=== PATIENT | male | born 1945 | race Caucasian/White ===

== ENCOUNTER → 2016-06-03 | Outpatient (CLI) | payer MEDICARE, OTHER ==
--- NOTE | 2016-06-03 13:03 | US ---
EXAMINATION TYPE: US duplex aorta DATE OF EXAM: 06/03/2016 12:27 PM COMPARISON: CT 2014 CLINICAL HISTORY: SCREENING AAA. EXAM MEASUREMENTS: Abdominal Aorta: Proximal: 1.8 CM Mid: 1.6 CM Distal: 2.0 CM Bifurcation: 1.3 CM IMPRESSION: LARGE BODY HABITUS, OVERLYING BOWEL GAS , DISTAL AORTA PLAQUE SEEN LIMITED DO TO GAS AN D PT HABITUS. No evidence for abdominal aortic aneurysm this time. Normal Values: 2.5cm upper limits for normal at upper portion 1.5cm upper limits for normal at iliac More than 2.5cm is ectatic and 3.0cm+ is aneurysmal. Abdominal Aortic Aneurysms: 3.0-3.9cm diameter: annual US surveillance recommended 4.0-4.9cm diameter: 6 month US surveillance recommended 5.0 +cm: recommendation for elective aneurysm repair in appropriate surgical candidate
--- NOTE | 2016-06-04 10:54 | ECHOF ---
Referral Reason:I51.9 heart dis MEASUREMENTS -------- HEIGHT: 172.7 cm WEIGHT: 95.3 kg BP: IVSd: 1.5 cm (0.6 - 1.1) LVIDd: 5.0 cm (3.9 - 5.3) LVPWd: 1.4 cm (0.6 - 1.1) IVSs: 1.4 cm LVIDs: 3.5 cm LVPWs: 1.3 cm Ao Diam: 3.0 cm (2.0 - 3.7) AV Cusp: 2.0 cm (1.5 - 2.6) LA Diam: 3.2 cm (2.7 - 3.8) MV EXCURSION: 14.577 mm (> 18.000) MV EF SLOPE: 72 mm/s (70 - 150) EPSS: 0.6 cm MV E Varun: 1.11 m/s MV DecT: 232 ms MV A Varun: 0.44 m/s MV E/A Ratio: 2.53 RAP: 5.00 mmHg RVSP: 7.91 mmHg FINDINGS -------- Sinus rhythm. This was a technically difficult study with suboptimal views. There is moderate concentric left ventricular hypertrophy. Overall left ventricular systolic function is mildly impaired with, an EF between 45 - 50 %. Basal inferior LV wall motion is hypokinetic. The right ventricle is normal in size and function. The left atrium is normal in size. The right atrium is normal in size. The aortic valve is trileaflet, and appears structurally normal. No aortic stenosis or regurgitation. The mitral valve leaflets are mildly thickened. Mild mitral regurgitation is present. Mild tricuspid regurgitation present. The right ventricular systolic pressure, as measured by Doppler, is 7.91mmHg. Pulmonic valve appears structurally normal. The aortic root size is normal. The pericardium is normal. CONCLUSIONS -------- 1. Sinus rhythm. 2. The mitral valve leaflets are mildly thickened. 3. Mild mitral regurgitation is present. 4. Mild tricuspid regurgitation present. 5. The right ventricular systolic pressure, as measured by Doppler, is 7.91mmHg. 6. Pulmonic valve appears structurally normal. 7. The aortic root size is normal. 8. The pericardium is normal. 9. This was a technically difficult study with suboptimal views. 10. There is moderate concentric left ventricular hypertrophy. 11. Overall left ventricular systolic function is mildly impaired with, an EF between 45 - 50 %. 12. Basal inferior LV wall motion is hypokinetic. 13. The right ventricle is normal in size and function. 14. The left atrium is normal in size. 15. The right atrium is normal in size. 16. The aortic valve is trileaflet, and appears structurally normal. No aortic stenosis or regurgitation. PROGRAM DIRECTOR [employer]ENT: Cat Posey RDCS
== END | disposition home or self-care (01) ==
LOC: RADUSWWP 11:55
PROVIDERS: ATTEND Family Medicine
DX: Z13.6 Encounter for screening for cardiovascular disorders (principal); I70.0 Atherosclerosis of aorta
CPT/HCPCS: 93979; C8929; Q9957; 93306

== ENCOUNTER 2016-06-27 18:21 | Emergency (ER) | payer MEDICARE, OTHER ==
[2016-06-27 18:30] VITALS: BP 152/69; PULSE 90; RESP 20; TEMP 97.8
[2016-06-27] MEDS ORDERED: LEVOFLOXACIN 500 MG TAB PO STA (18:56)
--- NOTE | 2016-06-27 18:56 | ED ---
General Adult HPI - General Chief complaint: Recheck/Abnormal Lab/Rx Stated complaint: congestion Time Seen by Provider: 06/27/16 18:31 Source: patient, family, RN notes reviewed, old records reviewed Mode of arrival: ambulatory Limitations: no limitations - History of Present Illness Initial comments: Chief complaint and history of present illness this is 71-year-old male was sent emergency room from [facility] for review of his chest x-ray. The patient 's been having aches and pains one week ago recently shortness of breath and cough. Denies fever. Patient has a past history of COPD. He's had pleurisy once a year for the past several years. Old chest x-rays and CAT scans are available for comparison. [facility] also [facility] and placed on the computer for comparison. - Related Data Home Medications Medication Instructions Recorded Confirmed Albuterol Sulfate [Proair Hfa] 1 puff INHALATION DIRECTED 06/29/14 06/29/14 Aspirin EC [Ecotrin] 81 mg PO DAILY 06/29/14 06/29/14 Atorvastatin [Lipitor] 40 mg PO DAILY 06/29/14 06/29/14 Fluticasone/Salmeterol [Advair Hfa 1 puff INHALATION DIRECTED 06/29/14 45-21 Mcg Inhaler] Furosemide [Lasix] 40 mg PO DAILY 06/29/14 06/29/14 Magnesium 1 tab PO DAILY 06/29/14 06/29/14 Multivitamins, Thera [Multivitamin] 1 tab PO DAILY 06/29/14 06/29/14 [place]-3 Fatty Acids [[place]-3] 1 tab PO DAILY 06/29/14 06/29/14 Spironolactone [Spironolactone] 12.5 mg PO DAILY 06/29/14 06/29/14 Ubidecarenone [Co Q-10] 1 tab PO DAILY 06/29/14 06/29/14 Previous Rx's Medication Instructions Recorded Hydrocodone/Acetaminophen [[place] 1 each PO Q6HR PRN #30 tab 06/29/14 5-325] Miconazole Nitrate [Lotrimin AF 1 applic TOPICAL BID #1 dispenser 06/29/14 Powder] Levofloxacin [Levaquin] 500 mg PO DAILY #7 tab 06/27/16 Allergies Allergy/AdvReac Type Severity Reaction Status Date / Time No Known Allergies Allergy Verified 06/27/16 18:30 Review of Systems ROS Statement: Those systems with pertinent positive or pertinent negative responses have been documented in the HPI. Review of systems no complaint of headache or visual acuity changes he coughs for over one week. Mildly productive. Discomfort to the right flank area with coughing. No nausea no vomiting no neuro deficits. All systems were otherwise reviewed are negative. Past medical processing significant for mild COPD, hyperlipidemia, 2 myocardial infarctions the first one in 1989 and 2008. 2089 stop smoking 3 vessel CABG. Other surgeries include right shoulder surgery. Family history father of kidney failure. Patient denies ALLERGIES. Quit smoking 2008. Drinks alcohol socially. ROS Other: All systems not noted in ROS Statement are negative. Past Medical History Past Medical History: COPD, Hyperlipidemia, Myocardial Infarction ([place]) History of Any Multi-Drug Resistant Organisms: None Reported Past Surgical History: Back Surgery, Coronary Bypass/CABG, Hernia Repair, Orthopedic Surgery Additional Past Surgical History / Comment(s): carpal tunnel/ shoulder Past Psychological History: No Psychological Hx Reported Smoking Status: Former smoker Past Alcohol Use History: Rare Past Drug Use History: None Reported General Exam - General Exam Comments Initial Comments: General: The patient is awake and alert, hip because of coughing for one week. Aches and pains one week ago. His immunizations including flu shot are up-to-date. Vital signs show temperature 97.8 pulse 90 respiratory rate 20 pulse ox 96% room air blood pressure 152/69. Elevated systolic noted. The patient is to be following up with his family physician next 1-2 weeks. Eye: Pupils are equal, round and reactive to light, extra-ocular movements are intact ; there is normal conjunctiva bilaterally. No signs of icterus. History of cataract surgery. Ears, nose, mouth and throat: There are moist mucous membranes and no oral lesions. Neck: The neck is supple, there is no tenderness , no anterior cervical lymphadenopathy. Cardiovascular: There is a regular rate and rhythm. No murmur, rub or gallop is appreciated. Respiratory: Crepitant rales left base. Gastrointestinal: Soft, non-distended, non-tender abdomen without masses or organomegaly noted. There is no rebound or guarding present. No CVA tenderness. Back: There is no tenderness to palpation in the midline. There is no obvious deformity. No rashes noted. Mild on-again off-again discomfort to the right lateral abdominal area. None now. Musculoskeletal: Normal ROM, no tenderness, There is no pedal edema. There is no calf tenderness or swelling. Sensation intact. Pulses equal bilaterally 2+. Neurological: No neuro deficit Skin: No skin rashes Limitations: no limitations Course Vital Signs 06/27/16 18:27 Temperature 97.8 F Pulse Rate 90 Respiratory 20 Rate Blood Pressure 152/69 O2 Sat by Pulse 96 Oximetry Medical Decision Making - Medical Decision Making Reviewed the x-ray provided by the [facility]. Comparing them to x- rays from [address] the chest. They're similar except today's x-ray does show left lower lobe infiltrate. Clinically the patient has crepitant rales in that same area. Patient be placed on Levaquin 500 daily for one week. Also advised to follow-up with family physician. Disposition Clinical Impression: Infiltrate noted on imaging study Disposition: HOME SELF-CARE Condition: Stable Instructions: Bacterial Pneumonia (ED) Additional Instructions: Stay well-hydrated. Tylenol or ibuprofen for fever or pain. Levaquin daily for 1 week. Suggested they get repeat chest x-ray within 2 weeks make sure infiltrate is gone. Prescriptions: Levofloxacin [Levaquin] 500 mg PO DAILY #7 tab Time of Disposition: 18:55
== END 2016-06-27 19:19 | disposition home or self-care (01) ==
LOC: EC 18:21
DX: J15.9 Unspecified bacterial pneumonia (principal); R91.8 Other nonspecific abnormal finding of lung field; R06.02 Shortness of breath; J44.9 Chronic obstructive pulmonary disease, unspecified; E78.5 Hyperlipidemia, unspecified; I25.2 Old myocardial infarction; Z87.891 Personal history of nicotine dependence; Z79.82 Long term (current) use of aspirin; Z79.899 Other long term (current) drug therapy
CPT/HCPCS: 99283

== ENCOUNTER → 2016-07-30 | Outpatient (CLI) | payer MEDICARE, OTHER ==
--- NOTE | 2016-07-30 13:55 | CT ---
EXAMINATION TYPE: CT chest wo con DATE OF EXAM: 07/30/2016 1:46 PM COMPARISON: NONE HISTORY: Lobar Pneumonia CT DLP: 525.6 mGycm, Automated exposure control for dose reduction was used. CONTRAST: None TECHNIQUE: Axial images were obtained at 5 mm thick sections. Reconstructed images are reviewed on [email or web address] computer in the coronal plane. FINDINGS: Portion of the thyroid visualized is normal. There is some minimal pleural thickening along the anterior lateral right midlung margin measuring 0. 5 cm in maximum depth. This was present previously. Scarring at the anterior lingula is stable the ba se. There is a borderline 1.0 cm right paratracheal lymph node. Additional shotty lymphadenopathy is pre sent. The ascending aorta diameter at the level of the main pulmonary artery is 3.5 cm. The main pul monary artery diameter at the bifurcation is 2.1 cm. Coronary artery calcification is noted. Limited CT sections are obtained through the upper abdomen. Abdomen is essentially unremarkable. IMPRESSIONS: 1. Stable appearance of the CT chest.
== END | disposition home or self-care (01) ==
LOC: RADCTMAIN 12:50
PROVIDERS: ATTEND Internal Medicine Critical Care Medicine
DX: J18.1 Lobar pneumonia, unspecified organism (principal)
CPT/HCPCS: 71020; 71250; 99213

== ENCOUNTER 2016-12-21 11:38 | Inpatient (IN) | payer MEDICARE, OTHER ==
[2016-12-21] MEDS ORDERED: methylPREDNISolone SOD SUCCI 125 MG/2 ML VIAL IV STA (12:00)
[2016-12-21] MEDS ORDERED: IPRATROPIUM-ALBUTEROL 3 ML NEB INHALATION STA (12:00)
--- NOTE | 2016-12-21 12:05 | ED ---
SOB HPI - General Chief Complaint: Shortness of Breath Stated Complaint: PRASANNA Time Seen by Provider: 12/21/16 11:50 Source: patient, RN notes reviewed Mode of arrival: wheelchair Limitations: no limitations - History of Present Illness Initial Comments: This is a 71-year-old male with a history of chronic lung disease who presents with complaints of 4 days of shortness of breath which got especially bad today she has exertional dyspnea. He also states for the past for 5 days and 90s had rate posterior shoulder pain that felt similar to his rotator cuff being injured. He is pain-free right elbow when he has a pain states is 20/10 severity. He has a chronic cough of phlegm production is no change in the phlegm color. No other complaints at this time the shortness of breath has been refractory to his home updrafts. Complaint: shortness of breath - Related Data Home Medications Medication Instructions Recorded Confirmed Aspirin EC [Ecotrin] 81 mg PO DAILY 06/29/14 06/27/16 Atorvastatin [Lipitor] 40 mg PO DAILY 06/29/14 06/27/16 Furosemide [Lasix] 40 mg PO DAILY 06/29/14 06/27/16 Magnesium 200 mg PO DAILY 06/29/14 06/27/16 Multivitamins, Thera [Multivitamin] 1 tab PO DAILY 06/29/14 06/27/16 [place]-3 Fatty Acids [[place]-3] 1,000 mg PO DAILY 06/29/14 06/27/16 Spironolactone [Spironolactone] 12.5 mg PO DAILY 06/29/14 06/27/16 Ubidecarenone [Co Q-10] 100 mg PO DAILY 06/29/14 06/27/16 Previous Rx's Medication Instructions Recorded Miconazole Nitrate [Lotrimin AF 1 applic TOPICAL BID #1 dispenser 06/29/14 Powder] Levofloxacin [Levaquin] 500 mg PO DAILY #7 tab 06/27/16 Allergies Allergy/AdvReac Type Severity Reaction Status Date / Time No Known Allergies Allergy Verified 12/21/16 11:44 Review of Systems ROS Statement: Those systems with pertinent positive or pertinent negative responses have been documented in the HPI. ROS Other: All systems not noted in ROS Statement are negative. Past Medical History Past Medical History: COPD, Hyperlipidemia, Hypertension, Myocardial Infarction ([place]) History of Any Multi-Drug Resistant Organisms: None Reported Past Surgical History: Back Surgery, Coronary Bypass/CABG, Hernia Repair, Orthopedic Surgery Additional Past Surgical History / Comment(s): carpal tunnel/ shoulder Past Psychological History: No Psychological Hx Reported Smoking Status: Former smoker Past Alcohol Use History: Rare Past Drug Use History: None Reported General Exam - General Exam Comments Initial Comments: This is a well-developed well-nourished awake alert oriented times 3 male Limitations: no limitations General appearance: alert, anxious Head exam: Present: atraumatic, normocephalic, normal inspection Eye exam: Present: normal appearance, PERRL, EOMI. Absent: scleral icterus, conjunctival injection, periorbital swelling ENT exam: Present: normal exam, mucous membranes moist Neck exam: Present: normal inspection. Absent: tenderness, meningismus, lymphadenopathy Respiratory exam: Present: decreased breath sounds. Absent: respiratory distress, wheezes, rales, rhonchi, stridor Cardiovascular Exam: Present: regular rate, normal rhythm, normal heart sounds. Absent: systolic murmur, diastolic murmur, rubs, gallop, clicks GI/Abdominal exam: Present: soft, normal bowel sounds. Absent: distended, tenderness, guarding, rebound, rigid Extremities exam: Present: normal inspection, full ROM, normal capillary refill. Absent: tenderness, pedal edema, joint swelling, calf tenderness Back exam: Present: normal inspection Neurological exam: Present: alert, oriented X3, CN II-XII intact Psychiatric exam: Present: normal affect, normal mood Skin exam: Present: warm, dry, intact, normal color. Absent: rash Course Vital Signs 12/21/16 12/21/16 12/21/16 11:41 12:09 12:22 Temperature 97.0 F L Pulse Rate 65 66 Respiratory 20 18 20 Rate Blood Pressure 175/82 185/88 O2 Sat by Pulse 96 100 Oximetry 12/21/16 12/21/16 12:25 12:35 Temperature Pulse Rate 68 76 Respiratory Rate Blood Pressure O2 Sat by Pulse Oximetry - Reevaluation(s) Reevaluation #1: 12/21/16 13:09 Patient is showing improvement with respect to breathing no chest pain. Medical Decision Making - Medical Decision Making I did discuss findings with the patient family members regarding the findings. Patient has no demonstrate no chest pain his breathing has improved somewhat. He does demonstrate an elevated troponin he will be admitted for evaluation by cardiology. - Lab Data Result diagrams: 12/21/16 11:50 12/21/16 11:50 Lab Results 12/21/16 12/21/16 12/21/16 Range/Units 11:50 11:50 11:50 WBC (3.8-10.6) k/uL RBC (4.30-5.90) m/uL Hgb (13.0-17.5) gm/dL Hct (39.0-53.0) % MCV (80.0-100.0) fL MCH (25.0-35.0) pg MCHC (31.0-37.0) g/dL RDW (11.5-15.5) % Plt Count (150-450) k/uL Neutrophils % % Lymphocytes % % Monocytes % % Eosinophils % % Basophils % % Neutrophils # (1.3-7.7) k/uL Lymphocytes # (1.0-4.8) k/uL Monocytes # (0-1.0) k/uL Eosinophils # (0-0.7) k/uL Basophils # (0-0.2) k/uL PT 10.3 (9.0-12.0) sec INR 1.0 (<1.2) APTT 23.7 (22.0-30.0) sec D-Dimer 0.58 (<0.60) mg/L FEU Sodium 142 (137-145) mmol/L Potassium 4.4 (3.5-5.1) mmol/L Chloride 99 (98-107) mmol/L Carbon Dioxide 31 H (22-30) mmol/L Anion Gap 12 mmol/L BUN 28 H (9-20) mg/dL Creatinine 1.65 H (0.66-1.25) mg/dL Est GFR (MDRD) Af Amer 50 (>60 ml/min/1.73 sqM) Est GFR (MDRD) Non-Af 41 (>60 ml/min/1.73 sqM) Glucose 87 (74-99) mg/dL Calcium 9.6 (8.4-10.2) mg/dL Magnesium 2.0 (1.6-2.3) mg/dL Total Bilirubin 1.1 (0.2-1.3) mg/dL AST 40 (17-59) U/L ALT 42 (21-72) U/L Alkaline Phosphatase 78 (38-126) U/L Total Creatine Kinase (55-170) U/L CK-MB (CK-2) (0.0-2.4) ng/mL CK-MB (CK-2) Rel Index Troponin I (0.000-0.034) ng/mL NT-Pro-B Natriuret Pep 4770 pg/mL Total Protein 8.2 (6.3-8.2) g/dL Albumin 4.9 (3.5-5.0) g/dL Amylase 63 (30-110) U/L Lipase 82 (23-300) U/L 12/21/16 12/21/16 Range/Units 11:50 11:50 WBC 6.4 (3.8-10.6) k/uL RBC 5.09 (4.30-5.90) m/uL Hgb 16.2 (13.0-17.5) gm/dL Hct 48.4 (39.0-53.0) % MCV 95.1 (80.0-100.0) fL MCH 31.9 (25.0-35.0) pg MCHC 33.5 (31.0-37.0) g/dL RDW 13.7 (11.5-15.5) % Plt Count 237 (150-450) k/uL Neutrophils % 68 % Lymphocytes % 22 % Monocytes % 6 % Eosinophils % 3 % Basophils % 0 % Neutrophils # 4.3 (1.3-7.7) k/uL Lymphocytes # 1.4 (1.0-4.8) k/uL Monocytes # 0.4 (0-1.0) k/uL Eosinophils # 0.2 (0-0.7) k/uL Basophils # 0.0 (0-0.2) k/uL PT (9.0-12.0) sec INR (<1.2) APTT (22.0-30.0) sec D-Dimer (<0.60) mg/L FEU Sodium (137-145) mmol/L Potassium (3.5-5.1) mmol/L Chloride (98-107) mmol/L Carbon Dioxide (22-30) mmol/L Anion Gap mmol/L BUN (9-20) mg/dL Creatinine (0.66-1.25) mg/dL Est GFR (MDRD) Af Amer (>60 ml/min/1.73 sqM) Est GFR (MDRD) Non-Af (>60 ml/min/1.73 sqM) Glucose (74-99) mg/dL Calcium (8.4-10.2) mg/dL Magnesium (1.6-2.3) mg/dL Total Bilirubin (0.2-1.3) mg/dL AST (17-59) U/L ALT (21-72) U/L Alkaline Phosphatase (38-126) U/L Total Creatine Kinase 511 H (55-170) U/L CK-MB (CK-2) 9.2 H* (0.0-2.4) ng/mL CK-MB (CK-2) Rel Index 1.8 Troponin I 0.075 H* (0.000-0.034) ng/mL NT-Pro-B Natriuret Pep pg/mL Total Protein (6.3-8.2) g/dL Albumin (3.5-5.0) g/dL Amylase (30-110) U/L Lipase (23-300) U/L - EKG Data -: EKG Interpreted by Tn EKG shows normal: sinus rhythm (Sinus rhythm rate of 80 IA interval 168 QRS 84 daily since QTC of 42/463 moderate voltage criteria for LVH old inferior changes nonspecific T-wave changes this is compared with EKG dated 12/08/10) - Radiology Data Radiology results: report reviewed (I did review the imaging and reports no acute findings.), image reviewed Critical Care Time Critical Care Time: Yes Critical Care Time: 31 minutes of critical care time which includes initial presentation with history physical labs x-rays reevaluation patient response to therapy. Discussed with the patient family regarding findings discussed with the admitting service. Admission orders and documentation of the above. Disposition Clinical Impression: Non-ST elevation myocardial infarction (NSTEMI), Acute exacerbation of chronic obstructive airways disease, Adult respiratory distress syndrome Disposition: ADMITTED IP TO THIS HOSP Condition: Stable Referrals: Feliz El MD [Primary Care Provider] - 1-2 days
[2016-12-21 12:18] LABS: Basophils % (A) 0 %; CH 31.3; Eosinophils # (A) 0.2 k/uL (0-0.7); Eosinophils % (A) 3 %; HCT 48.4 % (39.0-53.0); HDW 2.41; HGB 16.2 gm/dL (13.0-17.5); Luc # (Auto) 0.11; Luc % (Auto) 2; Lymphocytes # (A) 1.4 k/uL (1.0-4.8); Lymphocytes % (A) 22 %; MCH 31.9 pg (25.0-35.0); MCHC 33.5 g/dL (31.0-37.0); MCV 95.1 fL (80.0-100.0); Mean Platelet Volume 7.5; Monocytes # (A) 0.4 k/uL (0-1.0); Monocytes % (A) 6 %; Neutrophils # (A) 4.3 k/uL (1.3-7.7); Neutrophils % (A) 68 %; RBC 5.09 m/uL (4.30-5.90); RDW 13.7 % (11.5-15.5); WBC 6.4 k/uL (3.8-10.6); WBC (Perox) 6.23
[2016-12-21 12:27] LABS: Calcium 9.6 mg/dL (8.4-10.2); Potassium 4.4 mmol/L (3.5-5.1); Total Bilirubin 1.1 mg/dL (0.2-1.3); Total Protein 8.2 g/dL (6.3-8.2)
--- NOTE | 2016-12-21 12:35 | XR ---
EXAMINATION TYPE: XR chest 2V DATE OF EXAM: 12/21/2016 COMPARISON: 07/30/2016 and 06/10/2014 HISTORY: 71-year-old male difficulty breathing, shortness of breath TECHNIQUE: AP and lateral views FINDINGS: Median sternotomy wires are present with post-CABG clips. The heart is upper limits of normal in size . Mild interstitial prominence appears largely chronic. Opacity at the left base with corresponding p leural-based thickening was present in 2015. No ureteric consolidation or pleural effusion seen. IMPRESSION: 1. Chronic interstitial prominence, possible chronic bronchitis/asthma. 2. Left basilar opacity is unchanged from 2015 suggesting pleural parenchymal scarring. 3. No definite acute process.
[2016-12-21 12:52] LABS: Partial Thromboplastin Time 23.7 sec (22.0-30.0); Prothrombin Time 10.3 sec (9.0-12.0)
[2016-12-21 12:55] LABS: Creatine Kinase MB 9.2 ng/mL (0.0-2.4); Troponin I 0.075 ng/mL (0.000-0.034)
[2016-12-21] MEDS ORDERED: HEPARIN SODIUM,PORCINE 5,000 UNIT/ML 1 ML VIAL IV ONE (13:13)
[2016-12-21] MEDS: SODIUM CHLORIDE 0.9% 1,000 ML IV SCH (13:40)
[2016-12-21] MEDS: HEPARIN SODIUM,PORCINE/D5W PMX 25,000 UNIT in DEXTROSE/WATER 1 500ML.BAG IV SCH (13:42)
[2016-12-21] MEDS: NITROGLYCERIN OINT 1 INCH/GM PACKET TOPICAL SCH ×2 (14:23→23:21)
[2016-12-21] MEDS ORDERED: FUROSEMIDE 10 MG/ML 4 ML VIAL IV STA ×2 (14:26→14:29)
[2016-12-21] MEDS ORDERED: ASPIRIN 81 MG CHEW PO PRN (14:32)
--- NOTE | 2016-12-21 14:40 | P.HPIM ---
History of Present Illness 71-year-old male presented to the emergency room with complaints of shortness of breath for three days. Patient was found to have elevated troponins. Patient hypertensive at this time. Patient said he has had a lot of stress this week. Patient is a history of [place] post CABG with history of renal failure since the CABG. Patient sees Dr. Barnes for COPD. She's cardiology [facility] for history of CAD. Patient will be admitted for cardiac workup and consultation with pulmonology Review of Systems Respiratory: Reports dyspnea Musculoskeletal: right: shoulder pain Past Medical History Past Medical History: COPD, Hyperlipidemia, Hypertension, Myocardial Infarction ([place]) History of Any Multi-Drug Resistant Organisms: None Reported Past Surgical History: Back Surgery, Coronary Bypass/CABG, Hernia Repair, Orthopedic Surgery Additional Past Surgical History / Comment(s): carpal tunnel/ shoulder Past Psychological History: No Psychological Hx Reported Smoking Status: Former smoker Past Alcohol Use History: Rare Past Drug Use History: None Reported Medications and Allergies Home Medications Medication Instructions Recorded Confirmed Type Aspirin EC [Ecotrin] 81 mg PO DAILY PRN 06/29/14 12/21/16 History Atorvastatin [Lipitor] 40 mg PO HS 06/29/14 12/21/16 History Furosemide [Lasix] 40 mg PO DAILY 06/29/14 12/21/16 History Multivitamins, Thera [Multivitamin] 1 tab PO DAILY 06/29/14 12/21/16 History Spironolactone [Spironolactone] 12.5 mg PO DAILY 06/29/14 12/21/16 History Ubidecarenone [Co Q-10] 100 mg PO DAILY 06/29/14 12/21/16 History Allergies Allergy/AdvReac Type Severity Reaction Status Date / Time No Known Allergies Allergy Verified 12/21/16 13:23 Physical Exam Vitals: Vital Signs Temp Pulse Resp BP Pulse Ox 12/21/16 14:22 76 18 199/99 98 12/21/16 13:38 97.3 F L 72 18 191/84 97 12/21/16 12:35 76 12/21/16 12:25 68 12/21/16 12:22 66 20 185/88 100 12/21/16 12:09 18 12/21/16 11:41 97.0 F L 65 20 175/82 96 Intake and Output 12/20/16 12/21/16 12/21/16 22:59 06:59 14:59 Other: Weight 95.254 kg Patient Weight 12/22/16 06:59 Weight 95.254 kg - Constitutional General appearance: obese - EENT Eyes: PERRLA ENT: normal oropharynx Ears: bilateral: normal - Neck Neck: normal ROM - Respiratory Respiratory: bilateral: diminished - Cardiovascular Rhythm: regular - Gastrointestinal General gastrointestinal: soft - Integumentary Integumentary: normal - Neurologic Neurologic: CNII-XII intact - Psychiatric Psychiatric: A&O x's 3, appropriate affect, intact judgment & insight Results CBC & Chem 7: 12/21/16 11:50 12/21/16 11:50 Labs: Abnormal Lab Results - Last 24 Hours (Table) 12/21/16 12/21/16 Range/Units 11:50 11:50 Carbon Dioxide 31 H (22-30) mmol/L BUN 28 H (9-20) mg/dL Creatinine 1.65 H (0.66-1.25) mg/dL Total Creatine Kinase 511 H (55-170) U/L CK-MB (CK-2) 9.2 H* (0.0-2.4) ng/mL Troponin I 0.075 H* (0.000-0.034) ng/mL Chest x-ray: report reviewed Assessment and Plan Plan: Assessment non-ST elevation [place] is demonstrate by elevated troponin acute exacerbation of COPD hypertension history of hyperlipidemia history of [place] posts CABG chronic renal failure stable right shoulder pain Plan cardiology consultation consultation with pulmonology Dr. Barnes
--- NOTE | 2016-12-21 15:50 | P.CRDCN ---
History of Present Illness Consult date: 12/21/16 History of present illness: This is a 71-year-old gentleman with history of ischemic heart disease with a previous bypass surgery 2 and also COPD who was admitted to the hospital with complaints of increasing shortness of breath. It seems to make it was getting progressively worse, but this morning when he woke up he could not walk, without getting short of breath, even 10 feet. Patient denied any chest pain but was having severe right shoulder pain. Patient had bypass surgery in 1996 with a MADRID graft to the LAD, vein graft to the right coronary artery and also circumflex coronary artery. In 2008. Patient had repeat cardiac catheterization and repeat bypass surgery with vein graft to the first diagonal , vein graft to the OM branch of circumflex and vein graft to the right coronary artery. Patient was noted at the time and to have 70-80% ostial left main disease. Patient had a patent MADRID. Patient comes now with complaints of increasing shortness of breath. His first troponin value is elevated. His chest x-ray showed possible mild CHF though there could be an exacerbation of COPD. Patient is treated with IV Lasix and is being admitted to the hospital. Further examination depend upon the clinical course. Patient is going to have additional troponins and also echocardiogram. 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 Past Medical History Past Medical History: COPD, Hyperlipidemia, Hypertension, Myocardial Infarction ([place]) History of Any Multi-Drug Resistant Organisms: None Reported Past Surgical History: Back Surgery, Coronary Bypass/CABG, Hernia Repair, Orthopedic Surgery Additional Past Surgical History / Comment(s): carpal tunnel/ shoulder Past Psychological History: No Psychological Hx Reported Smoking Status: Former smoker Past Alcohol Use History: Rare Past Drug Use History: None Reported Medications and Allergies Home Medications Medication Instructions Recorded Confirmed Type Aspirin EC [Ecotrin] 81 mg PO DAILY PRN 06/29/14 12/21/16 History Atorvastatin [Lipitor] 40 mg PO HS 06/29/14 12/21/16 History Furosemide [Lasix] 40 mg PO DAILY 06/29/14 12/21/16 History Multivitamins, Thera [Multivitamin] 1 tab PO DAILY 06/29/14 12/21/16 History Spironolactone [Spironolactone] 12.5 mg PO DAILY 06/29/14 12/21/16 History Ubidecarenone [Co Q-10] 100 mg PO DAILY 06/29/14 12/21/16 History Allergies Allergy/AdvReac Type Severity Reaction Status Date / Time No Known Allergies Allergy Verified 12/21/16 13:23 Physical Exam Vitals: Vital Signs Temp Pulse Resp BP Pulse Ox 12/21/16 14:50 85 18 186/87 98 12/21/16 14:22 76 18 199/99 98 12/21/16 13:38 97.3 F L 72 18 191/84 97 12/21/16 12:35 76 12/21/16 12:25 68 12/21/16 12:22 66 20 185/88 100 12/21/16 12:09 18 12/21/16 11:41 97.0 F L 65 20 175/82 96 Intake and Output 12/21/16 12/21/16 12/21/16 06:59 14:59 22:59 Intake Total 20 Balance 20 Intake: Intake, IV Titration 20 Amount Sodium Chloride 0.9% 1, 20 000 ml @ 20 mls/hr IV . Q24H [facility] Rx#:[id number] Other: Weight 95.254 kg Patient Weight 12/22/16 06:59 Weight 95.254 kg GENERAL EXAM: Patient is alert and oriented and doesn't appear to be in any acute distress HEENT: Normocephalic. Normal reaction of pupils, equal size, normal range of extraocular motion. No erythema or exudates in the throat. NECK: No masses, no nuchal rigidity. No Sigmund JVD CHEST: No chest wall deformity. LUNGS: Diminished air exchange with scattered rhonchi HEART: S1 and S2 normal with no audible mumurs or gallops. Regular rhythm, femorals equal on both sides.. ABDOMEN: No hepatosplenomegaly, normal bowel sounds, no guarding or rigidity. SKIN: No rashes CENTRAL NERVOUS SYSTEM: No focal deficits. EXTREMITIES: No cyanosis, clubbing or edema. Results 12/21/16 11:50 12/21/16 11:50 Cardiac Enzymes 12/21/16 12/21/16 Range/Units 11:50 11:50 AST 40 (17-59) U/L CK-MB (CK-2) 9.2 H* (0.0-2.4) ng/mL Troponin I 0.075 H* (0.000-0.034) ng/mL Coagulation 12/21/16 Range/Units 11:50 PT 10.3 (9.0-12.0) sec APTT 23.7 (22.0-30.0) sec CBC 12/21/16 Range/Units 11:50 WBC 6.4 (3.8-10.6) k/uL RBC 5.09 (4.30-5.90) m/uL Hgb 16.2 (13.0-17.5) gm/dL Hct 48.4 (39.0-53.0) % Plt Count 237 (150-450) k/uL Comprehensive Metabolic Panel 12/21/16 Range/Units 11:50 Sodium 142 (137-145) mmol/L Potassium 4.4 (3.5-5.1) mmol/L Chloride 99 (98-107) mmol/L Carbon Dioxide 31 H (22-30) mmol/L BUN 28 H (9-20) mg/dL Creatinine 1.65 H (0.66-1.25) mg/dL Glucose 87 (74-99) mg/dL Calcium 9.6 (8.4-10.2) mg/dL AST 40 (17-59) U/L ALT 42 (21-72) U/L Alkaline Phosphatase 78 (38-126) U/L Total Protein 8.2 (6.3-8.2) g/dL Albumin 4.9 (3.5-5.0) g/dL Current Medications Generic Name Dose Route Start Last Admin Trade Name Freq PRN Reason Stop Dose Admin Albuterol/Ipratropium 3 ml 12/21/16 16:00 Duoneb 0.5 Mg-3 Mg/3 Ml Soln INHALATION RT-Q4H [facility] Aspirin 325 mg 12/22/16 09:00 Aspirin PO DAILY [facility] Aspirin 81 mg 12/21/16 14:32 Aspirin PO DAILY PRN Pain Atorvastatin Calcium 40 mg 12/22/16 09:00 Lipitor PO DAILY [facility] Furosemide 40 mg 12/21/16 16:00 Lasix PO BID@0900,1600 [facility] Heparin Sodium/Dextrose 25,000 500 mls @ 20 mls/hr 12/21/16 13:15 12/21/16 13 :42 unit/ IV Solution IV 10.5 units/kg/hr .Q24H [facility] 20 mls/hr Protocol Administration 10.5 UNITS/KG/HR Sodium Chloride 1,000 mls @ 20 mls/hr 12/21/16 13:15 12/21/16 13:40 Saline 0.9% IV 20 mls/hr .Q24H [facility] Administration Magnesium Oxide 400 mg 12/22/16 09:00 Mag-Ox PO DAILY [facility] Methylprednisolone Sodium Succinate 60 mg 12/21/16 18:00 Solu-Medrol IV Q6HR [facility] Multivitamins 1 each 12/22/16 09:00 Theragran PO DAILY [facility] Nitroglycerin 1 inch 12/21/16 18:00 12/21/16 14:23 Nitro-Bid Oint TOPICAL 1 inch Q6HR [facility] Administration Nitroglycerin 0.4 mg 12/21/16 13:13 Nitrostat SUBLINGUAL Q5M PRN Chest Pain Spironolactone 12.5 mg 12/22/16 09:00 Aldactone PO DAILY [facility] Intake and Output 12/21/16 12/21/16 12/21/16 06:59 14:59 22:59 Intake Total 20 Balance 20 Intake: Intake, IV Titration 20 Amount Sodium Chloride 0.9% 1, 20 000 ml @ 20 mls/hr IV . Q24H [facility] Rx#:[id number] Other: Weight 95.254 kg Patient Weight 12/22/16 06:59 Weight 95.254 kg 12/21/16 11:50 12/21/16 11:50 EKG Interpretations (text) Sinus rhythm Assessment and Plan (1) Congestive heart failure Status: Acute (2) Acute exacerbation of chronic obstructive airways disease Status: Acute (3) Ischemic heart disease Status: Acute (4) H/O heart bypass surgery Status: Acute (5) Dyslipidemia Status: Acute (6) Chronic renal failure Status: Acute Plan: Continue current management. Follow-up cardiac enzymes studies. Get an echocardiogram done. Further recommendation will depend upon the clinical course. If cardiac enzymes are size to be myocardial infarction, patient may need cardiac catheterization.
[2016-12-21] MEDS: IPRATROPIUM-ALBUTEROL 3 ML NEB INHALATION SCH ×2 (16:35→21:24)
--- NOTE | 2016-12-21 16:44 | XR ---
EXAMINATION TYPE: XR shoulder complete RT DATE OF EXAM: 12/21/2016 CLINICAL HISTORY: pain TECHNIQUE: Three views of the right shoulder are obtained. COMPARISON: 04/08/2013 FINDINGS: There is no acute fracture/dislocation evident. The acromioclavicular and glenohumeral tyrone int spaces appear mildly narrowed.. The visualized ribs are intact and unremarkable. IMPRESSION: 1. There is no acute fracture or dislocation. ICD 10 NO FRACTURE, INITIAL EVALUATION
[2016-12-21] MEDS: INSULIN LISPRO (humaLOG) 300 UNIT/3 ML VIAL SQ SCH ×2 (17:20→21:53)
[2016-12-21] MEDS: methylPREDNISolone SOD SUCCI 125 MG/2 ML VIAL IV SCH ×2 (17:23→21:54)
[2016-12-21] MEDS: FUROSEMIDE 40 MG TAB PO SCH (17:23)
[2016-12-21 20:09] LABS: Glucose,Whole Blood 119 mg/dL (75-99)
[2016-12-21 20:20] LABS: Creatine Kinase MB 7.6 ng/mL (0.0-2.4); Troponin I 0.056 ng/mL (0.000-0.034)
[2016-12-21 20:27] LABS: Hemoglobin A1C 5.8 % (4.2-6.1)
[2016-12-21 20:35] LABS: Glucose,Whole Blood 245 mg/dL (75-99)
[2016-12-21] MEDS ORDERED: IPRATROPIUM-ALBUTEROL 3 ML NEB INHALATION PRN (21:28)
[2016-12-21] MEDS ORDERED: HEPARIN SODIUM,PORCINE 5,000 UNIT/ML 1 ML VIAL IV PRN (22:06)
[2016-12-22 00:30] LABS: Creatine Kinase MB 6.9 ng/mL (0.0-2.4); Troponin I 0.051 ng/mL (0.000-0.034)
[2016-12-22 06:33] LABS: Glucose,Whole Blood 143 mg/dL (75-99)
[2016-12-22 06:47] LABS: Cholesterol 155 mg/dL (<200); Triglycerides 54 mg/dL (<150)
[2016-12-22 06:48] LABS: HDL Cholesterol 59 mg/dL (40-60)
[2016-12-22] MEDS: methylPREDNISolone SOD SUCCI 125 MG/2 ML VIAL IV SCH ×4 (06:49→23:03)
[2016-12-22] MEDS: INSULIN LISPRO (humaLOG) 300 UNIT/3 ML VIAL SQ SCH ×4 (06:50→23:03)
[2016-12-22] MEDS: NITROGLYCERIN OINT 1 INCH/GM PACKET TOPICAL SCH (06:50)
[2016-12-22] MEDS ORDERED: ASPIRIN 325 MG TAB PO SCH (09:00)
[2016-12-22] MEDS ORDERED: NON-FORMULARY DRUG (Ubidecarenone [Co Q-10] 100 MG) PO SCH (09:00)
[2016-12-22] MEDS ORDERED: FUROSEMIDE 40 MG TAB PO SCH (09:00)
[2016-12-22] MEDS: IPRATROPIUM-ALBUTEROL 3 ML NEB INHALATION SCH ×4 (09:01→20:37)
--- NOTE | 2016-12-22 09:48 | P.PN ---
Subjective Patient resting in bed without complaint states shoulder pain is improved. Has had consultation with cardiology. They're reviewing the need for cardiac cath Objective - Vital Signs Vital signs: Vital Signs Temp 97.1 F L 12/22/16 08:25 Pulse 84 12/22/16 09:17 Resp 16 12/22/16 08:25 BP 143/87 12/22/16 08:25 Pulse Ox 96 12/22/16 08:25 Intake & Output 12/21/16 12/22/16 12/22/16 18:59 06:59 18:59 Intake Total 20 405 Output Total 300 300 Balance -280 405 -300 Weight 95.254 kg Intake: Intake, IV Titration 20 168 Amount Heparin Sodium,Porcine/ 168 D5w Pmx 25,000 unit In Dextrose/Water 1 500ml. bag @ 10.5 UNITS/KG/HR 20 mls/hr IV .Q24H [facility] Rx#: [id number] Sodium Chloride 0.9% 1, 20 000 ml @ 20 mls/hr IV . Q24H [facility] Rx#:[id number] Oral 237 Output: Urine 300 300 - Constitutional General appearance: Present: obese - EENT Eyes: Present: PERRLA Ears: bilateral: normal - Neck Neck: Present: normal ROM - Respiratory Respiratory: bilateral: CTA - Cardiovascular Rhythm: regular - Gastrointestinal General gastrointestinal: Present: soft - Integumentary Integumentary: Present: normal - Neurologic Neurologic: Present: CNII-XII intact - Musculoskeletal Musculoskeletal: Present: gait normal - Psychiatric Psychiatric: Present: A&O x's 3, appropriate affect, intact judgment & insight - Labs CBC & Chem 7: 12/21/16 11:50 12/21/16 11:50 Labs: Abnormal Lab Results - Last 24 Hours (Table) 12/21/16 12/21/16 12/21/16 Range/Units 11:50 11:50 16:57 APTT (22.0-30.0) sec Carbon Dioxide 31 H (22-30) mmol/L BUN 28 H (9-20) mg/dL Creatinine 1.65 H (0.66-1.25) mg/dL POC Glucose (mg/dL) 119 H (75-99) mg/dL Total Creatine Kinase 511 H (55-170) U/L CK-MB (CK-2) 9.2 H* (0.0-2.4) ng/mL Troponin I 0.075 H* (0.000-0.034) ng/mL 12/21/16 12/21/16 12/21/16 Range/Units 19:03 19:03 20:33 APTT 37.6 H (22.0-30.0) sec Carbon Dioxide (22-30) mmol/L BUN (9-20) mg/dL Creatinine (0.66-1.25) mg/dL POC Glucose (mg/dL) 245 H (75-99) mg/dL Total Creatine Kinase 406 H (55-170) U/L CK-MB (CK-2) 7.6 H* (0.0-2.4) ng/mL Troponin I 0.056 H* (0.000-0.034) ng/mL 12/21/16 12/22/16 12/22/16 Range/Units 23:29 05:30 06:13 APTT 50.2 H (22.0-30.0) sec Carbon Dioxide (22-30) mmol/L BUN (9-20) mg/dL Creatinine (0.66-1.25) mg/dL POC Glucose (mg/dL) 143 H (75-99) mg/dL Total Creatine Kinase 394 H (55-170) U/L CK-MB (CK-2) 6.9 H* (0.0-2.4) ng/mL Troponin I 0.051 H* (0.000-0.034) ng/mL Assessment and Plan Plan: Assessment CHF awaiting report from echo Acute exacerbation of COPD Elevated troponin levels History of [place] post CABG Hyperlipidemia Chronic renal failure stable develop post CABG Shoulder pain mild arthritis Hypertension Plan Continue consultation with cardiology Consultation with pulmonology regarding COPD
--- NOTE | 2016-12-22 10:03 | CDI ---
In responding to this query, please exercise your independent professional judgment. The [facility] Coding Staff and Clinical Documentation Specialists appreciate your assistance in clarifying documentation, maintaining compliance with coding guidelines, accurately documenting patients condition and capturing severity of illness. The fact that a question is asked does not imply that any particular answer is desired or expected. Communication forms are a method of clarifying documentation and are not made part of the Legal Health Record. Thank you in advance for your clarification. Last Revision, July 2016 Pancho Carrera [address] [place] [address] Documentation Clarification Form Date: 12/22/2016 9:42:00 AM From: Tanya Santos RN, CCDS Admit Date: 12/21/2016 1:13:00 PM Patient Name: Dennys Cuevas Visit Number: [id number] Dr. Seda Cardenas/Sugar Faye DNP CHF is documented in the Cardiology Consult. History/Risk Factors: Ischemic heart disease, CABG x2, COPD, NH, Former Smoker Clinical Indicators: VS/Pulse OX: Temp 97, hr 65, RR 20, B/P 175/82, spo2 96% ra BNP: 4770 Chest X Ray: chronic interstitial prominence, possible chronic bronchitis/ asthma. Left basilar opacity Treatment: Consults: cardiology Lasix 40 mg IVP x1, followed by Lasix 40 mg PO BID In your professional opinion, can you please clarify the acuity and type of CHF if known? Systolic Heart Failure: Acute Chronic Acute on Chronic Diastolic Heart Failure: Acute Chronic Acute on Chronic Systolic & Diastolic Heart Failure: Acute Chronic Acute on Chronic Unable to determine Other, please specify Please document in your progress notes and discharge summary in order to capture severity of illness and risk of mortality. Include clinical findings that support your diagnosis. FYI: Press F11 to launch patient chart. NATHALY
[2016-12-22] MEDS: HEPARIN SODIUM,PORCINE/D5W PMX 25,000 UNIT in DEXTROSE/WATER 1 500ML.BAG IV SCH (10:06)
--- NOTE | 2016-12-22 10:22 | ECHOF ---
Referral Reason:Chest pain and cardiomyopathy MEASUREMENTS -------- HEIGHT: 170.2 cm WEIGHT: 95.3 kg BP: 186/87 IVSd: 1.6 cm (0.6 - 1.1) LVIDd: 3.0 cm (3.9 - 5.3) LVPWd: 1.7 cm (0.6 - 1.1) IVSs: 2.0 cm LVIDs: 2.0 cm LVPWs: 2.1 cm Ao Diam: 3.2 cm (2.0 - 3.7) AV Cusp: 2.4 cm (1.5 - 2.6) LA Diam: 3.6 cm (2.7 - 3.8) MV EXCURSION: 13.883 mm (> 18.000) MV EF SLOPE: 37 mm/s (70 - 150) EPSS: 1.1 cm MV E Varun: 0.92 m/s MV DecT: 257 ms MV A Varun: 0.53 m/s MV E/A Ratio: 1.73 RAP: 5.00 mmHg RVSP: 9.71 mmHg FINDINGS -------- Sinus rhythm. This was a technically difficult study with suboptimal views. There is severe concentric left ventricular hypertrophy. Overall left ventricular systolic function is normal with, an EF between 55 - 60 %. The right ventricle is normal in size and function. The left atrium is normal in size. The right atrium is normal in size. 1.5mg of Definity was utilized for enhancement of images The aortic valve was not well visualized. There is trace mitral regurgitation. Trace tricuspid regurgitation present. The right ventricular systolic pressure, as measured by Doppler, is 9.71mmHg. The pulmonic valve was not well visualized. The aortic root size is normal. The pericardium is normal. CONCLUSIONS -------- 1. Sinus rhythm. 2. There is trace mitral regurgitation. 3. Trace tricuspid regurgitation present. 4. The right ventricular systolic pressure, as measured by Doppler, is 9.71mmHg. 5. The pulmonic valve was not well visualized. 6. The aortic root size is normal. 7. The pericardium is normal. 8. This was a technically difficult study with suboptimal views. 9. There is severe concentric left ventricular hypertrophy. 10. Overall left ventricular systolic function is normal with, an EF between 55 - 60 %. 11. The right ventricle is normal in size and function. 12. The left atrium is normal in size. 13. The right atrium is normal in size. 14. 1.5mg of Definity was utilized for enhancement of images 15. The aortic valve was not well visualized. MUSICIAN INSTRUMENTAL: Cat Posey RDCS
[2016-12-22] MEDS ORDERED: ACETAMINOPHEN TAB 325 MG TAB PO PRN (10:25)
[2016-12-22 10:51] LABS: Calcium 8.9 mg/dL (8.4-10.2); Potassium 3.9 mmol/L (3.5-5.1)
[2016-12-22] MEDS ORDERED: DEXTROSE 5% IN WATER 100 ML with AMIODARONE 150 MG IV ONE (11:00)
[2016-12-22] MEDS: AMIODARONE 450 MG in DEXTROSE 5% IN WATER 250 ML IV SCH ×4 (11:47→23:04)
[2016-12-22] MEDS: FUROSEMIDE 40 MG TAB PO SCH ×2 (11:58→17:29)
[2016-12-22] MEDS: MULTIVITAMINS, THERA 1 EACH TAB PO SCH (11:58)
[2016-12-22] MEDS: MAGNESIUM OXIDE 400 MG TAB PO SCH (11:58)
[2016-12-22] MEDS: SPIRONOLACTONE 25 MG TAB PO SCH (11:58)
[2016-12-22] MEDS: ATORVASTATIN 40 MG TAB PO SCH (11:58)
[2016-12-22 11:59] LABS: Glucose,Whole Blood 248 mg/dL (75-99)
[2016-12-22] MEDS: Acetaminophen-Codeine 300-30mg TAB PO PRN ×2 (14:44→17:28)
--- NOTE | 2016-12-22 14:48 | P.CNPUL ---
History of Present Illness Consult date: 12/22/16 Reason for consult: dyspnea, chest pain, COPD History of present illness: 69-year-old male patient with known history of COPD with a baseline FEV1 of 44% of predicted and a diffusion capacity of 55% of predicted. The patient also has history of coronary artery disease and has undergone previous bypass surgery twice and the second time was in 2008 and he had quit smoking since then. He carries more than [id number] smoking history. He also has chronic renal failure. This patient was in a good state of health until around 3 days ago when he started having episodes of right shoulder and posterior back pain in addition to increased shortness of breath and diaphoresis. The shoulder pain was episodic. He was having few hours of pain which was subsequently go away and then come back. He was getting progressively more short of breath and he was getting short of breath with activities of daily today life and even while walking short distances. For that reason he came into the hospital and the patient was found to have no acute EKG abnormalities and some nonspecific changes seen on EKG. The troponin was positive and the patient ruled in for non -ST segment elevation myocardial infarction. He was started on IV heparin. The right shoulder pain subsided however. This morning the patient went into atrial fibrillation with rapid ventricular response. Currently is on a Cardizem drip for rate control. Echocardiac Geovanni was also done and the patient has a preserved LV function without any significant valvular abnormalities. Note that the patient is post bypass surgery of the heart 2. The surgery was initially done in 1996 that included MADRID to LAD and saphenous vein graft to RCA and circumflex. In 2008 the patient had redo bypass surgery. In between he has also had coronary interventions and stenting. Cardiology is on the scene and the patient there are plans to proceed with a cardiac angiogram at a later stage. Meanwhile, the patient is feeling slightly better. Less short of breath compared to yesterday. His atrial fibrillation which is of a new onset is being controlled with Cardizem drip. He is also on IV heparin. Producing adequate amount of urine output. No chest pain. No pleurisy. No hemoptysis. No fever or chills or night sweats. His chest x-ray showing no acute cardio pulmonary abnormalities. Review of Systems Constitutional: Reports lethargy, Reports sweats, Reports weakness Eyes: denies as per HPI, denies blurred vision, denies bulging eye Ears: deny: decreased hearing, ear discharge Ears, nose, mouth and throat: Denies headache, Denies sore throat Cardiovascular: Reports decreased exercise tolerance, Reports shortness of breath Respiratory: Reports cough, Reports dyspnea, Reports wheezing Gastrointestinal: Denies abdominal pain, Denies diarrhea, Denies nausea, Denies vomiting Genitourinary: Reports as per HPI Musculoskeletal: Denies myalgias Musculoskeletal: absent: ankle pain, ankle stiffness, ankle swelling Integumentary: Denies pruritus, Denies rash Neurological: Denies numbness, Denies weakness Psychiatric: Denies anxiety, Denies depression Endocrine: Reports as per HPI Past Medical History Past Medical History: Coronary Artery Disease (CAD), COPD, GERD/Reflux, Hyperlipidemia, Myocardial Infarction ([place]) Additional Past Medical History / Comment(s): COPD with a baseline FEV1 of 44% of predicted, coronary artery bypass surgery with previous carotid bypass surgery 2 and previous coronary intervention and stenting, hyperlipidemia, acid reflux, peripheral vascular disease, chronic renal failure, osteoarthritis , chronic back pain, hemorrhoids, hayfever, hyperlipidemia Last Myocardial Infarction Date:: 2008 History of Any Multi-Drug Resistant Organisms: None Reported Past Surgical History: Back Surgery, Coronary Bypass/CABG, Heart Catheterization With Stent, Hernia Repair, Orthopedic Surgery Additional Past Surgical History / Comment(s): EDWIN carpal tunnel/ RT shoulder, X2 CABG 1993 AND 2008, INC HERNIA REPAIR W/ MESH, "4 CARDAIC STENTS",EDWIN CATARACTS, COLONOSCOPY Past Anesthesia/Blood Transfusion Reactions: Postoperative Nausea & Vomiting ( PONV) Additional Past Anesthesia/Blood Transfusion Reaction / Comment(s): CLAUSTERPHOBIA Date of Last Stent Placement:: UNK Smoking Status: Former smoker - Past Family History Mother Family Medical History: No Reported History Additional Family Medical History / Comment(s): IN A TRAIN ACCIDENT. Father Family Medical History: Renal Disease Medications and Allergies Home Medications Medication Instructions Recorded Confirmed Type Aspirin EC [Ecotrin] 81 mg PO DAILY PRN 06/29/14 12/21/16 History Atorvastatin [Lipitor] 40 mg PO HS 06/29/14 12/21/16 History Furosemide [Lasix] 40 mg PO DAILY 06/29/14 12/21/16 History Multivitamins, Thera [Multivitamin] 1 tab PO DAILY 06/29/14 12/21/16 History Spironolactone [Spironolactone] 12.5 mg PO DAILY 06/29/14 12/21/16 History Ubidecarenone [Co Q-10] 100 mg PO DAILY 06/29/14 12/21/16 History Allergies Allergy/AdvReac Type Severity Reaction Status Date / Time No Known Allergies Allergy Verified 12/21/16 13:23 Physical Exam Vitals: Vital Signs Temp Pulse Pulse Resp BP BP Pulse Ox 12/22/16 13:12 80 12/22/16 12:59 76 12/22/16 12:00 148 H 16 159/73 92 L 12/22/16 09:17 84 12/22/16 09:02 88 12/22/16 08:25 97.1 F L 84 16 143/87 96 12/22/16 04:00 84 18 159/78 93 L 12/22/16 00:00 90 18 154/82 93 L 12/21/16 21:35 76 12/21/16 21:26 76 12/21/16 20:00 97.8 F 82 18 157/75 95 12/21/16 16:48 76 12/21/16 16:36 76 12/21/16 15:23 97 F L 86 18 185/92 95 12/21/16 14:50 85 18 186/87 98 Intake and Output 12/21/16 12/22/16 12/22/16 22:59 06:59 14:59 Intake Total 425 308.52 Output Total 300 300 Balance 125 8.52 Intake: Intake, IV Titration 188 308.52 Amount Heparin Sodium,Porcine/ 168 308.52 D5w Pmx 25,000 unit In Dextrose/Water 1 500ml. bag @ 10.5 UNITS/KG/HR 20 mls/hr IV .Q24H [facility] Rx#: [id number] Sodium Chloride 0.9% 1, 20 000 ml @ 20 mls/hr IV . Q24H [facility] Rx#:[id number] Oral 237 Output: Urine 300 300 Head exam was generally normal. There was no scleral icterus or corneal arcus. Mucous membranes were moist.Neck was supple and without jugular venous distension, thyromegaly, or carotid bruits. Carotids were easily palpable bilaterally. There was no adenopathy. The patient has significant crowding of the posterior oropharynx. There is no goiter or neck masses. Lungs sounds are diminished bilaterally along with some few scattered expiratory wheezes. The arousal in the lung bases. Heart sounds are irregular, positive S1-S2. No cervical murmurs appreciated.Abdominal exam revealed normal bowel sounds. The abdomen was soft, non-tender, and without masses, organomegaly, or appreciable enlargement of the abdominal aorta.Examination of the extremities revealed easily palpable radial, femoral and pedal pulses. There was no cyanosis, clubbing or edema. Results - Laboratory Findings CBC and BMP: 12/21/16 11:50 12/22/16 05:30 PT/INR, D-dimer PT 10.3 sec (9.0-12.0) 12/21/16 11:50 INR 1.0 (<1.2) 12/21/16 11:50 D-Dimer 0.58 mg/L FEU (<0.60) 12/21/16 11:50 Abnormal lab findings: Abnormal Labs 12/21/16 12/21/16 12/21/16 11:50 11:50 16:57 APTT Sodium Carbon Dioxide 31 H BUN 28 H Creatinine 1.65 H Glucose POC Glucose (mg/dL) 119 H Total Creatine Kinase 511 H CK-MB (CK-2) 9.2 H* Troponin I 0.075 H* 12/21/16 12/21/16 12/21/16 19:03 19:03 20:33 APTT 37.6 H Sodium Carbon Dioxide BUN Creatinine Glucose POC Glucose (mg/dL) 245 H Total Creatine Kinase 406 H CK-MB (CK-2) 7.6 H* Troponin I 0.056 H* 12/21/16 12/22/16 12/22/16 23:29 05:30 05:30 APTT 50.2 H Sodium 136 L Carbon Dioxide BUN 39 H Creatinine 1.84 H Glucose 140 H POC Glucose (mg/dL) Total Creatine Kinase 394 H CK-MB (CK-2) 6.9 H* Troponin I 0.051 H* 12/22/16 12/22/16 06:13 11:58 APTT Sodium Carbon Dioxide BUN Creatinine Glucose POC Glucose (mg/dL) 143 H 248 H Total Creatine Kinase CK-MB (CK-2) Troponin I - Diagnostic Findings Chest x-ray: image reviewed Assessment and Plan Plan: Assessment 1 acute non-ST segment elevation myocardial infarction, currently on IV heparin. 2.0 positive and cardiology on the case. Possible cardiac catheterization later stage 2 new onset atrial fibrillation with rapid ventricular response currently in a Cardizem drip and IV heparin 3 shoulder pain possibly secondary to underlying angina. No injury to the shoulder and x-rays negative and patient's history of pain for now 4 COPD with an FEV1 of 44% of predicted at baseline 5 hypertension 6 hyperlipidemia 7 previous coronary artery bypass surgery 2, in 1996 2008 in addition to previous coronary intervention and stenting. LV function is preserved for now. 8 peripheral vascular disease 9 chronic renal failure Plan Continue IV heparin. Continue Cardizem drip for rate control. Possibly switch this patient to amiodarone if adequate rate control is not achieved. Possibly a cardiac catheterization later stage and the final decision on this will be made by cardiology. Meanwhile, the patient's COPD is rather stable at this point. There may be a component of COPD exacerbation. We'll subject this patient with DuoNeb and a breast units [id number] and IV Solu-Medrol and switch him to a prednisone burst taper within next 24 hours. We'll continue to follow.
[2016-12-22] MEDS: SODIUM CHLORIDE 0.9% 1,000 ML IV SCH (14:57)
--- NOTE | 2016-12-22 16:13 | P.PN ---
Subjective This is a 71-year-old gentleman with history of ischemic heart disease with a previous bypass surgery 2 and also COPD who was admitted to the hospital with complaints of increasing shortness of breath. It seems to make it was getting progressively worse, but this morning when he woke up he could not walk, without getting short of breath, even 10 feet. Patient denied any chest pain but was having severe right shoulder pain. Patient had bypass surgery in 1996 with a MADRID graft to the LAD, vein graft to the right coronary artery and also circumflex coronary artery. In 2008. Patient had repeat cardiac catheterization and repeat bypass surgery with vein graft to the first diagonal , vein graft to the OM branch of circumflex and vein graft to the right coronary artery. Patient was noted at the time and to have 70-80% ostial left main disease. Patient had a patent MADRID. Patient comes now with complaints of increasing shortness of breath. His first troponin value is elevated. His chest x-ray showed possible mild CHF though there could be an exacerbation of COPD. Patient is treated with IV Lasix and is being admitted to the hospital. Further examination depend upon the clinical course. Patient is going to have additional troponins and also echocardiogram. Patient is also being seen by melter supervisor open hearth furnace. 12/22/2016 Patient went into atrial fibrillation with rapid ventricular response, was initiated on IV amiodarone drip today. He did have one episode of upper right shoulder discomfort. Patient was seen and evaluated by Dr. Cardenas today, who felt that the patient's symptoms were most likely related to atrial fibrillation. We will continue the IV heparin and check to see if the patient has coverage for one of the newer anticoagulants. Objective - Vital Signs Vital signs: Vital Signs Temp 97.1 F L 12/22/16 08:25 Pulse 80 12/22/16 13:12 Resp 16 12/22/16 12:30 BP 159/73 12/22/16 12:00 Pulse Ox 92 L 12/22/16 12:00 Intake & Output 12/21/16 12/22/16 12/22/16 18:59 06:59 18:59 Intake Total 20 405 308.52 Output Total 300 300 Balance -280 405 8.52 Weight 95.254 kg Intake: Intake, IV Titration 20 168 308.52 Amount Heparin Sodium,Porcine/ 168 308.52 D5w Pmx 25,000 unit In Dextrose/Water 1 500ml. bag @ 10.5 UNITS/KG/HR 20 mls/hr IV .Q24H JAYASHREE Rx#: [id number] Sodium Chloride 0.9% 1, 20 000 ml @ 20 mls/hr IV . Q24H JAYASHREE Rx#:[id number] Oral 237 Output: Urine 300 300 Other: # Voids 1 - Exam GENERAL EXAM: Patient is alert and oriented and doesn't appear to be in any acute distress HEENT: Normocephalic. Normal reaction of pupils, equal size, normal range of extraocular motion. No erythema or exudates in the throat. NECK: No masses, no nuchal rigidity. No Sigmund JVD CHEST: No chest wall deformity. LUNGS: Diminished air exchange with scattered rhonchi HEART: S1 and S2 normal with no audible mumurs or gallops. Regular rhythm, femorals equal on both sides.. ABDOMEN: No hepatosplenomegaly, normal bowel sounds, no guarding or rigidity. SKIN: No rashes CENTRAL NERVOUS SYSTEM: No focal deficits. EXTREMITIES: No cyanosis, clubbing or edema. - Labs CBC & Chem 7: 12/21/16 11:50 12/22/16 05:30 Labs: Abnormal Lab Results - Last 24 Hours (Table) 12/21/16 12/21/16 12/21/16 Range/Units 16:57 19:03 19:03 APTT 37.6 H (22.0-30.0) sec Sodium (137-145) mmol/L BUN (9-20) mg/dL Creatinine (0.66-1.25) mg/dL Glucose (74-99) mg/dL POC Glucose (mg/dL) 119 H (75-99) mg/dL Total Creatine Kinase 406 H (55-170) U/L CK-MB (CK-2) 7.6 H* (0.0-2.4) ng/mL Troponin I 0.056 H* (0.000-0.034) ng/mL 12/21/16 12/21/16 12/22/16 Range/Units 20:33 23:29 05:30 APTT 50.2 H (22.0-30.0) sec Sodium (137-145) mmol/L BUN (9-20) mg/dL Creatinine (0.66-1.25) mg/dL Glucose (74-99) mg/dL POC Glucose (mg/dL) 245 H (75-99) mg/dL Total Creatine Kinase 394 H (55-170) U/L CK-MB (CK-2) 6.9 H* (0.0-2.4) ng/mL Troponin I 0.051 H* (0.000-0.034) ng/mL 12/22/16 12/22/16 12/22/16 Range/Units 05:30 06:13 11:58 APTT (22.0-30.0) sec Sodium 136 L (137-145) mmol/L BUN 39 H (9-20) mg/dL Creatinine 1.84 H (0.66-1.25) mg/dL Glucose 140 H (74-99) mg/dL POC Glucose (mg/dL) 143 H 248 H (75-99) mg/dL Total Creatine Kinase (55-170) U/L CK-MB (CK-2) (0.0-2.4) ng/mL Troponin I (0.000-0.034) ng/mL Assessment and Plan Plan: Assessment and Plan (1) Congestive heart failure, diastolic acute on chronic Status: Acute (2) Acute exacerbation of chronic obstructive airways disease Status: Acute (3) Ischemic heart disease Status: Acute (4) H/O heart bypass surgery Status: Acute (5) Dyslipidemia Status: Acute (6) Chronic renal failure Status: Acute #7 atrial fibrillation with rapid ventricular response, paroxysmal, new onset. EchoCardiogram with Doppler study was performed which revealed an LV function of 55-60%. We will continue IV amiodarone as well as IV heparin. Check to see if the patient has coverage for one of the newer anticoagulants. Patient was seen and evaluated by Dr. Cardenas who felt that the patient's symptoms are most likely secondary to episodes of paroxysmal atrial fibrillation with rapid ventricular response. We'll continue to follow. DNP note has been reviewed, I agree with a documented findings and plan of care. Patient was seen and examined.
[2016-12-22 16:49] LABS: Glucose,Whole Blood 183 mg/dL (75-99)
[2016-12-22 20:37] LABS: Glucose,Whole Blood 151 mg/dL (75-99)
[2016-12-23] MEDS: Acetaminophen-Codeine 300-30mg TAB PO PRN ×2 (02:27→13:24)
[2016-12-23 06:14] LABS: Glucose,Whole Blood 139 mg/dL (75-99)
[2016-12-23] MEDS: INSULIN LISPRO (humaLOG) 300 UNIT/3 ML VIAL SQ SCH ×4 (06:43→21:53)
[2016-12-23] MEDS: methylPREDNISolone SOD SUCCI 125 MG/2 ML VIAL IV SCH ×2 (06:44→12:05)
[2016-12-23 07:18] LABS: Calcium 8.6 mg/dL (8.4-10.2)
[2016-12-23 07:23] LABS: Potassium 4.5 mmol/L (3.5-5.1)
[2016-12-23] MEDS: IPRATROPIUM-ALBUTEROL 3 ML NEB INHALATION SCH ×4 (07:42→20:03)
[2016-12-23] MEDS: HEPARIN SODIUM,PORCINE/D5W PMX 25,000 UNIT in DEXTROSE/WATER 1 500ML.BAG IV SCH ×2 (08:44→17:35)
[2016-12-23] MEDS: ATORVASTATIN 40 MG TAB PO SCH (08:47)
[2016-12-23] MEDS: MAGNESIUM OXIDE 400 MG TAB PO SCH (08:47)
[2016-12-23] MEDS: FUROSEMIDE 40 MG TAB PO SCH ×2 (08:47→17:36)
[2016-12-23] MEDS: MULTIVITAMINS, THERA 1 EACH TAB PO SCH (08:47)
[2016-12-23] MEDS: SPIRONOLACTONE 25 MG TAB PO SCH (08:47)
[2016-12-23] MEDS: AMIODARONE 450 MG in DEXTROSE 5% IN WATER 250 ML IV SCH ×2 (08:48)
[2016-12-23 11:57] LABS: Glucose,Whole Blood 202 mg/dL (75-99)
[2016-12-23] MEDS: SODIUM CHLORIDE 0.9% 1,000 ML IV SCH (12:05)
--- NOTE | 2016-12-23 12:16 | P.PN ---
Subjective 69-year-old male patient with known history of COPD with a baseline FEV1 of 44% of predicted and a diffusion capacity of 55% of predicted. The patient also has history of coronary artery disease and has undergone previous bypass surgery twice and the second time was in 2008 and he had quit smoking since then. He carries more than [id number] smoking history. He also has chronic renal failure. This patient was in a good state of health until around 3 days ago when he started having episodes of right shoulder and posterior back pain in addition to increased shortness of breath and diaphoresis. The shoulder pain was episodic. He was having few hours of pain which was subsequently go away and then come back. He was getting progressively more short of breath and he was getting short of breath with activities of daily today life and even while walking short distances. For that reason he came into the hospital and the patient was found to have no acute EKG abnormalities and some nonspecific changes seen on EKG. The troponin was positive and the patient ruled in for non -ST segment elevation myocardial infarction. He was started on IV heparin. The right shoulder pain subsided however. This morning the patient went into atrial fibrillation with rapid ventricular response. Currently is on a Cardizem drip for rate control. Echocardiac Geovanni was also done and the patient has a preserved LV function without any significant valvular abnormalities. Note that the patient is post bypass surgery of the heart 2. The surgery was initially done in 1996 that included MADRID to LAD and saphenous vein graft to RCA and circumflex. In 2008 the patient had redo bypass surgery. In between he has also had coronary interventions and stenting. Cardiology is on the scene and the patient there are plans to proceed with a cardiac angiogram at a later stage. Meanwhile, the patient is feeling slightly better. Less short of breath compared to yesterday. His atrial fibrillation which is of a new onset is being controlled with Cardizem drip. He is also on IV heparin. Producing adequate amount of urine output. No chest pain. No pleurisy. No hemoptysis. No fever or chills or night sweats. His chest x-ray showing no acute cardio pulmonary abnormalities. The patient was seen again today 12/23/2016 in follow-up on the selective care unit. He is currently ending up in bed doing quite well. He is breathing easier today as compared to yesterday. He has converted to normal sinus rhythm. He remains on IV amiodarone as well as IV heparin. His shoulder discomfort has improved. Unfortunately his urine creatinine continues to rise at 2.31. No plans for cardiac catheterization currently. He denies any worsening shortness of breath. He is maintaining good O2 saturations in the mid 90s on room air. He is currently hemodynamically stable. He remains in a negative balance. Objective - Vital Signs Vital signs: Vital Signs Temp 97 F L 12/23/16 08:00 Pulse 80 12/23/16 11:00 Resp 16 12/23/16 11:01 BP 124/71 12/23/16 11:00 Pulse Ox 95 12/23/16 11:00 Intake & Output 12/22/16 12/23/16 12/23/16 18:59 06:59 18:59 Intake Total 505.917 561.603 Output Total 300 900 700 Balance 205.917 -338.397 -700 Intake: Intake, IV Titration 505.917 561.603 Amount Amiodarone 450 mg In 197.397 61.603 Dextrose 5% in Water 250 ml @ 1 MG/MIN 34.53 mls/ hr IV .Q7H31M JAYASHREE Rx#: [id number] Heparin Sodium,Porcine/ 308.52 500 D5w Pmx 25,000 unit In Dextrose/Water 1 500ml. bag @ 10.5 UNITS/KG/HR 20 mls/hr IV .Q24H JAYASHREE Rx#: [id number] Output: Urine 300 900 700 Other: # Voids 1 1 - Exam Head exam was generally normal. There was no scleral icterus or corneal arcus. Mucous membranes were moist.Neck was supple and without jugular venous distension, thyromegaly, or carotid bruits. Carotids were easily palpable bilaterally. There was no adenopathy. The patient has significant crowding of the posterior oropharynx. There is no goiter or neck masses. Lungs sounds are diminished bilaterally along with some few scattered expiratory wheezes. The arousal in the lung bases. Heart sounds are irregular, positive S1-S2. No cervical murmurs appreciated.Abdominal exam revealed normal bowel sounds. The abdomen was soft, non-tender, and without masses, organomegaly, or appreciable enlargement of the abdominal aorta.Examination of the extremities revealed easily palpable radial, femoral and pedal pulses. There was no cyanosis, clubbing or edema. - Labs CBC & Chem 7: 12/21/16 11:50 12/23/16 06:03 Labs: Abnormal Lab Results - Last 24 Hours (Table) 12/22/16 12/22/16 12/23/16 Range/Units 16:47 20:33 06:03 APTT 52.4 H (22.0-30.0) sec BUN (9-20) mg/dL Creatinine (0.66-1.25) mg/dL Glucose (74-99) mg/dL POC Glucose (mg/dL) 183 H 151 H (75-99) mg/dL 12/23/16 12/23/16 12/23/16 Range/Units 06:03 06:06 11:53 APTT (22.0-30.0) sec BUN 55 H (9-20) mg/dL Creatinine 2.31 H (0.66-1.25) mg/dL Glucose 141 H (74-99) mg/dL POC Glucose (mg/dL) 139 H 202 H (75-99) mg/dL Assessment and Plan Plan: Assessment 1 acute non-ST segment elevation myocardial infarction, currently on IV heparin. 2.0 positive and cardiology on the case. Possible cardiac catheterization later stage 2 new onset atrial fibrillation with rapid ventricular response currently in a Cardizem drip and IV heparin 3 shoulder pain possibly secondary to underlying angina. No injury to the shoulder and x-rays negative and patient's history of pain for now 4 COPD with an FEV1 of 44% of predicted at baseline 5 hypertension 6 hyperlipidemia 7 previous coronary artery bypass surgery 2, in 1996 2008 in addition to previous coronary intervention and stenting. LV function is preserved for now. 8 peripheral vascular disease 9 chronic renal failure Plan: The patient was seen and evaluated by Dr. Barnes. He is improved clinically today as compared to yesterday. We'll continue with his current medications including amiodarone, heparin, diuretics. He is not wheezing today at all. We' ll discontinue the IV Solu Medrol. Continue to monitor his renal function. We will continue to follow.
--- NOTE | 2016-12-23 12:51 | P.PN ---
Subjective Patient sitting up in bed with continued complaints of right shoulder pain. Patient developed atrial fit with RVR is on amiodarone drip. Objective - Vital Signs Vital signs: Vital Signs Temp 97 F L 12/23/16 08:00 Pulse 80 12/23/16 11:00 Resp 16 12/23/16 11:01 BP 124/71 12/23/16 11:00 Pulse Ox 95 12/23/16 11:00 Intake & Output 12/22/16 12/23/16 12/23/16 18:59 06:59 18:59 Intake Total 505.917 561.603 Output Total 300 900 700 Balance 205.917 -338.397 -700 Intake: Intake, IV Titration 505.917 561.603 Amount Amiodarone 450 mg In 197.397 61.603 Dextrose 5% in Water 250 ml @ 1 MG/MIN 34.53 mls/ hr IV .Q7H31M JAYASHREE Rx#: [id number] Heparin Sodium,Porcine/ 308.52 500 D5w Pmx 25,000 unit In Dextrose/Water 1 500ml. bag @ 10.5 UNITS/KG/HR 20 mls/hr IV .Q24H JAYASHREE Rx#: [id number] Output: Urine 300 900 700 Other: # Voids 1 1 - Constitutional General appearance: Present: obese - EENT Eyes: Present: PERRLA ENT: Present: normal oropharynx Ears: bilateral: normal - Respiratory Respiratory: bilateral: CTA - Cardiovascular Rhythm: regular - Gastrointestinal General gastrointestinal: Present: soft - Neurologic Neurologic: Present: CNII-XII intact - Musculoskeletal Musculoskeletal: Present: generalized weakness - Psychiatric Psychiatric: Present: A&O x's 3, appropriate affect, intact judgment & insight - Labs CBC & Chem 7: 12/21/16 11:50 12/23/16 06:03 Labs: Abnormal Lab Results - Last 24 Hours (Table) 12/22/16 12/22/16 12/23/16 Range/Units 16:47 20:33 06:03 APTT 52.4 H (22.0-30.0) sec BUN (9-20) mg/dL Creatinine (0.66-1.25) mg/dL Glucose (74-99) mg/dL POC Glucose (mg/dL) 183 H 151 H (75-99) mg/dL 12/23/16 12/23/1612/23/17 Range/Units 06:03 06:06 11:53 APTT (22.0-30.0) sec BUN 55 H (9-20) mg/dL Creatinine 2.31 H (0.66-1.25) mg/dL Glucose 141 H (74-99) mg/dL POC Glucose (mg/dL) 139 H 202 H (75-99) mg/dL Assessment and Plan Plan: Assessment congestive heart failure acute and chronic diastolic dysfunction atrial fit with RVR controlled hypertension hyperlipidemia angina history of CO post CABG COPD acute exacerbation chronic renal failure post CABG right shoulder pain Plan continue consultation with cardiology and pulmonology
[2016-12-23] MEDS: AMIODARONE 200 MG TAB PO SCH ×2 (13:25→21:53)
--- NOTE | 2016-12-23 15:10 | CDI ---
In responding to this query, please exercise your independent professional judgment. The [facility] Coding Staff and Clinical Documentation Specialists appreciate your assistance in clarifying documentation, maintaining compliance with coding guidelines, accurately documenting patients condition and capturing severity of illness. The fact that a question is asked does not imply that any particular answer is desired or expected. Communication forms are a method of clarifying documentation and are not made part of the Legal Health Record. Thank you in advance for your clarification. Last Revision, March 2015 Pancho Carrera [address] [place] [address] Documentation Clarification Form Date: 12/23/2016 2:58:00 PM From: Tanya Santos RN, CCDS Admit Date: 12/21/2016 1:13:00 PM Patient Name: Dennys Cuevas Visit Number: [id number] Dr. Feliz El/ Taylor MCDONALD History/Risk Factors : CRF, CHF, COPD, HTN, CA with CABG Clinical Indicators : H&P and Progress Notes: "chronic renal failure" Current BUN: 28/39/55 CR:1.65/1.84/2.31 GFR: 41/36/28 06/10/14 Patients Baseline: BUN/CR/GFR: 31/1.8/37 Treatment: Patients medications include: Lasix 40 mg IVP x1, Lasix 40 mg PO QD IVF @ 20 CC/hr In order to capture the severity of condition, please clarify if the condition signifies: CKD Stage 1 (GFR > 90) CKD Stage 2 (GFR 60-89) CKD Stage 3 (GFR 30-59) CKD Stage 4 (GFR 15-29) CKD Stage 5 (GFR <15) ESRD Unable to determine Other condition, please specify Please document in your progress notes and discharge summary in order to capture severity of illness and risk of mortality. Include clinical findings that support your diagnosis. FYI: Press F11 to launch patient chart. NATHALY
--- NOTE | 2016-12-23 15:14 | P.PN ---
Subjective This is a 71-year-old gentleman with history of ischemic heart disease with a previous bypass surgery 2 and also COPD who was admitted to the hospital with complaints of increasing shortness of breath. It seems to make it was getting progressively worse, but this morning when he woke up he could not walk, without getting short of breath, even 10 feet. Patient denied any chest pain but was having severe right shoulder pain. Patient had bypass surgery in 1996 with a MADRID graft to the LAD, vein graft to the right coronary artery and also circumflex coronary artery. In 2008. Patient had repeat cardiac catheterization and repeat bypass surgery with vein graft to the first diagonal , vein graft to the OM branch of circumflex and vein graft to the right coronary artery. Patient was noted at the time and to have 70-80% ostial left main disease. Patient had a patent MADRID. Patient comes now with complaints of increasing shortness of breath. His first troponin value is elevated. His chest x-ray showed possible mild CHF though there could be an exacerbation of COPD. Patient is treated with IV Lasix and is being admitted to the hospital. Further examination depend upon the clinical course. Patient is going to have additional troponins and also echocardiogram. Patient is also being seen by public address technician. 12/22/2016 Patient went into atrial fibrillation with rapid ventricular response, was initiated on IV amiodarone drip today. He did have one episode of upper right shoulder discomfort. Patient was seen and evaluated by Dr. Cardenas today, who felt that the patient's symptoms were most likely related to atrial fibrillation. We will continue the IV heparin and check to see if the patient has coverage for one of the newer anticoagulants. 12/23/2016. Patient currently in a normal sinus rhythm this morning. IV amiodarone was discontinued and he will be started on amiodarone orally today. Patient did have an episode of right shoulder discomfort through the night, relieved with pain medication. He does state that he feels significantly better now that he is in normal sinus rhythm, the next time he has a right shoulder discomfort we will attempt to give the patient a nitroglycerin before giving pain medication. Objective - Vital Signs Vital signs: Vital Signs Temp 97 F L 12/23/16 08:00 Pulse 88 12/23/16 13:01 Resp 16 12/23/16 11:01 BP 124/71 12/23/16 11:00 Pulse Ox 95 12/23/16 11:00 Intake & Output 12/22/16 12/23/16 12/23/16 18:59 06:59 18:59 Intake Total 505.917 561.603 Output Total 605 242 1184 Balance 205.917 -338.397 -1300 Intake: Intake, IV Titration 505.917 561.603 Amount Amiodarone 450 mg In 197.397 61.603 Dextrose 5% in Water 250 ml @ 1 MG/MIN 34.53 mls/ hr IV .Q7H31M JAYASHREE Rx#: [id number] Heparin Sodium,Porcine/ 308.52 500 D5w Pmx 25,000 unit In Dextrose/Water 1 500ml. bag @ 10.5 UNITS/KG/HR 20 mls/hr IV .Q24H JAYASHREE Rx#: [id number] Output: Urine 162 427 1667 Other: # Voids 1 1 - Exam GENERAL EXAM: Patient is alert and oriented and doesn't appear to be in any acute distress HEENT: Normocephalic. Normal reaction of pupils, equal size, normal range of extraocular motion. No erythema or exudates in the throat. NECK: No masses, no nuchal rigidity. No Sigmund JVD CHEST: No chest wall deformity. LUNGS: Diminished air exchange with scattered rhonchi HEART: S1 and S2 normal with no audible mumurs or gallops. Regular rhythm, femorals equal on both sides.. ABDOMEN: No hepatosplenomegaly, normal bowel sounds, no guarding or rigidity. SKIN: No rashes CENTRAL NERVOUS SYSTEM: No focal deficits. EXTREMITIES: No cyanosis, clubbing or edema. - Labs CBC & Chem 7: 12/21/16 11:50 12/23/16 06:03 Labs: Abnormal Lab Results - Last 24 Hours (Table) 12/22/16 12/22/16 12/23/16 Range/Units 16:47 20:33 06:03 APTT 52.4 H (22.0-30.0) sec BUN (9-20) mg/dL Creatinine (0.66-1.25) mg/dL Glucose (74-99) mg/dL POC Glucose (mg/dL) 183 H 151 H (75-99) mg/dL 12/23/16 12/23/16 12/23/16 Range/Units 06:03 06:06 11:53 APTT (22.0-30.0) sec BUN 55 H (9-20) mg/dL Creatinine 2.31 H (0.66-1.25) mg/dL Glucose 141 H (74-99) mg/dL POC Glucose (mg/dL) 139 H 202 H (75-99) mg/dL Assessment and Plan Plan: Assessment and Plan (1) Congestive heart failure, diastolic acute on chronic Status: Acute (2) Acute exacerbation of chronic obstructive airways disease Status: Acute (3) Ischemic heart disease Status: Acute (4) H/O heart bypass surgery Status: Acute (5) Dyslipidemia Status: Acute (6) Chronic renal failure Status: Acute #7 atrial fibrillation with rapid ventricular response, paroxysmal, new onset. EchoCardiogram with Doppler study was performed which revealed an LV function of 55-60%. We will start the patient on oral amiodarone today. The nurses also been instructed that Time patient develops right arm pain we will attempt to give nitroglycerin before giving pain medication to see if the patient gets any relief. At this time we will defer doing any cardiac catheterization as well because of renal function today is 2.3. We will hold the diuretics and continue to monitor daily renal function. DNP note has been reviewed, I agree with a documented findings and plan of care. Patient was seen and examined.
[2016-12-23] MEDS ORDERED: HEPARIN SODIUM,PORCINE 5,000 UNIT/ML 1 ML VIAL IV PRN (15:23)
[2016-12-23 17:00] LABS: Glucose,Whole Blood 156 mg/dL (75-99)
[2016-12-23 22:00] LABS: Glucose,Whole Blood 200 mg/dL (75-99)
[2016-12-24] MEDS: IPRATROPIUM-ALBUTEROL 3 ML NEB INHALATION SCH ×3 (08:13→15:17)
[2016-12-24] MEDS: AMIODARONE 200 MG TAB PO SCH ×3 (08:58→20:42)
[2016-12-24] MEDS: FUROSEMIDE 40 MG TAB PO SCH ×2 (08:58→15:33)
[2016-12-24] MEDS: SPIRONOLACTONE 25 MG TAB PO SCH (08:58)
[2016-12-24] MEDS: ATORVASTATIN 40 MG TAB PO SCH (08:58)
[2016-12-24] MEDS: MAGNESIUM OXIDE 400 MG TAB PO SCH (08:58)
[2016-12-24] MEDS: MULTIVITAMINS, THERA 1 EACH TAB PO SCH (08:58)
[2016-12-24] MEDS: Acetaminophen-Codeine 300-30mg TAB PO PRN ×2 (09:04→20:42)
[2016-12-24] MEDS: NITROGLYCERIN SL TABS 0.4 MG TAB SUBLINGUAL PRN ×3 (13:05→15:40)
--- NOTE | 2016-12-24 13:33 | P.PN ---
Progress Note - Text addendum dx chronic renal failure GFR 28 stage 4
--- NOTE | 2016-12-24 14:09 | P.PN ---
Subjective 69-year-old male patient with known history of COPD with a baseline FEV1 of 44% of predicted and a diffusion capacity of 55% of predicted. The patient also has history of coronary artery disease and has undergone previous bypass surgery twice and the second time was in 2008 and he had quit smoking since then. He carries more than 79-yeyy-lvbs smoking history. He also has chronic renal failure. This patient was in a good state of health until around 3 days ago when he started having episodes of right shoulder and posterior back pain in addition to increased shortness of breath and diaphoresis. The shoulder pain was episodic. He was having few hours of pain which was subsequently go away and then come back. He was getting progressively more short of breath and he was getting short of breath with activities of daily today life and even while walking short distances. For that reason he came into the hospital and the patient was found to have no acute EKG abnormalities and some nonspecific changes seen on EKG. The troponin was positive and the patient ruled in for non -ST segment elevation myocardial infarction. He was started on IV heparin. The right shoulder pain subsided however. This morning the patient went into atrial fibrillation with rapid ventricular response. Currently is on a Cardizem drip for rate control. Echocardiac Geovanni was also done and the patient has a preserved LV function without any significant valvular abnormalities. Note that the patient is post bypass surgery of the heart 2. The surgery was initially done in 1996 that included MADRID to LAD and saphenous vein graft to RCA and circumflex. In 2008 the patient had redo bypass surgery. In between he has also had coronary interventions and stenting. Cardiology is on the scene and the patient there are plans to proceed with a cardiac angiogram at a later stage. Meanwhile, the patient is feeling slightly better. Less short of breath compared to yesterday. His atrial fibrillation which is of a new onset is being controlled with Cardizem drip. He is also on IV heparin. Producing adequate amount of urine output. No chest pain. No pleurisy. No hemoptysis. No fever or chills or night sweats. His chest x-ray showing no acute cardio pulmonary abnormalities. The patient was seen again today 12/23/2016 in follow-up on the selective care unit. He is currently ending up in bed doing quite well. He is breathing easier today as compared to yesterday. He has converted to normal sinus rhythm. He remains on IV amiodarone as well as IV heparin. His shoulder discomfort has improved. Unfortunately his urine creatinine continues to rise at 2.31. No plans for cardiac catheterization currently. He denies any worsening shortness of breath. He is maintaining good O2 saturations in the mid 90s on room air. He is currently hemodynamically stable. He remains in a negative balance. On 12/24/2016 I'm seeing this patient in follow-up. On and off is still having pain over the right shoulder area. This pain is localized to the posterior shoulder upper back area. Unclear to me if this is a representation of angina versus a skeletal pain from her shoulder area. The patient had a x-ray of the shoulder that came back within normal limits. He is breathing is improved. No major edema in lower extremities. He was on diuretics and his creatinine was up to 2.3 and based on that the Lasix was tapered off to 40 mg by mouth twice a day. He is also on DuoNeb neb last treatment on the clock. His cardiac rhythm is sinus and the patient is currently on amiodarone 200 mg by mouth 3 times a day. No fever. No chills. Awaiting follow-up renal function test from today. Cardiology is on the case. No immediate plans for a cardiac catheterization at this point. His pulse ox is 95% on room air. Objective - Vital Signs Vital signs: Vital Signs Temp 97.5 F L 12/24/16 12:00 Pulse 73 12/24/16 12:00 Resp 16 12/24/16 12:00 BP 136/68 12/24/16 13:13 Pulse Ox 95 12/24/16 12:00 Intake & Output 12/23/16 12/24/16 12/24/16 18:59 06:59 18:59 Intake Total 832.008 620 Output Total 1800 850 950 Balance -1800 -17.992 -330 Weight 100.3 kg Intake: IV 260 0.9@20mls/hr 260 Intake, IV Titration 572.008 Amount Heparin Sodium,Porcine/ 572.008 D5w Pmx 25,000 unit In Dextrose/Water 1 500ml. bag @ 13.5 UNITS/KG/HR 25 .71 mls/hr IV .[id number] [facility] Rx#:[id number] Oral 620 Output: Urine 1800 850 950 Other: Voiding Method Urinal Urinal # Voids 1 1 # Bowel Movements 0 - Exam Head exam was generally normal. There was no scleral icterus or corneal arcus. Mucous membranes were moist.Neck was supple and without jugular venous distension, thyromegaly, or carotid bruits. Carotids were easily palpable bilaterally. There was no adenopathy. The patient has significant crowding of the posterior oropharynx. There is no goiter or neck masses. Lungs sounds are diminished bilaterally along with some few scattered expiratory wheezes. The arousal in the lung bases. Heart sounds are irregular, positive S1-S2. No cervical murmurs appreciated.Abdominal exam revealed normal bowel sounds. The abdomen was soft, non-tender, and without masses, organomegaly, or appreciable enlargement of the abdominal aorta.Examination of the extremities revealed easily palpable radial, femoral and pedal pulses. There was no cyanosis, clubbing or edema. - Labs CBC & Chem 7: 12/21/16 11:50 12/23/16 06:03 Labs: Abnormal Lab Results - Last 24 Hours (Table) 12/23/16 12/23/16 12/24/16 Range/Units 16:58 21:41 05:58 APTT 66.7 H (22.0-30.0) sec POC Glucose (mg/dL) 156 H 200 H (75-99) mg/dL Assessment and Plan Plan: Assessment 1 acute non-ST segment elevation myocardial infarction, 2 new onset atrial fibrillation with rapid ventricular response currently in controlled rate and the patient is on oral amiodarone and patient on IV heparin. 3 shoulder pain possibly secondary to underlying angina. No injury to the shoulder and x-rays negative and patient's history of pain for now. Unsure if this is a presentation of an underlying cardiac angina versus skeletal pain from the left shoulder. 4 COPD with an FEV1 of 44% of predicted at baseline 5 hypertension 6 hyperlipidemia 7 previous coronary artery bypass surgery 2, in 1996 2008 in addition to previous coronary intervention and stenting. LV function is preserved for now. 8 peripheral vascular disease 9 chronic renal failure Plan Continue IV heparin. Patient is on oral amiodarone. His rhythm is sinus at this point. Awaiting follow-up renal function. Continue Lasix. Possible cardiac catheterization at a later stage specially if the renal function improves.
[2016-12-24] MEDS: SODIUM CHLORIDE 0.9% 1,000 ML IV SCH (14:29)
--- NOTE | 2016-12-24 14:45 | P.PN ---
Subjective This is a 71-year-old gentleman with history of ischemic heart disease with a previous bypass surgery 2 and also COPD who was admitted to the hospital with complaints of increasing shortness of breath. It seems to make it was getting progressively worse, but this morning when he woke up he could not walk, without getting short of breath, even 10 feet. Patient denied any chest pain but was having severe right shoulder pain. Patient had bypass surgery in 1996 with a MADRID graft to the LAD, vein graft to the right coronary artery and also circumflex coronary artery. In 2008. Patient had repeat cardiac catheterization and repeat bypass surgery with vein graft to the first diagonal , vein graft to the OM branch of circumflex and vein graft to the right coronary artery. Patient was noted at the time and to have 70-80% ostial left main disease. Patient had a patent MADRID. Patient comes now with complaints of increasing shortness of breath. His first troponin value is elevated. His chest x-ray showed possible mild CHF though there could be an exacerbation of COPD. Patient is treated with IV Lasix and is being admitted to the hospital. Further examination depend upon the clinical course. Patient is going to have additional troponins and also echocardiogram. 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 12/22/2016 Patient went into atrial fibrillation with rapid ventricular response, was initiated on IV amiodarone drip today. He did have one episode of upper right shoulder discomfort. Patient was seen and evaluated by Dr. Cardenas today, who felt that the patient's symptoms were most likely related to atrial fibrillation. We will continue the IV heparin and check to see if the patient has coverage for one of the newer anticoagulants. 12/23/2016. Patient currently in a normal sinus rhythm this morning. IV amiodarone was discontinued and he will be started on amiodarone orally today. Patient did have an episode of right shoulder discomfort through the night, relieved with pain medication. He does state that he feels significantly better now that he is in normal sinus rhythm, the next time he has a right shoulder discomfort we will attempt to give the patient a nitroglycerin before giving pain medication. 12/24/2016. Patient remaining in normal sinus rhythm. Continues to be on by mouth amiodarone. Still having intermittent episodes of discomfort in the right shoulder that is relieved with pain medications. Breathing overall is significantly improved since the patient has converted to normal sinus rhythm. Dr. Cardenas did have a discussion with the patient and significant other at the bedside and feels that most of the symptoms were related to the atrial fibrillation. We will have orthopedics see the patient regarding the shoulder discomfort. Objective - Vital Signs Vital signs: Vital Signs Temp 97.5 F L 12/24/16 12:00 Pulse 73 12/24/16 12:00 Resp 16 12/24/16 12:00 BP 136/68 12/24/16 13:13 Pulse Ox 95 12/24/16 12:00 Intake & Output 12/23/16 12/24/16 12/24/16 18:59 06:59 18:59 Intake Total 832.008 620 Output Total 9142 556 5929 Balance -1800 -17.992 -855 Weight 100.3 kg Intake: IV 260 0.9@20mls/hr 260 Intake, IV Titration 572.008 Amount Heparin Sodium,Porcine/ 572.008 D5w Pmx 25,000 unit In Dextrose/Water 1 500ml. bag @ 13.5 UNITS/KG/HR 25 .71 mls/hr IV .[id number] [facility] Rx#:[id number] Oral 620 Output: Urine 4748 158 9990 Other: Voiding Method Urinal Urinal # Voids 1 1 # Bowel Movements 0 - Exam GENERAL EXAM: Patient is alert and oriented and doesn't appear to be in any acute distress HEENT: Normocephalic. Normal reaction of pupils, equal size, normal range of extraocular motion. No erythema or exudates in the throat. NECK: No masses, no nuchal rigidity. No Sigmund JVD CHEST: No chest wall deformity. LUNGS: Diminished air exchange with scattered rhonchi HEART: S1 and S2 normal with no audible mumurs or gallops. Regular rhythm, femorals equal on both sides.. ABDOMEN: No hepatosplenomegaly, normal bowel sounds, no guarding or rigidity. SKIN: No rashes CENTRAL NERVOUS SYSTEM: No focal deficits. EXTREMITIES: No cyanosis, clubbing or edema. - Labs CBC & Chem 7: 12/21/16 11:50 12/23/16 06:03 Labs: Abnormal Lab Results - Last 24 Hours (Table) 12/23/16 12/23/16 12/24/16 Range/Units 16:58 21:41 05:58 APTT 66.7 H (22.0-30.0) sec POC Glucose (mg/dL) 156 H 200 H (75-99) mg/dL Assessment and Plan Plan: Assessment and Plan (1) Congestive heart failure, diastolic acute on chronic Status: Acute (2) Acute exacerbation of chronic obstructive airways disease Status: Acute (3) Ischemic heart disease Status: Acute (4) H/O heart bypass surgery Status: Acute (5) Dyslipidemia Status: Acute (6) Chronic renal failure Status: Acute #7 atrial fibrillation with rapid ventricular response, paroxysmal, new onset. Now in normal sinus rhythm. EchoCardiogram with Doppler study was performed which revealed an LV function of 55-60%. We'll continue the patient on his current medications. Consult orthopedics, regarding right shoulder surgery. Discontinue IV heparin and initiate Eliquis tomorrow. DNP note has been reviewed, I agree with a documented findings and plan of care. Patient was seen and examined.
[2016-12-24 15:06] LABS: Calcium 8.6 mg/dL (8.4-10.2); Potassium 3.8 mmol/L (3.5-5.1)
--- NOTE | 2016-12-24 16:31 | P.PN ---
Subjective 69-year-old male patient with known history of COPD previous bypass surgery twice and the second time was in 2008 This patient was in a good state of health until around 3 days ago when he started having episodes of right shoulder and posterior back pain in addition to increased shortness of breath and diaphoresis. The shoulder pain was episodic. He was having few hours of pain which was subsequently go away and then come back. He was getting progressively more short of breath and he was getting short of breath with activities of daily today life and even while walking short distances. For that reason he came into the hospital and the patient was found to have no acute EKG abnormalities and some nonspecific changes seen on EKG. The troponin was positive and the patient ruled in for non-ST segment elevation myocardial infarction. He was started on IV heparin. The right shoulder pain subsided however. This morning the patient went into atrial fibrillation with rapid ventricular response. . Note that the patient is post bypass surgery of the heart 2. The surgery was initially done in 1996 that included MADRDI to LAD and saphenous vein graft to RCA and circumflex. In 2008 the patient had redo bypass surgery. In between he has also had coronary interventions and stenting. Cardiology is on the scene and the patient there are plans to proceed with a cardiac angiogram at a later stage. Meanwhile, the patient is feeling slightly better. Less short of breath compared to yesterday. His atrial fibrillation which is of a new onset is being controlled with Cardizem drip. He is also on IV heparin. Producing adequate amount of urine output. No chest pain. No pleurisy. No hemoptysis. No fever or chills or night sweats. His chest x-ray showing no acute cardio pulmonary abnormalities. On 12/24/2016 This pain is localized to the posterior shoulder upper back area. No major edema in lower extremities. His pulse ox is 95% on room air. Patient states that his shoulder pain has disappeared after nitroglycerin Denies having any reproducibility of pain with any range of motion on the right shoulder no fevers chills nausea vomiting or diarrhea is reported Objective - Vital Signs Vital signs: Vital Signs Temp 97.5 F L 12/24/16 12:00 Pulse 65 12/24/16 15:32 Resp 16 12/24/16 12:00 BP 139/82 12/24/16 15:46 Pulse Ox 95 12/24/16 12:00 Intake & Output 12/23/16 12/24/16 12/24/16 18:59 06:59 18:59 Intake Total 231.312 0275 Output Total 1986 020 5341 Balance -1800 -17.992 -375 Weight 100.3 kg Intake: IV 260 0.9@20mls/hr 260 Intake, IV Titration 572.008 Amount Heparin Sodium,Porcine/ 572.008 D5w Pmx 25,000 unit In Dextrose/Water 1 500ml. bag @ 13.5 UNITS/KG/HR 25 .71 mls/hr IV .[id number] [facility] Rx#:[id number] Oral 1100 Output: Urine 6731 024 1574 Other: Voiding Method Urinal Urinal # Voids 1 1 # Bowel Movements 0 - Exam Physical exam Gen. appearance oriented 3 in no distress Neck is supple no JVD Lungs good air entry clear to auscultation no rhonchi or wheezing Heart S1-S2 heard regular rate and rhythm no murmurs appreciated Abdomen is soft nontender no organomegaly bowel sounds are intact Neurologically cranial nerves II-12 grossly intact no focal motor or sensory deficits noted Skin no abnormalities appreciated - Labs CBC & Chem 7: 12/21/16 11:50 12/24/16 05:58 Labs: Abnormal Lab Results - Last 24 Hours (Table) 12/23/16 12/23/16 12/24/16 Range/Units 16:58 21:41 05:58 APTT 66.7 H (22.0-30.0) sec BUN (9-20) mg/dL Creatinine (0.66-1.25) mg/dL Glucose (74-99) mg/dL POC Glucose (mg/dL) 156 H 200 H (75-99) mg/dL 12/24/16 Range/Units 05:58 APTT (22.0-30.0) sec BUN 52 H (9-20) mg/dL Creatinine 2.19 H (0.66-1.25) mg/dL Glucose 107 H (74-99) mg/dL POC Glucose (mg/dL) (75-99) mg/dL Assessment and Plan Plan: #1 acute non-ST elevation myocardial infarction. #2 new onset atrial fibrillation currently rate controlled #3 atypical chest pain #4 COPD per #5 hypertension #6 history of CAD #7 CK D stage III #8 peripheral vascular disease Plan Patient did have some relief with the nitroglycerin. There is no positive physical exam findings of a shoulder dysfunction Continue ongoing care if patient has reproducible symptoms and nitroglycerin seems to help recurrently maybe long-term medication like Imdur should be considered
[2016-12-24] MEDS: HEPARIN SODIUM,PORCINE/D5W PMX 25,000 UNIT in DEXTROSE/WATER 1 500ML.BAG IV SCH (20:42)
[2016-12-24 22:56] VITALS: RESP 18
[2016-12-24] MEDS: METOPROLOL TARTRATE 25 MG TAB PO SCH (23:29)
[2016-12-25] MEDS: IPRATROPIUM-ALBUTEROL 3 ML NEB INHALATION SCH ×5 (00:16→19:47)
[2016-12-25] MEDS: FUROSEMIDE 40 MG TAB PO SCH ×2 (08:47→16:34)
[2016-12-25] MEDS: AMIODARONE 200 MG TAB PO SCH ×3 (08:47→21:03)
[2016-12-25] MEDS: METOPROLOL TARTRATE 25 MG TAB PO SCH ×2 (08:47→21:03)
[2016-12-25] MEDS: MAGNESIUM OXIDE 400 MG TAB PO SCH (08:47)
[2016-12-25] MEDS: ATORVASTATIN 40 MG TAB PO SCH (08:47)
[2016-12-25] MEDS: SPIRONOLACTONE 25 MG TAB PO SCH (08:47)
[2016-12-25] MEDS: MULTIVITAMINS, THERA 1 EACH TAB PO SCH (08:47)
[2016-12-25] MEDS: Acetaminophen-Codeine 300-30mg TAB PO PRN (08:48)
[2016-12-25] MEDS: NITROGLYCERIN SL TABS 0.4 MG TAB SUBLINGUAL PRN ×2 (10:30→14:00)
--- NOTE | 2016-12-25 11:34 | P.CNOR ---
History of Present Illness - [facility] Consult date: 12/25/16 Requesting physician: Sugar Faye Consult reason: joint pain (Right shoulder pain) History of present illness: Patient is a pleasant 71-year-old male who is seen at bedside for further evaluation after we were consulted in regards to right shoulder pain. Patient states on approximately 12/18/2016 he started to experience some achy pain to the right shoulder that is exacerbated with external rotation of the right shoulder. He has adequate for range of motion without significant difficulty. External rotation is the only movement that exacerbates any pain to the right shoulder. After 3 days of ongoing symptoms he was planning to seek further evaluation. He began to experience shortness of breath. He presented [facility] for further evaluation. At that time he was found to have elevated troponin level. He has been followed by cardiology. He has a history of previous cardiac bypass surgery x2 and COPD. He continues to be followed by cardiology as well as pulmonology. He did develop atrial fibrillation while in the hospital with rapid ventricular response. He was started on amiodarone drip. The atrial fibrillation subsided and he returned to normal sinus rhythm. He has been receiving Tylenol #3 which helps control his right shoulder pain. Dr. Cardenas feels the patient's right shoulder pain is most likely stemming from atrial fibrillation. X-rays of the right shoulder were taken which showed no evidence of fracture or dislocation. He does have evidence of right acromioclavicular joint arthritis. Patient states at the bedside his shoulder continues to give him some difficulty and some pain. He is able to perform active range of motion of the bedside without significant difficulty. He states he is currently having some difficulty with kidney function and previous notes stay he is known have chronic renal failure. He states cardiology is planning for heart catheterization but this may be delayed until his kidney function improves. Past Medical History Past Medical History: Coronary Artery Disease (CAD), COPD, GERD/Reflux, Hyperlipidemia, Myocardial Infarction (MA) Additional Past Medical History / Comment(s): COPD with a baseline FEV1 of 44% of predicted, coronary artery bypass surgery with previous carotid bypass surgery 2 and previous coronary intervention and stenting, hyperlipidemia, acid reflux, peripheral vascular disease, chronic renal failure, osteoarthritis , chronic back pain, hemorrhoids, hayfever, hyperlipidemia Last Myocardial Infarction Date:: 2008 History of Any Multi-Drug Resistant Organisms: None Reported Past Surgical History: Back Surgery, Coronary Bypass/CABG, Heart Catheterization With Stent, Hernia Repair, Orthopedic Surgery Additional Past Surgical History / Comment(s): EDWIN carpal tunnel/ RT shoulder, X2 CABG 1993 AND 2008, INC HERNIA REPAIR W/ MESH, "4 CARDAIC STENTS",EDWIN CATARACTS, COLONOSCOPY Past Anesthesia/Blood Transfusion Reactions: Postoperative Nausea & Vomiting ( PONV) Additional Past Anesthesia/Blood Transfusion Reaction / Comm: CLAUSTERPHOBIA Date of Last Stent Placement:: UNK Smoking Status: Former smoker - Past Family History Mother Family Medical History: No Reported History Additional Family Medical History / Comment(s): IN A TRAIN ACCIDENT. Father Family Medical History: Renal Disease Medications and Allergies Home Medications Medication Instructions Recorded Confirmed Type Aspirin EC [Ecotrin] 81 mg PO DAILY PRN 06/29/14 12/21/16 History Atorvastatin [Lipitor] 40 mg PO HS 06/29/14 12/21/16 History Furosemide [Lasix] 40 mg PO DAILY 06/29/14 12/21/16 History Multivitamins, Thera [Multivitamin] 1 tab PO DAILY 06/29/14 12/21/16 History Spironolactone [Spironolactone] 12.5 mg PO DAILY 06/29/14 12/21/16 History Ubidecarenone [Co Q-10] 100 mg PO DAILY 06/29/14 12/21/16 History Allergies Allergy/AdvReac Type Severity Reaction Status Date / Time No Known Allergies Allergy Verified 12/21/16 13:23 Physical Examination Physical Exam: Patient is awake, alert, and oriented 3 Vital signs stable Good chest excursion with deep inspiration and expiration; patient is currently breathing without difficulty Abdomen soft nontender Adequate range of motion of the right shoulder without significant difficulty No significant pain with palpation of the right shoulder Some pain with trying to perform external rotation the right shoulder No significant pain with abduction, flexion, or internal rotation of the right shoulder Full range of motion of the right elbow, wrist, fingers, and thumb without significant difficulty Neurovascularly intact right upper extremity Results Pertinent studies: X-rays the right shoulder: Evidence of right acromioclavicular joint arthritis; no evidence of fracture or dislocation - Labs Labs: Abnormal Lab Results - Last 24 Hours (Table) 12/24/16 12/24/16 12/25/16 Range/Units 05:58 17:11 05:35 APTT 57.1 H 59.4 H (22.0-30.0) sec BUN 52 H (9-20) mg/dL Creatinine 2.19 H (0.66-1.25) mg/dL Glucose 107 H (74-99) mg/dL H & H 12/21/16 Range/Units 11:50 Hgb 16.2 (13.0-17.5) gm/dL Hct 48.4 (39.0-53.0) % Coagulation 12/21/16 Range/Units 11:50 INR 1.0 (<1.2) Result Diagrams: 12/21/16 11:50 12/24/16 05:58 Assessment and Plan (1) Right shoulder pain Status: Acute (2) Acromioclavicular joint arthritis Status: Acute (3) Acute exacerbation of chronic obstructive airways disease Status: Acute (4) Chronic renal failure Status: Acute (5) Congestive heart failure Status: Acute (6) H/O heart bypass surgery Status: Acute Plan: Assessment: Right shoulder plain Right acromioclavicular joint arthritis Shortness of breath History of cardiac bypass surgery x2 Congestive heart failure COPD Chronic renal failure Plan: 1. After further reviewing of the patient's imaging, further discussion with Dr. Rob Hickey, physical examination of the patient, and fourther discussion with the patient, we're not currently planning for any acute intervention or further imaging in regards to the patient is right shoulder. He does not have evidence of injury or significant cause for his right shoulder pain in terms of an orthopedic standpoint. His symptoms started acutely approximately 3 days prior to the exacerbation of his COPD along with cardiac symptoms. At this time , we will plan for patient to continue with treatment by cardiology and pulmonology. We discussed we'll plan have him follow up in outpatient setting for further evaluation. If his symptoms are not improving in terms of his right shoulder as he continues to receive further treatment from a cardiac and pulmonary standpoint, we discussed we may obtain further imaging of the right shoulder and/or have him work through formal physical therapy for his right shoulder. Patient agrees this is a good plan of care. He can continue with pain control with Tylemol #3 as prescribed as needed for relief of his symptoms. 2. Cardiology, pulmonology, and medicine will continue to follow patient closely for his other significant medical diagnoses 3. From an orthopedic standpoint, patient is cleared for discharge once cleared by all other medical providers 4. Following discharge, patient may follow-up with Kristian Scherer PA-C or Dr. Rob Hickey at [facility] in approximately 2-3 weeks for further evaluation 5. Patient has been discussed in detail with Dr. Rob Hickey and he agrees with this plan Time with Patient: Less than 30
--- NOTE | 2016-12-25 12:48 | P.PN ---
Subjective This is a 71-year-old gentleman with history of ischemic heart disease with a previous bypass surgery 2 and also COPD who was admitted to the hospital with complaints of increasing shortness of breath. It seems to make it was getting progressively worse, but this morning when he woke up he could not walk, without getting short of breath, even 10 feet. Patient denied any chest pain but was having severe right shoulder pain. Patient had bypass surgery in 1996 with a MADRID graft to the LAD, vein graft to the right coronary artery and also circumflex coronary artery. In 2008. Patient had repeat cardiac catheterization and repeat bypass surgery with vein graft to the first diagonal , vein graft to the OM branch of circumflex and vein graft to the right coronary artery. Patient was noted at the time and to have 70-80% ostial left main disease. Patient had a patent MADRID. Patient comes now with complaints of increasing shortness of breath. His troponins were elevated. His chest x-ray showed possible mild CHF though there could be an exacerbation of COPD. Patient was treated with IV Lasix. Recent did have some atrial fibrillation with rapid ventricular response with IV amiodarone drip and has subsequently been switched to by mouth amiodarone. 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 This morning patient is in sinus rhythm. He did use to have right shoulder pain with questionable relief with nitro. Patient was encouraged to take nitroglycerin when he has the shoulder pain to assess for possible cardiac nature. Patient's appearing creatinine remains elevated at 52 and 2.19. Objective - Vital Signs Vital signs: Vital Signs Temp 97 F L 12/25/16 08:00 Pulse 80 12/25/16 08:28 Resp 18 12/25/16 08:00 BP 117/61 12/25/16 08:00 Pulse Ox 95 12/25/16 08:00 Intake & Output 12/24/16 12/25/16 12/25/16 18:59 06:59 18:59 Intake Total 1379.342 314.384 290 Output Total 2125 1900 Balance -745.658 -6345.616 290 Weight 99 kg Intake: Intake, IV Titration 159.342 264.384 Amount Heparin Sodium,Porcine/ 159.342 264.384 D5w Pmx 25,000 unit In Dextrose/Water 1 500ml. bag @ 13.5 UNITS/KG/HR 25 .71 mls/hr IV .[id number] [facility] Rx#:[id number] Oral 1220 50 290 Output: Urine 2124 1900 Other: Voiding Method Urinal Urinal Urinal # Voids 1 # Bowel Movements 0 - Exam PHYSICAL EXAMINATION: HEENT: Head is atraumatic, normocephalic. Pupils equal, round. Neck is supple. There is no elevated jugular venous pressure. HEART EXAMINATION: Heart sounds regular, S1 and S2 normal. No murmur or gallop heard. CHEST EXAMINATION: Lungs feel diminished air entry bilaterally with scattered rhonchi. No chest wall tenderness is noted on palpation or with deep breathing. ABDOMEN: Soft, nontender. Bowel sounds are heard. No organomegaly noted. EXTREMITIES: 2+ peripheral pulses with no evidence of peripheral edema and no calf tenderness noted. NEUROLOGIC patient is awake, alert and oriented x3. . - Labs CBC & Chem 7: 12/21/16 11:50 12/24/16 05:58 Labs: Abnormal Lab Results - Last 24 Hours (Table) 12/24/16 12/24/16 12/25/16 Range/Units 05:58 17:11 05:35 APTT 57.1 H 59.4 H (22.0-30.0) sec BUN 52 H (9-20) mg/dL Creatinine 2.19 H (0.66-1.25) mg/dL Glucose 107 H (74-99) mg/dL Assessment and Plan Plan: Assessment and plan 1 acute on chronic diastolic congestive heart failure #2 acute exacerbation of COPD #3 ischemic heart disease with prior coronary artery bypass grafting x2 #4 dyslipidemia #5 chronic renal failure #6 atrial fibrillation with rapid ventricular response, paroxysmal, new onset #7 right shoulder pain, could be cardiac in nature. From cardiology perspective, patient was encouraged to take nitroglycerin for shoulder pain. We will start the patient on Imdur 30 mg by mouth daily. We will continue IV heparin at this time. We'll reassess initiation of oral anticoagulation at a later time. Continue monitor the patient's renal function. Patient may require cardiac catheterization. Further recommendations to follow. COMMISSIONING AGENT note has been reviewed, I agree with a documented findings and plan of care. Patient was seen and examined.
[2016-12-25] MEDS: ISOSORBIDE MONONITRATE ER 30 MG TAB.ER.24H PO SCH (13:00)
--- NOTE | 2016-12-25 13:22 | P.PN ---
Subjective 69-year-old male patient with known history of COPD with a baseline FEV1 of 44% of predicted and a diffusion capacity of 55% of predicted. The patient also has history of coronary artery disease and has undergone previous bypass surgery twice and the second time was in 2008 and he had quit smoking since then. He carries more than [id number] smoking history. He also has chronic renal failure. This patient was in a good state of health until around 3 days ago when he started having episodes of right shoulder and posterior back pain in addition to increased shortness of breath and diaphoresis. The shoulder pain was episodic. He was having few hours of pain which was subsequently go away and then come back. He was getting progressively more short of breath and he was getting short of breath with activities of daily today life and even while walking short distances. For that reason he came into the hospital and the patient was found to have no acute EKG abnormalities and some nonspecific changes seen on EKG. The troponin was positive and the patient ruled in for non -ST segment elevation myocardial infarction. He was started on IV heparin. The right shoulder pain subsided however. This morning the patient went into atrial fibrillation with rapid ventricular response. Currently is on a Cardizem drip for rate control. Echocardiac Geovanni was also done and the patient has a preserved LV function without any significant valvular abnormalities. Note that the patient is post bypass surgery of the heart 2. The surgery was initially done in 1996 that included MADRID to LAD and saphenous vein graft to RCA and circumflex. In 2008 the patient had redo bypass surgery. In between he has also had coronary interventions and stenting. Cardiology is on the scene and the patient there are plans to proceed with a cardiac angiogram at a later stage. Meanwhile, the patient is feeling slightly better. Less short of breath compared to yesterday. His atrial fibrillation which is of a new onset is being controlled with Cardizem drip. He is also on IV heparin. Producing adequate amount of urine output. No chest pain. No pleurisy. No hemoptysis. No fever or chills or night sweats. His chest x-ray showing no acute cardio pulmonary abnormalities. The patient was seen again today 12/23/2016 in follow-up on the selective care unit. He is currently ending up in bed doing quite well. He is breathing easier today as compared to yesterday. He has converted to normal sinus rhythm. He remains on IV amiodarone as well as IV heparin. His shoulder discomfort has improved. Unfortunately his urine creatinine continues to rise at 2.31. No plans for cardiac catheterization currently. He denies any worsening shortness of breath. He is maintaining good O2 saturations in the mid 90s on room air. He is currently hemodynamically stable. He remains in a negative balance. On 12/24/2016 I'm seeing this patient in follow-up. On and off is still having pain over the right shoulder area. This pain is localized to the posterior shoulder upper back area. Unclear to me if this is a representation of angina versus a skeletal pain from her shoulder area. The patient had a x-ray of the shoulder that came back within normal limits. He is breathing is improved. No major edema in lower extremities. He was on diuretics and his creatinine was up to 2.3 and based on that the Lasix was tapered off to 40 mg by mouth twice a day. He is also on DuoNeb neb last treatment on the clock. His cardiac rhythm is sinus and the patient is currently on amiodarone 200 mg by mouth 3 times a day. No fever. No chills. Awaiting follow-up renal function test from today. Cardiology is on the case. No immediate plans for a cardiac catheterization at this point. His pulse ox is 95% on room air. The patient is seen again today 12/25/2016 in follow-up on the selective care unit. He is currently awake and alert in no acute distress. He denies any worsening shortness of breath, cough or congestion. Maintaining good O2 saturations in the 90s on room air. Afebrile. Orthopedics is involved regarding the continued right shoulder discomfort. He is also being followed by cardiology who may plan for cardiac catheterization once his renal function improves. Current creatinine 2.19. Objective - Vital Signs Vital signs: Vital Signs Temp 97 F L 12/25/16 08:00 Pulse 80 12/25/16 08:28 Resp 18 12/25/16 08:00 BP 117/61 12/25/16 08:00 Pulse Ox 95 12/25/16 08:00 Intake & Output 12/24/16 12/25/16 12/25/16 18:59 06:59 18:59 Intake Total 1379.342 314.384 290 Output Total 2125 1900 Balance -745.658 -1585.616 290 Weight 99 kg Intake: Intake, IV Titration 159.342 264.384 Amount Heparin Sodium,Porcine/ 159.342 264.384 D5w Pmx 25,000 unit In Dextrose/Water 1 500ml. bag @ 13.5 UNITS/KG/HR 25 .71 mls/hr IV .[id number] [facility] Rx#:[id number] Oral 1220 50 290 Output: Urine 2125 1900 Other: Voiding Method Urinal Urinal Urinal # Voids 1 # Bowel Movements 0 - Exam Head exam was generally normal. There was no scleral icterus or corneal arcus. Mucous membranes were moist.Neck was supple and without jugular venous distension, thyromegaly, or carotid bruits. Carotids were easily palpable bilaterally. There was no adenopathy. The patient has significant crowding of the posterior oropharynx. There is no goiter or neck masses. Lungs sounds are diminished bilaterally along with some few scattered expiratory wheezes. The arousal in the lung bases. Heart sounds are irregular, positive S1-S2. No cervical murmurs appreciated.Abdominal exam revealed normal bowel sounds. The abdomen was soft, non-tender, and without masses, organomegaly, or appreciable enlargement of the abdominal aorta.Examination of the extremities revealed easily palpable radial, femoral and pedal pulses. There was no cyanosis, clubbing or edema. - Labs CBC & Chem 7: 12/21/16 11:50 12/24/16 05:58 Labs: Abnormal Lab Results - Last 24 Hours (Table) 12/24/16 12/24/16 12/25/16 Range/Units 05:58 17:11 05:35 APTT 57.1 H 59.4 H (22.0-30.0) sec BUN 52 H (9-20) mg/dL Creatinine 2.19 H (0.66-1.25) mg/dL Glucose 107 H (74-99) mg/dL Assessment and Plan Plan: Assessment 1 acute non-ST segment elevation myocardial infarction, currently on IV heparin. Troponin positive and cardiology on the case. Possible cardiac catheterization later stage 2 new onset atrial fibrillation with rapid ventricular response currently on IV heparin 3 shoulder pain possibly secondary to underlying angina. No injury to the shoulder and x-rays negative, orthopedics consulted. 4 COPD with an FEV1 of 44% of predicted at baseline 5 hypertension 6 hyperlipidemia 7 previous coronary artery bypass surgery 2, in 1996 2008 in addition to previous coronary intervention and stenting. LV function is preserved for now. 8 peripheral vascular disease 9 chronic renal failure Plan: The patient was seen and evaluated by Dr. Vaughn. He is improved clinically today as compared to yesterday. We'll continue with his current medications. Continue to monitor his renal function. We will continue to follow.
--- NOTE | 2016-12-25 15:27 | P.PN ---
Subjective 69-year-old male patient with known history of COPD previous bypass surgery twice and the second time was in 2008 This patient was in a good state of health until around 3 days ago when he started having episodes of right shoulder and posterior back pain in addition to increased shortness of breath and diaphoresis. The shoulder pain was episodic. He was having few hours of pain which was subsequently go away and then come back. He was getting progressively more short of breath and he was getting short of breath with activities of daily today life and even while walking short distances. For that reason he came into the hospital and the patient was found to have no acute EKG abnormalities and some nonspecific changes seen on EKG. The troponin was positive and the patient ruled in for non-ST segment elevation myocardial infarction. He was started on IV heparin. The right shoulder pain subsided however. This morning the patient went into atrial fibrillation with rapid ventricular response. . Note that the patient is post bypass surgery of the heart 2. The surgery was initially done in 1996 that included MADRID to LAD and saphenous vein graft to RCA and circumflex. In 2008 the patient had redo bypass surgery. In between he has also had coronary interventions and stenting. Cardiology is on the scene and the patient there are plans to proceed with a cardiac angiogram at a later stage. Meanwhile, the patient is feeling slightly better. Less short of breath compared to yesterday. His atrial fibrillation which is of a new onset is being controlled with Cardizem drip. He is also on IV heparin. Producing adequate amount of urine output. No chest pain. No pleurisy. No hemoptysis. No fever or chills or night sweats. His chest x-ray showing no acute cardio pulmonary abnormalities. On 12/24/2016 This pain is localized to the posterior shoulder upper back area. No major edema in lower extremities. His pulse ox is 95% on room air. Patient states that his shoulder pain has disappeared after nitroglycerin Denies having any reproducibility of pain with any range of motion on the right shoulder no fevers chills nausea vomiting or diarrhea is reported 12/25/16 pt refused nitroglycerin overnight currently has right shoulder pain Objective - Vital Signs Vital signs: Vital Signs Temp 97 F L 12/25/16 08:00 Pulse 66 12/25/16 13:43 Resp 18 12/25/16 08:00 BP 117/61 12/25/16 08:00 Pulse Ox 95 12/25/16 08:00 Intake & Output 12/24/16 12/25/16 12/25/16 18:59 06:59 18:59 Intake Total 1379.342 314.384 490 Output Total 2124 1900 Balance -745.658 -1585.616 490 Weight 99 kg Intake: Intake, IV Titration 159.342 264.384 Amount Heparin Sodium,Porcine/ 159.342 264.384 D5w Pmx 25,000 unit In Dextrose/Water 1 500ml. bag @ 13.5 UNITS/KG/HR 25 .71 mls/hr IV .[id number] [facility] Rx#:[id number] Oral 1220 50 490 Output: Urine 2124 1899 Other: Voiding Method Urinal Urinal Urinal # Voids 1 # Bowel Movements 0 - Exam Physical exam Gen. appearance oriented 3 in no distress Neck is supple no JVD Lungs good air entry clear to auscultation no rhonchi or wheezing Heart S1-S2 heard regular rate and rhythm no murmurs appreciated Abdomen is soft nontender no organomegaly bowel sounds are intact Neurologically cranial nerves II-12 grossly intact no focal motor or sensory deficits noted Skin no abnormalities appreciated - Labs CBC & Chem 7: 12/21/16 11:50 12/24/16 05:58 Labs: Abnormal Lab Results - Last 24 Hours (Table) 12/24/16 12/25/16 Range/Units 17:11 05:35 APTT 57.1 H 59.4 H (22.0-30.0) sec Assessment and Plan Plan: #1 acute non-ST elevation myocardial infarction. #2 new onset atrial fibrillation currently rate controlled #3 atypical chest pain #4 COPD per #5 hypertension #6 history of CAD #7 CK D stage III #8 peripheral vascular disease Plan Imdur?? timing of heart cath poor renal function to endure contrast titrate off heparin. BP stable encourage ambulation
[2016-12-25] MEDS: SODIUM CHLORIDE 0.9% 1,000 ML IV SCH (16:34)
[2016-12-25] MEDS: HEPARIN SODIUM,PORCINE/D5W PMX 25,000 UNIT in DEXTROSE/WATER 1 500ML.BAG IV SCH (18:17)
[2016-12-26 06:54] LABS: Calcium 8.6 mg/dL (8.4-10.2); Potassium 4.3 mmol/L (3.5-5.1); Total Protein 6.1 g/dL (6.3-8.2)
[2016-12-26] MEDS: IPRATROPIUM-ALBUTEROL 3 ML NEB INHALATION SCH ×4 (07:27→19:18)
[2016-12-26] MEDS: ATORVASTATIN 40 MG TAB PO SCH (08:41)
[2016-12-26] MEDS: ISOSORBIDE MONONITRATE ER 30 MG TAB.ER.24H PO SCH (08:41)
[2016-12-26] MEDS: MULTIVITAMINS, THERA 1 EACH TAB PO SCH (08:41)
[2016-12-26] MEDS: AMIODARONE 200 MG TAB PO SCH ×3 (08:41→21:18)
[2016-12-26] MEDS: SPIRONOLACTONE 25 MG TAB PO SCH (08:41)
[2016-12-26] MEDS: METOPROLOL TARTRATE 25 MG TAB PO SCH ×2 (08:41→21:18)
[2016-12-26] MEDS: MAGNESIUM OXIDE 400 MG TAB PO SCH (08:42)
[2016-12-26] MEDS: FUROSEMIDE 40 MG TAB PO SCH ×2 (08:55→16:19)
--- NOTE | 2016-12-26 09:21 | P.NPCON ---
History of Present Illness - Reason for Consult acute renal failure - History of Present Illness Patient is a 71-year-old white male who was admitted to the hospital with complaints of right shoulder pain. Patient ruled in for non-ST elevation [place]. His serum creatinine on admission was 1.65 mg/dL it did go up to 2.3 on 2016 and it is now down to about 2.1 mg/dL. It appears that patient does have chronic kidney disease with previous creatinine of about 1.5 and 1.6 mg/dL in October 2014 and May 2014. Patient states that he does not follow-up with nephrology and that his kidney function has been weak since his cardiac arrest about 10 years ago. Systolic blood pressure has not been significantly low. Patient also had A. fib with RVR on admission. Heart rate is better controlled now. Patient has not received any IV dye and there is no history of use of NSAIDs prior to admission. He has been voiding good currently maintained on Lasix 40 mg by mouth twice a day Ejection fraction is 55-60%. With severe left ventricular hypertrophy. Left atrium and right atrium are of normal size. Review of Systems Review of systems as per HPI other systems negative. Past Medical History Past Medical History: Coronary Artery Disease (CAD), COPD, GERD/Reflux, Hyperlipidemia, Myocardial Infarction ([place]) Additional Past Medical History / Comment(s): COPD with a baseline FEV1 of 44% of predicted, coronary artery bypass surgery with previous carotid bypass surgery 2 and previous coronary intervention and stenting, hyperlipidemia, acid reflux, peripheral vascular disease, chronic renal failure, osteoarthritis , chronic back pain, hemorrhoids, hayfever, hyperlipidemia Last Myocardial Infarction Date:: 2008 History of Any Multi-Drug Resistant Organisms: None Reported Past Surgical History: Back Surgery, Coronary Bypass/CABG, Heart Catheterization With Stent, Hernia Repair, Orthopedic Surgery Additional Past Surgical History / Comment(s): EDWIN carpal tunnel/ RT shoulder, X2 CABG 1993 AND 2008, INC HERNIA REPAIR W/ MESH, "4 CARDAIC STENTS",EDWIN CATARACTS, COLONOSCOPY Past Anesthesia/Blood Transfusion Reactions: Postoperative Nausea & Vomiting ( PONV) Additional Past Anesthesia/Blood Transfusion Reaction / Comment(s): CLAUSTERPHOBIA Date of Last Stent Placement:: UNK Smoking Status: Former smoker - Past Family History Mother Family Medical History: No Reported History Additional Family Medical History / Comment(s): IN A TRAIN ACCIDENT. Father Family Medical History: Renal Disease Medications and Allergies Home Medications Medication Instructions Recorded Confirmed Type Aspirin EC [Ecotrin] 81 mg PO DAILY PRN 06/29/14 12/21/16 History Atorvastatin [Lipitor] 40 mg PO HS 06/29/14 12/21/16 History Furosemide [Lasix] 40 mg PO DAILY 06/29/14 12/21/16 History Multivitamins, Thera [Multivitamin] 1 tab PO DAILY 06/29/14 12/21/16 History Spironolactone [Spironolactone] 12.5 mg PO DAILY 06/29/14 12/21/16 History Ubidecarenone [Co Q-10] 100 mg PO DAILY 06/29/14 12/21/16 History Allergies Allergy/AdvReac Type Severity Reaction Status Date / Time No Known Allergies Allergy Verified 12/21/16 13:23 Physical Exam Vitals: Vital Signs Temp Pulse Pulse Resp BP Pulse Ox 12/26/16 07:43 64 12/26/16 07:27 64 12/26/16 04:00 96.6 F L 52 L 18 127/69 91 L 12/26/16 00:00 97.5 F L 65 18 122/60 93 L 12/25/16 20:00 97.3 F L 69 18 128/68 92 L 12/25/16 19:56 64 12/25/16 19:49 62 12/25/16 17:13 62 12/25/16 16:57 62 12/25/16 16:00 97.2 F L 70 18 155/83 95 12/25/16 13:43 66 12/25/16 13:28 64 12/25/16 12:00 97.5 F L 65 18 150/80 97 Intake and Output 12/25/16 12/26/16 12/26/16 22:59 06:59 14:59 Intake Total 395.616 120 Output Total 500 450 Balance -104.384 -450 120 Intake: Intake, IV Titration 395.616 Amount Heparin Sodium,Porcine/ 235.616 D5w Pmx 25,000 unit In Dextrose/Water 1 500ml. bag @ 13.5 UNITS/KG/HR 25 .71 mls/hr IV .[id number] [facility] Rx#:[id number] Sodium Chloride 0.9% 1, 160 000 ml @ 20 mls/hr IV . Q24H [facility] Rx#:[id number] Oral 120 Output: Urine 500 450 Other: Voiding Method Urinal Urinal Weight 97.1 kg On examination patient is comfortable awake alert oriented 3 is not in any acute distress. Blood pressure is 127/69 heart rate 64/m patient is afebrile Examination of the heart S1 and S2 Examination lungs bilateral breath sounds are heard abdomen is soft obese nontender examination lower extremities shows no significant edema. Chronic skin changes are noted. CLINICAL PROFESSOR exam is grossly intact patient is moving all 4 extremities. Results - Lab Results Most recent lab results Calcium 8.6 mg/dL (8.4-10.2) 12/26/16 06:06 Magnesium 2.0 mg/dL (1.6-2.3) 12/21/16 11:50 12/21/16 11:50 12/26/16 06:06 Assessment and Plan Plan: Assessment 1. Acute kidney injury most likely secondary to hemodynamic instability with A. fib with RVR. Patient's blood pressure was not noted to be significantly low post hospitalization. Currently there are no nephrotoxic agents on board. Patient has been voiding well. I we will check post void residual residual to ensure that he is emptying his bladder completely. Serum creatinine is a bit improved and there are no plans for cardiac catheterization at this time. Patient will need follow-up as outpatient for management of CK D as his previous creatinine was 1.6 in 2014. 2. Chronic kidney disease NKF stage IIIB most likely secondary to nephrosclerosis. Check urine analysis an ultrasound of the kidneys 3. Non-ST elevation [place] being followed by cardiology. Currently maintained on IV heparin with no plans for emergent cardiac catheterization at this time. 4. Hypertension currently stable 5. Left ventricular hypertrophy with ejection fraction 55-60% noted on echocardiogram. Plan Check a post void residual residual. Agree with holding off on cardiac catheterization for now unless it is emergent. Patient will need to follow-up as outpatient for CK D. Check urine analysis an ultrasound of the kidneys. Thank you for the consultation. We'll continue to follow the patient with you during his hospitalization
--- NOTE | 2016-12-26 10:47 | P.PN ---
Subjective Principal diagnosis: Acute non-ST segment elevation myocardial infarction, new onset atrial fibrillation with RVR. 69-year-old male patient with known history of COPD with a baseline FEV1 of 44% of predicted and a diffusion capacity of 55% of predicted. The patient also has history of coronary artery disease and has undergone previous bypass surgery twice and the second time was in 2008 and he had quit smoking since then. He carries more than [id number] smoking history. He also has chronic renal failure. This patient was in a good state of health until around 3 days ago when he started having episodes of right shoulder and posterior back pain in addition to increased shortness of breath and diaphoresis. The shoulder pain was episodic. He was having few hours of pain which was subsequently go away and then come back. He was getting progressively more short of breath and he was getting short of breath with activities of daily today life and even while walking short distances. For that reason he came into the hospital and the patient was found to have no acute EKG abnormalities and some nonspecific changes seen on EKG. The troponin was positive and the patient ruled in for non -ST segment elevation myocardial infarction. He was started on IV heparin. The right shoulder pain subsided however. This morning the patient went into atrial fibrillation with rapid ventricular response. Currently is on a Cardizem drip for rate control. Echocardiac Geovanni was also done and the patient has a preserved LV function without any significant valvular abnormalities. Note that the patient is post bypass surgery of the heart 2. The surgery was initially done in 1996 that included MADRID to LAD and saphenous vein graft to RCA and circumflex. In 2008 the patient had redo bypass surgery. In between he has also had coronary interventions and stenting. Cardiology is on the scene and the patient there are plans to proceed with a cardiac angiogram at a later stage. Meanwhile, the patient is feeling slightly better. Less short of breath compared to yesterday. His atrial fibrillation which is of a new onset is being controlled with Cardizem drip. He is also on IV heparin. Producing adequate amount of urine output. No chest pain. No pleurisy. No hemoptysis. No fever or chills or night sweats. His chest x-ray showing no acute cardio pulmonary abnormalities. The patient was seen again today 12/23/2016 in follow-up on the selective care unit. He is currently ending up in bed doing quite well. He is breathing easier today as compared to yesterday. He has converted to normal sinus rhythm. He remains on IV amiodarone as well as IV heparin. His shoulder discomfort has improved. Unfortunately his urine creatinine continues to rise at 2.31. No plans for cardiac catheterization currently. He denies any worsening shortness of breath. He is maintaining good O2 saturations in the mid 90s on room air. He is currently hemodynamically stable. He remains in a negative balance. On 12/24/2016 I'm seeing this patient in follow-up. On and off is still having pain over the right shoulder area. This pain is localized to the posterior shoulder upper back area. Unclear to me if this is a representation of angina versus a skeletal pain from her shoulder area. The patient had a x-ray of the shoulder that came back within normal limits. He is breathing is improved. No major edema in lower extremities. He was on diuretics and his creatinine was up to 2.3 and based on that the Lasix was tapered off to 40 mg by mouth twice a day. He is also on DuoNeb neb last treatment on the clock. His cardiac rhythm is sinus and the patient is currently on amiodarone 200 mg by mouth 3 times a day. No fever. No chills. Awaiting follow-up renal function test from today. Cardiology is on the case. No immediate plans for a cardiac catheterization at this point. His pulse ox is 95% on room air. The patient is seen again today 12/25/2016 in follow-up on the selective care unit. He is currently awake and alert in no acute distress. He denies any worsening shortness of breath, cough or congestion. Maintaining good O2 saturations in the 90s on room air. Afebrile. Orthopedics is involved regarding the continued right shoulder discomfort. He is also being followed by cardiology who may plan for cardiac catheterization once his renal function improves. Current creatinine 2.19. Patient was reevaluated today on 12/26/2016, seems to be doing relatively well clinically, renal functioning remains poor to the point that cardiac catheterization is still on hold. Patient denies any cough no wheezing no shortness of breath at this point. He is maintaining good O2 saturations on room air. Afebrile. Still being followed by orthopedics and cardiology. He is also followed by nephrology. Creatinine today is down to 2.10. BUN is 45. Objective - Vital Signs Vital signs: Vital Signs Temp 96.6 F L 12/26/16 04:00 Pulse 64 12/26/16 07:43 Resp 18 12/26/16 04:00 BP 127/69 12/26/16 04:00 Pulse Ox 91 L 12/26/16 04:00 Intake & Output 12/25/16 12/26/16 12/26/16 18:59 06:59 18:59 Intake Total 725.616 160 120 Output Total 600 950 Balance 125.616 -790 120 Weight 97.1 kg Intake: Intake, IV Titration 235.616 160 Amount Heparin Sodium,Porcine/ 235.616 D5w Pmx 25,000 unit In Dextrose/Water 1 500ml. bag @ 13.5 UNITS/KG/HR 25 .71 mls/hr IV .[id number] [facility] Rx#:[id number] Sodium Chloride 0.9% 1, 160 000 ml @ 20 mls/hr IV . Q24H [facility] Rx#:[id number] Oral 490 120 Output: Urine 600 950 Other: Voiding Method Urinal Urinal - Exam Head exam was generally normal. There was no scleral icterus or corneal arcus. Mucous membranes were moist.Neck was supple and without jugular venous distension, thyromegaly, or carotid bruits. Carotids were easily palpable bilaterally. There was no adenopathy. The patient has significant crowding of the posterior oropharynx. There is no goiter or neck masses. Lungs: Clear bilaterally, no crackles, no rhonchi, no wheezes. Heart sounds are irregular, positive S1-S2. No cervical murmurs appreciated.Abdominal exam revealed normal bowel sounds. The abdomen was soft, non-tender, and without masses, organomegaly , or appreciable enlargement of the abdominal aorta.Examination of the extremities revealed easily palpable radial, femoral and pedal pulses. There was no cyanosis, clubbing or edema. - Labs CBC & Chem 7: 12/21/16 11:50 12/26/16 06:06 Labs: Abnormal Lab Results - Last 24 Hours (Table) 12/26/16 12/26/16 Range/Units 06:06 06:06 APTT 51.5 H (22.0-30.0) sec Chloride 97 L (98-107) mmol/L BUN 45 H (9-20) mg/dL Creatinine 2.10 H (0.66-1.25) mg/dL Total Protein 6.1 L (6.3-8.2) g/dL Assessment and Plan Plan: 1 acute non-ST segment elevation myocardial infarction, currently on IV heparin. Troponin positive and cardiology on the case. Possible cardiac catheterization later stage 2 new onset atrial fibrillation with rapid ventricular response currently on IV heparin 3 shoulder pain possibly secondary to underlying angina. No injury to the shoulder and x-rays negative, orthopedics consulted. 4 COPD with an FEV1 of 44% of predicted at baseline 5 hypertension 6 hyperlipidemia 7 previous coronary artery bypass surgery 2, in 1996 2008 in addition to previous coronary intervention and stenting. LV function is preserved for now. 8 peripheral vascular disease 9 chronic renal failure Recommendation: Continue present supportive care measures, continue bronchodilators, closely monitor renal profile, decisions regarding cardiac catheterization is yet to be made, but we need to see definite significant improvement in the renal status before that could be accomplished. We'll continue to follow. Time with Patient: Less than 30
[2016-12-26] MEDS ORDERED: ISOSORBIDE MONONITRATE ER 30 MG TAB.ER.24H PO STA (14:38)
--- NOTE | 2016-12-26 15:21 | P.PN ---
Subjective Principal diagnosis: This 71-year-old gentleman with history of ischemic heart disease and previous bypass surgery 2 was admitted with complaints of shoulder pain, shortness of breath and evidence of non-Q-wave myocardial infarction. Patient also had paroxysmal atrial fibrillation with rapid ventricular response. Patient has been initiated on amiodarone and beta blockers along with nitrates. His creatinine has gone up to 2.3 but seemed to be showing some slight improvement. His shoulder pain is gradually improving. He was seen by station tender. It is felt that cardiac catheterization should be held unless is some urgency. Patient is also anxious not to have cardiac catheterization on Mrs. necessary. At this point we'll continue to maximize medical therapy. We'll increase the dose of the Imdur to 60 and start him on eliquis. If he remains stable he'll be discharged home tomorrow Objective - Vital Signs Vital signs: Vital Signs Temp 97.5 F L 12/26/16 12:00 Pulse 54 L 12/26/16 12:00 Resp 18 12/26/16 12:00 BP 110/57 12/26/16 12:00 Pulse Ox 95 12/26/16 12:00 Intake & Output 12/25/16 12/26/16 12/26/16 18:59 06:59 18:59 Intake Total 725.616 160 120 Output Total 600 950 Balance 125.616 -790 120 Weight 97.1 kg Intake: Intake, IV Titration 235.616 160 Amount Heparin Sodium,Porcine/ 235.616 D5w Pmx 25,000 unit In Dextrose/Water 1 500ml. bag @ 13.5 UNITS/KG/HR 25 .71 mls/hr IV .[id number] [facility] Rx#:[id number] Sodium Chloride 0.9% 1, 160 000 ml @ 20 mls/hr IV . Q24H [facility] Rx#:[id number] Oral 490 120 Output: Urine 600 950 Other: Voiding Method Urinal Urinal # Voids 2 - Exam GENERAL EXAM: Patient is alert and oriented and doesn't appear to be in any acute distress HEENT: Normocephalic. Normal reaction of pupils, equal size, normal range of extraocular motion. No erythema or exudates in the throat. NECK: No masses, no nuchal rigidity. CHEST: No chest wall deformity. LUNGS: Equal air entry with no crackles or wheeze. HEART: S1 and S2 normal with no audible mumurs or gallops. Regular rhythm, femorals equal on both sides.. ABDOMEN: No hepatosplenomegaly, normal bowel sounds, no guarding or rigidity. SKIN: No rashes CENTRAL NERVOUS SYSTEM: No focal deficits. EXTREMITIES: No cyanosis, clubbing or edema. - Labs CBC & Chem 7: 12/21/16 11:50 12/26/16 06:06 Labs: Abnormal Lab Results - Last 24 Hours (Table) 12/26/16 12/26/16 Range/Units 06:06 06:06 APTT 51.5 H (22.0-30.0) sec Chloride 97 L (98-107) mmol/L BUN 45 H (9-20) mg/dL Creatinine 2.10 H (0.66-1.25) mg/dL Total Protein 6.1 L (6.3-8.2) g/dL Assessment and Plan (1) Congestive heart failure Status: Acute (2) Acute exacerbation of chronic obstructive airways disease Status: Acute (3) Ischemic heart disease Status: Acute (4) H/O heart bypass surgery Status: Acute (5) Dyslipidemia Status: Acute (6) Chronic renal failure Status: Acute Plan: We will increase the dose of the nitrates. Increase physical activity. If stable, patient could be discharged home within next 24-48 hours
[2016-12-26] MEDS: NITROGLYCERIN SL TABS 0.4 MG TAB SUBLINGUAL PRN (16:12)
[2016-12-26] MEDS: SODIUM CHLORIDE 0.9% 1,000 ML IV SCH (16:12)
[2016-12-26] MEDS: HEPARIN SODIUM,PORCINE/D5W PMX 25,000 UNIT in DEXTROSE/WATER 1 500ML.BAG IV SCH (16:14)
--- NOTE | 2016-12-26 16:41 | P.PN ---
Subjective 69-year-old male patient with known history of COPD previous bypass surgery twice and the second time was in 2008 This patient was in a good state of health until around 3 days ago when he started having episodes of right shoulder and posterior back pain in addition to increased shortness of breath and diaphoresis. The shoulder pain was episodic. He was having few hours of pain which was subsequently go away and then come back. He was getting progressively more short of breath and he was getting short of breath with activities of daily today life and even while walking short distances. For that reason he came into the hospital and the patient was found to have no acute EKG abnormalities and some nonspecific changes seen on EKG. The troponin was positive and the patient ruled in for non-ST segment elevation myocardial infarction. He was started on IV heparin. The right shoulder pain subsided however. This morning the patient went into atrial fibrillation with rapid ventricular response. . Note that the patient is post bypass surgery of the heart 2. The surgery was initially done in 1996 that included MADRID to LAD and saphenous vein graft to RCA and circumflex. In 2008 the patient had redo bypass surgery. In between he has also had coronary interventions and stenting. Cardiology is on the scene and the patient there are plans to proceed with a cardiac angiogram at a later stage. Meanwhile, the patient is feeling slightly better. Less short of breath compared to yesterday. His atrial fibrillation which is of a new onset is being controlled with Cardizem drip. He is also on IV heparin. Producing adequate amount of urine output. No chest pain. No pleurisy. No hemoptysis. No fever or chills or night sweats. His chest x-ray showing no acute cardio pulmonary abnormalities. On 12/24/2016 This pain is localized to the posterior shoulder upper back area. No major edema in lower extremities. His pulse ox is 95% on room air. Patient states that his shoulder pain has disappeared after nitroglycerin Denies having any reproducibility of pain with any range of motion on the right shoulder no fevers chills nausea vomiting or diarrhea is reported 12/25/16 pt refused nitroglycerin overnight currently has right shoulder pain 12/26/16 right shoulder pain is improved no overnight events dicussed risk of contrast induced nephropathy Objective - Vital Signs Vital signs: Vital Signs Temp 97.5 F L 12/26/16 12:00 Pulse 64 12/26/16 15:34 Resp 18 12/26/16 12:00 BP 110/57 12/26/16 12:00 Pulse Ox 95 12/26/16 12:00 Intake & Output 12/25/16 12/26/16 12/26/16 18:59 06:59 18:59 Intake Total 725.616 160 620 Output Total 600 950 Balance 125.616 -790 620 Weight 97.1 kg Intake: Intake, IV Titration 235.616 160 500 Amount Heparin Sodium,Porcine/ 235.616 500 D5w Pmx 25,000 unit In Dextrose/Water 1 500ml. bag @ 13.5 UNITS/KG/HR 25 .71 mls/hr IV .[id number] [facility] Rx#:[id number] Sodium Chloride 0.9% 1, 160 000 ml @ 20 mls/hr IV . Q24H [facility] Rx#:[id number] Oral 490 120 Output: Urine 600 950 Other: Voiding Method Urinal Urinal # Voids 2 - Exam Physical exam Gen. appearance oriented 3 in no distress Neck is supple no JVD Lungs good air entry clear to auscultation no rhonchi or wheezing Heart S1-S2 heard regular rate and rhythm no murmurs appreciated Abdomen is soft nontender no organomegaly bowel sounds are intact Neurologically cranial nerves II-12 grossly intact no focal motor or sensory deficits noted Skin no abnormalities appreciated - Labs CBC & Chem 7: 12/21/16 11:50 12/26/16 06:06 Labs: Abnormal Lab Results - Last 24 Hours (Table) 12/26/16 12/26/16 Range/Units 06:06 06:06 APTT 51.5 H (22.0-30.0) sec Chloride 97 L (98-107) mmol/L BUN 45 H (9-20) mg/dL Creatinine 2.10 H (0.66-1.25) mg/dL Total Protein 6.1 L (6.3-8.2) g/dL Assessment and Plan Plan: #1 acute non-ST elevation myocardial infarction. #2 new onset atrial fibrillation currently rate controlled #3 atypical chest pain #4 COPD per #5 hypertension #6 history of CAD #7 CK D stage III #8 peripheral vascular disease Plan increase imdur 60mg daily poor renal function to endure contrast start eliquis poss dc home nora BP stable encourage ambulation maximal medical therapy, as pt is not able to undergo invasive cardiac workup and atypical right shoulder pain that is relieved with nitroglycerin
--- NOTE | 2016-12-26 16:41 | US ---
EXAMINATION TYPE: US kidneys/renal and bladder DATE OF EXAM: 12/26/2016 COMPARISON: None CLINICAL HISTORY: 71-year-old male with Renal failure TECHNIQUE: Multiple sonographic images of the kidneys and bladder were obtained. FINDINGS: Right Kidney: 10.9 x 5.2 x 5.7 cm Left Kidney: 9.8 x 5.1 x 4.9 cm The lower poles are limited by rib shadowing. No hydronephrosis seen. No gross abnormality of the bladder. However, neither ureteral jet is seen during the course of the e xam. IMPRESSION: No hydronephrosis.
[2016-12-26] MEDS: APIXABAN 5 MG TAB PO SCH (21:18)
[2016-12-26 22:39] LABS: Appearance,Urine Clear (Clear); Bilirubin,Urine Negative (Negative); Glucose,Urine (UA) Negative (Negative); Ketones,Urine Negative (Negative); Leukocyte Esterase,Urine Negative (Negative); Nitrite,Urine Negative (Negative); PH, Urine 6.5 (5.0-8.0); Protein,Urine Negative (Negative); Specific Gravity,Urine 1.005 (1.001-1.035); UA Billing (MACRO vs. MICRO) CHEM; Urobilinogen,Urine <2.0 mg/dL (<2.0)
[2016-12-27] MEDS: IPRATROPIUM-ALBUTEROL 3 ML NEB INHALATION SCH ×2 (08:43→11:39)
[2016-12-27] MEDS ORDERED: ISOSORBIDE MONONITRATE ER 60 MG TAB.ER.24H PO SCH (09:00)
[2016-12-27] MEDS: AMIODARONE 200 MG TAB PO SCH (09:16)
[2016-12-27] MEDS: SPIRONOLACTONE 25 MG TAB PO SCH (09:17)
[2016-12-27] MEDS: FUROSEMIDE 40 MG TAB PO SCH (09:17)
[2016-12-27] MEDS: ATORVASTATIN 40 MG TAB PO SCH (09:17)
[2016-12-27] MEDS: MAGNESIUM OXIDE 400 MG TAB PO SCH (09:17)
[2016-12-27] MEDS: APIXABAN 5 MG TAB PO SCH (09:17)
[2016-12-27] MEDS: MULTIVITAMINS, THERA 1 EACH TAB PO SCH (09:17)
[2016-12-27] MEDS: METOPROLOL TARTRATE 25 MG TAB PO SCH (09:18)
--- NOTE | 2016-12-27 10:05 | P.PN ---
Subjective Patient is seen in follow-up for acute kidney injury on chronic kidney disease. It appears patient does have chronic kidney disease stage III with baseline creatinine near 1.6. His creatinine was up to 2.19 this admission and was down to 2.1 as of yesterday. Patient presented with right shoulder pain, which seems to have resolved. Denies chest pain or shortness of breath. No vomiting or diarrhea. Admits to good urine output. Vital signs are stable. General: The patient appeared well nourished and normally developed. HEENT: Head exam is unremarkable. Neck is without jugular venous distension. LUNGS: Lungs are clear to auscultation and percussion. Breath sounds decreased. HEART: Rate and Rhythm are regular. First and second heart sounds normal. No murmurs, rubs or gallops. ABDOMEN: Abdominal exam reveals normal bowel sounds. Non-tender and non- distended. No evidence of peritonitis. EXTREMITITES: No clubbing, cyanosis, or edema. Objective - Vital Signs Vital signs: Vital Signs Temp 97.8 F 12/27/16 08:00 Pulse 59 L 12/27/16 08:00 Resp 18 12/27/16 08:00 BP 135/64 12/27/16 08:00 Pulse Ox 95 12/27/16 08:00 Intake & Output 12/26/16 12/27/16 12/27/16 18:59 06:59 18:59 Intake Total 920 180 Output Total 801 Balance 920 -801 180 Weight 98.2 kg Intake: Intake, IV Titration 500 Amount Heparin Sodium,Porcine/ 500 D5w Pmx 25,000 unit In Dextrose/Water 1 500ml. bag @ 13.5 UNITS/KG/HR 25 .71 mls/hr IV .[id number] [facility] Rx#:[id number] Oral 420 180 Output: Urine 801 Other: Voiding Method Urinal # Voids 1 2 - Labs CBC & Chem 7: 12/21/16 11:50 12/26/16 06:06 Assessment and Plan Plan: Assessment: #1. Nonoliguric acute kidney injury secondary to ischemic ATN secondary to hemodynamic instability due to A. fib with RVR. No evidence of urinary retention or hydronephrosis. Urinalysis noted to be benign. Renal function has been gradually improving with creatinine down to 2.1 as of yesterday. #2. Chronic kidney disease stage IIIB secondary to nephrosclerosis. Urinalysis benign. #3. Right shoulder pain. Questionable cardiac etiology. Cardiology following. No plans for cardiac catheterization at this time. #4. Hypertension with chronic kidney disease. Controlled. #5. Diastolic CHF. Currently compensated. Plan: Decrease Lasix to 40 mg once daily. May increase to 80 mg if notices worsening dyspnea or edema. No plans for cardiac catheterization at this time. Stable to be discharged home from nephrology standpoint and to follow-up as an outpatient in 2-3 weeks for CKD care.
--- NOTE | 2016-12-27 11:18 | P.DS ---
Providers Date of admission: 12/21/16 13:13 Attending physician: Feliz El Consults: 12/21/16 13:13 Consult Physician Routine Consulting Provider: Luis E Barnes Consult Reason/Comments: COPD exacerbation Do you want consulting provider notified?: Yes Consult Physician Urgent Consulting Provider: Geronimo Salinas Consult Reason/Comments: Elevated troponin, exertional dyspnea Do you want consulting provider notified?: Yes 12/24/16 14:14 Consult Physician Routine Consulting Provider: [facility] Consult Reason/Comments: right shoulder pain Do you want consulting provider notified?: Yes 12/25/16 12:56 Consult Physician Routine Consulting Provider: Twila Hager Consult Reason/Comments: renal failure, possible cardiac cath Do you want consulting provider notified?: Yes Primary care physician: Feliz El Hospital Course: 69-year-old male patient with known history of COPD previous bypass surgery twice and the second time was in 2008 This patient was in a good state of health until around 3 days ago when he started having episodes of right shoulder and posterior back pain in addition to increased shortness of breath and diaphoresis. The shoulder pain was episodic. He was having few hours of pain which was subsequently go away and then come back. He was getting progressively more short of breath and he was getting short of breath with activities of daily today life and even while walking short distances. For that reason he came into the hospital and the patient was found to have no acute EKG abnormalities and some nonspecific changes seen on EKG. The troponin was positive and the patient ruled in for non-ST segment elevation myocardial infarction. He was started on IV heparin. The right shoulder pain subsided however. This morning the patient went into atrial fibrillation with rapid ventricular response. . Note that the patient is post bypass surgery of the heart 2. The surgery was initially done in 1996 that included MADRID to LAD and saphenous vein graft to RCA and circumflex. In 2008 the patient had redo bypass surgery. In between he has also had coronary interventions and stenting. Cardiology is on the scene and the patient there are plans to proceed with a cardiac angiogram at a later stage. Meanwhile, the patient is feeling slightly better. Less short of breath compared to yesterday. His atrial fibrillation which is of a new onset is being controlled with Cardizem drip. He is also on IV heparin. Producing adequate amount of urine output. No chest pain. No pleurisy. No hemoptysis. No fever or chills or night sweats. His chest x-ray showing no acute cardio pulmonary abnormalities. On 12/24/2016 This pain is localized to the posterior shoulder upper back area. No major edema in lower extremities. His pulse ox is 95% on room air. Patient states that his shoulder pain has disappeared after nitroglycerin Denies having any reproducibility of pain with any range of motion on the right shoulder no fevers chills nausea vomiting or diarrhea is reported 12/25/16 pt refused nitroglycerin overnight currently has right shoulder pain 12/26/16 right shoulder pain is improved no overnight events dicussed risk of contrast induced nephropathy - Exam Physical exam Gen. appearance oriented 3 in no distress Neck is supple no JVD Lungs good air entry clear to auscultation no rhonchi or wheezing Heart S1-S2 heard regular rate and rhythm no murmurs appreciated Abdomen is soft nontender no organomegaly bowel sounds are intact Neurologically cranial nerves II-12 grossly intact no focal motor or sensory deficits noted Skin no abnormalities appreciated Assessment and Plan Plan: #1 acute non-ST elevation myocardial infarction. #2 new onset atrial fibrillation currently rate controlled #3 atypical chest pain #4 COPD per #5 hypertension #6 history of CAD #7 CK D stage III #8 peripheral vascular disease DC home. Patient does have borderline renal dysfunction Hence patient will be discharged on a lower dose of eliquis Patient is to follow up with cardiology in 2 weeks Patient Condition at Discharge: Stable Plan - Discharge Summary New Discharge Prescriptions: New Amiodarone [Cordarone] 200 mg PO BID #60 tab Apixaban [Eliquis] 2.5 mg PO BID tab Isosorbide Mononitrate ER [Imdur] 60 mg PO DAILY #60 tab Metoprolol Tartrate [Lopressor] 25 mg PO BID #60 tab Continue Aspirin EC [Ecotrin Low Dose] 81 mg PO DAILY PRN PRN Reason: Pain Ubidecarenone [Co Q-10] 100 mg PO DAILY Spironolactone 12.5 mg PO DAILY Multivitamins, Thera [Multivitamin (formulary)] 1 tab PO DAILY Furosemide [Lasix] 40 mg PO DAILY Atorvastatin [Lipitor] 40 mg PO HS Discharge Medication List Aspirin EC [Ecotrin Low Dose] 81 mg PO DAILY PRN 06/29/14 [History] Atorvastatin [Lipitor] 40 mg PO HS 06/29/14 [History] Furosemide [Lasix] 40 mg PO DAILY 06/29/14 [History] Multivitamins, Thera [Multivitamin (formulary)] 1 tab PO DAILY 06/29/14 [History ] Spironolactone 12.5 mg PO DAILY 06/29/14 [History] Ubidecarenone [Co Q-10] 100 mg PO DAILY 06/29/14 [History] Amiodarone [Cordarone] 200 mg PO BID #60 tab 12/27/16 [Rx] Apixaban [Eliquis] 2.5 mg PO BID tab 12/27/16 [Rx] Isosorbide Mononitrate ER [Imdur] 60 mg PO DAILY #60 tab 12/27/16 [Rx] Metoprolol Tartrate [Lopressor] 25 mg PO BID #60 tab 12/27/16 [Rx] Follow up Appointment(s)/Referral(s): Feliz El MD [Primary Care Provider] - 12/29/16 10:20 am Kristian Scherer PAC [PHYSICIAN MECHANICAL STRIPER] - 2 Weeks (Patient may follow-up with Kristian Scherer PA-C or Dr. Rob Hickey at [facility] in 2-3 weeks following discharge. ) Seda Cardenas MD [STAFF PHYSICIAN] - 01/10/17 4:15 pm (At [facility].) Km Aragon DO [STAFF PHYSICIAN] - 1 Week Patient Instructions/Handouts: Atrial Fibrillation (DC), Left Heart Catheterization (DC), Acute Kidney Injury (DC) Discharge Disposition: HOME SELF-CARE
[2016-12-27 11:36] VITALS: BP 136/67; PULSE 56; TEMP 98.2
--- NOTE | 2016-12-27 14:15 | P.PN ---
Subjective This is a 71-year-old gentleman with history of ischemic heart disease with a previous bypass surgery 2 and also COPD who was admitted to the hospital with complaints of increasing shortness of breath. It seems to make it was getting progressively worse, but this morning when he woke up he could not walk, without getting short of breath, even 10 feet. Patient denied any chest pain but was having severe right shoulder pain. Patient had bypass surgery in 1996 with a MADRID graft to the LAD, vein graft to the right coronary artery and also circumflex coronary artery. In 2008. Patient had repeat cardiac catheterization and repeat bypass surgery with vein graft to the first diagonal , vein graft to the OM branch of circumflex and vein graft to the right coronary artery. Patient was noted at the time and to have 70-80% ostial left main disease. Patient had a patent MADRID. Patient comes now with complaints of increasing shortness of breath. His first troponin value is elevated. His chest x-ray showed possible mild CHF though there could be an exacerbation of COPD. Patient is treated with IV Lasix and is being admitted to the hospital. Further examination depend upon the clinical course. Patient is going to have additional troponins and also echocardiogram. Patient is also being seen by casing blower. 12/22/2016 Patient went into atrial fibrillation with rapid ventricular response, was initiated on IV amiodarone drip today. He did have one episode of upper right shoulder discomfort. Patient was seen and evaluated by Dr. Cardenas today, who felt that the patient's symptoms were most likely related to atrial fibrillation. We will continue the IV heparin and check to see if the patient has coverage for one of the newer anticoagulants. 12/23/2016. Patient currently in a normal sinus rhythm this morning. IV amiodarone was discontinued and he will be started on amiodarone orally today. Patient did have an episode of right shoulder discomfort through the night, relieved with pain medication. He does state that he feels significantly better now that he is in normal sinus rhythm, the next time he has a right shoulder discomfort we will attempt to give the patient a nitroglycerin before giving pain medication. 12/24/2016. Patient remaining in normal sinus rhythm. Continues to be on by mouth amiodarone. Still having intermittent episodes of discomfort in the right shoulder that is relieved with pain medications. Breathing overall is significantly improved since the patient has converted to normal sinus rhythm. Dr. Cardenas did have a discussion with the patient and significant other at the bedside and feels that most of the symptoms were related to the atrial fibrillation. We will have orthopedics see the patient regarding the shoulder discomfort. 12/27/2016. Patient continues to be in normal sinus rhythm. Denies any chest discomfort, still having intermittent discomfort in the shoulder. Arrangements are being made for the patient to be discharged home today. We'll decrease amiodarone to 200 mg one tablet by mouth twice a day today patient will also go home with Eliquis 2-1/2 mg one tablet by mouth twice a day. Objective - Vital Signs Vital signs: Vital Signs Temp 98.2 F 12/27/16 11:29 Pulse 56 L 12/27/16 11:50 Resp 18 12/27/16 11:29 BP 136/67 12/27/16 11:29 Pulse Ox 94 L 12/27/16 11:29 Intake & Output 12/26/16 12/27/16 12/27/16 18:59 06:59 18:59 Intake Total 920 860 Output Total 801 Balance 920 -801 860 Weight 98.2 kg Intake: Intake, IV Titration 500 Amount Heparin Sodium,Porcine/ 500 D5w Pmx 25,000 unit In Dextrose/Water 1 500ml. bag @ 13.5 UNITS/KG/HR 25 .71 mls/hr IV .[id number] [facility] Rx#:[id number] Oral 420 860 Output: Urine 801 Other: Voiding Method Urinal Urinal # Voids 1 2 - Exam GENERAL EXAM: Patient is alert and oriented and doesn't appear to be in any acute distress HEENT: Normocephalic. Normal reaction of pupils, equal size, normal range of extraocular motion. No erythema or exudates in the throat. NECK: No masses, no nuchal rigidity. No Sigmund JVD CHEST: No chest wall deformity. LUNGS: Diminished air exchange with scattered rhonchi HEART: S1 and S2 normal with no audible mumurs or gallops. Regular rhythm, femorals equal on both sides.. ABDOMEN: No hepatosplenomegaly, normal bowel sounds, no guarding or rigidity. SKIN: No rashes CENTRAL NERVOUS SYSTEM: No focal deficits. EXTREMITIES: No cyanosis, clubbing or edema. - Labs CBC & Chem 7: 12/21/16 11:50 12/26/16 06:06 Assessment and Plan Plan: Assessment and Plan (1) Congestive heart failure, diastolic acute on chronic Status: Acute (2) Acute exacerbation of chronic obstructive airways disease Status: Acute (3) Ischemic heart disease Status: Acute (4) H/O heart bypass surgery Status: Acute (5) Dyslipidemia Status: Acute (6) Chronic renal failure Status: Acute #7 atrial fibrillation with rapid ventricular response, paroxysmal, new onset. Now in normal sinus rhythm. EchoCardiogram with Doppler study was performed which revealed an LV function of 55-60%. We'll continue the patient on his current medications decreasing the dose of amiodarone twice a day. Patient has been initiated on Eliquis 2-1/ 2 mg one tablet by mouth twice a day. His charge home from cardiology's perspective to follow-up in the office post discharge. DNP note has been reviewed, I agree with a documented findings and plan of care. Patient was seen and examined.
--- NOTE | 2016-12-27 20:37 | PN ---
This is a patient who was doing well today. The patient states that he feels well. Cardiac catheterization is still on hold. He was hoping to be discharged soon. He denies any chest pain. No shortness of breath. No cough. No wheezing. Not coughing up any phlegm. He is on room air. Saturations are excellent. Creatinine was 2.10 yesterday. BUN was 45. Current vital signs include temperature 98.2, heart rate 56, respiratory rate 18 , blood pressure 136/67, mean 90, room-air saturation 97%. Appears in no acute distress. HEENT examination is grossly unremarkable. Mucous membranes are moist. No oral lesions. NECK: Supple. Full range of motion. No adenopathy or thyromegaly. Neck veins are flat. Cardiovascular examination reveals regular rhythm and rate. Heart sounds were distant. S1, S2 normal. No distinct murmur noted. Lungs reveal mostly clear breath sounds. A few scattered rhonchi. No wheezes or crackles. Abdomen is soft. Bowel sounds are heard. No masses or tenderness. Extremities are intact. No cyanosis, clubbing or edema. SKIN: Without rash. Neurologic examination is brief but non-focal. Labs are reviewed. Nothing new from today. No new x-rays to report. ASSESSMENT: 1. Acute uvf-UW-zjqtzqy-elevation myocardial infarction, currently on heparin. 2. New onset atrial fibrillation. 3. Chronic obstructive pulmonary disease. 4. Hypertension. 5. Hyperlipidemia. 6. Previous bypass grafting x2 in 1996 and 2008. 7. Peripheral vascular occlusive disease. 8. Chronic renal failure. PLAN: We will continue to follow. Microbiology is all negative. No x-rays to report. Medications are reviewed. Labs are reviewed. Will continue to follow. Will wait for Cardiology to make a decision about cardiac catheterization. The patient feels like he might be discharged. Not anything written in the chart about this. No additional recommendations are made. Prognosis is guarded. MTDD
[2016-12-27] MEDS ORDERED: APIXABAN 2.5 MG TABLET PO SCH (21:00)
[2016-12-27] MEDS ORDERED: AMIODARONE 200 MG TAB PO SCH (21:00)
[2016-12-28] MEDS ORDERED: FUROSEMIDE 40 MG TAB PO SCH (09:00)
== END 2016-12-27 14:54 | disposition home or self-care (01) | DRG 280 ==
LOC: EC 11:38 → 6SEL 13:13
PROVIDERS: ADMIT Family Medicine; ATTEND Family Medicine
DX: I21.4 Non-ST elevation (NSTEMI) myocardial infarction (principal); I50.33 Acute on chronic diastolic (congestive) heart failure; N17.0 Acute kidney failure with tubular necrosis; I13.0 Hypertensive heart and chronic kidney disease with heart failure and stage 1 through stage 4 chronic kidney disease, or unspecified chronic kidney disease; J44.1 Chronic obstructive pulmonary disease with (acute) exacerbation; N18.4 Chronic kidney disease, stage 4 (severe); I48.0 Paroxysmal atrial fibrillation; I25.119 Atherosclerotic heart disease of native coronary artery with unspecified angina pectoris; E78.5 Hyperlipidemia, unspecified; I73.9 Peripheral vascular disease, unspecified; I25.2 Old myocardial infarction; K21.9 Gastro-esophageal reflux disease without esophagitis; K64.9 Unspecified hemorrhoids; M19.011 Primary osteoarthritis, right shoulder; R26.2 Difficulty in walking, not elsewhere classified; E66.9 Obesity, unspecified; M54.9 Dorsalgia, unspecified; R53.1 Weakness; G89.29 Other chronic pain; Z79.82 Long term (current) use of aspirin; Z95.1 Presence of aortocoronary bypass graft; Z95.5 Presence of coronary angioplasty implant and graft; Z87.891 Personal history of nicotine dependence; Z79.899 Other long term (current) drug therapy; Z84.1 Family history of disorders of kidney and ureter; Z98.42 Cataract extraction status, left eye; Z98.41 Cataract extraction status, right eye; Z86.74 Personal history of sudden cardiac arrest; Z87.828 Personal history of other (healed) physical injury and trauma; Z91.19 Patient's noncompliance with other medical treatment and regimen; Z86.79 Personal history of other diseases of the circulatory system
CPT/HCPCS: 36415; 71020; 76770; 80048; 80053; 80061; 81003; 82150; 82550; 82553; 83036; 83690; 83735; 83880; 84484; 85025; 85379; 85610; 85730; 93005; 93306; 94640; 94760; 96365; 96375; 99291

== ENCOUNTER → 2017-02-14 | Outpatient (CLI) | payer MEDICARE, OTHER ==
[2017-02-14 08:42] LABS: CH 32.1; CHCM 33.6; HDW 2.37; HGB 15.6 gm/dL (13.0-17.5); MCH 30.6 pg (25.0-35.0); MCHC 31.9 g/dL (31.0-37.0); MCV 95.9 fL (80.0-100.0); Mean Platelet Volume 8.1; RBC 5.11 m/uL (4.30-5.90)
[2017-02-14 09:03] LABS: Appearance,Urine Clear (Clear); Bilirubin,Urine Negative (Negative); Glucose,Urine (UA) Negative (Negative); Ketones,Urine Negative (Negative); Leukocyte Esterase,Urine Negative (Negative); Nitrite,Urine Negative (Negative); PH, Urine 7.5 (5.0-8.0); Particle Count 542; Protein,Urine 1+ (Negative); RBC,Urine 1 /hpf (0-5); Squamous Epithelial Cell,Urine <1 /hpf (0-4); UA Billing (MACRO vs. MICRO) MICRO; Urobilinogen,Urine <2.0 mg/dL (<2.0); WBC,Urine <1 /hpf (0-5)
[2017-02-14 09:19] LABS: Calcium 9.2 mg/dL (8.4-10.2); Magnesium 2.2 mg/dL (1.6-2.3); Phosphorous 3.3 mg/dL (2.5-4.5); Potassium 5.2 mmol/L (3.5-5.1)
[2017-02-14 15:53] LABS: Iron Saturation 17.7 (15.00-50.00)
== END | disposition home or self-care (01) ==
LOC: LABWHC1 08:04
PROVIDERS: ATTEND Nurse Practitioner Family
DX: N18.3 Chronic kidney disease, stage 3 (moderate) (principal); R80.9 Proteinuria, unspecified; N39.0 Urinary tract infection, site not specified; D64.9 Anemia, unspecified; E21.3 Hyperparathyroidism, unspecified; E55.9 Vitamin D deficiency, unspecified
CPT/HCPCS: 36415; 80048; 81001; 82306; 82570; 82728; 83540; 83550; 83735; 83970; 84100; 84156; 85027

== ENCOUNTER 2017-09-03 11:16 | Inpatient (IN) | payer MEDICARE, OTHER ==
[2017-09-03] MEDS ORDERED: ACETAMINOPHEN IV (For NPO) 1,000 MG in EMPTY BAG 1 BAG IVPB ONE (12:02)
--- NOTE | 2017-09-03 12:02 | ED ---
General Adult HPI - General Chief complaint: Dizziness Stated complaint: Lightheaded/Headache Time Seen by Provider: 09/03/17 11:33 Source: patient, RN notes reviewed Mode of arrival: wheelchair Limitations: no limitations - History of Present Illness Initial comments: 72-year-old male history of A. fib, CAD status post CABG, presenting with chief complaint of headache and lightheadedness. Patient denies any spinning sensation. States he felt lightheaded yesterday, this resolved but he did develop a fairly severe headache. Headache was gradual in onset. Lightheadedness did occur again today as well as a gradual onset frontal headache which is dull and aching in nature. Patient does not have headache history. Denies any cough or cold symptoms. Denies any chest pain or shortness of breath. Denies nausea vomiting or diarrhea. Denies visual changes. Patient is currently anticoagulated. No focal weakness or numbness. - Related Data Home Medications Medication Instructions Recorded Confirmed Atorvastatin [Lipitor] 40 mg PO HS 06/29/14 09/03/17 Furosemide [Lasix] 40 mg PO DAILY 06/29/14 09/03/17 Multivitamins, Thera [Multivitamin 1 tab PO DAILY 06/29/14 09/03/17 (formulary)] Spironolactone 12.5 mg PO DAILY 06/29/14 09/03/17 Ubidecarenone [Co Q-10] 100 mg PO DAILY 06/29/14 09/03/17 Acetaminophen [Tylenol Arthritis] 650 - 1,300 mg PO Q8H PRN 07/03/17 09/03/17 Albuterol Nebulized [Ventolin 2.5 mg INHALATION RT-Q6H PRN 07/03/17 09/03/17 Nebulized] Amiodarone [Cordarone] 200 mg PO DAILY 07/03/17 09/03/17 Ergocalciferol (Vitamin D2) 50,000 unit PO WE 09/03/17 09/03/17 [Vitamin D2] Previous Rx's Medication Instructions Recorded Apixaban [Eliquis] 2.5 mg PO BID tab 12/27/16 Isosorbide Mononitrate ER [Imdur] 60 mg PO DAILY #60 tab 12/27/16 Metoprolol Tartrate [Lopressor] 25 mg PO BID #60 tab 07/31/17 Allergies Allergy/AdvReac Type Severity Reaction Status Date / Time No Known Allergies Allergy Verified 09/03/17 12:08 Review of Systems ROS Statement: Those systems with pertinent positive or pertinent negative responses have been documented in the HPI. ROS Other: All systems not noted in ROS Statement are negative. Past Medical History Past Medical History: Atrial Fibrillation, Coronary Artery Disease (CAD), COPD, GERD/Reflux, Hyperlipidemia, Myocardial Infarction (LA), Vascular Disorder Additional Past Medical History / Comment(s): COPD with a baseline FEV1 of 44% of predicted, coronary artery bypass surgery with previous carotid bypass surgery 2 and previous coronary intervention and stenting, peripheral vascular disease, chronic renal failure, osteoarthritis, chronic back pain, hemorrhoids, hayfever, hyperlipidemia Last Myocardial Infarction Date:: 2008 History of Any Multi-Drug Resistant Organisms: None Reported Past Surgical History: Back Surgery, Coronary Bypass/CABG, Heart Catheterization With Stent, Hernia Repair, Orthopedic Surgery Additional Past Surgical History / Comment(s): EDWIN carpal tunnel/ RT shoulder, X2 CABG 1993 AND 2008, INC HERNIA REPAIR W/ MESH, "4 CARDAIC STENTS",EDWIN CATARACTS, COLONOSCOPY Past Anesthesia/Blood Transfusion Reactions: Postoperative Nausea & Vomiting ( PONV) Additional Past Anesthesia/Blood Transfusion Reaction / Comment(s): CLAUSTERPHOBIA Date of Last Stent Placement:: UNK Past Psychological History: No Psychological Hx Reported Smoking Status: Former smoker Past Alcohol Use History: None Reported Past Drug Use History: None Reported - Past Family History Mother Family Medical History: No Reported History Additional Family Medical History / Comment(s): IN A TRAIN ACCIDENT. Father Family Medical History: Renal Disease General Exam Limitations: no limitations General appearance: alert, in no apparent distress Head exam: Present: atraumatic, normocephalic Eye exam: Present: normal appearance, PERRL, EOMI Neck exam: Present: normal inspection. Absent: tenderness, meningismus Respiratory exam: Present: normal lung sounds bilaterally. Absent: respiratory distress, wheezes Cardiovascular Exam: Present: normal rhythm, irregular rhythm GI/Abdominal exam: Present: soft, distended. Absent: tenderness, guarding, rebound Extremities exam: Present: normal inspection, normal capillary refill. Absent: pedal edema Neurological exam: Present: alert, oriented X3, CN II-XII intact. Absent: motor sensory deficit Psychiatric exam: Present: normal affect, normal mood Skin exam: Present: warm, dry, intact. 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 Rate of 55, QRS duration 90, QTC 449 no significant change compared to previous EKG in June 2017 Medical Decision Making - Medical Decision Making 72-year-old male presenting with near syncope and headache. Patient does not have headache history, his headache was gradual in onset. Neurologic examination is nonfocal. Patient is noted to be bradycardic on exam otherwise unremarkable. Head CT is obtained, negative for acute intracranial hemorrhage, there is no record cyst. Chest x-ray obtained for lightheadedness and near- syncope, there is cardiomegaly with no acute intrathoracic process. Laboratory studies reveal normal white blood cell count, at 6.9, hemoglobin is 14.9 which is normal. Potassium mildly elevated at 5.6 with some hemolysis. Creatinine 2.3 which is at baseline. Troponin 0.04 which again is at baseline for this patient in the setting of chronic kidney disease. EKG shows sinus bradycardia. While in the emergency department on the monitor patient does have significant bradycardia into the 30s. This may be the cause of his lightheadedness and near syncope. His blood pressure remains stable. He is currently on 25 mg of metoprolol twice daily. Patient will be kept on telemetry, placed in observation for cardiology consultation. Case discussed with Dr. Smith who will accept admission - Lab Data Result diagrams: 09/03/17 11:45 09/03/17 11:45 Lab Results 09/03/17 09/03/17 09/03/17 Range/Units 11:45 11:45 11:45 WBC 6.9 (3.8-10.6) k/uL RBC 4.47 (4.30-5.90) m/uL Hgb 14.9 (13.0-17.5) gm/dL Hct 43.0 (39.0-53.0) % MCV 96.3 (80.0-100.0) fL MCH 33.2 (25.0-35.0) pg MCHC 34.5 (31.0-37.0) g/dL RDW 14.3 (11.5-15.5) % Plt Count 221 (150-450) k/uL Neutrophils % 62 % Lymphocytes % 22 % Monocytes % 6 % Eosinophils % 6 % Basophils % 0 % Neutrophils # 4.2 (1.3-7.7) k/uL Lymphocytes # 1.5 (1.0-4.8) k/uL Monocytes # 0.4 (0-1.0) k/uL Eosinophils # 0.4 (0-0.7) k/uL Basophils # 0.0 (0-0.2) k/uL PT 10.5 (9.0-12.0) sec INR 1.1 (<1.2) Sodium 140 (137-145) mmol/L Potassium 5.6 H (3.5-5.1) mmol/L Chloride 98 (98-107) mmol/L Carbon Dioxide 30 (22-30) mmol/L Anion Gap 12 mmol/L BUN 45 H (9-20) mg/dL Creatinine 2.33 H (0.66-1.25) mg/dL Est GFR (CKD-EPI)AfAm 31 (>60 ml/min/1.73 sqM) Est GFR (CKD-EPI)NonAf 27 (>60 ml/min/1.73 sqM) Glucose 90 (74-99) mg/dL Calcium 9.5 (8.4-10.2) mg/dL Total Bilirubin 1.1 (0.2-1.3) mg/dL AST 38 (17-59) U/L ALT 31 (21-72) U/L Alkaline Phosphatase 76 (38-126) U/L Troponin I (0.000-0.034) ng/mL Total Protein 7.3 (6.3-8.2) g/dL Albumin 4.4 (3.5-5.0) g/dL 09/03/17 Range/Units 11:45 WBC (3.8-10.6) k/uL RBC (4.30-5.90) m/uL Hgb (13.0-17.5) gm/dL Hct (39.0-53.0) % MCV (80.0-100.0) fL MCH (25.0-35.0) pg MCHC (31.0-37.0) g/dL RDW (11.5-15.5) % Plt Count (150-450) k/uL Neutrophils % % Lymphocytes % % Monocytes % % Eosinophils % % Basophils % % Neutrophils # (1.3-7.7) k/uL Lymphocytes # (1.0-4.8) k/uL Monocytes # (0-1.0) k/uL Eosinophils # (0-0.7) k/uL Basophils # (0-0.2) k/uL PT (9.0-12.0) sec INR (<1.2) Sodium (137-145) mmol/L Potassium (3.5-5.1) mmol/L Chloride (98-107) mmol/L Carbon Dioxide (22-30) mmol/L Anion Gap mmol/L BUN (9-20) mg/dL Creatinine (0.66-1.25) mg/dL Est GFR (CKD-EPI)AfAm (>60 ml/min/1.73 sqM) Est GFR (CKD-EPI)NonAf (>60 ml/min/1.73 sqM) Glucose (74-99) mg/dL Calcium (8.4-10.2) mg/dL Total Bilirubin (0.2-1.3) mg/dL AST (17-59) U/L ALT (21-72) U/L Alkaline Phosphatase (38-126) U/L Troponin I 0.040 H* (0.000-0.034) ng/mL Total Protein (6.3-8.2) g/dL Albumin (3.5-5.0) g/dL Disposition Clinical Impression: Symptomatic bradycardia, Near syncope Disposition: ADMITTED IP TO THIS [facility] Condition: Stable Referrals: Feliz El MD [Primary Care Provider] - 1-2 days Decision to Admit Reason: Admit from EC Decision Date: 09/03/17 Decision Time: 15:21
[2017-09-03] MEDS ORDERED: METOCLOPRAMIDE 5 MG/ML 2 ML VIAL IVP STA (12:03)
[2017-09-03 12:09] LABS: Basophils % (A) 0 %; Eosinophils # (A) 0.4 k/uL (0-0.7); Eosinophils % (A) 6 %; HGB 14.9 gm/dL (13.0-17.5); Lymphocytes # (A) 1.5 k/uL (1.0-4.8); Lymphocytes % (A) 22 %; MCH 33.2 pg (25.0-35.0); MCHC 34.5 g/dL (31.0-37.0); MCV 96.3 fL (80.0-100.0); Mean Platelet Volume 7.8; Monocytes # (A) 0.4 k/uL (0-1.0); Monocytes % (A) 6 %; Neutrophils # (A) 4.2 k/uL (1.3-7.7); Neutrophils % (A) 62 %; Platelet Count 221 k/uL (150-450); RBC 4.47 m/uL (4.30-5.90); RDW 14.3 % (11.5-15.5); WBC 6.9 k/uL (3.8-10.6)
[2017-09-03 12:13] LABS: INR 1.1 (<1.2); Prothrombin Time 10.5 sec (9.0-12.0)
[2017-09-03 12:22] LABS: Albumin 4.4 g/dL (3.5-5.0); Calcium 9.5 mg/dL (8.4-10.2); Total Bilirubin 1.1 mg/dL (0.2-1.3); Total Protein 7.3 g/dL (6.3-8.2)
[2017-09-03 12:25] LABS: Potassium 5.6 mmol/L (3.5-5.1)
--- NOTE | 2017-09-03 13:08 | XR ---
EXAMINATION TYPE: XR chest 2V DATE OF EXAM: 09/03/2017 HISTORY: Syncope. REFERENCE: Previous study dated 07/03/2017. FINDINGS: There has been a midline sternotomy and before meals bypass. The heart is enlarged. The lungs are clear. There is blunting of the left CP angle. I could not exclu de a small effusion. IMPRESSION: 1. CARDIOMEGALY. 2. I CANNOT EXCLUDE A SMALL, LEFT EFFUSION.
--- NOTE | 2017-09-03 13:33 | CT ---
EXAMINATION TYPE: CT brain wo con DATE OF EXAM: 09/03/2017 COMPARISON: Previous study dated 04/08/2013. HISTORY: Lightheadedness, dizziness and headache CT DLP: 1047.10 mGycm Automated exposure control for dose reduction was used. FINDINGS: There are mild changes of sulcal prominence and ventriculomegaly compatible with atrophic change. The re is a CSF density adjacent and anterior to the left temporal horn. This may represent an arachnoid cyst. This is stable. There is diffuse periventricular white matter lucency, compatible with chronic white matter ischemic change. There is no acute focal lesion, mass effect or midline shift identified . I do not see evidence of intracranial blood. Visualized portions of the paranasal sinuses and mastoids are clear the bony calvarium is intact. IMPRESSION: 1. NO ACUTE INTRACRANIAL ABNORMALITY. 2. MILD DEGENERATIVE CHANGE. 3. PROBABLE ARACHNOID CYST IN THE ANTERIOR, LEFT TEMPORAL REGION.
[2017-09-03] MEDS ORDERED: NALOXONE 0.4 MG/ML 1 ML VIAL IV PRN (15:22)
[2017-09-03 18:28] VITALS: BMI 33.4
[2017-09-03] MEDS: amLODIPine 5 MG TAB PO SCH ×2 (19:21→19:34)
[2017-09-03] MEDS ORDERED: hydrALAZINE HCL 20 MG/ML 1 ML VIAL IVP PRN (20:26)
[2017-09-03] MEDS: SODIUM CHLORIDE 0.9% 1,000 ML IV SCH (21:05)
[2017-09-03] MEDS: APIXABAN 2.5 MG TABLET PO SCH (21:08)
[2017-09-03] MEDS: hydrALAZINE HCL 25 MG TAB PO SCH (21:08)
[2017-09-03] MEDS: ATORVASTATIN 40 MG TAB PO SCH (21:08)
[2017-09-04 06:14] LABS: Basophils % (A) 0 %; Eosinophils # (A) 0.4 k/uL (0-0.7); Eosinophils % (A) 7 %; HCT 41.8 % (39.0-53.0); HGB 13.8 gm/dL (13.0-17.5); Lymphocytes # (A) 1.1 k/uL (1.0-4.8); Lymphocytes % (A) 17 %; MCH 32.5 pg (25.0-35.0); MCHC 33.1 g/dL (31.0-37.0); MCV 98.3 fL (80.0-100.0); Mean Platelet Volume 8.3; Monocytes # (A) 0.5 k/uL (0-1.0); Monocytes % (A) 8 %; Neutrophils # (A) 4.3 k/uL (1.3-7.7); Neutrophils % (A) 67 %; Platelet Count 192 k/uL (150-450); RBC 4.25 m/uL (4.30-5.90); RDW 14.2 % (11.5-15.5); WBC 6.4 k/uL (3.8-10.6)
[2017-09-04 06:28] LABS: Albumin 3.9 g/dL (3.5-5.0); Calcium 9.2 mg/dL (8.4-10.2); Total Bilirubin 0.8 mg/dL (0.2-1.3); Total Protein 6.6 g/dL (6.3-8.2)
[2017-09-04] MEDS: APIXABAN 2.5 MG TABLET PO SCH ×2 (08:25→20:29)
[2017-09-04] MEDS: hydrALAZINE HCL 25 MG TAB PO SCH ×3 (08:25→22:02)
[2017-09-04] MEDS: ISOSORBIDE MONONITRATE ER 60 MG TAB.ER.24H PO SCH (08:26)
[2017-09-04] MEDS: amLODIPine 5 MG TAB PO SCH ×2 (08:26→20:29)
[2017-09-04] MEDS: SPIRONOLACTONE 25 MG TAB PO SCH (08:27)
[2017-09-04] MEDS ORDERED: AMIODARONE 200 MG TAB PO SCH (09:00)
[2017-09-04] MEDS ORDERED: FUROSEMIDE 40 MG TAB PO SCH (09:00)
--- NOTE | 2017-09-04 09:44 | P.CRDCN ---
History of Present Illness Consult date: 09/04/17 Chief complaint: Dizziness and lightheadedness History of present illness: This is a pleasant 72-year-old gentleman with a past medical history significant for coronary artery disease and status post CABG and redo CABG as well as multiple angioplasty and stenting with unknown details, paroxysmal atrial fibrillation, hypertension, dyslipidemia, presented to the hospital complaining of dizziness and lightheadedness. It started just yesterday. Before that he was in his usual state of health. He did not have any symptoms of syncope. No chest pain or chest discomfort. No shortness of breath. Because of that he decided to come to the hospital. In the emergency room he was found to be bradycardic with a heart rate in the 40s and 50s and he was admitted for further cardiac evaluation. He has been maintaining a heart rate in the 50s. He is not on any AV katlyn kar agents. He is feeling better. The EKG showed atrial fibrillation. The first set of troponin came in to be slightly abnormal. The chest x-ray did not show any acute abnormalities. Past Medical History Past Medical History: Atrial Fibrillation, Coronary Artery Disease (CAD), COPD, GERD/Reflux, Hyperlipidemia, Myocardial Infarction (MA), Vascular Disorder Additional Past Medical History / Comment(s): COPD with a baseline FEV1 of 44% of predicted, coronary artery bypass surgery with previous carotid bypass surgery 2 and previous coronary intervention and stenting, peripheral vascular disease, chronic renal failure, osteoarthritis, chronic back pain, hemorrhoids, hayfever, hyperlipidemia Last Myocardial Infarction Date:: 2008 History of Any Multi-Drug Resistant Organisms: None Reported Past Surgical History: Back Surgery, Coronary Bypass/CABG, Heart Catheterization With Stent, Hernia Repair, Orthopedic Surgery Additional Past Surgical History / Comment(s): EDWIN carpal tunnel/ RT shoulder, X2 CABG 1993 AND 2008, INC HERNIA REPAIR W/ MESH, "4 CARDAIC STENTS",EDWIN CATARACTS, COLONOSCOPY Past Anesthesia/Blood Transfusion Reactions: Postoperative Nausea & Vomiting ( PONV) Additional Past Anesthesia/Blood Transfusion Reaction / Comment(s): CLAUSTERPHOBIA Date of Last Stent Placement:: UNK Past Psychological History: No Psychological Hx Reported Smoking Status: Former smoker Past Alcohol Use History: None Reported Past Drug Use History: None Reported - Past Family History Mother Family Medical History: No Reported History Additional Family Medical History / Comment(s): IN A TRAIN ACCIDENT. Father Family Medical History: Renal Disease Medications and Allergies Home Medications Medication Instructions Recorded Confirmed Type Atorvastatin [Lipitor] 40 mg PO HS 06/29/14 09/03/17 History Furosemide [Lasix] 40 mg PO DAILY 06/29/14 09/03/17 History Multivitamins, Thera [Multivitamin 1 tab PO DAILY 06/29/14 09/03/17 History (formulary)] Spironolactone 12.5 mg PO DAILY 06/29/14 09/03/17 History Ubidecarenone [Co Q-10] 100 mg PO DAILY 06/29/14 09/03/17 History Apixaban [Eliquis] 2.5 mg PO BID tab 12/27/16 09/03/17 Rx Isosorbide Mononitrate ER [Imdur] 60 mg PO DAILY #60 tab 12/27/16 09/03/17 Rx Metoprolol Tartrate [Lopressor] 25 mg PO BID #60 tab 12/27/16 09/03/17 Rx Acetaminophen [Tylenol Arthritis] 650 - 1,300 mg PO Q8H PRN 07/03/17 09/03/17 History Albuterol Nebulized [Ventolin 2.5 mg INHALATION RT-Q6H PRN 07/03/17 09/03/17 History Nebulized] Amiodarone [Cordarone] 200 mg PO DAILY 07/03/17 09/03/17 History Ergocalciferol (Vitamin D2) 50,000 unit PO WE 09/03/17 09/03/17 History [Vitamin D2] Allergies Allergy/AdvReac Type Severity Reaction Status Date / Time No Known Allergies Allergy Verified 09/03/17 12:08 Physical Exam Vitals: Vital Signs Temp Pulse Pulse Pulse Resp BP BP 09/04/17 07:32 97 F L 60 18 146/67 09/04/17 04:00 97.0 F L 56 L 18 163/72 09/04/17 00:00 97.0 F L 54 L 18 167/72 09/03/17 20:00 97.0 F L 52 L 18 199/89 09/03/17 18:34 98.3 F 50 L 20 202/88 09/03/17 17:43 97.2 F L 50 L 18 180/75 09/03/17 16:38 97.8 F 54 L 18 146/67 04/07/18 16:13 98.3 F 50 L 20 202/88 09/03/17 13:44 48 L 18 162/76 09/03/17 11:57 39 L 09/03/17 11:27 96.7 F L 65 18 169/67 Pulse Ox 09/04/17 07:32 96 09/04/17 04:00 95 09/04/17 00:00 93 L 09/03/17 20:00 97 09/03/17 18:34 98 09/03/17 17:43 98 09/03/17 16:38 97 09/03/17 16:13 98 09/03/17 13:44 96 09/03/17 11:57 09/03/17 11:27 96 Intake and Output 09/03/17 09/04/17 09/04/17 22:59 06:59 14:59 Output Total 775 Balance -775 Output: Urine 775 Other: # Voids 1 Weight 99.79 kg 102.6 kg - Constitutional General appearance: no acute distress - Respiratory Respiratory: bilateral: CTA - Cardiovascular Heart sounds: normal: S1, S2 Results 09/04/17 05:44 09/04/17 05:44 Cardiac Enzymes 09/03/17 09/03/17 09/04/17 Range/Units 11:45 11:45 05:44 AST 38 26 (17-59) U/L Troponin I 0.040 H* (0.000-0.034) ng/mL Coagulation 09/03/17 Range/Units 11:45 PT 10.5 (9.0-12.0) sec CBC 09/03/17 09/04/17 Range/Units 11:45 05:44 WBC 6.9 6.4 (3.8-10.6) k/uL RBC 4.47 4.25 L (4.30-5.90) m/uL Hgb 14.9 13.8 (13.0-17.5) gm/dL Hct 43.0 41.8 (39.0-53.0) % Plt Count 221 192 (150-450) k/uL Comprehensive Metabolic Panel 09/03/17 09/04/17 Range/Units 11:45 05:44 Sodium 140 142 (137-145) mmol/L Potassium 5.6 H 5.0 (3.5-5.1) mmol/L Chloride 98 101 (98-107) mmol/L Carbon Dioxide 30 29 (22-30) mmol/L BUN 45 H 47 H (9-20) mg/dL Creatinine 2.33 H 2.30 H (0.66-1.25) mg/dL Glucose 90 94 (74-99) mg/dL Calcium 9.5 9.2 (8.4-10.2) mg/dL AST 38 26 (17-59) U/L ALT 31 31 (21-72) U/L Alkaline Phosphatase 76 74 (38-126) U/L Total Protein 7.3 6.6 (6.3-8.2) g/dL Albumin 4.4 3.9 (3.5-5.0) g/dL Current Medications Generic Name Dose Route Start Last Admin Trade Name Freq PRN Reason Stop Dose Admin Amlodipine Besylate 5 mg 09/03/17 19:00 09/04/17 08:26 Norvasc PO 5 mg BID JAYASHREE Administration Apixaban 2.5 mg 09/03/17 21:00 09/04/17 08:25 Eliquis PO 2.5 mg BID JAYASHREE Administration Atorvastatin Calcium 40 mg 09/03/17 21:00 09/03/17 21:08 Lipitor PO 40 mg HS JAYASHREE Administration Hydralazine HCl 25 mg 09/03/17 22:00 09/04/17 08:25 Apresoline PO 25 mg TID JAYASHREE Administration Hydralazine HCl 10 mg 09/03/17 20:26 Apresoline IVP Q4HR PRN Blood Pressure - High Sodium Chloride 1,000 mls @ 20 mls/hr 09/03/17 15:30 09/03/17 21:05 Saline 0.9% IV Not Given .Q24H JAYASHREE Isosorbide Mononitrate 60 mg 09/04/17 09:00 09/04/17 08:26 Imdur PO 60 mg DAILY JAYASHREE Administration Naloxone HCl 0.2 mg 09/03/17 15:22 Narcan IV Q2M PRN Opioid Reversal Spironolactone 12.5 mg 09/04/17 09:00 09/04/17 08:27 Aldactone PO Not Given DAILY JAYASHREE Intake and Output 09/03/17 09/04/17 09/04/17 22:59 06:59 14:59 Output Total 775 Balance -775 Output: Urine 775 Other: # Voids 1 Weight 99.79 kg 102.6 kg 09/04/17 05:44 09/04/17 05:44 Assessment and Plan Assessment: assessment #1 symptomatic bradycardia #2 dizziness and lightheadedness likely secondary to the above #3 known CAD and prior revascularization #4 multiple comorbid conditions new The plan #1 the patient is not on any AV katlyn kar agents #2 I will obtain a TSH to rule out any thyroid disorder #3 obtain an echocardiogram was Doppler #4 monitor the heart rate for additional 24 hours #5 follow-up with the patient. Thank you for allowing us participate in his care
[2017-09-04] MEDS: SODIUM CHLORIDE 0.9% 1,000 ML IV SCH (15:45)
--- NOTE | 2017-09-04 15:53 | P.PN ---
Subjective Progress Note Date: 09/04/17 Principal diagnosis: Symptomatic bradycardia This is a pleasant 72-year-old gentleman with a past medical history significant for coronary artery disease and status post CABG and redo CABG as well as multiple angioplasty and stenting with unknown details, paroxysmal atrial fibrillation, hypertension, dyslipidemia, presented to the hospital complaining of dizziness and lightheadedness. It started just yesterday. Before that he was in his usual state of health. He did not have any symptoms of syncope. No chest pain or chest discomfort. No shortness of breath. Because of that he decided to come to the hospital. In the emergency room he was found to be bradycardic with a heart rate in the 40s and 50s and he was admitted for further cardiac evaluation. He has been maintaining a heart rate in the 50s. He is not on any AV katlyn kar agents. He is feeling better. The EKG showed atrial fibrillation. The first set of troponin came in to be slightly abnormal. The chest x-ray did not show any acute abnormalities. Objective - Vital Signs Vital signs: Vital Signs Temp 97 F L 09/04/17 15:43 Pulse 64 09/04/17 15:43 Resp 18 09/04/17 15:43 BP 172/87 09/04/17 15:43 Pulse Ox 95 09/04/17 15:43 Intake & Output 09/03/17 09/04/17 09/04/17 18:59 06:59 18:59 Intake Total 260 Output Total 775 590 Balance -775 -330 Weight 99.79 kg 102.6 kg Intake: Oral 260 Output: Urine 775 590 Other: # Voids 1 - Exam - Constitutional General appearance: Present: average body habitus, cooperative, no acute distress - EENT Eyes: Present: anicteric sclerae, EOMI, PERRLA, normal appearance ENT: Present: hearing grossly normal, normal oropharynx Ears: bilateral: normal - Neck Neck: Present: normal ROM. Absent: lymphadenopathy, rigidity, thyromegaly Carotids: negative: bruit present Thyroid: bilateral: normal size, negative: enlarged, nodule - Respiratory Respiratory: bilateral: CTA, negative: rales, rhonchi, wheezing - Cardiovascular Rhythm: regular Heart sounds: normal: S1, S2 Abnormal Heart Sounds: Absent: systolic murmur, diastolic murmur - Gastrointestinal General gastrointestinal: Present: normal bowel sounds, soft. Absent: distended , organomegaly, tenderness - Genitourinary Genitourinary Comment(s): deferred - Integumentary Integumentary: Present: normal turgor. Absent: jaundiced, rash, ulcer - Neurologic Neurologic: Present: CNII-XII intact. Absent: focal deficits - Musculoskeletal Musculoskeletal: Present: gait normal, strength equal bilaterally - Psychiatric Psychiatric: Present: A&O x's 3, appropriate affect, intact judgment & insight - Labs CBC & Chem 7: 09/04/17 05:44 09/04/17 05:44 Labs: Abnormal Lab Results - Last 24 Hours (Table) 09/04/17 09/04/17 09/04/17 Range/Units 05:44 05:44 05:44 RBC 4.25 L (4.30-5.90) m/uL BUN 47 H (9-20) mg/dL Creatinine 2.30 H (0.66-1.25) mg/dL Troponin I 0.043 H* (0.000-0.034) ng/mL Assessment and Plan Assessment: 1. Near syncope - Possibly secondary to 2 - We will continue to monitor on telemetry. 2. Symptomatic bradycardia - Patient is currently not on any AV katlyn blocking agents - Heart rate is improved and remains over 50s - TSH has been ordered by cardiology team - 2-D echo with Doppler is ordered and is pending - Cardiology recommending close monitoring on telemetry for another 24 hours 3. Uncontrolled hypertension; blood pressure is improving; patient remains off of beta blockers - Continue blood pressure monitoring per protocol - We will adjust antihypertensive medications as needed 4. Persistent headache; resolved 5. Chronic kidney disease; creatinine at 2.3 today which seems to be at baseline 6. Hyperkalemia; possibly secondary to chronic kidney disease; resolved DVT prophylaxis; SCDs/oral anticoagulation CODE STATUS; full cord Time with Patient: Greater than 30
[2017-09-04] MEDS: ATORVASTATIN 40 MG TAB PO SCH (20:29)
[2017-09-05 06:48] LABS: Calcium 9.4 mg/dL (8.4-10.2); Potassium 4.8 mmol/L (3.5-5.1)
[2017-09-05] MEDS: APIXABAN 2.5 MG TABLET PO SCH (08:25)
[2017-09-05] MEDS: amLODIPine 5 MG TAB PO SCH ×2 (08:26→19:32)
[2017-09-05] MEDS: hydrALAZINE HCL 25 MG TAB PO SCH ×3 (08:26→19:32)
[2017-09-05] MEDS: ISOSORBIDE MONONITRATE ER 60 MG TAB.ER.24H PO SCH (08:26)
[2017-09-05] MEDS: SPIRONOLACTONE 25 MG TAB PO SCH (08:26)
--- NOTE | 2017-09-05 09:20 | P.PN ---
Subjective Progress Note Date: 09/05/17 Principal diagnosis: Dizziness and lightheadedness This is a pleasant 72-year-old gentleman who sees Dr. Cardenas in the office as an outpatient with a past medical history significant for CAD, hypertension, dyslipidemia, chronic atrial fibrillation, presented to the hospital complaining of dizziness and lightheadedness. No chest pain and no chest discomfort and no shortness of breath. No syncope. During his hospitalization he developed multiple episodes of sinus pauses for at least 3.5 seconds. The patient does need to have a permanent pacemaker implantation. He is not on any AV katlyn kar agents when he presented to the hospital. Objective - Vital Signs Vital signs: Vital Signs Temp 97.2 F L 09/05/17 07:42 Pulse 52 L 09/05/17 07:42 Resp 18 09/05/17 07:42 BP 146/79 09/05/17 07:42 Pulse Ox 96 09/05/17 07:42 Intake & Output 09/04/17 09/05/17 09/05/17 18:59 06:59 18:59 Intake Total 260 Output Total 590 2195 Balance -330 -2195 Weight 101.7 kg Intake: Oral 260 Output: Urine 590 2195 Other: Voiding Method Urinal # Voids 1 # Bowel Movements 0 - Constitutional General appearance: Present: no acute distress - Respiratory Respiratory: bilateral: CTA - Cardiovascular Rhythm: irregularly irregular Heart sounds: normal: S1, S2 - Labs CBC & Chem 7: 09/04/17 05:44 09/05/17 05:32 Labs: Abnormal Lab Results - Last 24 Hours (Table) 09/04/17 09/05/17 Range/Units 05:44 05:32 BUN 43 H (9-20) mg/dL Creatinine 2.30 H (0.66-1.25) mg/dL Troponin I 0.043 H* (0.000-0.034) ng/mL Assessment and Plan Assessment: assessment #1 symptomatic bradycardia #2 dizziness and lightheadedness likely secondary to the above #3 known CAD and prior revascularization #4 multiple comorbid conditions new The plan #1 the patient does need to have a permanent pacemaker implantation. #2 I will stop the oral anticoagulation today.
[2017-09-05] MEDS ORDERED: ceFAZolin IN SWFI 2 GM/20 ML SYRINGE IVP ONE (10:40)
[2017-09-05] MEDS ORDERED: ceFAZolin 1,000 MG in SODIUM CHLORIDE 0.9% IRRIGATIO 250 ML IRRIGATION ONE (10:40)
--- NOTE | 2017-09-05 11:33 | ECHOF ---
Referral Reason:bradycardia MEASUREMENTS -------- HEIGHT: 172.7 cm WEIGHT: 102.1 kg BP: 132/74 IVSd: 1.5 cm (0.6 - 1.1) LVIDd: 4.4 cm (3.9 - 5.3) LVPWd: 1.5 cm (0.6 - 1.1) IVSs: 1.8 cm LVIDs: 4.3 cm LVPWs: 1.7 cm LA Diam: 3.7 cm (2.7 - 3.8) RVIDd: 2.7 cm (< 3.3) LAESV Index (A-L): 33.11 ml/m Ao Diam: 3.1 cm (2.0 - 3.7) LA Diam: 4.3 cm (2.7 - 3.8) AV Cusp: 1.9 cm (1.5 - 2.6) EPSS: 0.2 cm MV E Varun: 0.93 m/s MV DecT: 141 ms MV A Varun: 0.59 m/s MV E/A Ratio: 1.58 RAP: 5.00 mmHg RVSP: 13.19 mmHg MV EF SLOPE: 78.12 mm/s (70 - 150) MV EXCURSION: 18.05 mm (> 18.000) FINDINGS -------- Atrial fibrillation. This was a techncally difficult study with suboptimal views, , Lumason utilized for enhancement of im ages. The left ventricular size is normal. There is moderate concentric left ventricular hypertrophy. O verall left ventricular systolic function is low-normal with, an EF between 50 - 55 %. Inferior Hyp okinesis The right ventricle is normal in size. LA is midly dilated 29-33ml/m2. The right atrial size is normal. 5.0mg OF Lumason UTLIZED: 2 OR MORE WALL SEGMENTS NOT VISUALIZED. There is mild aortic valve sclerosis. There is no evidence of aortic regurgitation. Mild mitral annular calcification present. Mild mitral regurgitation is present. Mild tricuspid regurgitation present. There is no evidence of pulmonary hypertension. The right v entricular systolic pressure, as measured by Doppler, is 13.19mmHg. There is no pulmonic regurgitation present. The aortic root size is normal. There is no pericardial effusion. CONCLUSIONS -------- 1. This was a techncally difficult study with suboptimal views, , Lumason utilized for enhancement of images. 2. The left ventricular size is normal. 3. There is moderate concentric left ventricular hypertrophy. 4. Overall left ventricular systolic function is low-normal with, an EF between 50 - 55 %. 5. Inferior Hypokinesis 6. LA is midly dilated 29-33ml/m2. 7. 5.0mg OF Lumason UTLIZED: 2 OR MORE WALL SEGMENTS NOT VISUALIZED. 8. There is mild aortic valve sclerosis. 9. Mild mitral annular calcification present. 10. Mild mitral regurgitation is present. 11. Mild tricuspid regurgitation present. 12. There is no evidence of pulmonary hypertension. 13. The right ventricular systolic pressure, as measured by Doppler, is 13.19mmHg. 14. There is no pulmonic regurgitation present. 15. The aortic root size is normal. 16. There is no pericardial effusion. ADMISSION SPECIALIST: Zuleyma Jaquez RDCS
[2017-09-05] MEDS: ATORVASTATIN 40 MG TAB PO SCH (19:32)
[2017-09-06] MEDS: ISOSORBIDE MONONITRATE ER 60 MG TAB.ER.24H PO SCH (08:32)
[2017-09-06] MEDS: SPIRONOLACTONE 25 MG TAB PO SCH (08:33)
[2017-09-06] MEDS: hydrALAZINE HCL 25 MG TAB PO SCH ×3 (08:33→20:33)
[2017-09-06] MEDS: amLODIPine 5 MG TAB PO SCH ×2 (08:33→20:33)
--- NOTE | 2017-09-06 09:27 | P.PN ---
Subjective Progress Note Date: 09/06/17 Principal diagnosis: Dizziness and lightheadedness This is a pleasant 72-year-old gentleman who sees Dr. Cardenas in the office as an outpatient with a past medical history significant for CAD, hypertension, dyslipidemia, chronic atrial fibrillation, presented to the hospital complaining of dizziness and lightheadedness. No chest pain and no chest discomfort and no shortness of breath. No syncope. During his hospitalization he developed multiple episodes of sinus pauses for at least 3.5 seconds. The patient does need to have a permanent pacemaker implantation. He is not on any AV katlyn kar agents when he presented to the hospital. The patient is going to have permanent pacemaker implantation tomorrow. Objective - Vital Signs Vital signs: Vital Signs Temp 97 F L 09/06/17 07:26 Pulse 72 09/06/17 07:26 Resp 18 09/06/17 07:26 BP 171/83 09/06/17 07:26 Pulse Ox 96 09/06/17 07:26 Intake & Output 09/05/17 09/06/17 09/06/17 18:59 06:59 18:59 Intake Total 480 230 Output Total 800 600 Balance -320 -370 Weight 103.5 kg Intake: Oral 480 230 Output: Urine 800 600 Other: Voiding Method Urinal # Voids 1 2 - Constitutional General appearance: Present: no acute distress - Respiratory Respiratory: bilateral: CTA - Cardiovascular Rhythm: irregularly irregular - Labs CBC & Chem 7: 09/04/17 05:44 09/05/17 05:32 Assessment and Plan Assessment: assessment #1 symptomatic bradycardia #2 dizziness and lightheadedness likely secondary to the above #3 known CAD and prior revascularization #4 multiple comorbid conditions new The plan #1 the patient does need to have a permanent pacemaker implantation. #2 the oral anticoagulation was stopped yesterday.
--- NOTE | 2017-09-06 11:57 | P.PN ---
Subjective Patient resting in bed without complaint. Discussed case with cardiology patient is to be scheduled for pacemaker has had to 3 second pauses Objective - Vital Signs Vital signs: Vital Signs Temp 97.5 F L 09/06/17 11:18 Pulse 82 09/06/17 11:18 Resp 18 09/06/17 11:18 BP 148/78 09/06/17 11:18 Pulse Ox 96 09/06/17 11:18 Intake & Output 09/05/17 09/06/17 09/06/17 18:59 06:59 18:59 Intake Total 480 230 240 Output Total 800 600 300 Balance -320 -370 -60 Weight 103.5 kg Intake: Oral 480 230 240 Output: Urine 800 600 300 Other: Voiding Method Urinal # Voids 1 2 - Constitutional General appearance: Present: obese - EENT Eyes: Present: PERRLA Ears: bilateral: normal - Neck Neck: Present: normal ROM - Respiratory Respiratory: bilateral: CTA - Cardiovascular Rhythm: regular Abnormal Heart Sounds: Present: systolic murmur - Gastrointestinal General gastrointestinal: Present: soft - Integumentary Integumentary: Present: normal - Neurologic Neurologic: Present: CNII-XII intact - Musculoskeletal Musculoskeletal: Present: generalized weakness - Psychiatric Psychiatric: Present: A&O x's 3, appropriate affect, intact judgment & insight - Labs CBC & Chem 7: 09/04/17 05:44 09/05/17 05:32 - Imaging and Cardiology Chest x-ray: report reviewed CT Scan - head: report reviewed Assessment and Plan Plan: Assessment Symptomatic bradycardia Near-syncope History of hypertension Chronic kidney disease GFR 31 History of coronary disease with CABG and TX History of atrial fibrillation History of COPD history of GERD Plan Internal of pacemaker continue consultation with cardiology
[2017-09-06] MEDS: SODIUM CHLORIDE 0.9% 1,000 ML IV SCH ×2 (20:32)
[2017-09-06] MEDS: ATORVASTATIN 40 MG TAB PO SCH (20:33)
[2017-09-07] MEDS: SODIUM CHLORIDE 0.9% 1,000 ML IV SCH ×8 (05:59→19:56)
[2017-09-07] MEDS: SPIRONOLACTONE 25 MG TAB PO SCH (06:06)
[2017-09-07] MEDS: ISOSORBIDE MONONITRATE ER 60 MG TAB.ER.24H PO SCH (06:06)
[2017-09-07] MEDS: hydrALAZINE HCL 25 MG TAB PO SCH ×3 (06:06→19:55)
[2017-09-07] MEDS: amLODIPine 5 MG TAB PO SCH ×2 (06:06→19:56)
[2017-09-07] MEDS ORDERED: ceFAZolin IN SWFI 2 GM/20 ML SYRINGE IVP STA (07:12)
[2017-09-07] MEDS ORDERED: ceFAZolin 1,000 MG in SODIUM CHLORIDE 0.9% IRRIGATIO 250 ML IRRIGATION STA (07:13)
[2017-09-07] MEDS ORDERED: IV FLUID CONTINUATION 1,000 ML IV ONE (07:30)
[2017-09-07] MEDS ORDERED: IOPAMIDOL-370 50ML BTL INJ ONE (08:05)
[2017-09-07] MEDS ORDERED: MIDAZOLAM 2 MG/2 ML VIAL ONE (08:15)
[2017-09-07] MEDS ORDERED: fentaNYL (PF) 50 MCG/ML 2 ML AMP ONE (08:15)
[2017-09-07] MEDS: LIDOCAINE 1% (PF) 10MG/ML VIAL SQ ONE ×2 (08:18→08:23)
[2017-09-07] MEDS: fentaNYL (PF) 50 MCG/ML 2 ML AMP IV ONE ×2 (08:18→08:23)
[2017-09-07] MEDS: MIDAZOLAM 2 MG/2 ML VIAL IV ONE ×2 (08:18→08:23)
[2017-09-07] MEDS ORDERED: ACETAMINOPHEN TAB 325 MG TAB PO PRN (08:57)
--- NOTE | 2017-09-07 09:07 | P.PCN ---
Date of Procedure: 09/07/17 Preoperative Diagnosis: Sick sinus syndrome with symptoms of dizziness and atrial fibrillation Postoperative Diagnosis: The same Procedure(s) Performed: Single-chamber permanent pacemaker implantation, axillary venography Description of Procedure: HISTORY: This is a 72-year-old gentleman with history of ischemic heart disease with previous bypass surgery was admitted to the hospital with episodes of dizziness and long pauses associated with atrial fibrillation. Patient is advised to have permanent pacemaker implantation. CONSENT:I have discussed the risks, benefits and alternative therapies for the above-mentioned procedure and for both sedation/analgesia as well as necessary blood product administration, if indicated, as they pertain to this patient. The patient has indicated understanding and acceptance of the risks and procedures discussed. PROCEDURE: Patient was brought to the lab in a fasting state. Patient was prepped and draped in the usual fashion. Patient was given IV sedation with fentanyl and Versed. The skin below the left clavicle was infiltrated with lidocaine. An incision was made parallel to deltopectoral groove was deepened until the pectoral fascia was exposed. A pocket was created by blunt dissection and cautery. Axillary venography was performed to delineate the course of the axillary vein. A single venous stick were performed into extrathoracic portion of the axillary vein and a single sheath was advanced over the guidewires and left in subclavian vein. Conscious Sedation: Versed 1.5 mg Fentanyl 50 g Duration 43 minutes LEADS: VENTRICULAR: This is manufactured by [employer]. Model number is [id number] and the serial number is [id number]. The ventricular lead is maneuvered l with help of a straight and curved stylets into the left ventricle apical region. Satisfactory position was obtained and threshold measurements were made. The atrial lead was then maneuvered into the right atrial appendage. And thresholds were obtained. THRESHOLDS: VENTRICLE: The minimal patient threshold was 0.9 at a pulse width of 0.4 ms. The impedance is 1069. R-wave: 25.6. Line. The leads were then connected to a pulse generator manufactured by [employer]. Model number [id number] and the serial number is [id number] The leads and pulse generator remained in the pocket after it was washed with antibiotics. Pocket was closed in the usual fashion. The fascia was closed with 2-0 Prolene ,the subcutaneous tissue was closed with 3-0 Prolene and the skin was closed with 4-0 Prolene. PROGRAMMING: MODE: VVIR RATE: 60 to 130 OUTPUT: Ventricle: 3.5 V FINAL IMPRESSION: #1 axillary venography #2. Successful implantation of single- chamber permanent pacemaker COMPLICATIONS: None. PLAN: Patient was admitted to telemetry unit for continuous monitoring. Chest x -ray will better in the morning. Patient will be continued on prophylactic antibiotics. Possible discharge in 24 hours.
--- NOTE | 2017-09-07 10:07 | P.PN ---
Subjective Progress Note Date: 09/07/17 Principal diagnosis: Dizziness and lightheadedness This is a pleasant 72-year-old gentleman who sees Dr. Cardenas in the office as an outpatient with a past medical history significant for CAD, hypertension, dyslipidemia, chronic atrial fibrillation, presented to the hospital complaining of dizziness and lightheadedness. No chest pain and no chest discomfort and no shortness of breath. No syncope. During his hospitalization he developed multiple episodes of sinus pauses for at least 3.5 seconds. The patient does need to have a permanent pacemaker implantation. He is not on any AV katlyn kar agents when he presented to the hospital. The patient underwent permanent pacemaker implantation earlier today by Dr. Cardenas. We will follow-up on the chest x-ray as well as on the pacemaker interrogation. Objective - Vital Signs Vital signs: Vital Signs Temp 97.1 F L 09/07/17 04:00 Pulse 76 09/07/17 04:00 Resp 16 09/07/17 04:00 BP 135/86 09/07/17 04:00 Pulse Ox 93 L 09/07/17 04:00 Intake & Output 09/06/17 09/07/17 09/07/17 18:59 06:59 18:59 Intake Total 953 810 100 Output Total 300 300 Balance 653 510 100 Weight 102.5 kg Intake: IV 100 Intake, IV Titration 210 Amount Sodium Chloride 0.9% 1, 10 000 ml @ 20 mls/hr IV . Q24H JAYASHREE Rx#:[id number] Sodium Chloride 0.9% 1, 200 000 ml @ 50 mls/hr IV . Q20H JAYASHREE Rx#:[id number] Oral 953 600 0 Output: Urine 300 300 Other: Voiding Method Urinal # Voids 1 - Constitutional General appearance: Present: no acute distress - Respiratory Respiratory: bilateral: CTA - Cardiovascular Rhythm: irregularly irregular Heart sounds: normal: S1, S2 - Labs CBC & Chem 7: 09/04/17 05:44 09/05/17 05:32 Assessment and Plan Assessment: assessment #1 symptomatic bradycardia #2 dizziness and lightheadedness likely secondary to the above #3 known CAD and prior revascularization #4 multiple comorbid conditions new The plan #1 the patient is status post permanent pacemaker implantation #2 chest x-ray and pacer interrogation
--- NOTE | 2017-09-07 11:42 | P.PN ---
Subjective Patient sitting at bedside of family in the room. Patient states she is comfortable complaints this time. Patient is post pacemaker insertion Objective - Vital Signs Vital signs: Vital Signs Temp 96.7 F L 09/07/17 09:40 Pulse 76 09/07/17 04:00 Resp 18 09/07/17 10:10 BP 163/75 09/07/17 10:10 Pulse Ox 95 09/07/17 10:10 Intake & Output 09/06/17 09/07/17 09/07/17 18:59 06:59 18:59 Intake Total 953 810 100 Output Total 300 300 Balance 653 510 100 Weight 102.5 kg Intake: IV 100 Intake, IV Titration 210 Amount Sodium Chloride 0.9% 1, 10 000 ml @ 20 mls/hr IV . Q24H [facility] Rx#:[id number] Sodium Chloride 0.9% 1, 200 000 ml @ 50 mls/hr IV . Q20H [facility] Rx#:[id number] Oral 953 600 0 Output: Urine 300 300 Other: Voiding Method Urinal # Voids 1 - Constitutional General appearance: Present: obese - EENT Eyes: Present: PERRLA ENT: Present: hard of hearing Ears: bilateral: normal - Neck Neck: Present: normal ROM - Respiratory Respiratory: bilateral: CTA - Cardiovascular Rhythm: regular Abnormal Heart Sounds: Present: systolic murmur - Gastrointestinal General gastrointestinal: Present: soft - Integumentary Integumentary: Present: normal - Neurologic Neurologic: Present: CNII-XII intact - Psychiatric Psychiatric: Present: A&O x's 3, appropriate affect, intact judgment & insight - Labs CBC & Chem 7: 09/04/17 05:44 09/05/17 05:32 Assessment and Plan Plan: Assessment Symptomatic bradycardia post pacemaker insertion Near-syncope Hypertension Chronic renal failure GFR 31 History of coronary disease with CABG and VA Atrial fibrillation COPD GERD Plan Hopeful discharge in a.m. per cardiology
[2017-09-07] MEDS: HYDROcodone/APAP 5-325MG 1 EACH TAB PO PRN ×2 (14:52→18:43)
[2017-09-07] MEDS: ceFAZolin IN SWFI 2 GM/20 ML SYRINGE IVP SCH ×2 (14:53→19:55)
--- NOTE | 2017-09-07 15:43 | CDI ---
Last Revision, April 2017 Documentation Clarification Form Date: 09/07/17 [id number] From: Tanya Santos RN, CCDS Admit Date: 09/03/2017 3:22:00 PM Patient Name: Dennys Cuevas Visit Number: [id number] ATTENTION: The Clinical Documentation Specialists (CDI) and [facility] Coding Staff appreciate your assistance in clarifying documentation. Please respond to the clarification below the line at the bottom and electronically sign. The CDI & [facility] Coding staff will review the response and follow-up if needed. Please note: Queries are made part of the Legal Health Record. If you have any questions, please contact the author of this message via ITS. Dr. El/Taylor MCDONALD History/Risk Factors: Bradycardia s/p PPM insertion, HTN, CAD, CABG, TX, AF Clinical Indicators: 09/07 Att: "Chronic renal failure GFR 31." Current BUN: 45/47/43, CR:2.33/2.3 GFR: 31 07/03/17 Patients Baseline: BUN/CR/GFR: 39/2.43/26 Treatment: IVF: 0.9%NS @ 70 cc/hr Aldactone 12.5 mg PO QD Lasix 40 mg PO QD In order to capture the severity of condition, please clarify if the condition signifies: CKD Stage 1 (GFR > 90) CKD Stage 2 (GFR 60-89) CKD Stage 3 (GFR 30-59) CKD Stage 4 (GFR 15-29) CKD Stage 5 (GFR <15) ESRD Other, please specify Unable to determine Please continue to document in your progress notes and discharge summary in order to capture severity of illness and risk of mortality. Include clinical findings that support your diagnosis. MTDD
[2017-09-07] MEDS: ATORVASTATIN 40 MG TAB PO SCH (19:56)
[2017-09-08] MEDS: ceFAZolin IN SWFI 2 GM/20 ML SYRINGE IVP SCH ×2 (03:00→09:35)
--- NOTE | 2017-09-08 06:26 | XR ---
EXAMINATION TYPE: XR chest 2V DATE OF EXAM: 09/08/2017 COMPARISON: Chest x-ray from 5 days ago. HISTORY: Post pacemaker placement. TECHNIQUE: Frontal and lateral views of the chest are obtained. FINDINGS: Overlying sternal wires and mediastinal clips are redemonstrated. There is chronic parench ymal change without suspicious new focal air space opacity, pleural effusion, or pneumothorax seen. Possible small degree of pleural thickening posterior lateral left lung base is redemonstrated. The c ardiac silhouette size is within normal limits with atherosclerotic thoracic aorta. There is new sin gle lead pacemaker terminating in right ventricle The osseous structures are intact. IMPRESSION: New single-lead pacemaker terminating in right ventricle. No evidence of complication re lated to pacemaker placement.
[2017-09-08 08:21] VITALS: RESP 18
--- NOTE | 2017-09-08 09:09 | P.PN ---
Subjective Progress Note Date: 09/08/17 Principal diagnosis: Dizziness and lightheadedness This is a pleasant 72-year-old gentleman who sees Dr. Cardenas in the office as an outpatient with a past medical history significant for CAD, hypertension, dyslipidemia, chronic atrial fibrillation, presented to the hospital complaining of dizziness and lightheadedness. No chest pain and no chest discomfort and no shortness of breath. No syncope. During his hospitalization he developed multiple episodes of sinus pauses for at least 3.5 seconds. The patient does need to have a permanent pacemaker implantation. He is not on any AV katlyn kar agents when he presented to the hospital. The patient underwent permanent pacemaker implantation earlier today by Dr. Cardenas. The chest x-ray did not show any acute complication related to the pacemaker. The device is to be checked later on today and this is functioning normally the patient is going to be discharged home. I did increase the dose of hydralazine and also I did add Coreg to the current medical treatment to control the blood pressure. Likely the patient will be able to be discharged home today. Objective - Vital Signs Vital signs: Vital Signs Temp 97.0 F L 09/08/17 08:10 Pulse 82 09/08/17 08:10 Resp 18 09/08/17 08:10 BP 182/77 09/08/17 08:10 Pulse Ox 96 09/08/17 08:10 Intake & Output 09/07/17 09/08/17 09/08/17 18:59 06:59 18:59 Intake Total 1490 1000 Output Total 300 250 700 Balance 1190 750 -700 Weight 103 kg Intake: IV 100 Intake, IV Titration 400 1000 Amount Sodium Chloride 0.9% 1, 400 1000 000 ml @ 50 mls/hr IV . Q20H [facility] Rx#:[id number] Oral 990 Output: Urine 300 250 700 Other: Voiding Method Urinal # Voids 1 1 # Bowel Movements 0 - Constitutional General appearance: Present: no acute distress - Respiratory Respiratory: bilateral: CTA - Cardiovascular Rhythm: irregularly irregular Heart sounds: normal: S1, S2 - Labs CBC & Chem 7: 09/04/17 05:44 09/05/17 05:32 Assessment and Plan Assessment: assessment #1 symptomatic bradycardia #2 dizziness and lightheadedness likely secondary to the above #3 known CAD and prior revascularization #4 multiple comorbid conditions new The plan #1 the patient is status post permanent pacemaker implantation #2 increase the dose of hydralazine and add Coreg #3 follow-up with the device interrogation
[2017-09-08] MEDS ORDERED: hydrALAZINE HCL 50 MG TAB PO SCH (09:15)
[2017-09-08] MEDS: amLODIPine 5 MG TAB PO SCH (09:35)
[2017-09-08] MEDS: ISOSORBIDE MONONITRATE ER 60 MG TAB.ER.24H PO SCH (09:35)
[2017-09-08] MEDS: SPIRONOLACTONE 25 MG TAB PO SCH (09:36)
[2017-09-08 13:05] VITALS: BP 194/84; PULSE 86; TEMP 97.1
[2017-09-08] MEDS ORDERED: CEPHALEXIN 500 MG CAP PO SCH (16:00)
[2017-09-08] MEDS ORDERED: CARVEDILOL 3.125 MG TAB PO SCH (17:30)
--- NOTE | 2017-09-08 22:21 | P.PN ---
Subjective Progress Note Date: 09/05/17 Principal diagnosis: Symptomatic bradycardia This is a pleasant 72-year-old gentleman with a past medical history significant for coronary artery disease and status post CABG and redo CABG as well as multiple angioplasty and stenting with unknown details, paroxysmal atrial fibrillation, hypertension, dyslipidemia, presented to the hospital complaining of dizziness and lightheadedness. It started just yesterday. Before that he was in his usual state of health. He did not have any symptoms of syncope. No chest pain or chest discomfort. No shortness of breath. Because of that he decided to come to the hospital. In the emergency room he was found to be bradycardic with a heart rate in the 40s and 50s and he was admitted for further cardiac evaluation. He has been maintaining a heart rate in the 50s. He is not on any AV katlyn kar agents. He is feeling better. The EKG showed atrial fibrillation. The first set of troponin came in to be slightly abnormal. The chest x-ray did not show any acute abnormalities. 09/05/2017 Patient denied any complaints of chest pain or shortness of breath today. No complaints of dizziness or lightheadedness. Cardiology is planning for permanent pacemaker placement. Patient has multiple episodes of sinus pauses for at least 3.5 seconds. All other review of systems negative except the above Current medications reviewed Objective - Vital Signs Vital signs: Vital Signs Temp 97.8 F 09/05/17 15:44 Pulse 97 09/05/17 15:45 Resp 18 09/05/17 15:44 BP 150/95 09/05/17 15:44 Pulse Ox 96 09/05/17 15:44 Intake & Output 09/04/17 09/05/17 09/05/17 18:59 06:59 18:59 Intake Total 260 480 Output Total 590 2195 Balance -330 -2195 480 Weight 101.7 kg Intake: Oral 260 480 Output: Urine 590 2195 Other: Voiding Method Urinal # Voids 1 # Bowel Movements 0 - Exam - Constitutional General appearance: Present: average body habitus, cooperative, no acute distress - EENT Eyes: Present: anicteric sclerae, EOMI, PERRLA, normal appearance ENT: Present: hearing grossly normal, normal oropharynx Ears: bilateral: normal - Neck Neck: Present: normal ROM. Absent: lymphadenopathy, rigidity, thyromegaly Carotids: negative: bruit present Thyroid: bilateral: normal size, negative: enlarged, nodule - Respiratory Respiratory: bilateral: CTA, negative: rales, rhonchi, wheezing - Cardiovascular Rhythm: regular Heart sounds: normal: S1, S2 Abnormal Heart Sounds: Absent: systolic murmur, diastolic murmur - Gastrointestinal General gastrointestinal: Present: normal bowel sounds, soft. Absent: distended , organomegaly, tenderness - Genitourinary Genitourinary Comment(s): deferred - Integumentary Integumentary: Present: normal turgor. Absent: jaundiced, rash, ulcer - Neurologic Neurologic: Present: CNII-XII intact. Absent: focal deficits - Musculoskeletal Musculoskeletal: Present: gait normal, strength equal bilaterally - Psychiatric Psychiatric: Present: A&O x's 3, appropriate affect, intact judgment & insight - Labs CBC & Chem 7: 09/04/17 05:44 09/05/17 05:32 Labs: Abnormal Lab Results - Last 24 Hours (Table) 09/05/17 Range/Units 05:32 BUN 43 H (9-20) mg/dL Creatinine 2.30 H (0.66-1.25) mg/dL Assessment and Plan Assessment: 1. Near syncope - Possibly secondary to 2 bradycardia - We will continue to monitor on telemetry. 2. Symptomatic bradycardia - Patient is currently not on any AV katlyn blocking agents - Heart rate is improved and remains over 50s - TSH within normal limits - 2-D echo with Doppler - Cardiology recommending pacemaker placement 3. Uncontrolled hypertension; blood pressure is improving; patient remains off of beta blockers - Continue blood pressure monitoring per protocol - We will adjust antihypertensive medications as needed 4. Persistent headache; resolved 5. Chronic kidney disease; creatinine at 2.3 which seems to be at baseline 6. Hyperkalemia; possibly secondary to chronic kidney disease; resolved DVT prophylaxis; SCDs/oral anticoagulation CODE STATUS; full cord Time with Patient: Greater than 30
--- NOTE | 2017-09-08 22:25 | P.DS ---
Providers Date of admission: 09/03/17 15:22 Expected date of discharge: 09/08/17 Attending physician: Kiana Smith Consults: 09/03/17 15:22 Consult Physician Routine Consulting Provider: Jay Tuttle Consult Reason/Comments: Near-syncope, bradycardia Do you want consulting provider notified?: Yes Primary care physician: Feliz El Hospital Course: Discharge diagnosis 1. Near syncope- Possibly secondary to 2 bradycardia 2. Symptomatic bradycardia - Patient is currently not on any AV katlyn blocking agents - Heart rate is improved and remains over 50s - TSH within normal limits - 2-D echo with Doppler normal EF. - Cardiology recommending pacemaker placement. Patient is status post and placement placement 3. Uncontrolled hypertension; blood pressure medications have been adjusted and added. 4. Persistent headache; resolved 5. Chronic kidney disease-3; creatinine at 2.3 which seems to be at baseline 6. Hyperkalemia; possibly secondary to chronic kidney disease; resolved DVT prophylaxis; SCDs/oral anticoagulation Hospital course This is a pleasant 72-year-old gentleman with a past medical history significant for coronary artery disease and status post CABG and redo CABG as well as multiple angioplasty and stenting with unknown details, paroxysmal atrial fibrillation, hypertension, dyslipidemia, presented to the hospital complaining of dizziness and lightheadedness. It started just yesterday. Before that he was in his usual state of health. He did not have any symptoms of syncope. No chest pain or chest discomfort. No shortness of breath. Because of that he decided to come to the hospital. In the emergency room he was found to be bradycardic with a heart rate in the 40s and 50s and he was admitted for further cardiac evaluation. He has been maintaining a heart rate in the 50s. He is not on any AV katlyn kar agents. He is feeling better. The EKG showed atrial fibrillation. The first set of troponin came in to be slightly abnormal. The chest x-ray did not show any acute abnormalities. 09/05/2017 Patient denied any complaints of chest pain or shortness of breath today. No complaints of dizziness or lightheadedness. Cardiology is planning for permanent pacemaker placement. Patient has multiple episodes of sinus pauses for at least 3.5 seconds. 09/08/2017 The patient underwent permanent pacemaker implantation earlier today by Dr. Cardenas. The chest x-ray did not show any acute complication related to the pacemaker. The device is to be checked later on today and this is functioning normally the patient is going to be discharged home. increase the dose of hydralazine and also added Coreg to the current medical treatment to control the blood pressure. Patient is being discharged home today. Vital Signs - 24 hr 09/08/17 09/08/17 09/08/17 00:00 04:00 05:00 Temperature 97.1 F L 97.7 F Pulse Rate [ 69 83 Pulse Oximetery ] Respiratory 17 16 17 Rate Blood Pressure 170/96 147/79 [Left Arm Supine] Blood Pressure [Right Arm] O2 Sat by Pulse 96 96 97 Oximetry 09/08/17 09/08/17 08:10 11:50 Temperature 97.0 F L 97.1 F L Pulse Rate [ 82 86 Pulse Oximetery ] Respiratory 18 18 Rate Blood Pressure [Left Arm Supine] Blood Pressure 182/77 194/84 [Right Arm] O2 Sat by Pulse 96 96 Oximetry PHYSICAL EXAMINATION: Patient is lying in the bed comfortably, no acute distress, awake alert and oriented.. HEENT: Normocephalic. Neck is supple. Pupils reactive. Nostrils clear. Oral cavity is moist. Ears reveal no drainage. Neck reveals no JVD, carotid bruits, or thyromegaly. CHEST EXAMINATION: Trachea is central. Symmetrical expansion. Lung franz clear to auscultation and percussion. CARDIAC: Normal S1, S2 with no gallops. No murmurs ABDOMEN: Soft. Bowel sounds normal. No organomegaly. No abdominal bruits. Extremities: reveal no edema. No clubbing or cyanosis Neurologically awake, alert, oriented x3 with well-coordinated movements. No focal deficits noted Skin: No rash or skin lesions. Psychiatric: Coperative. Nonsuicidal Musculoskeletal: No joint swelling or deformity. Normal range of motion. Total time taken greater than 35 minutes including 18 minutes for counseling and coordination of care. Patient Condition at Discharge: Stable Plan - Discharge Summary Discharge Rx Participant: Yes New Discharge Prescriptions: New amLODIPine [Norvasc] 5 mg PO BID #60 tab Cephalexin [Keflex] 500 mg PO TID #9 cap hydrALAZINE HCL [Apresoline] 50 mg PO TID #90 tab Carvedilol [Coreg] 3.125 mg PO BID-W/MEALS #60 tab Continue Ubidecarenone [Co Q-10] 100 mg PO DAILY Spironolactone 12.5 mg PO DAILY Multivitamins, Thera [Multivitamin (formulary)] 1 tab PO DAILY Furosemide [Lasix] 40 mg PO DAILY Atorvastatin [Lipitor] 40 mg PO HS Isosorbide Mononitrate ER [Imdur] 60 mg PO DAILY #60 tab Albuterol Nebulized [Ventolin Nebulized] 2.5 mg INHALATION RT-Q6H PRN PRN Reason: Agitation Acetaminophen [Tylenol Arthritis] 650 - 1,300 mg PO Q8H PRN PRN Reason: Pain Amiodarone [Cordarone] 200 mg PO DAILY Ergocalciferol (Vitamin D2) [Vitamin D2] 50,000 unit PO WE Apixaban [Eliquis] 2.5 mg PO BID #0 tab Discontinued Metoprolol Tartrate [Lopressor] 25 mg PO BID #60 tab Discharge Medication List Atorvastatin [Lipitor] 40 mg PO HS 06/29/14 [History] Furosemide [Lasix] 40 mg PO DAILY 06/29/14 [History] Multivitamins, Thera [Multivitamin (formulary)] 1 tab PO DAILY 06/29/14 [History ] Spironolactone 12.5 mg PO DAILY 06/29/14 [History] Ubidecarenone [Co Q-10] 100 mg PO DAILY 06/29/14 [History] Isosorbide Mononitrate ER [Imdur] 60 mg PO DAILY #60 tab 12/27/16 [Rx] Acetaminophen [Tylenol Arthritis] 650 - 1,300 mg PO Q8H PRN 07/03/17 [History] Albuterol Nebulized [Ventolin Nebulized] 2.5 mg INHALATION RT-Q6H PRN 07/03/17 [ History] Amiodarone [Cordarone] 200 mg PO DAILY 07/03/17 [History] Ergocalciferol (Vitamin D2) [Vitamin D2] 50,000 unit PO WE 09/03/17 [History] Apixaban [Eliquis] 2.5 mg PO BID #0 tab 09/08/17 [Rx] Carvedilol [Coreg] 3.125 mg PO BID-W/MEALS #60 tab 09/08/17 [Rx] Cephalexin [Keflex] 500 mg PO TID #9 cap 09/08/17 [Rx] amLODIPine [Norvasc] 5 mg PO BID #60 tab 09/08/17 [Rx] hydrALAZINE HCL [Apresoline] 50 mg PO TID #90 tab 09/08/17 [Rx] Follow up Appointment(s)/Referral(s): [facility] [Provider Group] - 09/14/17 8:30 am (tuesday Device clinic, pacer check in 5 days.) Feliz El MD [Primary Care Provider] - 09/15/17 8:40 am () Seda Cardenas MD [STAFF PHYSICIAN] - 09/19/17 3:45 pm (At [facility] next to [place] in [place].) Patient Instructions/Handouts: Pacemaker (DC) Discharge Disposition: HOME SELF-CARE
--- NOTE | 2017-09-12 07:12 | CDI ---
Last Revision, April 2017 Documentation Clarification Form Date: 09/11/17 From: Brionna Estrada Aishwarya Mckeon, Supervisor Order Takers between 8:30 am & 5 pm Suni Admit Date: 09/03/2017 3:22:00 PM Patient Name: Dennys Cuevas Visit Number: [id number] Discharge Date: 09/11/17 ATTENTION: The Clinical Documentation Specialists (CDI) and [facility] Coding Staff appreciate your assistance in clarifying documentation. Please respond to the clarification below the line at the bottom and electronically sign. The CDI & [facility] Coding staff will review the response and follow-up if needed. Please note: Queries are made part of the Legal Health Record. If you have any questions, please contact the author of this message via ITS. Dr. Jay Tuttle History of peripheral vascular disease is documented in your consult and ED record. History/Risk Factors: S/P CABG & stenting, carotid bypass 1. In your professional opinion, can the type and location of peripheral vascular disease be further specified? 2. Can you please clarify the vessel and laterality if known? 3. Can you please clarify the type of vessel if known? [place] Bypass Graft Autologous vein Nonautologous biological Nonbiological Other, please specify Unable to Determine Other, please specify Unable to determine 4. In your professional opinion, in order to capture the severity of condition, can you please clarify if the above clinical indicators and treatment signify if there were any associated conditions? Gangrene Intermittent Claudication Rest Pain Ulceration No related conditions Other, please specify Unable to determine Please continue to document in your progress notes and discharge summary in order to capture severity of illness and risk of mortality. Include clinical findings that support your diagnosis. MTDD
--- NOTE | 2017-09-12 20:33 | P.PN ---
Progress Note - Text Addendum Acute on chronic renal disease stage IV GRF of 26
--- NOTE | 2017-09-21 09:11 | P.ARTDOP ---
Arterial Doppler LOWER EXTREMITY ARTERIAL DOPPLER: DATE OF SERVICE: 09/05/2017 Reason for study: Foot discoloration. Doppler waveforms: Multiphasic bilaterally throughout. Pulse volume recording: Progressive blunting as it goes distally. Pressure gradients: Both above and below the knee on the right.. Ankle-brachial indices: 0.29 on the right and one on the left. Toe pressures: [] on the right, [] on the left Impression: On reviewing waveforms in the pressures I suspect moderate bilateral femoral popliteal disease. Clinical correlation recommended.
== END 2017-09-08 15:10 | disposition home or self-care (01) | DRG 244 ==
LOC: EC 11:16 → 6SEL 15:22
PROVIDERS: ADMIT Internal Medicine; ATTEND Internal Medicine
PROC: 02HK3JZ Insertion of Pacemaker Lead into Right Ventricle, Percutaneous Approach (ICD-10-PCS; 2017-09-07)
PROC: B51NYZA Fluoroscopy of Left Upper Extremity Veins using Other Contrast, Guidance (ICD-10-PCS; 2017-09-07)
PROC: 0JH605Z Insertion of Pacemaker, Single Chamber Rate Responsive into Chest Subcutaneous Tissue and Fascia, Open Approach (ICD-10-PCS; principal; 2017-09-07 07:13)
DX: I49.5 Sick sinus syndrome (principal); E87.5 Hyperkalemia; I48.2 Chronic atrial fibrillation; J44.9 Chronic obstructive pulmonary disease, unspecified; I25.10 Atherosclerotic heart disease of native coronary artery without angina pectoris; R51 Headache; K21.9 Gastro-esophageal reflux disease without esophagitis; M19.91 Primary osteoarthritis, unspecified site; G89.29 Other chronic pain; M54.9 Dorsalgia, unspecified; J30.1 Allergic rhinitis due to pollen; E78.5 Hyperlipidemia, unspecified; I25.2 Old myocardial infarction; Z79.01 Long term (current) use of anticoagulants; Z79.899 Other long term (current) drug therapy; Z95.1 Presence of aortocoronary bypass graft; Z95.5 Presence of coronary angioplasty implant and graft; Z95.828 Presence of other vascular implants and grafts; Z98.42 Cataract extraction status, left eye; Z98.41 Cataract extraction status, right eye; Z87.891 Personal history of nicotine dependence; Z87.19 Personal history of other diseases of the digestive system
CPT/HCPCS: 33207; 36415; 70450; 71046; 80048; 80053; 84484; 85025; 85610; 93005; 93306; 93923; 96374; 96375; 99285

== ENCOUNTER 2017-09-19 07:03 | Inpatient (IN) | payer MEDICARE, OTHER ==
[2017-09-19 07:12] LABS: Glucose,Whole Blood 109 mg/dL (75-99)
[2017-09-19] MEDS ORDERED: FUROSEMIDE 10 MG/ML 4 ML VIAL IV STA (07:12)
--- NOTE | 2017-09-19 07:15 | ED ---
General Adult HPI - General Chief complaint: Shortness of Breath Stated complaint: PRASANNA Time Seen by Provider: 09/19/17 07:06 Source: patient, RN notes reviewed Mode of arrival: EMS Limitations: physical limitation - History of Present Illness Initial comments: Patient is a pleasant 72-year-old male presenting to the emergency department with difficulty in breathing. Patient states this is a chronic problem for him. Patient is a poor historian and limits his answers. Patient is unclear when onset was this time. Patient has taken several nebulizer treatments without much improvement. Symptoms worsened last night. No chest pain. Patient states he has had dyspnea problems since his open heart surgery back in 1989 - Related Data Home Medications Medication Instructions Recorded Confirmed Atorvastatin [Lipitor] 40 mg PO HS 06/29/14 09/19/17 Furosemide [Lasix] 40 mg PO DAILY 06/29/14 09/19/17 Multivitamins, Thera [Multivitamin 1 tab PO DAILY 06/29/14 09/19/17 (formulary)] Spironolactone 12.5 mg PO DAILY 06/29/14 09/19/17 Ubidecarenone [Co Q-10] 100 mg PO DAILY 06/29/14 09/19/17 Albuterol Nebulized [Ventolin 2.5 mg INHALATION RT-Q6H PRN 07/03/17 09/19/17 Nebulized] Amiodarone [Cordarone] 200 mg PO DAILY 07/03/17 09/19/17 Ergocalciferol (Vitamin D2) 50,000 unit PO Q30D 09/03/17 09/19/17 [Vitamin D2] Previous Rx's Medication Instructions Recorded Isosorbide Mononitrate ER [Imdur] 60 mg PO DAILY #60 tab 12/27/16 Apixaban [Eliquis] 2.5 mg PO BID #0 tab 09/08/17 Carvedilol [Coreg] 3.125 mg PO BID-W/MEALS #60 tab 09/08/17 amLODIPine [Norvasc] 5 mg PO BID #60 tab 09/08/17 hydrALAZINE HCL [Apresoline] 50 mg PO TID #90 tab 09/08/17 Allergies Allergy/AdvReac Type Severity Reaction Status Date / Time No Known Allergies Allergy Verified 09/19/17 07:53 Review of Systems ROS Statement: Those systems with pertinent positive or pertinent negative responses have been documented in the HPI. ROS Other: All systems not noted in ROS Statement are negative. Constitutional: Denies: fever Eyes: Denies: eye pain ENT: Denies: ear pain Respiratory: Reports: dyspnea Cardiovascular: Denies: chest pain Endocrine: Reports: fatigue Gastrointestinal: Denies: abdominal pain Genitourinary: Denies: dysuria Musculoskeletal: Denies: back pain Skin: Denies: rash Neurological: Denies: headache Past Medical History Past Medical History: Atrial Fibrillation, Coronary Artery Disease (CAD), COPD, GERD/Reflux, Hyperlipidemia, Myocardial Infarction ([place]), Vascular Disorder Additional Past Medical History / Comment(s): COPD with a baseline FEV1 of 44% of predicted, coronary artery bypass surgery with previous carotid bypass surgery 2 and previous coronary intervention and stenting, peripheral vascular disease, chronic renal failure, osteoarthritis, chronic back pain, hemorrhoids, hayfever, hyperlipidemia Last Myocardial Infarction Date:: 2008 History of Any Multi-Drug Resistant Organisms: None Reported Past Surgical History: Back Surgery, Coronary Bypass/CABG, Heart Catheterization With Stent, Hernia Repair, Orthopedic Surgery Additional Past Surgical History / Comment(s): EDWIN carpal tunnel/ RT shoulder, X2 CABG 1993 AND 2008, INC HERNIA REPAIR W/ MESH, "4 CARDAIC STENTS",EDWIN CATARACTS, COLONOSCOPY Past Anesthesia/Blood Transfusion Reactions: Postoperative Nausea & Vomiting ( PONV) Additional Past Anesthesia/Blood Transfusion Reaction / Comment(s): CLAUSTERPHOBIA Date of Last Stent Placement:: UNK Past Psychological History: No Psychological Hx Reported Smoking Status: Former smoker Past Alcohol Use History: None Reported Past Drug Use History: None Reported - Past Family History Mother Family Medical History: No Reported History Additional Family Medical History / Comment(s): IN A TRAIN ACCIDENT. Father Family Medical History: Renal Disease General Exam Limitations: physical limitation General appearance: alert Head exam: Present: atraumatic Eye exam: Present: normal appearance, PERRL ENT exam: Present: normal oropharynx Neck exam: Present: normal inspection Respiratory exam: Present: accessory muscle use, decreased breath sounds Cardiovascular Exam: Present: regular rate, normal rhythm GI/Abdominal exam: Present: soft. Absent: tenderness Extremities exam: Present: pedal edema. Absent: calf tenderness Back exam: Present: normal inspection Neurological exam: Present: alert Psychiatric exam: Present: normal affect, normal mood Skin exam: Present: normal color Course Vital Signs 04/23/18 04/23/18 04/23/18 07:07 07:22 07:48 Temperature 97.4 F L Pulse Rate 69 69 Respiratory 24 22 22 Rate Blood Pressure 166/89 176/77 O2 Sat by Pulse 95 99 Oximetry EKG Findings - EKG Comments: EKG Findings:: Paced rhythm at 75. QRS 176. QT 506. QTc 555. Left axis. Wide QRS complex. Nonspecific ST-T. Medical Decision Making - Medical Decision Making Patient reevaluated and is somewhat improved. Patient and family updated on results and plan. Case was discussed in detail with practitioner Shanel, who will admit for Dr. Granados, covering for Dr. El. - Lab Data Result diagrams: 09/19/17 07:07 09/19/17 07:07 Lab Results 09/19/17 09/19/17 09/19/17 Range/Units 07:07 07:07 07:07 WBC 8.8 (3.8-10.6) k/uL RBC 4.00 L (4.30-5.90) m/uL Hgb 12.7 L (13.0-17.5) gm/dL Hct 39.1 (39.0-53.0) % MCV 97.6 (80.0-100.0) fL MCH 31.6 (25.0-35.0) pg MCHC 32.4 (31.0-37.0) g/dL RDW 14.1 (11.5-15.5) % Plt Count 206 (150-450) k/uL Neutrophils % 73 % Lymphocytes % 14 % Monocytes % 7 % Eosinophils % 5 % Basophils % 0 % Neutrophils # 6.4 (1.3-7.7) k/uL Lymphocytes # 1.2 (1.0-4.8) k/uL Monocytes # 0.6 (0-1.0) k/uL Eosinophils # 0.4 (0-0.7) k/uL Basophils # 0.0 (0-0.2) k/uL PT (9.0-12.0) sec INR (<1.2) APTT (22.0-30.0) sec Sodium 146 H (137-145) mmol/L Potassium 4.2 (3.5-5.1) mmol/L Chloride 104 (98-107) mmol/L Carbon Dioxide 26 (22-30) mmol/L Anion Gap 16 mmol/L BUN 50 H (9-20) mg/dL Creatinine 2.33 H (0.66-1.25) mg/dL Est GFR (CKD-EPI)AfAm 31 (>60 ml/min/1.73 sqM) Est GFR (CKD-EPI)NonAf 27 (>60 ml/min/1.73 sqM) Glucose 103 H (74-99) mg/dL POC Glucose (mg/dL) (75-99) mg/dL POC Glu Under Seal Operator ID Calcium 9.1 (8.4-10.2) mg/dL Total Bilirubin 0.9 (0.2-1.3) mg/dL AST 33 (17-59) U/L ALT 32 (21-72) U/L Alkaline Phosphatase 80 (38-126) U/L Total Creatine Kinase 229 H (55-170) U/L CK-MB (CK-2) 4.6 H* (0.0-2.4) ng/mL CK-MB (CK-2) Rel Index 2.0 Troponin I 0.079 H* (0.000-0.034) ng/mL NT-Pro-B Natriuret Pep pg/mL Total Protein 7.2 (6.3-8.2) g/dL Albumin 4.3 (3.5-5.0) g/dL 09/19/17 09/19/17 09/19/17 Range/Units 07:07 07:07 07:10 WBC (3.8-10.6) k/uL RBC (4.30-5.90) m/uL Hgb (13.0-17.5) gm/dL Hct (39.0-53.0) % MCV (80.0-100.0) fL MCH (25.0-35.0) pg MCHC (31.0-37.0) g/dL RDW (11.5-15.5) % Plt Count (150-450) k/uL Neutrophils % % Lymphocytes % % Monocytes % % Eosinophils % % Basophils % % Neutrophils # (1.3-7.7) k/uL Lymphocytes # (1.0-4.8) k/uL Monocytes # (0-1.0) k/uL Eosinophils # (0-0.7) k/uL Basophils # (0-0.2) k/uL PT 10.2 (9.0-12.0) sec INR 1.0 (<1.2) APTT 26.1 (22.0-30.0) sec Sodium (137-145) mmol/L Potassium (3.5-5.1) mmol/L Chloride (98-107) mmol/L Carbon Dioxide (22-30) mmol/L Anion Gap mmol/L BUN (9-20) mg/dL Creatinine (0.66-1.25) mg/dL Est GFR (CKD-EPI)AfAm (>60 ml/min/1.73 sqM) Est GFR (CKD-EPI)NonAf (>60 ml/min/1.73 sqM) Glucose (74-99) mg/dL POC Glucose (mg/dL) 109 H (75-99) mg/dL POC Glu Under Seal Operator ID [place] Calcium (8.4-10.2) mg/dL Total Bilirubin (0.2-1.3) mg/dL AST (17-59) U/L ALT (21-72) U/L Alkaline Phosphatase (38-126) U/L Total Creatine Kinase (55-170) U/L CK-MB (CK-2) (0.0-2.4) ng/mL CK-MB (CK-2) Rel Index Troponin I (0.000-0.034) ng/mL NT-Pro-B Natriuret Pep 4450 pg/mL Total Protein (6.3-8.2) g/dL Albumin (3.5-5.0) g/dL - Radiology Data Radiology results: image reviewed (Chest x-ray shows patchy opacities and mild vascular congestion.) Disposition Clinical Impression: Congestive heart failure Disposition: ADMITTED IP TO THIS HOSP Is patient prescribed a controlled substance at d/c from ED?: No Referrals: Feliz El MD [Primary Care Provider] - 1-2 days Decision Time: 08:23
[2017-09-19] MEDS ORDERED: LORazepam 2 MG/ML INJ IV STA (07:26)
[2017-09-19 07:35] LABS: Basophils % (A) 0 %; Eosinophils # (A) 0.4 k/uL (0-0.7); Eosinophils % (A) 5 %; HCT 39.1 % (39.0-53.0); HGB 12.7 gm/dL (13.0-17.5); Lymphocytes # (A) 1.2 k/uL (1.0-4.8); Lymphocytes % (A) 14 %; MCH 31.6 pg (25.0-35.0); MCHC 32.4 g/dL (31.0-37.0); MCV 97.6 fL (80.0-100.0); Mean Platelet Volume 8.2; Monocytes # (A) 0.6 k/uL (0-1.0); Monocytes % (A) 7 %; Neutrophils # (A) 6.4 k/uL (1.3-7.7); Neutrophils % (A) 73 %; Platelet Count 206 k/uL (150-450); RDW 14.1 % (11.5-15.5); WBC 8.8 k/uL (3.8-10.6)
[2017-09-19 07:39] LABS: Partial Thromboplastin Time 26.1 sec (22.0-30.0); Prothrombin Time 10.2 sec (9.0-12.0)
[2017-09-19 07:43] LABS: Albumin 4.3 g/dL (3.5-5.0); Calcium 9.1 mg/dL (8.4-10.2); Potassium 4.2 mmol/L (3.5-5.1); Total Bilirubin 0.9 mg/dL (0.2-1.3); Total Protein 7.2 g/dL (6.3-8.2)
--- NOTE | 2017-09-19 07:51 | XR ---
EXAMINATION TYPE: XR chest 2V DATE OF EXAM: 09/19/2017 COMPARISON: 09/08/2017 HISTORY: Difficulty breast breathing with history of COPD. TECHNIQUE: Frontal and lateral views of the chest are obtained. FINDINGS: Patchy opacities are seen within the left midlung and left lower lung in the retrocardiac airspace. There is mild pulmonary vascular congestion, cardiomegaly and postsurgical changes the ches t. Single lead left-sided cardiac device is seen. No sizable pleural effusions or pneumothorax. [place] us structures are intact. IMPRESSION: Multifocal patchy opacities and mild pulmonary vascular congestion suspected to be on th e basis of pulmonary edema and decompensated congestive heart failure although early pneumonia is pos sible in the appropriate clinical setting.
[2017-09-19 08:14] LABS: Creatine Kinase MB 4.6 ng/mL (0.0-2.4); Troponin I 0.079 ng/mL (0.000-0.034)
[2017-09-19] MEDS ORDERED: ASPIRIN 325 MG TAB PO STA (08:23)
[2017-09-19] MEDS ORDERED: ISOSORBIDE MONONITRATE ER 60 MG TAB.ER.24H PO SCH (09:00)
[2017-09-19] MEDS ORDERED: ALPRAZolam 0.25 MG TAB PO PRN (12:29)
--- NOTE | 2017-09-19 14:29 | HP ---
HISTORY AND PHYSICAL DATE OF SERVICE: 09/19/2017 I am covering for Dr. Feliz El. CHIEF COMPLAINT: Shortness of breath. HISTORY OF PRESENT ILLNESS: This is a 72-year-old gentleman with a past medical history of multiple medical problems including atrial fibrillation, history of CAD, COPD, GERD, hypertension, hyperlipidemia, history of myocardial infarction being followed by Dr. Feliz El in the outpatient setting who recently had a pacemaker implantation. The patient having shortness of breath which is increasing for the last couple days. Last night, the patient had significant shortness of the breath, patient was coughing and during the nighttime, patient apparently took 6 treatments because of lack of improvement. The patient came to [facility] and admitted for further evaluation and treatment. The BNP was elevated up to 4450. Troponin indeterminate at 0.079. The chest x-ray, which I personally reviewed, showed evidence of CHF. There is no history of fever, rigors. No headache, loss of consciousness, seizures at this time. Patient admitted for further evaluation for a combination of CHF, COPD suspected. PAST MEDICAL HISTORY: History of CAD, COPD, GERD, hypertension, hyperlipidemia, history of DJD, history of atrial fibrillation, recent pacemaker implantation. MEDICATION: Home medications are 1. Apresoline 50 mg p.o. t.i.d. 2. Norvasc 5 mg p.o. b.i.d. 3. Coenzyme Q 100 mg p.o. daily. 4. Aldactone 12.5 mg daily. 5. Multivitamin 1 p.o. daily. 6. Imdur 60 mg p.o. daily. 7. Lasix 40 mg p.o. daily. 8. Vitamin D2 fifty thousand p.o. q.30 days. 9. Coreg 3.125 mg b.i.d. with meals. 10.Lipitor 40 mg q.h.s. 11.Eliquis 2.5 mg b.i.d. 12.Cordarone 200 mg p.o. daily. 13.Ventolin 2.5 q.6 p.r.n. ALLERGIES: None. FAMILY HISTORY: No history of heart disease or strokes in the family. SOCIAL HISTORY: Previous history of smoking. No history of alcohol intake. REVIEW OF SYSTEMS: ENT: No diminished hearing or vision. CARDIOVASCULAR: As mentioned earlier. RESPIRATORY: As mentioned earlier. GI: No nausea. : No dysuria. NERVOUS SYSTEM: No numbness or weakness. ALLERGY/IMMUNOLOGY: No asthma or hay fever. MUSCULOSKELETAL: As mentioned earlier. HEMATOLOGY: As mentioned earlier. ENDOCRINE: No history of diabetes or hypothyroidism. CONSTITUINAL: As mentioned earlier. DERMATOLOGY: Negative. RHEUMATOLOGY: Negative. PSYCHIATRY: As mentioned earlier. PHYSICAL EXAMINATION: Patient is alert and oriented x3. Pulse 74, blood pressure 155/60, respiration 18, temperature is normal, pulse ox is 97% on 2 L. HEENT: Conjunctivae normal. Oral mucosa moist. Neck is no jugular venous distention. No lymph nodes enlargement. Accessory muscles of respiration active. CARDIOVASCULAR SYSTEM: Normal, no S3, no S4.. RESPIRATORY: Breath sounds diminished at the bases, bilateral scattered rhonchi and expiratory wheezing and crackles. ABDOMEN: Soft, nontender. No mass palpable. LEGS: No edema, no swelling. NERVOUS SYSTEM: Higher functions as mentioned earlier. Moves all 4 limbs. No focal motor or sensory deficit. LYMPHATICS: No lymph enlargement of the neck or axillae. SKIN: No ulcer, rash, or bleeding. JOINTS: No active deforming arthropathy. LABS: WBC is 8.8, hemoglobin is 12.7, sodium 146, creatinine is 2.33, otherwise troponin 0.079. ASSESSMENT: 1. Shortness of breath, possibly multifactorial with congestive heart failure acute exacerbation as well as some chronic obstructive pulmonary disease acute exacerbation, acute on chronic diastolic dysfunction. 2. Acute purulent tracheobronchitis. 3. Chronic kidney disease stage III. 4. Troponin 0.079, indeterminate. 5. History of recent pacemaker implantation. 6. History atrial fibrillation. 7. History of coronary artery disease. 8. Gastroesophageal reflux disease. 9. Hypertension. 10.Hyperlipidemia. 11.History of myocardial infarction. 12.History of degenerative joint disease. 13.History of chronic cough. 14.History of cardiac arrest. 15.History of peripheral vascular disease. 16.History of coronary artery disease, coronary artery bypass grafting, stent. RECOMMENDATIONS AND DISCUSSION: This 71-year-old gentleman who presented with multiple complex medical issues, at this time I recommend to continue current management and symptomatic treatment. Will initiate intravenous Lasix and bronchodilators. Cardiology and Pulmonology consultations, resume the home medications. A recent echo done on September 05 shows ejection fraction 50%-55% at this time. Otherwise, continue the rest of the medications. See orders for details. Prognosis guarded because of multiple complex medical issues. I would also check for influenza 2. Further recommendation to follow. Prognosis guarded. MMODL / IJN: [id number] /
[2017-09-19] MEDS: AMIODARONE 200 MG TAB PO SCH (14:30)
[2017-09-19] MEDS: amLODIPine 5 MG TAB PO SCH ×2 (14:30→21:00)
[2017-09-19] MEDS: APIXABAN 2.5 MG TABLET PO SCH ×2 (14:30→21:01)
[2017-09-19] MEDS: SPIRONOLACTONE 25 MG TAB PO SCH (14:31)
[2017-09-19] MEDS: hydrALAZINE HCL 50 MG TAB PO SCH ×3 (14:31→21:02)
[2017-09-19] MEDS: NITROGLYCERIN OINT 1 INCH/GM PACKET TOPICAL SCH ×4 (14:31→23:52)
[2017-09-19 14:47] LABS: Creatine Kinase MB 3.8 ng/mL (0.0-2.4); Troponin I 0.057 ng/mL (0.000-0.034)
--- NOTE | 2017-09-19 15:45 | P.CNPUL ---
History of Present Illness Consult date: 09/19/17 Requesting physician: Link Granados Reason for consult: COPD (Congestive heart failure) Chief complaint: Shortness of breath and swelling of lower extremities History of present illness: This is a 72-year-old white male with history of multiple medical problems including COPD, underlying coronary artery disease, chronic atrial fibrillation , previous CABG, previous CA, patient had a recent pacemaker implantation done by his electric meter technician about 2 weeks ago. His initial postoperative course was uneventful, however over the last 4 or 5 days, the patient has been experiencing more shortness of breath, and unable to do any activity without significant dyspnea on any exertion. Some cough, no wheezing, no fever no chills no hemoptysis no chest pain. Patient was basically up all night last night with dry cough. And shortness of breath. Seen in the ER today, and his chest x-ray showed evidence of pulmonary edema. His BNP level was over 4400, and there was slightly elevated troponin. Patient was placed on Lasix, admitted , I was asked to see him on consultation mostly because he normally sees Dr. Barnes for COPD, and the last time he saw him was over a year ago. Looking back at his PFT from previous evaluation his FEV1 is in the range of 44%, DLCO is in the range of 55%. Patient had previous CABG 2 and the second time was in 2008. He is to be a [id number] smoker, he had history of chronic renal failure. Review of Systems 14 point review of systems were obtained, patient had mostly symptoms of shortness of breath, fluid retention around his legs, however he denied any headaches, no blurred vision, no dizziness, no chest pain, he does have cough, but no wheezing, no fever no chills no hemoptysis, no nausea no vomiting no abdominal pain. No melena no hematemesis no dysuria and no frequency no urgency. Otherwise remaining systems are negative. Past Medical History Past Medical History: Atrial Fibrillation, Coronary Artery Disease (CAD), COPD, GERD/Reflux, Hyperlipidemia, Hypertension, Myocardial Infarction ([place]), Osteoarthritis ([place]), Skin Disorder, Vascular Disorder Additional Past Medical History / Comment(s): Pt recently admitted 09/03/17 with dizziness/bradycardia and had a pacemaker insertion. Other hx: Afib with past RVR, SOB, chronic cough, MIs-2008 CA/cardiac arrest, PVD r/t vein havesting , chronic low back pain, chromic renal failure stage III, rosacia, hemorrhoids, hayfever. Last Myocardial Infarction Date:: November 2016 History of Any Multi-Drug Resistant Organisms: None Reported Past Surgical History: Back Surgery, Coronary Bypass/CABG, Heart Catheterization With Stent, Hernia Repair, Joint Replacement, Orthopedic Surgery Additional Past Surgical History / Comment(s): 09/08/17 permanent pacemaker, 1993 CABG, PCI/ with 4 stents in 2005, lumbar laminectomy, bilateral carpal tunnel releases, R shoulder rotator cuff surgery, pain clinic procedures for lumbar back, incisional hernia with mesh, colonoscopy, bilateral cataract removals. Past Anesthesia/Blood Transfusion Reactions: Postoperative Nausea & Vomiting ( PONV) Additional Past Anesthesia/Blood Transfusion Reaction / Comment(s): CLAUSTERPHOBIA Date of Last Stent Placement:: 2005 Past Psychological History: No Psychological Hx Reported Additional Psychological History / Comment(s): PT LIVES WITH HIS MARIMAR IN SINGLE LEVEL HOME THAT HAS 2 PORCH STEPS. PETS-1 CAT, 2 DOGS. NO OUTSIDE SERVICES RECIEVED. DOES HAVE NEBULIZER, WALKER NEEDED. NO SERVICE IN BACKGROUND. WORKED A [employer]. Smoking Status: Former smoker Past Alcohol Use History: None Reported Additional Past Alcohol Use History / Comment(s): SMOKED 50 YEARS QUIT 2008, SMOKED 1/2 PPD Past Drug Use History: None Reported - Past Family History Mother Family Medical History: No Reported History Additional Family Medical History / Comment(s): IN A TRAIN ACCIDENT. Father Family Medical History: Renal Disease Medications and Allergies Home Medications Medication Instructions Recorded Confirmed Type Atorvastatin [Lipitor] 40 mg PO HS 06/29/14 09/19/17 History Furosemide [Lasix] 40 mg PO DAILY 06/29/14 09/19/17 History Multivitamins, Thera [Multivitamin 1 tab PO DAILY 06/29/14 09/19/17 History (formulary)] Spironolactone 12.5 mg PO DAILY 06/29/14 09/19/17 History Ubidecarenone [Co Q-10] 100 mg PO DAILY 06/29/14 09/19/17 History Isosorbide Mononitrate ER [Imdur] 60 mg PO DAILY #60 tab 12/27/16 09/19/17 Rx Albuterol Nebulized [Ventolin 2.5 mg INHALATION RT-Q6H PRN 07/03/17 09/19/17 History Nebulized] Amiodarone [Cordarone] 200 mg PO DAILY 07/03/17 09/19/17 History Ergocalciferol (Vitamin D2) 50,000 unit PO Q30D 09/03/17 09/19/17 History [Vitamin D2] Apixaban [Eliquis] 2.5 mg PO BID #0 tab 09/08/17 09/19/17 Rx Carvedilol [Coreg] 3.125 mg PO BID-W/MEALS #60 tab 09/08/17 09/19/17 Rx amLODIPine [Norvasc] 5 mg PO BID #60 tab 09/08/17 09/19/17 Rx hydrALAZINE HCL [Apresoline] 50 mg PO TID #90 tab 09/08/17 09/19/17 Rx Allergies Allergy/AdvReac Type Severity Reaction Status Date / Time No Known Allergies Allergy Verified 09/19/17 07:53 Physical Exam Vitals: Vital Signs Temp Pulse Resp BP Pulse Ox 09/19/17 14:00 77 18 177/76 99 09/19/17 13:31 73 18 171/77 96 09/19/17 11:01 74 18 155/67 97 09/19/17 10:22 68 18 158/68 98 09/19/17 08:36 63 16 178/74 98 09/19/17 07:48 69 22 176/77 99 09/19/17 07:22 22 09/19/17 07:07 97.4 F L 69 24 166/89 95 Intake and Output 09/19/17 09/19/17 09/19/17 06:59 14:59 22:59 Other: Weight 101.5 kg Physical Exam revealed a 72-year-old white male, in mild respiratory distress, on nasal cannula. Head: Atraumatic, normocephalic. Eyes: PERRLA, EOMI, no icterus. HEENT:[Neck is supple.] [No neck masses.] [No thyromegaly.] [No JVD.] Moist mucous membranes. Chest: [Crackles at the bases, no rhonchi, no wheezes, chest wall expansion is symmetrical, no chest wall tenderness. Cardiac Exam: [Irregular rhythm Normal S1 and S2, no S3 gallop, 2/6 systolic murmur thought the precordium.] Abdomen: [Soft, nontender, no megaly, no rebound, no guarding, normal bowel sounds.] Extremities: [No clubbing, 2+ bipedal edema, no cyanosis.] Neurological Exam: [No focal neurologic deficit. Psychiatric: Normal mood affect and mental status examination. Lymphatics: No lymphadenopathy. Musculoskeletal: Normal range of motion, no deformities. Adequate strength bilaterally.] Results - Laboratory Findings CBC and BMP: 09/19/17 07:07 09/19/17 07:07 PT/INR, D-dimer PT 10.2 sec (9.0-12.0) 09/19/17 07:07 INR 1.0 (<1.2) 09/19/17 07:07 Abnormal lab findings: Abnormal Labs 09/19/17 09/19/17 09/19/17 07:07 07:07 07:07 RBC 4.00 L Hgb 12.7 L Sodium 146 H BUN 50 H Creatinine 2.33 H Glucose 103 H POC Glucose (mg/dL) Total Creatine Kinase 229 H CK-MB (CK-2) 4.6 H* Troponin I 0.079 H* 09/19/17 09/19/17 07:10 13:39 RBC Hgb Sodium BUN Creatinine Glucose POC Glucose (mg/dL) 109 H Total Creatine Kinase CK-MB (CK-2) 3.8 H* Troponin I 0.057 H* - Diagnostic Findings Chest x-ray: image reviewed (Chest x-ray is consistent with congestive heart failure) Assessment and Plan Assessment: Impression: Acute on chronic systolic congestive heart failure with pulmonary edema as noted on the chest x-ray History of underlying COPD, Gold stage III. History of multiple comorbidities including coronary artery disease, previous CA , previous CABG 2, history of peripheral vessel occlusive disease, history of cardiac arrest, history of degenerative joint disease, history of hypertension, hyperlipidemia, chronic atrial fibrillation, and chronic kidney disease stage III. Recommendation: Continue present treatment plan including diuretics, bronchodilators, cardiac meds which she usually takes on outpatient basis, follow-up chest x-ray in a.m., cardiology to see her on consultation, will continue to follow.
[2017-09-19] MEDS: FUROSEMIDE 10 MG/ML 4 ML VIAL IV SCH ×2 (16:11→23:52)
[2017-09-19] MEDS: CARVEDILOL 3.125 MG TAB PO SCH (17:30)
[2017-09-19 20:04] LABS: Appearance,Urine Clear (Clear); Bilirubin,Urine Negative (Negative); Blood,Urine Negative (Negative); Color,Urine Light Yellow; Glucose,Urine (UA) Negative (Negative); Ketones,Urine Negative (Negative); Leukocyte Esterase,Urine Negative (Negative); Nitrite,Urine Negative (Negative); Protein,Urine Trace (Negative); Specific Gravity,Urine 1.009 (1.001-1.035); Urobilinogen,Urine <2.0 mg/dL (<2.0)
[2017-09-19 20:09] LABS: Creatine Kinase MB 3.6 ng/mL (0.0-2.4); Troponin I 0.051 ng/mL (0.000-0.034)
[2017-09-19] MEDS: MELATONIN 3 MG TABLET PO SCH (21:01)
[2017-09-19] MEDS: ATORVASTATIN 40 MG TAB PO SCH (21:01)
[2017-09-20 06:41] LABS: Calcium 8.4 mg/dL (8.4-10.2)
[2017-09-20] MEDS: CARVEDILOL 3.125 MG TAB PO SCH ×2 (06:45→16:29)
[2017-09-20 06:48] LABS: Basophils % (A) 0 %; Eosinophils % (A) 0 %; HCT 34.3 % (39.0-53.0); HGB 11.2 gm/dL (13.0-17.5); Lymphocytes # (A) 0.5 k/uL (1.0-4.8); Lymphocytes % (A) 7 %; MCH 31.7 pg (25.0-35.0); MCHC 32.7 g/dL (31.0-37.0); MCV 97.1 fL (80.0-100.0); Monocytes # (A) 0.3 k/uL (0-1.0); Monocytes % (A) 4 %; Neutrophils % (A) 89 %; Platelet Count 197 k/uL (150-450); RBC 3.53 m/uL (4.30-5.90); RDW 13.9 % (11.5-15.5); WBC 7.9 k/uL (3.8-10.6)
[2017-09-20] MEDS: FUROSEMIDE 10 MG/ML 4 ML VIAL IV SCH (08:21)
[2017-09-20] MEDS: NITROGLYCERIN OINT 1 INCH/GM PACKET TOPICAL SCH ×4 (08:21→21:58)
[2017-09-20] MEDS: amLODIPine 5 MG TAB PO SCH ×2 (08:22→21:56)
[2017-09-20] MEDS: AMIODARONE 200 MG TAB PO SCH (08:22)
[2017-09-20] MEDS: hydrALAZINE HCL 50 MG TAB PO SCH ×3 (08:23→21:57)
[2017-09-20] MEDS: APIXABAN 2.5 MG TABLET PO SCH ×2 (08:23→21:56)
[2017-09-20] MEDS ORDERED: ASPIRIN 325 MG TAB PO SCH (09:00)
[2017-09-20] MEDS ORDERED: NON-FORMULARY DRUG (Ubidecarenone [Co Q-10] 100 MG) PO SCH (09:00)
--- NOTE | 2017-09-20 09:32 | P.CRDCN ---
History of Present Illness Consult date: 09/20/17 Requesting physician: Feliz El Consult reason: congestive heart failure Chief complaint: Shortness of breath History of present illness: This is a pleasant 72-year-old gentleman who follows regularly with Dr. Cardenas in the office. He has past medical history of coronary artery disease with prior CABG and redo CABG as well as multiple PCI's with stent placements, paroxysmal atrial fibrillation, hypertension, hyperlipidemia, renal failure, patient was recently in the hospital earlier this month with symptomatic bradycardia. He underwent implantation of a permanent pacemaker by Dr. Cardenas. Patient was discharged from the hospital on the of this month, he states that his breathing was stable and overall he was feeling well on discharge. He started to notice on Tuesday that he was having some symptoms of mild shortness of breath, he did follow up at the cardiology office, pacemaker interrogation went well, he also followed with his primary care doctor , and was told that everything sounded fine. Progressively since then he's been more and more short of breath to the point where he came in yesterday and could not breathe at all. Echocardiogram with Doppler study performed on this recent admission showed an ejection fraction of 50-55%. Chest x-ray on arrival showed multifocal patchy obesities and mild pulmonary vascular congestion on the basis of pulmonary edema and decompensated heart failure although early pneumonia is possible. Blood pressure 126/78, heart rate in the 80s, 97% on 3 L of oxygen. White blood cell count 7.9, hemoglobin 11.2, platelet count 197. Sodium 139, potassium 4.0, BUN 58, creatinine 2.5. Troponins 0.079, 0.057, 0.051. BNP level 4450. Patient was initiated on IV Lasix on arrival here, he states that he has significant edema in his bilateral lower extremities which is improved since his admission here. At the time of my examination this morning, patient states that his breathing has improved significantly however not completely back to normal yet. Past Medical History Past Medical History: Atrial Fibrillation, Coronary Artery Disease (CAD), COPD, GERD/Reflux, Hyperlipidemia, Hypertension, Myocardial Infarction ([place]), Osteoarthritis (OA), Skin Disorder, Vascular Disorder Additional Past Medical History / Comment(s): Pt recently admitted 09/03/17 with dizziness/bradycardia and had a pacemaker insertion. Other hx: Afib with past RVR, SOB, chronic cough, MIs-2009 [place]/cardiac arrest, PVD r/t vein havesting , chronic low back pain, chromic renal failure stage III, rosacia, hemorrhoids, hayfever. Last Myocardial Infarction Date:: November 2016 History of Any Multi-Drug Resistant Organisms: None Reported Past Surgical History: Back Surgery, Coronary Bypass/CABG, Heart Catheterization With Stent, Hernia Repair, Joint Replacement, Orthopedic Surgery Additional Past Surgical History / Comment(s): 09/08/17 permanent pacemaker, 1993 CABG, PCI/ with 4 stents in 2005, lumbar laminectomy, bilateral carpal tunnel releases, R shoulder rotator cuff surgery, pain clinic procedures for lumbar back, incisional hernia with mesh, colonoscopy, bilateral cataract removals. Past Anesthesia/Blood Transfusion Reactions: Postoperative Nausea & Vomiting ( PONV) Additional Past Anesthesia/Blood Transfusion Reaction / Comment(s): CLAUSTERPHOBIA Date of Last Stent Placement:: 2005 Past Psychological History: No Psychological Hx Reported Additional Psychological History / Comment(s): PT LIVES WITH HIS MARIMAR IN SINGLE LEVEL HOME THAT HAS 2 PORCH STEPS. PETS-1 CAT, 2 DOGS. NO OUTSIDE SERVICES RECIEVED. DOES HAVE NEBULIZER, WALKER NEEDED. NO SERVICE IN BACKGROUND. 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 Smoking Status: Former smoker Past Alcohol Use History: None Reported Additional Past Alcohol Use History / Comment(s): SMOKED 50 YEARS QUIT 2008, SMOKED 1/2 PPD Past Drug Use History: None Reported - Past Family History Mother Family Medical History: No Reported History Additional Family Medical History / Comment(s): IN A TRAIN ACCIDENT. Father Family Medical History: Renal Disease Medications and Allergies Home Medications Medication Instructions Recorded Confirmed Type Atorvastatin [Lipitor] 40 mg PO HS 06/29/14 09/19/17 History Furosemide [Lasix] 40 mg PO DAILY 06/29/14 09/19/17 History Multivitamins, Thera [Multivitamin 1 tab PO DAILY 06/29/14 09/19/17 History (formulary)] Spironolactone 12.5 mg PO DAILY 06/29/14 09/19/17 History Ubidecarenone [Co Q-10] 100 mg PO DAILY 06/29/14 09/19/17 History Isosorbide Mononitrate ER [Imdur] 60 mg PO DAILY #60 tab 12/27/16 09/19/17 Rx Albuterol Nebulized [Ventolin 2.5 mg INHALATION RT-Q6H PRN 07/03/17 09/19/17 History Nebulized] Amiodarone [Cordarone] 200 mg PO DAILY 07/03/17 09/19/17 History Ergocalciferol (Vitamin D2) 50,000 unit PO Q30D 09/03/17 09/19/17 History [Vitamin D2] Apixaban [Eliquis] 2.5 mg PO BID #0 tab 09/08/17 09/19/17 Rx Carvedilol [Coreg] 3.125 mg PO BID-W/MEALS #60 tab 09/08/17 09/19/17 Rx amLODIPine [Norvasc] 5 mg PO BID #60 tab 09/08/17 09/19/17 Rx hydrALAZINE HCL [Apresoline] 50 mg PO TID #90 tab 09/08/17 09/19/17 Rx Allergies Allergy/AdvReac Type Severity Reaction Status Date / Time No Known Allergies Allergy Verified 09/19/17 07:53 Physical Exam Vitals: Vital Signs Temp Pulse Pulse Resp BP BP Pulse Ox 09/20/17 08:55 94 L 09/20/17 07:55 96.9 F L 80 18 126/79 97 09/20/17 04:00 97.0 F L 75 18 119/61 98 09/20/17 00:00 96.8 F L 74 22 105/74 96 09/19/17 20:00 96.9 F L 73 22 110/86 97 09/19/17 14:30 96.7 F L 71 20 123/70 99 09/19/17 14:00 77 18 177/76 99 09/19/17 13:31 73 18 171/77 96 09/19/17 11:01 74 18 155/67 97 09/19/17 10:22 68 18 158/68 98 Intake and Output 09/19/17 09/20/17 09/20/17 22:59 06:59 14:59 Output Total 400 400 Balance -400 -400 Output: Urine 400 400 Other: Voiding Method Urinal Urinal # Voids 300 Weight 101 kg PHYSICAL EXAMINATION: HEENT: Head is atraumatic, normocephalic. Pupils equal, round. Neck is supple. There is elevated jugular venous pressure. HEART EXAMINATION: Heart S1 and S2 systolic murmur is heard. CHEST EXAMINATION: Lungs reveal diminished air entry bilaterally with rales to the bases. ABDOMEN: Soft, nontender. Bowel sounds are heard. No organomegaly noted. EXTREMITIES: 2+ peripheral pulses with trace evidence of peripheral edema and no calf tenderness noted. NEUROLOGIC patient is awake, alert and oriented -3. . Results 09/20/17 06:09 09/20/17 06:09 Cardiac Enzymes 09/19/17 09/19/17 Range/Units 13:39 19:16 CK-MB (CK-2) 3.8 H* 3.6 H* (0.0-2.4) ng/mL Troponin I 0.057 H* 0.051 H* (0.000-0.034) ng/mL CBC 09/20/17 Range/Units 06:09 WBC 7.9 (3.8-10.6) k/uL RBC 3.53 L (4.30-5.90) m/uL Hgb 11.2 L (13.0-17.5) gm/dL Hct 34.3 L (39.0-53.0) % Plt Count 197 (150-450) k/uL Comprehensive Metabolic Panel 09/20/17 Range/Units 06:09 Sodium 139 (137-145) mmol/L Potassium 4.0 (3.5-5.1) mmol/L Chloride 98 (98-107) mmol/L Carbon Dioxide 27 (22-30) mmol/L BUN 58 H (9-20) mg/dL Creatinine 2.57 H (0.66-1.25) mg/dL Glucose 140 H (74-99) mg/dL Calcium 8.4 (8.4-10.2) mg/dL Current Medications Generic Name Dose Route Start Last Admin Trade Name Freq PRN Reason Stop Dose Admin Albuterol Sulfate 2.5 mg 09/19/17 08:25 Ventolin Nebulized INHALATION RT-Q6H PRN Agitation Alprazolam 0.25 mg 09/19/17 12:29 Xanax PO TID PRN Anxiety Amiodarone HCl 200 mg 09/19/17 09:00 09/20/17 08:22 Cordarone PO 200 mg DAILY [facility] Administration Amlodipine Besylate 5 mg 09/19/17 09:00 09/20/17 08:22 Norvasc PO 5 mg BID [facility] Administration Apixaban 2.5 mg 09/19/17 09:00 09/20/17 08:23 Eliquis PO 2.5 mg BID [facility] Administration Aspirin 325 mg 09/20/17 09:00 Aspirin PO DAILY [facility] Atorvastatin Calcium 40 mg 09/19/17 21:00 09/19/17 21:01 Lipitor PO 40 mg HS [facility] Administration Carvedilol 3.125 mg 09/19/17 17:30 09/20/17 06:45 Coreg PO 3.125 mg BID-W/MEALS [facility] Administration Ergocalciferol 50,000 unit 10/05/17 09:00 Vitamin D2 PO Q30D [facility] Furosemide 40 mg 09/19/17 16:00 09/20/17 08:21 Lasix IV 40 mg Q8HR [facility] Administration Hydralazine HCl 50 mg 09/19/17 09:00 09/20/17 08:23 Apresoline PO 50 mg TID [facility] Administration Melatonin 3 mg 09/19/17 21:00 09/19/17 21:01 Melatonin PO 3 mg HS [facility] Administration Multivitamins 1 each 09/20/17 12:00 Theragran PO DAILY@1200 [facility] Nitroglycerin 1 inch 09/19/17 09:00 09/20/17 08:21 Nitro-Bid Oint TOPICAL 1 inch QID [facility] Administration Sodium Chloride 10 ml 09/19/17 09:00 09/20/17 08:23 Saline Flush IV 10 ml BID [facility] Administration Spironolactone 12.5 mg 09/19/17 09:00 09/19/17 14:31 Aldactone PO Not Given DAILY [facility] Tramadol HCl 50 mg 09/19/17 17:47 Ultram PO Q6H PRN Pain Intake and Output 09/19/17 09/20/17 09/20/17 22:59 06:59 14:59 Output Total 400 400 Balance -400 -400 Output: Urine 400 400 Other: Voiding Method Urinal Urinal # Voids 300 Weight 101 kg 09/20/17 06:09 09/20/17 06:09 EKG Interpretations (text) EKG shows a normal sinus rhythm with left ventricular hypertrophy and inferior Q waves. T wave inversion noted in the lateral leads Assessment and Plan Plan: Assessment and plan #1 symptoms of progressively worsening shortness of breath, likely, and she now diastolic congestive heart failure and COPD exacerbation #2 chronic renal failure #3 recent permanent pacemaker implantation #4 coronary artery disease with prior bypass surgery 2, multiple PCI's with stent placement #5 paroxysmal atrial fibrillation #6 hypertension #7 hyperlipidemia #8 hx of nicotine dependence #9 troponin abnormality, upon review of prior records, patient's troponins are always in this abnormal range, likely secondary to renal failure. Plan Patient had an echocardiogram with Doppler study performed on the ninth of this month, ejection fraction 50-55%. Recommend to continue the patient on current dose of IV Lasix, continue to monitor intake and output along with daily weights. Further recommendations to follow. DNP note has been reviewed, I agree with a documented findings and plan of care. Patient was seen and examined.
[2017-09-20] MEDS: traMADol 50 MG TAB PO PRN ×3 (09:46→21:58)
[2017-09-20] MEDS: SPIRONOLACTONE 25 MG TAB PO SCH (09:47)
[2017-09-20 09:50] VITALS: BMI 33.8
--- NOTE | 2017-09-20 10:16 | P.NPCON ---
History of Present Illness - Reason for Consult acute renal failure - History of Present Illness Reason for consultation: Acute kidney injury on chronic kidney disease History of present illness: Patient is a 72-year-old male seen in renal consultation for acute kidney injury on chronic kidney disease. Patient has chronic kidney disease stage IIIB /4 secondary to nephrosclerosis and cardiorenal syndrome with baseline creatinine in the range of 2-2.3. He also developed non-recovered ATN after his CABG several years ago. Creatinine today is 2.57. Patient presented to the hospital with worsening dyspnea over the last 3 days. Patient does have history of diastolic CHF and was taking Lasix 40 mg orally once daily. However he noticed worsening dyspnea as well as edema in his lower extremities and presented to the hospital. Patient also has history of tobacco abuse and history of COPD and is being followed by pulmonology. He admits to good urine output. No hematuria or dysuria. Denies chest pain. Denies regular use of NSAIDs. He is currently maintained on Lasix 40 mg IV 3 times daily. States his edema is improving. Oral intake is good. No fever or chills. Hemodynamically stable. Vital signs are stable. General: The patient appeared well nourished and normally developed. HEENT: Head exam is unremarkable. Neck is without jugular venous distension. LUNGS: Lungs are clear to auscultation and percussion. Breath sounds decreased. HEART: Rate and Rhythm are regular. First and second heart sounds normal. No murmurs, rubs or gallops. ABDOMEN: Abdominal exam reveals normal bowel sounds. Non-tender and non- distended. No evidence of peritonitis. EXTREMITITES: 1+ edema. Past Medical History Past Medical History: Atrial Fibrillation, Coronary Artery Disease (CAD), COPD, GERD/Reflux, Hyperlipidemia, Hypertension, Myocardial Infarction ([place]), Osteoarthritis (OA), Skin Disorder, Vascular Disorder Additional Past Medical History / Comment(s): Pt recently admitted 09/03/17 with dizziness/bradycardia and had a pacemaker insertion. Other hx: Afib with past RVR, SOB, chronic cough, MIs-2008 [place]/cardiac arrest, PVD r/t vein havesting , chronic low back pain, chromic renal failure stage III, rosacia, hemorrhoids, hayfever. Last Myocardial Infarction Date:: November 2016 History of Any Multi-Drug Resistant Organisms: None Reported Past Surgical History: Back Surgery, Coronary Bypass/CABG, Heart Catheterization With Stent, Hernia Repair, Joint Replacement, Orthopedic Surgery Additional Past Surgical History / Comment(s): 09/08/17 permanent pacemaker, 1993 CABG, PCI/ with 4 stents in 2005, lumbar laminectomy, bilateral carpal tunnel releases, R shoulder rotator cuff surgery, pain clinic procedures for lumbar back, incisional hernia with mesh, colonoscopy, bilateral cataract removals. Past Anesthesia/Blood Transfusion Reactions: Postoperative Nausea & Vomiting ( PONV) Additional Past Anesthesia/Blood Transfusion Reaction / Comment(s): CLAUSTERPHOBIA Date of Last Stent Placement:: 2005 Past Psychological History: No Psychological Hx Reported Additional Psychological History / Comment(s): PT LIVES WITH HIS MARIMAR IN SINGLE LEVEL HOME THAT HAS 2 PORCH STEPS. PETS-1 CAT, 2 DOGS. NO OUTSIDE SERVICES RECIEVED. DOES HAVE NEBULIZER, WALKER NEEDED. NO SERVICE IN BACKGROUND. 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 Smoking Status: Former smoker Past Alcohol Use History: None Reported Additional Past Alcohol Use History / Comment(s): SMOKED 50 YEARS QUIT 2008, SMOKED 1/2 PPD Past Drug Use History: None Reported - Past Family History Mother Family Medical History: No Reported History Additional Family Medical History / Comment(s): IN A TRAIN ACCIDENT. Father Family Medical History: Renal Disease Medications and Allergies Home Medications Medication Instructions Recorded Confirmed Type Atorvastatin [Lipitor] 40 mg PO HS 06/29/14 09/19/17 History Furosemide [Lasix] 40 mg PO DAILY 06/29/14 09/19/17 History Multivitamins, Thera [Multivitamin 1 tab PO DAILY 06/29/14 09/19/17 History (formulary)] Spironolactone 12.5 mg PO DAILY 06/29/14 09/19/17 History Ubidecarenone [Co Q-10] 100 mg PO DAILY 06/29/14 09/19/17 History Isosorbide Mononitrate ER [Imdur] 60 mg PO DAILY #60 tab 12/27/16 09/19/17 Rx Albuterol Nebulized [Ventolin 2.5 mg INHALATION RT-Q6H PRN 07/03/17 09/19/17 History Nebulized] Amiodarone [Cordarone] 200 mg PO DAILY 07/03/17 09/19/17 History Ergocalciferol (Vitamin D2) 50,000 unit PO Q30D 09/03/17 09/19/17 History [Vitamin D2] Apixaban [Eliquis] 2.5 mg PO BID #0 tab 09/08/17 09/19/17 Rx Carvedilol [Coreg] 3.125 mg PO BID-W/MEALS #60 tab 09/08/17 09/19/17 Rx amLODIPine [Norvasc] 5 mg PO BID #60 tab 09/08/17 09/19/17 Rx hydrALAZINE HCL [Apresoline] 50 mg PO TID #90 tab 09/08/17 09/19/17 Rx Allergies Allergy/AdvReac Type Severity Reaction Status Date / Time No Known Allergies Allergy Verified 09/19/17 07:53 Physical Exam Vitals: Vital Signs Temp Pulse Pulse Resp BP BP Pulse Ox 09/20/17 08:55 94 L 09/20/17 07:55 96.9 F L 80 18 126/79 97 09/20/17 04:00 97.0 F L 75 18 119/61 98 09/20/17 00:00 96.8 F L 74 22 105/74 96 09/19/17 20:00 96.9 F L 73 22 110/86 97 09/19/17 14:30 96.7 F L 71 20 123/70 99 09/19/17 14:00 77 18 177/76 99 09/19/17 13:31 73 18 171/77 96 09/19/17 11:01 74 18 155/67 97 09/19/17 10:22 68 18 158/68 98 Intake and Output 09/19/17 09/20/17 09/20/17 22:59 06:59 14:59 Output Total 400 400 Balance -400 -400 Output: Urine 400 400 Other: Voiding Method Urinal Urinal # Voids 300 Weight 101 kg 101 kg Results - Lab Results Most recent lab results Calcium 8.4 mg/dL (8.4-10.2) 09/20/17 06:09 09/20/17 06:09 09/20/17 06:09 Assessment and Plan Plan: Assessment: #1. Nonoliguric acute kidney injury mostly prerenal secondary to diuresis. Creatinine 2.57 today. Urinalysis is quite benign. #2. 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 Also developed ATN post CABG several years ago. Baseline creatinine in the range of 2-2.3. #3. Diastolic CHF. #4. Volume overload. Improving with diuresis. #5. Dyspnea which is multifactorial. Volume overload as well as COPD are contributor factors. #6. Hypertension with chronic kidney disease. Controlled. Plan: I will change Lasix to 60 mg IV twice daily. Low-salt diet. Repeat electrolytes in the morning. Avoid nephrotoxic agents and hypotensive episodes. Thank you for the consultation. I will continue to follow the patient with you during his hospital stay.
[2017-09-20] MEDS: FUROSEMIDE 10 MG/ML 10 ML VIAL IV SCH ×2 (10:41→21:57)
[2017-09-20] MEDS: MULTIVITAMINS, THERA 1 EACH TAB PO SCH (12:16)
--- NOTE | 2017-09-20 12:32 | P.PN ---
Progress Note - Text this is an addendum to the dictated cardiology consultation. The patient presented with symptoms of progressive dyspnea, weight gain, PND and orthopnea. He has a known history of CAD, status post redo CABG and PCI, history of chronic kidney disease. He denies any overt signs of chest discomfort. In the past his left ventricle systolic function was preserved with no significant valvular disease. He recently had a pacemaker placed because of significant bradycardia. He has mild cough and a prior history of COPD that has been stable. His lung examination shows scattered wheezes, he is in sinus mechanism and he has 1+ edema. His EKG shows sinus mechanism with 100% pacing. The patient presents with symptoms of CHF with a prior preserved systolic function and no evidence of acute coronary syndrome. He has been initiated on IV Lasix and feels much better since yesterday. We will continue to follow his renal function and depending on his progress further recommendations will be made. If he persists in having symptoms of ,CHF his echocardiogram that was done recently will be repeated to rule out LV systolic deterioration after pacing. Thank you for this consult we will follow with you.
--- NOTE | 2017-09-20 12:42 | P.PN ---
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 His initial postoperative course was uneventful, however over the last 4 or 5 days, the patient has been experiencing more shortness of breath, and unable to do any activity without significant dyspnea on any exertion. Some cough, no wheezing, no fever no chills no hemoptysis no chest pain. Patient was basically up all night last night with dry cough. And shortness of breath. Seen in the ER today, and his chest x-ray showed evidence of pulmonary edema. His BNP level was over 4400, and there was slightly elevated troponin. Patient was placed on Lasix, admitted , I was asked to see him on consultation mostly because he normally sees Dr. Barnes for COPD, and the last time he saw him was over a year ago. Looking back at his PFT from previous evaluation his FEV1 is in the range of 44%, DLCO is in the range of 55%. Patient had previous CABG 2 and the second time was in 2008. He is to be a [id number] smoker, he had history of chronic renal failure. The patient is seen again today 09/20/2017 in follow-up on the selective care unit. He is currently resting quite comfortably in bed. He is awake and alert in no acute distress. He states he is breathing easier today as compared to yesterday. He has been treated for diastolic exacerbation of congestive heart failure. His been initiated on IV diuretics. He still gets dyspneic on exertion. Still has some complaints of left shoulder pain. He is maintaining good O2 saturations in the upper 90s on 3 L/m per nasal cannula. His been afebrile. Hemodynamically stable. White count 7.9. Hemoglobin 11.2. Creatinine 2.57. Objective - Vital Signs Vital signs: Vital Signs Temp 96.9 F L 09/20/17 07:55 Pulse 67 09/20/17 11:50 Resp 18 09/20/17 11:50 BP 128/68 09/20/17 11:50 Pulse Ox 97 09/20/17 11:50 Intake & Output 09/19/17 09/20/1709/20/18 18:59 06:59 18:59 Output Total 800 250 Balance -800 -250 Weight 101.5 kg 101 kg 101 kg Output: Urine 800 250 Other: Voiding Method Urinal Urinal # Voids 300 - Exam GENERAL EXAM: Obese. Alert, comfortable in no apparent distress. HEAD: Normocephalic. EYES: Normal reaction of pupils, equal size. NOSE: Clear with pink turbinates. THROAT: No erythema or exudates. NECK: No masses, no JVD. CHEST: No chest wall deformity. LUNGS: Equal air entry with crackles in the bilateral posterior bases. CVS: S1 and S2 normal with an audible murmur, irregular rhythm. ABDOMEN: No hepatosplenomegaly, normal bowel sounds, no guarding or rigidity. SPINE: No scoliosis or deformity SKIN: No rashes CENTRAL NERVOUS SYSTEM: No focal deficits, tone is normal in all 4 extremities. EXTREMITIES: There is no peripheral edema. No clubbing, no cyanosis. Peripheral pulses are intact. - Labs CBC & Chem 7: 09/20/17 06:09 09/20/17 06:09 Labs: Abnormal Lab Results - Last 24 Hours (Table) 09/19/17 09/19/17 09/19/17 Range/Units 13:39 19:15 19:16 RBC (4.30-5.90) m/uL Hgb (13.0-17.5) gm/dL Hct (39.0-53.0) % Lymphocytes # (1.0-4.8) k/uL BUN (9-20) mg/dL Creatinine (0.66-1.25) mg/dL Glucose (74-99) mg/dL CK-MB (CK-2) 3.8 H* 3.6 H* (0.0-2.4) ng/mL Troponin I 0.057 H* 0.051 H* (0.000-0.034) ng/mL Urine Protein Trace H (Negative) 09/20/17 09/20/17 Range/Units 06:09 06:09 RBC 3.53 L (4.30-5.90) m/uL Hgb 11.2 L (13.0-17.5) gm/dL Hct 34.3 L (39.0-53.0) % Lymphocytes # 0.5 L (1.0-4.8) k/uL BUN 58 H (9-20) mg/dL Creatinine 2.57 H (0.66-1.25) mg/dL Glucose 140 H (74-99) mg/dL CK-MB (CK-2) (0.0-2.4) ng/mL Troponin I (0.000-0.034) ng/mL Urine Protein (Negative) Assessment and Plan Assessment: Impression: Acute on chronic diastolic congestive heart failure with pulmonary edema as noted on the chest x-ray History of underlying COPD, Gold stage III. History of multiple comorbidities including coronary artery disease, previous [place] , previous CABG 2, history of peripheral vessel occlusive disease, history of cardiac arrest, history of degenerative joint disease, history of hypertension, hyperlipidemia, chronic atrial fibrillation, and chronic kidney disease stage III. Recommendation: The patient was seen and evaluated by Dr. Vaughn. He is improved today as compared to yesterday. We'll continue with his current treatment plan. We'll increase his activity as tolerated. Repeat his chest x-ray. We'll continue to follow. I, the cosigning physician, performed a history & physical examination of the patient. Lungs sounds with crackles in the bilateral posterior bases. Maintaining good O2 saturations in the 90s on 3 L/m per nasal cannula. I discussed the assessment and plan of care with my nurse practitioner, Rosa Ferris. I attest to the above note as dictated by her.
--- NOTE | 2017-09-20 17:06 | P.PN ---
Subjective Progress Note Date: 09/20/17 Progress note being dictated for Dr. Granados. Interval history: This a 72-year-old gentleman admitted with acute CHF exacerbation, acute COPD exacerbation, acute purulent tracheobronchitis, chronic renal failure and multiple other medical issues. Influenza ruled out. Evaluated by cardiology, nephrology and pulmonary with recommendations noted. Maintained on nebulized bronchodilators, IV push Lasix with significant clinical improvement. Complains of left shoulder pain, receiving tramadol. Denies chest pain, palpitations. Complains of exertional dyspnea. Maintaining O2 sats in the high 90s on 3 L nasal cannula. Afebrile. Sodium and renal function improving. Objective - Vital Signs Vital signs: Vital Signs Temp 97.1 F L 09/20/17 16:05 Pulse 67 09/20/17 16:05 Resp 18 09/20/17 16:05 BP 149/94 09/20/17 16:05 Pulse Ox 98 09/20/17 16:05 Intake & Output 09/19/17 09/20/17 09/20/17 18:59 06:59 18:59 Output Total 800 250 Balance -800 -250 Weight 101.5 kg 101 kg 101 kg Output: Urine 800 250 Other: Voiding Method Urinal Urinal # Voids 300 - Exam PHYSICAL EXAM: VITAL SIGNS: [As above] GENERAL: Sitting up in bed, no acute distress HEENT: Conjunctivae normal. eyes normal. NECK: No JVD. No thyroid enlargement. No LNs CARDIOVASCULAR: S1, S2 muffled. No murmur RESPIRATION: Breath sounds diminished bibasilar crackles, no wheezing ABDOMEN: Soft, nontender . No guarding. no masses palpable. Bowel sounds heard. LEGS: No edema. no swelling PSYCHIATRY: Alert and oriented -3, mood and affect normal. NERVOUS SYSTEM: Cranial N 2-12 grossly normal. Moves all 4 limbs. Diffuse weakness No focal deficits. Skin: no ulcer no rash. - Labs CBC & Chem 7: 09/20/17 06:09 09/20/17 06:09 Labs: Abnormal Lab Results - Last 24 Hours (Table) 09/19/17 09/19/17 09/20/17 Range/Units 19:15 19:16 06:09 RBC 3.53 L (4.30-5.90) m/uL Hgb 11.2 L (13.0-17.5) gm/dL Hct 34.3 L (39.0-53.0) % Lymphocytes # 0.5 L (1.0-4.8) k/uL BUN (9-20) mg/dL Creatinine (0.66-1.25) mg/dL Glucose (74-99) mg/dL CK-MB (CK-2) 3.6 H* (0.0-2.4) ng/mL Troponin I 0.051 H* (0.000-0.034) ng/mL Urine Protein Trace H (Negative) 09/20/17 Range/Units 06:09 RBC (4.30-5.90) m/uL Hgb (13.0-17.5) gm/dL Hct (39.0-53.0) % Lymphocytes # (1.0-4.8) k/uL BUN 58 H (9-20) mg/dL Creatinine 2.57 H (0.66-1.25) mg/dL Glucose 140 H (74-99) mg/dL CK-MB (CK-2) (0.0-2.4) ng/mL Troponin I (0.000-0.034) ng/mL Urine Protein (Negative) Assessment and Plan Assessment: 1. Acute on chronic CHF exacerbation, diastolic dysfunction, acute COPD exacerbation with acute purulent tracheobronchitis 2. Chronic pain disease, stage III 3. Troponin 0.07, indeterminate 4. CAD, history of [place], CABG 5. Chronic kidney disease, stage III, secondary to cardiorenal syndrome 6. Chronic atrial fibrillation Plan: Continue on current medication regime or monitoring and symptomatic treatment.Diuresing on Lasix IV push as per nephrology. Close monitoring of renal function and electrolytes with repeat labs ordered for a.m. Maintain low salt diet. The impression and plan of care has been dictated as directed. : I performed a history and examination of this patient, discussed the same with the dictator. I agree with the dictator's note ,documented as a scribe. Any additional findings or plans will be noted.
[2017-09-20] MEDS: ATORVASTATIN 40 MG TAB PO SCH (21:56)
[2017-09-20] MEDS: MELATONIN 3 MG TABLET PO SCH (21:57)
[2017-09-21 06:29] LABS: Basophils % (A) 0 %; Eosinophils # (A) 0.1 k/uL (0-0.7); Eosinophils % (A) 1 %; HCT 36.7 % (39.0-53.0); HGB 12.2 gm/dL (13.0-17.5); Lymphocytes # (A) 0.9 k/uL (1.0-4.8); Lymphocytes % (A) 9 %; MCH 32.4 pg (25.0-35.0); MCHC 33.4 g/dL (31.0-37.0); MCV 97.2 fL (80.0-100.0); Mean Platelet Volume 7.7; Monocytes # (A) 0.8 k/uL (0-1.0); Monocytes % (A) 8 %; Neutrophils # (A) 7.5 k/uL (1.3-7.7); Neutrophils % (A) 80 %; Platelet Count 221 k/uL (150-450); RBC 3.77 m/uL (4.30-5.90); RDW 14.1 % (11.5-15.5); WBC 9.4 k/uL (3.8-10.6)
[2017-09-21 06:36] LABS: Calcium 8.9 mg/dL (8.4-10.2); Magnesium 2.1 mg/dL (1.6-2.3); Potassium 3.9 mmol/L (3.5-5.1)
[2017-09-21] MEDS: CARVEDILOL 3.125 MG TAB PO SCH ×2 (06:45→16:42)
--- NOTE | 2017-09-21 08:32 | XR ---
EXAMINATION TYPE: XR chest 1V portable DATE OF EXAM: 09/21/2017 COMPARISON: 09/19/2017 HISTORY: Shortness of breath TECHNIQUE: Single frontal view of the chest is obtained. FINDINGS: Heart is prominent. Postsurgical change and cardiac device noted. Interstitium is improved . Heart remains mildly enlarged. IMPRESSION: Improving interstitial pattern suggestive of improving interstitial pneumonitis or venou s congestion. Correlate clinically.
--- NOTE | 2017-09-21 08:34 | XR ---
EXAMINATION TYPE: XR chest 2V DATE OF EXAM: 09/21/2017 COMPARISON: 09/21/2017, 09/19/2017 TECHNIQUE: PA and lateral views submitted. HISTORY: Difficulty breathing FINDINGS: Left-sided consolidation and pleural thickening or effusion stable. Postoperative change and cardiac device stable. No pneumothorax. No overt failure. Atrophic and degenerative change of the spine. Inte rstitium stable. IMPRESSION: 1. Stable left lower lobe consolidation and small effusion.
--- NOTE | 2017-09-21 09:23 | P.PN ---
Subjective Patient is seen in follow-up for acute kidney injury on chronic kidney disease. Patient has chronic kidney disease stage IIIB/4 with baseline creatinine in the range of 2-2.3 secondary to nephrosclerosis and cardiorenal syndrome. Patient also developing nonrecovered ATN after his CABG which was performed several years ago. Patient presented with dyspnea. He has history of diastolic CHF. Also has history of underlying COPD. He is currently maintained on Lasix 60 mg IV twice daily. He did ambulate this morning but got quite dyspneic. Chest x-ray shows improvement in his volume status. No edema. Vital signs are stable. General: The patient appeared well nourished and normally developed. HEENT: Head exam is unremarkable. Neck is without jugular venous distension. LUNGS: Lungs are clear to auscultation and percussion. Breath sounds decreased. HEART: Rate and Rhythm are regular. First and second heart sounds normal. No murmurs, rubs or gallops. ABDOMEN: Abdominal exam reveals normal bowel sounds. Non-tender and non- distended. No evidence of peritonitis. EXTREMITITES: No clubbing, cyanosis, or edema. Objective - Vital Signs Vital signs: Vital Signs Temp 96.7 F L 09/21/17 07:53 Pulse 60 09/21/17 07:53 Resp 17 09/21/17 07:53 BP 116/62 09/21/17 07:53 Pulse Ox 97 09/21/17 07:53 Intake & Output 09/20/17 09/21/17 09/21/17 18:59 06:59 18:59 Intake Total 180 240 Output Total 1150 1800 Balance -970 -1800 240 Weight 101 kg 105.6 kg Intake: Oral 180 240 Output: Urine 1150 1800 Other: Voiding Method Urinal Urinal # Voids 300 - Labs CBC & Chem 7: 09/21/17 05:58 09/21/17 05:58 Labs: Abnormal Lab Results - Last 24 Hours (Table) 09/21/17 09/21/17 Range/Units 05:58 05:58 RBC 3.77 L (4.30-5.90) m/uL Hgb 12.2 L (13.0-17.5) gm/dL Hct 36.7 L (39.0-53.0) % Lymphocytes # 0.9 L (1.0-4.8) k/uL Chloride 93 L (98-107) mmol/L BUN 74 H (9-20) mg/dL Creatinine 2.90 H (0.66-1.25) mg/dL Assessment and Plan Plan: Assessment: #1. Nonoliguric acute kidney injury mostly prerenal secondary to diuresis. Creatinine 2.9 today. Urinalysis is quite benign. #2. 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 Also developed ATN post CABG several years ago. Baseline creatinine in the range of 2-2.3. #3. Diastolic CHF. #4. Volume overload. Improving with diuresis. #5. Dyspnea which is multifactorial. Volume overload as well as COPD are contributor factors. #6. Hypertension with chronic kidney disease. Controlled. Plan: I will change Lasix to 40 mg orally twice daily. Low-salt diet. Repeat electrolytes in the morning. Avoid nephrotoxic agents and hypotensive episodes.
[2017-09-21] MEDS: FUROSEMIDE 10 MG/ML 10 ML VIAL IV SCH (09:32)
[2017-09-21] MEDS: APIXABAN 2.5 MG TABLET PO SCH ×2 (09:40→21:41)
[2017-09-21] MEDS: hydrALAZINE HCL 50 MG TAB PO SCH ×3 (09:40→21:41)
[2017-09-21] MEDS: AMIODARONE 200 MG TAB PO SCH (09:40)
[2017-09-21] MEDS: amLODIPine 5 MG TAB PO SCH ×2 (09:40→22:55)
[2017-09-21] MEDS: SPIRONOLACTONE 25 MG TAB PO SCH (09:41)
[2017-09-21] MEDS: NITROGLYCERIN OINT 1 INCH/GM PACKET TOPICAL SCH ×4 (09:41→22:55)
[2017-09-21] MEDS: ASPIRIN 81 MG PO SCH (09:41)
[2017-09-21] MEDS: FUROSEMIDE 40 MG TAB PO SCH ×2 (09:43→16:42)
--- NOTE | 2017-09-21 11:41 | P.PN ---
Subjective Progress Note Date: 09/21/17 Principal diagnosis: Dyspnea, weakness, shoulder pain This is a 72-year-old white male with history of multiple medical problems including COPD, underlying coronary artery disease, chronic atrial fibrillation , previous CABG, previous CA, patient had a recent pacemaker implantation done by his aerophysicist about 2 weeks ago. His initial postoperative course was uneventful, however over the last 4 or 5 days, the patient has been experiencing more shortness of breath, and unable to do any activity without significant dyspnea on any exertion. Some cough, no wheezing, no fever no chills no hemoptysis no chest pain. Patient was basically up all night last night with dry cough. And shortness of breath. Seen in the ER today, and his chest x-ray showed evidence of pulmonary edema. His BNP level was over 4400, and there was slightly elevated troponin. Patient was placed on Lasix, admitted , I was asked to see him on consultation mostly because he normally sees Dr. Barnes for COPD, and the last time he saw him was over a year ago. Looking back at his PFT from previous evaluation his FEV1 is in the range of 44%, DLCO is in the range of 55%. Patient had previous CABG 2 and the second time was in 2008. He is to be a [id number] smoker, he had history of chronic renal failure. The patient is seen again today 09/20/2017 in follow-up on the selective care unit. He is currently resting quite comfortably in bed. He is awake and alert in no acute distress. He states he is breathing easier today as compared to yesterday. He has been treated for diastolic exacerbation of congestive heart failure. His been initiated on IV diuretics. He still gets dyspneic on exertion. Still has some complaints of left shoulder pain. He is maintaining good O2 saturations in the upper 90s on 3 L/m per nasal cannula. His been afebrile. Hemodynamically stable. White count 7.9. Hemoglobin 11.2. Creatinine 2.57. The patient is seen again today 09/21/2017 in follow-up on the selective care unit. He is currently resting in bed. He is awake and alert in no acute distress. He states he did have an episode of shortness of breath while he was up walking in the room. It took him a bit to recover. His chest x-ray shows improved aeration. He is remaining in a negative balance. Currently on Lasix 40 mg by mouth twice a day. Creatinine up a bit at 2.90. Objective - Vital Signs Vital signs: Vital Signs Temp 96.7 F L 09/21/17 07:53 Pulse 60 09/21/17 07:53 Resp 17 09/21/17 07:53 BP 116/62 09/21/17 07:53 Pulse Ox 97 09/21/17 07:53 Intake & Output 09/20/17 09/21/17 09/21/17 18:59 06:59 18:59 Intake Total 180 240 Output Total 1150 1800 Balance -970 -1800 240 Weight 101 kg 105.6 kg Intake: Oral 180 240 Output: Urine 1150 1800 Other: Voiding Method Urinal Urinal Urinal # Voids 300 - Exam GENERAL EXAM: Obese. Alert, comfortable in no apparent distress. HEAD: Normocephalic. EYES: Normal reaction of pupils, equal size. NOSE: Clear with pink turbinates. THROAT: No erythema or exudates. NECK: No masses, no JVD. CHEST: No chest wall deformity. LUNGS: Equal air entry with crackles in the bilateral posterior bases. CVS: S1 and S2 normal with an audible murmur, irregular rhythm. ABDOMEN: No hepatosplenomegaly, normal bowel sounds, no guarding or rigidity. SPINE: No scoliosis or deformity SKIN: No rashes CENTRAL NERVOUS SYSTEM: No focal deficits, tone is normal in all 4 extremities. EXTREMITIES: There is no peripheral edema. No clubbing, no cyanosis. Peripheral pulses are intact. - Labs CBC & Chem 7: 09/21/17 05:58 09/21/17 05:58 Labs: Abnormal Lab Results - Last 24 Hours (Table) 09/21/17 09/21/17 Range/Units 05:58 05:58 RBC 3.77 L (4.30-5.90) m/uL Hgb 12.2 L (13.0-17.5) gm/dL Hct 36.7 L (39.0-53.0) % Lymphocytes # 0.9 L (1.0-4.8) k/uL Chloride 93 L (98-107) mmol/L BUN 74 H (9-20) mg/dL Creatinine 2.90 H (0.66-1.25) mg/dL Assessment and Plan Assessment: Impression: Acute on chronic diastolic congestive heart failure with pulmonary edema as noted on the chest x-ray History of underlying COPD, Gold stage III. History of multiple comorbidities including coronary artery disease, previous CA , previous CABG 2, history of peripheral vessel occlusive disease, history of cardiac arrest, history of degenerative joint disease, history of hypertension, hyperlipidemia, chronic atrial fibrillation, and chronic kidney disease stage III. Recommendation: The patient was seen and evaluated by Dr. Vaughn. He is improved today as compared to yesterday. Still quite dyspneic with minimal exertion. We'll continue with his current treatment plan. Cardiology and nephrology on the case as well. We'll continue to follow. I, the cosigning physician, performed a history & physical examination of the patient. Lungs sounds with crackles in the bilateral posterior bases. Maintaining good O2 saturations in the 90s on 3 L/m per nasal cannula. I discussed the assessment and plan of care with my nurse practitioner, Rosa Ferris. I attest to the above note as dictated by her.
[2017-09-21] MEDS: MULTIVITAMINS, THERA 1 EACH TAB PO SCH (12:15)
--- NOTE | 2017-09-21 15:10 | P.PN ---
Subjective Progress Note Date: 09/21/17 Progress note being dictated for Dr. Granados. Interval history: This a 72-year-old gentleman admitted with acute CHF exacerbation, acute COPD exacerbation, acute purulent tracheobronchitis, chronic renal failure and multiple other medical issues. Influenza ruled out. Evaluated by cardiology, nephrology and pulmonary with recommendations noted. Maintained on nebulized bronchodilators, IV push Lasix with significant clinical improvement. Complains of left shoulder pain, receiving tramadol. Denies chest pain, palpitations. Complains of exertional dyspnea. Maintaining O2 sats in the high 90s on 3 L nasal cannula. Afebrile. Sodium and renal function improving. 09/21/17 diuresing well on Lasix IV push with 24-hour I&O reflecting a negative fluid balance. Worsening renal function, BUN 74, creatinine 2.9. Chest x-ray reporting improving interstitial pneumonitis or venous congestion, stable left lower lobe consolidation/small effusion. Complains of exertional dyspnea with no reserve. This morning he ambulated to the doorway with worsening shortness of breath and upon returning experienced a difficult time "catching his breath" . Denies cough. Denies chest pain, palpitations. Objective - Vital Signs Vital signs: Vital Signs Temp 97.8 F 09/21/17 12:00 Pulse 62 09/21/17 12:00 Resp 18 09/21/17 12:00 BP 120/70 09/21/17 12:00 Pulse Ox 93 L 09/21/17 12:00 Intake & Output 09/20/17 09/21/17 09/21/17 18:59 06:59 18:59 Intake Total 180 850 Output Total 1150 1800 400 Balance -970 -1800 450 Weight 101 kg 105.6 kg Intake: Oral 180 850 Output: Urine 1150 1800 400 Other: Voiding Method Urinal Urinal Urinal # Voids 300 - Exam PHYSICAL EXAM: VITAL SIGNS: [As above] GENERAL: Sitting up in bed, no acute distress HEENT: Conjunctivae normal. eyes normal. Oral mucosa moist NECK: No JVD. No thyroid enlargement. No LNs CARDIOVASCULAR: S1, S2 muffled. Irregular, No murmur RESPIRATION: Breath sounds diminished bibasilar crackles, no wheezing ABDOMEN: Soft, nontender . No guarding. no masses palpable. Bowel sounds heard. LEGS: No edema. no swelling PSYCHIATRY: Alert and oriented -3, mood and affect normal. NERVOUS SYSTEM: Cranial N 2-12 grossly normal. Moves all 4 limbs. Diffuse weakness No focal deficits. Skin: no ulcer no rash. - Labs CBC & Chem 7: 09/21/17 05:58 09/21/17 05:58 Labs: Abnormal Lab Results - Last 24 Hours (Table) 09/21/17 09/21/17 Range/Units 05:58 05:58 RBC 3.77 L (4.30-5.90) m/uL Hgb 12.2 L (13.0-17.5) gm/dL Hct 36.7 L (39.0-53.0) % Lymphocytes # 0.9 L (1.0-4.8) k/uL Chloride 93 L (98-107) mmol/L BUN 74 H (9-20) mg/dL Creatinine 2.90 H (0.66-1.25) mg/dL Assessment and Plan Assessment: 1. Acute on chronic CHF exacerbation, diastolic dysfunction, acute COPD exacerbation with acute purulent tracheobronchitis 2. Chronic pain disease, stage III 3. Troponin 0.07, indeterminate 4. CAD, history of [place], CABG 5. Chronic kidney disease, stage III, secondary to cardiorenal syndrome 6. Chronic atrial fibrillation Plan: Continue on current medication regime or monitoring and symptomatic treatment.Lasix converted to oral .Close monitoring of renal function and electrolytes with repeat labs ordered for a.m. PT/OT consulted. Follow closely with multiple consults. The impression and plan of care has been dictated as directed. : I performed a history and examination of this patient, discussed the same with the dictator. I agree with the dictator's note ,documented as a scribe. Any additional findings or plans will be noted.
[2017-09-21] MEDS ORDERED: FUROSEMIDE 40 MG TAB PO SCH (16:00)
--- NOTE | 2017-09-21 16:04 | P.PN ---
Subjective Progress Note Date: 09/21/17 This is a pleasant 72-year-old gentleman who follows regularly with Dr. Cardenas in the office. He has past medical history of coronary artery disease with prior CABG and redo CABG as well as multiple PCI's with stent placements, paroxysmal atrial fibrillation, hypertension, hyperlipidemia, renal failure, patient was recently in the hospital earlier this month with symptomatic bradycardia. He underwent implantation of a permanent pacemaker by Dr. Cardenas. Patient was discharged from the hospital on the of this month, he states that his breathing was stable and overall he was feeling well on discharge. He started to notice on Tuesday that he was having some symptoms of mild shortness of breath, he did follow up at the cardiology office, pacemaker interrogation went well, he also followed with his primary care doctor , and was told that everything sounded fine. Progressively since then he's been more and more short of breath to the point where he came in yesterday and could not breathe at all. Echocardiogram with Doppler study performed on this recent admission showed an ejection fraction of 50-55%. Chest x-ray on arrival showed multifocal patchy obesities and mild pulmonary vascular congestion on the basis of pulmonary edema and decompensated heart failure although early pneumonia is possible. Blood pressure 126/78, heart rate in the 80s, 97% on 3 L of oxygen. White blood cell count 7.9, hemoglobin 11.2, platelet count 197. Sodium 139, potassium 4.0, BUN 58, creatinine 2.5. Troponins 0.079, 0.057, 0.051. BNP level 4450. Patient was initiated on IV Lasix on arrival here, he states that he has significant edema in his bilateral lower extremities which is improved since his admission here. At the time of my examination this morning, patient states that his breathing has improved significantly however not completely back to normal yet. 09/21/2017 Patient was seen and examined this morning, he does state his breathing is significantly better than when he presented here although he states is about the same as yesterday. Still gets significantly short of breath walking to the door. Blood pressure 120/70 with a heart rate in the 60s, 93% on 2 L of oxygen. Blood cell count 9.2, hemoglobin 12.2, BUN 74, creatinine 2.9. IV Lasix was discontinued today and the patient was started on oral diuretics. We will repeat an echocardiogram with Doppler study tomorrow is in the LV function. Objective - Vital Signs Vital signs: Vital Signs Temp 97.8 F 09/21/17 12:00 Pulse 62 09/21/17 12:00 Resp 18 09/21/17 12:00 BP 120/70 09/21/17 12:00 Pulse Ox 93 L 09/21/17 12:00 Intake & Output 09/20/17 09/21/17 09/21/17 18:59 06:59 18:59 Intake Total 180 850 Output Total 1150 1800 400 Balance -970 -1800 450 Weight 101 kg 105.6 kg Intake: Oral 180 850 Output: Urine 1150 1800 400 Other: Voiding Method Urinal Urinal Urinal # Voids 300 - Exam PHYSICAL EXAMINATION: HEENT: Head is atraumatic, normocephalic. Pupils equal, round. Neck is supple. There is elevated jugular venous pressure. HEART EXAMINATION: Heart S1 and S2 systolic murmur is heard. CHEST EXAMINATION: Lungs reveal diminished air entry bilaterally with fine rales to the bases. ABDOMEN: Soft, nontender. Bowel sounds are heard. No organomegaly noted. EXTREMITIES: 2+ peripheral pulses with trace evidence of peripheral edema and no calf tenderness noted. NEUROLOGIC patient is awake, alert and oriented -3. - Labs CBC & Chem 7: 09/21/17 05:58 09/21/17 05:58 Labs: Abnormal Lab Results - Last 24 Hours (Table) 09/21/17 09/21/17 Range/Units 05:58 05:58 RBC 3.77 L (4.30-5.90) m/uL Hgb 12.2 L (13.0-17.5) gm/dL Hct 36.7 L (39.0-53.0) % Lymphocytes # 0.9 L (1.0-4.8) k/uL Chloride 93 L (98-107) mmol/L BUN 74 H (9-20) mg/dL Creatinine 2.90 H (0.66-1.25) mg/dL Assessment and Plan Plan: Assessment and plan #1 symptoms of progressively worsening shortness of breath, likely, and she now diastolic congestive heart failure and COPD exacerbation #2 chronic renal failure #3 recent permanent pacemaker implantation #4 coronary artery disease with prior bypass surgery 2, multiple PCI's with stent placement #5 paroxysmal atrial fibrillation #6 hypertension #7 hyperlipidemia #8 hx of nicotine dependence #9 troponin abnormality, upon review of prior records, patient's troponins are always in this abnormal range, likely secondary to renal failure. Plan Patient had an echocardiogram with Doppler study performed on the ninth of this month, ejection fraction 50-55%. We will do a repeat echocardiogram with Doppler study, limited study to assess the patient's LV function to see if there is been any deterioration since the pacemaker implantation. IV Lasix has been discontinued and patient is currently on by mouth Lasix. DNP note has been reviewed, I agree with a documented findings and plan of care. Patient was seen and examined.
[2017-09-21] MEDS: ATORVASTATIN 40 MG TAB PO SCH (21:41)
[2017-09-21] MEDS: MELATONIN 3 MG TABLET PO SCH (22:55)
[2017-09-21] MEDS: traMADol 50 MG TAB PO PRN (22:55)
[2017-09-22 06:40] LABS: Basophils % (A) 0 %; Eosinophils # (A) 0.3 k/uL (0-0.7); Eosinophils % (A) 2 %; HCT 40.2 % (39.0-53.0); HGB 13.3 gm/dL (13.0-17.5); Lymphocytes # (A) 0.8 k/uL (1.0-4.8); Lymphocytes % (A) 8 %; MCH 32.2 pg (25.0-35.0); MCHC 33.1 g/dL (31.0-37.0); MCV 97.2 fL (80.0-100.0); Mean Platelet Volume 7.4; Monocytes # (A) 0.9 k/uL (0-1.0); Monocytes % (A) 8 %; Neutrophils # (A) 8.8 k/uL (1.3-7.7); Neutrophils % (A) 80 %; Platelet Count 228 k/uL (150-450); RBC 4.13 m/uL (4.30-5.90); RDW 14.1 % (11.5-15.5)
[2017-09-22] MEDS: CARVEDILOL 3.125 MG TAB PO SCH ×2 (06:43→16:26)
[2017-09-22 06:52] LABS: Calcium 8.9 mg/dL (8.4-10.2); Magnesium 2.1 mg/dL (1.6-2.3); Potassium 3.9 mmol/L (3.5-5.1)
[2017-09-22] MEDS: SPIRONOLACTONE 25 MG TAB PO SCH (08:29)
[2017-09-22] MEDS: APIXABAN 2.5 MG TABLET PO SCH ×2 (08:29→20:33)
[2017-09-22] MEDS: FUROSEMIDE 40 MG TAB PO SCH ×2 (08:29→16:26)
[2017-09-22] MEDS: AMIODARONE 200 MG TAB PO SCH (08:29)
[2017-09-22] MEDS: amLODIPine 5 MG TAB PO SCH ×2 (08:29→20:33)
[2017-09-22] MEDS: hydrALAZINE HCL 50 MG TAB PO SCH ×3 (08:29→20:33)
[2017-09-22] MEDS: ASPIRIN 81 MG PO SCH (08:29)
[2017-09-22] MEDS: NITROGLYCERIN OINT 1 INCH/GM PACKET TOPICAL SCH ×2 (08:33→12:34)
--- NOTE | 2017-09-22 09:38 | P.PN ---
Subjective Patient is seen in follow-up for acute kidney injury on chronic kidney disease. Patient has chronic kidney disease stage IIIB/4 with baseline creatinine in the range of 2-2.3 secondary to nephrosclerosis and cardiorenal syndrome. Patient also developing nonrecovered ATN after his CABG which was performed several years ago. Patient presented with dyspnea. He has history of diastolic CHF. Also has history of underlying COPD. He is currently maintained on Lasix 40 mg PO twice daily. Edema is improved. Dyspnea also improved today. Oral intake is good. Vital signs are stable. General: The patient appeared well nourished and normally developed. HEENT: Head exam is unremarkable. Neck is without jugular venous distension. LUNGS: Lungs are clear to auscultation and percussion. Breath sounds decreased. HEART: Rate and Rhythm are regular. First and second heart sounds normal. No murmurs, rubs or gallops. ABDOMEN: Abdominal exam reveals normal bowel sounds. Non-tender and non- distended. No evidence of peritonitis. EXTREMITITES: No clubbing, cyanosis, or edema. Objective - Vital Signs Vital signs: Vital Signs Temp 97.4 F L 09/22/17 04:00 Pulse 74 09/22/17 04:00 Resp 18 09/22/17 04:00 BP 149/77 09/22/17 04:00 Pulse Ox 93 L 09/22/17 04:00 Intake & Output 09/21/17 09/22/17 09/22/17 18:59 06:59 18:59 Intake Total 1090 Output Total 700 300 Balance 390 -300 Weight 105.1 kg Intake: Oral 1090 Output: Urine 700 300 Other: Voiding Method Urinal Urinal - Labs CBC & Chem 7: 09/22/17 06:14 09/22/17 06:14 Labs: Abnormal Lab Results - Last 24 Hours (Table) 09/22/17 09/22/17 Range/Units 06:14 06:14 WBC 11.0 H (3.8-10.6) k/uL RBC 4.13 L (4.30-5.90) m/uL Neutrophils # 8.8 H (1.3-7.7) k/uL Lymphocytes # 0.8 L (1.0-4.8) k/uL Chloride 94 L (98-107) mmol/L BUN 74 H (9-20) mg/dL Creatinine 2.88 H (0.66-1.25) mg/dL Glucose 103 H (74-99) mg/dL Assessment and Plan Plan: Assessment: #1. Nonoliguric acute kidney injury mostly prerenal secondary to diuresis. Creatinine peaked at 2.9 this admission - stable at 2.88 today. Urinalysis is quite benign. #2. 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 Also developed ATN post CABG several years ago. Baseline creatinine in the range of 2-2.3. #3. Diastolic CHF. #4. Volume overload. Improved with diuresis. #5. Dyspnea which is multifactorial. Volume overload as well as COPD are contributor factors. #6. Hypertension with chronic kidney disease. Controlled. Plan: Maintain Lasix 40 mg orally twice daily. Low-salt diet. Repeat electrolytes in the morning. Avoid nephrotoxic agents and hypotensive episodes.
--- NOTE | 2017-09-22 10:06 | ECHOF ---
Referral Reason:limitd study, assess lv function MEASUREMENTS -------- HEIGHT: 172.7 cm WEIGHT: 104.8 kg BP: 149/77 RAP: 5.00 mmHg RVSP: 27.32 mmHg FINDINGS -------- Sinus rhythm. Limited Study Overall left ventricular systolic function is normal with, an EF between 55 - 60 %. 5 ml of Lumason was utilized for enhancement of images. Mild tricuspid regurgitation present. Right ventricular systolic pressure is normal at < 35 mmHg. CONCLUSIONS -------- 1. Sinus rhythm. 2. Limited Study 3. Overall left ventricular systolic function is normal with, an EF between 55 - 60 %. 4. 5 ml of Lumason was utilized for enhancement of images. 5. Mild tricuspid regurgitation present. 6. Right ventricular systolic pressure is normal at < 35 mmHg. SHUTTLE VAN DRIVER: Kenzie Nickerson RDCS
--- NOTE | 2017-09-22 12:08 | P.PN ---
Subjective Progress Note Date: 09/22/17 Principal diagnosis: Dyspnea, weakness, shoulder pain This is a 72-year-old white male with history of multiple medical problems including COPD, underlying coronary artery disease, chronic atrial fibrillation , previous CABG, previous HI, patient had a recent pacemaker implantation done by his clinical mental health counselor about 2 weeks ago. His initial postoperative course was uneventful, however over the last 4 or 5 days, the patient has been experiencing more shortness of breath, and unable to do any activity without significant dyspnea on any exertion. Some cough, no wheezing, no fever no chills no hemoptysis no chest pain. Patient was basically up all night last night with dry cough. And shortness of breath. Seen in the ER today, and his chest x-ray showed evidence of pulmonary edema. His BNP level was over 4400, and there was slightly elevated troponin. Patient was placed on Lasix, admitted , I was asked to see him on consultation mostly because he normally sees Dr. Barnes for COPD, and the last time he saw him was over a year ago. Looking back at his PFT from previous evaluation his FEV1 is in the range of 44%, DLCO is in the range of 55%. Patient had previous CABG 2 and the second time was in 2008. He is to be a [id number] smoker, he had history of chronic renal failure. The patient is seen again today 09/20/2017 in follow-up on the selective care unit. He is currently resting quite comfortably in bed. He is awake and alert in no acute distress. He states he is breathing easier today as compared to yesterday. He has been treated for diastolic exacerbation of congestive heart failure. His been initiated on IV diuretics. He still gets dyspneic on exertion. Still has some complaints of left shoulder pain. He is maintaining good O2 saturations in the upper 90s on 3 L/m per nasal cannula. His been afebrile. Hemodynamically stable. White count 7.9. Hemoglobin 11.2. Creatinine 2.57. The patient is seen again today 09/21/2017 in follow-up on the selective care unit. He is currently resting in bed. He is awake and alert in no acute distress. He states he did have an episode of shortness of breath while he was up walking in the room. It took him a bit to recover. His chest x-ray shows improved aeration. He is remaining in a negative balance. Currently on Lasix 40 mg by mouth twice a day. Creatinine up a bit at 2.90. The patient is seen again today 09/22/2017 in follow-up on the selective care unit. He is currently resting quite comfortably in bed. Breathing easier today as compared to yesterday. Currently maintaining O2 saturations in the mid 90s on 2 L/m per nasal cannula. He does desaturate to 85% on room air. He' s been afebrile. Hemodynamically stable. He remains in a negative balance. White count 11.0. Hemoglobin 13.3. Creatinine 2.80. Objective - Vital Signs Vital signs: Vital Signs Temp 97.7 F 09/22/17 08:00 Pulse 63 09/22/17 08:00 Resp 18 09/22/17 09:45 BP 149/66 09/22/17 08:00 Pulse Ox 95 09/22/17 09:45 Intake & Output 09/21/17 09/22/17 09/22/17 18:59 06:59 18:59 Intake Total 1090 360 Output Total 700 300 200 Balance 390 -300 160 Weight 105.1 kg Intake: Oral 1090 360 Output: Urine 700 300 200 Other: Voiding Method Urinal Urinal Urinal - Exam GENERAL EXAM: Obese. Alert, comfortable in no apparent distress. HEAD: Normocephalic. EYES: Normal reaction of pupils, equal size. NOSE: Clear with pink turbinates. THROAT: No erythema or exudates. NECK: No masses, no JVD. CHEST: No chest wall deformity. LUNGS: Equal air entry with crackles in the bilateral posterior bases. CVS: S1 and S2 normal with an audible murmur, irregular rhythm. ABDOMEN: No hepatosplenomegaly, normal bowel sounds, no guarding or rigidity. SPINE: No scoliosis or deformity SKIN: No rashes CENTRAL NERVOUS SYSTEM: No focal deficits, tone is normal in all 4 extremities. EXTREMITIES: There is no peripheral edema. No clubbing, no cyanosis. Peripheral pulses are intact. - Labs CBC & Chem 7: 09/22/17 06:14 09/22/17 06:14 Labs: Abnormal Lab Results - Last 24 Hours (Table) 09/22/17 09/22/17 Range/Units 06:14 06:14 WBC 11.0 H (3.8-10.6) k/uL RBC 4.13 L (4.30-5.90) m/uL Neutrophils # 8.8 H (1.3-7.7) k/uL Lymphocytes # 0.8 L (1.0-4.8) k/uL Chloride 94 L (98-107) mmol/L BUN 74 H (9-20) mg/dL Creatinine 2.88 H (0.66-1.25) mg/dL Glucose 103 H (74-99) mg/dL Assessment and Plan Assessment: Impression: Acute on chronic diastolic congestive heart failure with pulmonary edema as noted on the chest x-ray, most recent chest x-ray shows improvement in the interstitial pattern. Limited echocardiogram reveals a preserved left ventricular systolic function with ejection fraction 55-60%. History of underlying COPD, Gold stage III. History of multiple comorbidities including coronary artery disease, previous HI , previous CABG 2, history of peripheral vessel occlusive disease, history of cardiac arrest, history of degenerative joint disease, history of hypertension, hyperlipidemia, chronic atrial fibrillation, and chronic kidney disease stage III. Recommendation: The patient was seen and evaluated by Dr. Vaughn. He is improved today as compared to yesterday. We'll continue with his current treatment plan. Cardiology and nephrology on the case as well. We'll continue to follow. I, the cosigning physician, performed a history & physical examination of the patient. Lungs sounds with crackles in the bilateral posterior bases. Maintaining good O2 saturations in the 90s on 2 L/m per nasal cannula. I discussed the assessment and plan of care with my nurse practitioner, Rosa Ferris. I attest to the above note as dictated by her.
[2017-09-22] MEDS: MULTIVITAMINS, THERA 1 EACH TAB PO SCH (12:27)
[2017-09-22] MEDS: ALBUTEROL NEBULIZED 2.5 MG/3 ML INHALATION PRN (13:21)
--- NOTE | 2017-09-22 14:46 | P.PN ---
Subjective Progress Note Date: 09/22/17 This is a pleasant 72-year-old gentleman who follows regularly with Dr. Cardenas in the office. He has past medical history of coronary artery disease with prior CABG and redo CABG as well as multiple PCI's with stent placements, paroxysmal atrial fibrillation, hypertension, hyperlipidemia, renal failure, patient was recently in the hospital earlier this month with symptomatic bradycardia. He underwent implantation of a permanent pacemaker by Dr. Cardenas. Patient was discharged from the hospital on the of this month, he states that his breathing was stable and overall he was feeling well on discharge. He started to notice on Tuesday that he was having some symptoms of mild shortness of breath, he did follow up at the cardiology office, pacemaker interrogation went well, he also followed with his primary care doctor , and was told that everything sounded fine. Progressively since then he's been more and more short of breath to the point where he came in yesterday and could not breathe at all. Echocardiogram with Doppler study performed on this recent admission showed an ejection fraction of 50-55%. Chest x-ray on arrival showed multifocal patchy obesities and mild pulmonary vascular congestion on the basis of pulmonary edema and decompensated heart failure although early pneumonia is possible. Blood pressure 126/78, heart rate in the 80s, 97% on 3 L of oxygen. White blood cell count 7.9, hemoglobin 11.2, platelet count 197. Sodium 139, potassium 4.0, BUN 58, creatinine 2.5. Troponins 0.079, 0.057, 0.051. BNP level 4450. Patient was initiated on IV Lasix on arrival here, he states that he has significant edema in his bilateral lower extremities which is improved since his admission here. At the time of my examination this morning, patient states that his breathing has improved significantly however not completely back to normal yet. 09/21/2017 Patient was seen and examined this morning, he does state his breathing is significantly better than when he presented here although he states is about the same as yesterday. Still gets significantly short of breath walking to the door. Blood pressure 120/70 with a heart rate in the 60s, 93% on 2 L of oxygen. Blood cell count 9.2, hemoglobin 12.2, BUN 74, creatinine 2.9. IV Lasix was discontinued today and the patient was started on oral diuretics. We will repeat an echocardiogram with Doppler study tomorrow is in the LV function. 09/22/2017 Patient seen and examined this morning, he does state overall that his breathing is improving. Repeat echocardiogram with Doppler study was performed , limited study to assess the LV function which is normal. His weight is down to half a kilogram today. Blood pressure 154/70 with a heart rate in the 60s. White blood cell count 11, hemoglobin 13, platelet count 228. Sodium 142, potassium 3.9, BUN 64, creatinine 2.8. Magnesium 2.1. Objective - Vital Signs Vital signs: Vital Signs Temp 97.4 F L 09/22/17 12:00 Pulse 72 09/22/17 13:35 Resp 16 09/22/17 13:35 BP 155/75 09/22/17 12:00 Pulse Ox 97 09/22/17 13:25 Intake & Output 09/21/17 09/22/17 09/22/17 18:59 06:59 18:59 Intake Total 1090 360 Output Total 700 300 200 Balance 390 -300 160 Weight 105.1 kg Intake: Oral 1090 360 Output: Urine 700 300 200 Other: Voiding Method Urinal Urinal Urinal - Exam PHYSICAL EXAMINATION: HEENT: Head is atraumatic, normocephalic. Pupils equal, round. Neck is supple. There is elevated jugular venous pressure. HEART EXAMINATION: Heart S1 and S2 systolic murmur is heard. CHEST EXAMINATION: Lungs reveal diminished air entry bilaterally with fine rales to the bases. ABDOMEN: Soft, nontender. Bowel sounds are heard. No organomegaly noted. EXTREMITIES: 2+ peripheral pulses with trace evidence of peripheral edema and no calf tenderness noted. NEUROLOGIC patient is awake, alert and oriented -3. - Labs CBC & Chem 7: 09/22/17 06:14 09/22/17 06:14 Labs: Abnormal Lab Results - Last 24 Hours (Table) 09/22/17 09/22/17 Range/Units 06:14 06:14 WBC 11.0 H (3.8-10.6) k/uL RBC 4.13 L (4.30-5.90) m/uL Neutrophils # 8.8 H (1.3-7.7) k/uL Lymphocytes # 0.8 L (1.0-4.8) k/uL Chloride 94 L (98-107) mmol/L BUN 74 H (9-20) mg/dL Creatinine 2.88 H (0.66-1.25) mg/dL Glucose 103 H (74-99) mg/dL Assessment and Plan Plan: Assessment and plan #1 symptoms of progressively worsening shortness of breath, likely, and she now diastolic congestive heart failure and COPD exacerbation #2 chronic renal failure #3 recent permanent pacemaker implantation #4 coronary artery disease with prior bypass surgery 2, multiple PCI's with stent placement #5 paroxysmal atrial fibrillation #6 hypertension #7 hyperlipidemia #8 hx of nicotine dependence #9 troponin abnormality, upon review of prior records, patient's troponins are always in this abnormal range, likely secondary to renal failure. Plan Repeat limited echocardiogram with Doppler study revealed a normal left ventricular systolic function. From cardiology's perspective, we'll continue Lasix, discontinue Nitropaste. Check lytes BUN and creatinine daily weights in the morning. DNP note has been reviewed, I agree with a documented findings and plan of care. Patient was seen and examined.
[2017-09-22] MEDS: traMADol 50 MG TAB PO PRN ×2 (16:28→22:11)
[2017-09-22] MEDS: ATORVASTATIN 40 MG TAB PO SCH (20:33)
[2017-09-22] MEDS: MELATONIN 3 MG TABLET PO SCH (20:33)
[2017-09-23] MEDS: ALBUTEROL NEBULIZED 2.5 MG/3 ML INHALATION PRN (05:04)
[2017-09-23] MEDS: CARVEDILOL 3.125 MG TAB PO SCH (06:54)
[2017-09-23] MEDS: FUROSEMIDE 40 MG TAB PO SCH (06:54)
[2017-09-23 07:09] LABS: Basophils % (A) 0 %; Eosinophils # (A) 0.4 k/uL (0-0.7); Eosinophils % (A) 4 %; HCT 36.1 % (39.0-53.0); Lymphocytes # (A) 0.8 k/uL (1.0-4.8); Lymphocytes % (A) 9 %; MCH 31.9 pg (25.0-35.0); MCHC 33.1 g/dL (31.0-37.0); MCV 96.3 fL (80.0-100.0); Mean Platelet Volume 8.3; Monocytes # (A) 0.7 k/uL (0-1.0); Monocytes % (A) 8 %; Neutrophils # (A) 6.7 k/uL (1.3-7.7); Neutrophils % (A) 77 %; Platelet Count 200 k/uL (150-450); RBC 3.75 m/uL (4.30-5.90); RDW 13.8 % (11.5-15.5); WBC 8.7 k/uL (3.8-10.6)
[2017-09-23 07:23] LABS: Calcium 8.7 mg/dL (8.4-10.2); Magnesium 2.1 mg/dL (1.6-2.3); Potassium 3.5 mmol/L (3.5-5.1)
[2017-09-23] MEDS: AMIODARONE 200 MG TAB PO SCH (08:19)
[2017-09-23] MEDS: traMADol 50 MG TAB PO PRN (08:19)
[2017-09-23] MEDS: APIXABAN 2.5 MG TABLET PO SCH (08:19)
[2017-09-23] MEDS: ASPIRIN 81 MG PO SCH (08:19)
[2017-09-23] MEDS: SPIRONOLACTONE 25 MG TAB PO SCH (08:19)
[2017-09-23] MEDS: amLODIPine 5 MG TAB PO SCH (08:19)
[2017-09-23] MEDS: hydrALAZINE HCL 50 MG TAB PO SCH (08:19)
[2017-09-23] MEDS ORDERED: hydrALAZINE HCL 25 MG TAB PO SCH (08:47)
--- NOTE | 2017-09-23 09:03 | P.PN ---
Subjective Patient is seen in follow-up for acute kidney injury on chronic kidney disease. Patient has chronic kidney disease stage IIIB/4 with baseline creatinine in the range of 2-2.3 secondary to nephrosclerosis and cardiorenal syndrome. Patient also developing nonrecovered ATN after his CABG which was performed several years ago. Patient presented with dyspnea. He has history of diastolic CHF. Also has history of underlying COPD. He is currently maintained on Lasix 40 mg PO twice daily. Edema is improved. Dyspnea also improved today. Oral intake is good. No active complaints at this time. Vital signs are stable. General: The patient appeared well nourished and normally developed. HEENT: Head exam is unremarkable. Neck is without jugular venous distension. LUNGS: Lungs are clear to auscultation and percussion. Breath sounds decreased. HEART: Rate and Rhythm are regular. First and second heart sounds normal. No murmurs, rubs or gallops. ABDOMEN: Abdominal exam reveals normal bowel sounds. Non-tender and non- distended. No evidence of peritonitis. EXTREMITITES: No clubbing, cyanosis, or edema. Objective - Vital Signs Vital signs: Vital Signs Temp 98.7 F 09/23/17 04:30 Pulse 68 09/23/17 05:14 Resp 21 09/23/17 04:30 BP 179/111 09/23/17 04:30 Pulse Ox 91 L 09/23/17 04:30 Intake & Output 09/22/17 09/23/17 09/23/17 18:59 06:59 18:59 Intake Total 720 240 240 Output Total 2050 750 Balance -1330 -510 240 Weight 103.6 kg Intake: Oral 720 240 240 Output: Urine 2049 750 Other: Voiding Method Urinal Urinal # Voids 4 1 # Bowel Movements 0 - Labs CBC & Chem 7: 09/23/17 06:52 09/23/17 06:52 Labs: Abnormal Lab Results - Last 24 Hours (Table) 09/23/17 09/23/17 Range/Units 06:52 06:52 RBC 3.75 L (4.30-5.90) m/uL Hgb 12.0 L (13.0-17.5) gm/dL Hct 36.1 L (39.0-53.0) % Lymphocytes # 0.8 L (1.0-4.8) k/uL Chloride 93 L (98-107) mmol/L Carbon Dioxide 31 H (22-30) mmol/L BUN 68 H (9-20) mg/dL Creatinine 2.66 H (0.66-1.25) mg/dL Glucose 101 H (74-99) mg/dL Assessment and Plan Plan: Assessment: #1. Nonoliguric acute kidney injury mostly prerenal secondary to diuresis. Creatinine peaked at 2.9 this admission - down to 2.66 today. Urinalysis is quite benign. #2. 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 Also developed ATN post CABG several years ago. Baseline creatinine in the range of 2-2.3. #3. Diastolic CHF. #4. Volume overload. Improved with diuresis. #5. Dyspnea which is multifactorial. Volume overload as well as COPD are contributor factors. #6. Hypertension with chronic kidney disease. Controlled. #7. Hypokalemia secondary to diuresis. Magnesium replete. Plan: Maintain Lasix 40 mg orally twice daily. Replace potassium. 40 mEq once today. Low-salt diet. Repeat electrolytes in the morning. Avoid nephrotoxic agents and hypotensive episodes. Stable to be discharged home from nephrology standpoint. He will need a repeat basic metabolic panel checked within 2-3 days of discharge and follow-up as an outpatient in the next 1-2 weeks.
[2017-09-23] MEDS ORDERED: POTASSIUM CHLORIDE ER 20 MEQ TAB.ER PO STA (09:04)
[2017-09-23 09:45] VITALS: RESP 18
[2017-09-23] MEDS: MULTIVITAMINS, THERA 1 EACH TAB PO SCH (10:37)
--- NOTE | 2017-09-23 12:48 | P.PN ---
Subjective Progress Note Date: 09/23/17 Principal diagnosis: Dyspnea, weakness, shoulder pain This is a 72-year-old white male with history of multiple medical problems including COPD, underlying coronary artery disease, chronic atrial fibrillation , previous CABG, previous IA, patient had a recent pacemaker implantation done by his well drill operator helper cable tool about 2 weeks ago. His initial postoperative course was uneventful, however over the last 4 or 5 days, the patient has been experiencing more shortness of breath, and unable to do any activity without significant dyspnea on any exertion. Some cough, no wheezing, no fever no chills no hemoptysis no chest pain. Patient was basically up all night last night with dry cough. And shortness of breath. Seen in the ER today, and his chest x-ray showed evidence of pulmonary edema. His BNP level was over 4400, and there was slightly elevated troponin. Patient was placed on Lasix, admitted , I was asked to see him on consultation mostly because he normally sees Dr. Barnes for COPD, and the last time he saw him was over a year ago. Looking back at his PFT from previous evaluation his FEV1 is in the range of 44%, DLCO is in the range of 55%. Patient had previous CABG 2 and the second time was in 2008. He is to be a [id number] smoker, he had history of chronic renal failure. The patient is seen again today 09/20/2017 in follow-up on the selective care unit. He is currently resting quite comfortably in bed. He is awake and alert in no acute distress. He states he is breathing easier today as compared to yesterday. He has been treated for diastolic exacerbation of congestive heart failure. His been initiated on IV diuretics. He still gets dyspneic on exertion. Still has some complaints of left shoulder pain. He is maintaining good O2 saturations in the upper 90s on 3 L/m per nasal cannula. His been afebrile. Hemodynamically stable. White count 7.9. Hemoglobin 11.2. Creatinine 2.57. The patient is seen again today 09/21/2017 in follow-up on the selective care unit. He is currently resting in bed. He is awake and alert in no acute distress. He states he did have an episode of shortness of breath while he was up walking in the room. It took him a bit to recover. His chest x-ray shows improved aeration. He is remaining in a negative balance. Currently on Lasix 40 mg by mouth twice a day. Creatinine up a bit at 2.90. The patient is seen again today 09/22/2017 in follow-up on the [facility] care unit. He is currently resting quite comfortably in bed. Breathing easier today as compared to yesterday. Currently maintaining O2 saturations in the mid 90s on 2 L/m per nasal cannula. He does desaturate to 85% on room air. He' s been afebrile. Hemodynamically stable. He remains in a negative balance. White count 11.0. Hemoglobin 13.3. Creatinine 2.80. The patient is seen again today 09/23/2017 in follow-up on the [facility] care unit. He is currently sitting up in a chair at the bedside. He is awake and alert in no acute distress. He is feeling nearly back to his baseline. Quite a bit better since admission. He is maintaining good O2 saturations in the 90s on 2 L/m per nasal cannula. He is afebrile. White count 8.7. Hemoglobin 12.0. Creatinine 2.66. He continues to diurese well. He is down another 2 kg. Objective - Vital Signs Vital signs: Vital Signs Temp 96.7 F L 09/23/17 08:00 Pulse 75 09/23/17 08:00 Resp 18 09/23/17 08:00 BP 185/85 09/23/17 08:00 Pulse Ox 93 L 09/23/17 08:00 Intake & Output 09/22/17 09/23/17 09/23/17 18:59 06:59 18:59 Intake Total 720 240 240 Output Total 2049 750 Balance -1330 -510 240 Weight 103.6 kg Intake: Oral 720 240 240 Output: Urine 2049 750 Other: Voiding Method Urinal Urinal # Voids 4 1 # Bowel Movements 0 - Exam GENERAL EXAM: Obese. Alert, comfortable in no apparent distress. HEAD: Normocephalic. EYES: Normal reaction of pupils, equal size. NOSE: Clear with pink turbinates. THROAT: No erythema or exudates. NECK: No masses, no JVD. CHEST: No chest wall deformity. LUNGS: Equal air entry with crackles in the bilateral posterior bases. CVS: S1 and S2 normal with an audible murmur, irregular rhythm. ABDOMEN: No hepatosplenomegaly, normal bowel sounds, no guarding or rigidity. SPINE: No scoliosis or deformity SKIN: No rashes CENTRAL NERVOUS SYSTEM: No focal deficits, tone is normal in all 4 extremities. EXTREMITIES: There is no peripheral edema. No clubbing, no cyanosis. Peripheral pulses are intact. - Labs CBC & Chem 7: 09/23/17 06:52 09/23/17 06:52 Labs: Abnormal Lab Results - Last 24 Hours (Table) 09/23/17 09/23/17 Range/Units 06:52 06:52 RBC 3.75 L (4.30-5.90) m/uL Hgb 12.0 L (13.0-17.5) gm/dL Hct 36.1 L (39.0-53.0) % Lymphocytes # 0.8 L (1.0-4.8) k/uL Chloride 93 L (98-107) mmol/L Carbon Dioxide 31 H (22-30) mmol/L BUN 68 H (9-20) mg/dL Creatinine 2.66 H (0.66-1.25) mg/dL Glucose 101 H (74-99) mg/dL Assessment and Plan Assessment: Impression: Acute on chronic diastolic congestive heart failure with pulmonary edema as noted on the chest x-ray, most recent chest x-ray shows improvement in the interstitial pattern. Limited echocardiogram reveals a preserved left ventricular systolic function with ejection fraction 55-60%. History of underlying COPD, Gold stage III. History of multiple comorbidities including coronary artery disease, previous IA , previous CABG 2, history of peripheral vessel occlusive disease, history of cardiac arrest, history of degenerative joint disease, history of hypertension, hyperlipidemia, chronic atrial fibrillation, and chronic kidney disease stage III. Recommendation: The patient was seen and evaluated by Dr. Vaughn. He is improved today as compared to yesterday. Nearly back to his baseline. He is stable from the pulmonary standpoint. He will follow-up in our office with Dr. Barnes 1-2 weeks post discharge. I, the cosigning physician, performed a history & physical examination of the patient. Lungs sounds with crackles in the bilateral posterior bases. Maintaining good O2 saturations in the 90s on 2 L/m per nasal cannula. I discussed the assessment and plan of care with my nurse practitioner, Rosa Ferris. I attest to the above note as dictated by her.
[2017-09-23 14:47] VITALS: BP 154/69; PULSE 69; TEMP 97.6
--- NOTE | 2017-09-23 14:49 | P.PN ---
Subjective Progress Note Date: 09/23/17 This is a pleasant 72-year-old gentleman who follows regularly with Dr. Cardenas in the office. He has past medical history of coronary artery disease with prior CABG and redo CABG as well as multiple PCI's with stent placements, paroxysmal atrial fibrillation, hypertension, hyperlipidemia, renal failure, patient was recently in the hospital earlier this month with symptomatic bradycardia. He underwent implantation of a permanent pacemaker by Dr. Cardenas. Patient was discharged from the hospital on the of this month, he states that his breathing was stable and overall he was feeling well on discharge. He started to notice on Tuesday that he was having some symptoms of mild shortness of breath, he did follow up at the cardiology office, pacemaker interrogation went well, he also followed with his primary care doctor , and was told that everything sounded fine. Progressively since then he's been more and more short of breath to the point where he came in yesterday and could not breathe at all. Echocardiogram with Doppler study performed on this recent admission showed an ejection fraction of 50-55%. Chest x-ray on arrival showed multifocal patchy obesities and mild pulmonary vascular congestion on the basis of pulmonary edema and decompensated heart failure although early pneumonia is possible. Blood pressure 126/78, heart rate in the 80s, 97% on 3 L of oxygen. White blood cell count 7.9, hemoglobin 11.2, platelet count 197. Sodium 139, potassium 4.0, BUN 58, creatinine 2.5. Troponins 0.079, 0.057, 0.051. BNP level 4450. Patient was initiated on IV Lasix on arrival here, he states that he has significant edema in his bilateral lower extremities which is improved since his admission here. At the time of my examination this morning, patient states that his breathing has improved significantly however not completely back to normal yet. 09/21/2017 Patient was seen and examined this morning, he does state his breathing is significantly better than when he presented here although he states is about the same as yesterday. Still gets significantly short of breath walking to the door. Blood pressure 120/70 with a heart rate in the 60s, 93% on 2 L of oxygen. Blood cell count 9.2, hemoglobin 12.2, BUN 74, creatinine 2.9. IV Lasix was discontinued today and the patient was started on oral diuretics. We will repeat an echocardiogram with Doppler study tomorrow is in the LV function. 09/22/2017 Patient seen and examined this morning, he does state overall that his breathing is improving. Repeat echocardiogram with Doppler study was performed , limited study to assess the LV function which is normal. His weight is down to half a kilogram today. Blood pressure 154/70 with a heart rate in the 60s. White blood cell count 11, hemoglobin 13, platelet count 228. Sodium 142, potassium 3.9, BUN 64, creatinine 2.8. Magnesium 2.1. 09/23/2017 Patient seen and examined this morning, breathing is overall stable, ambulating without any difficulty today. Hemodynamically stable. Objective - Vital Signs Vital signs: Vital Signs Temp 97.6 F 09/23/17 11:30 Pulse 69 09/23/17 11:30 Resp 18 09/23/17 11:30 BP 154/69 09/23/17 11:30 Pulse Ox 92 L 09/23/17 11:30 Intake & Output 09/22/17 09/23/17 09/23/17 18:59 06:59 18:59 Intake Total 720 240 480 Output Total 0 750 350 Balance -1330 -510 130 Weight 103.6 kg Intake: Oral 720 240 480 Output: Urine 2049 750 350 Other: Voiding Method Urinal Urinal # Voids 4 1 # Bowel Movements 0 - Exam PHYSICAL EXAMINATION: HEENT: Head is atraumatic, normocephalic. Pupils equal, round. Neck is supple. There is elevated jugular venous pressure. HEART EXAMINATION: Heart S1 and S2 systolic murmur is heard. CHEST EXAMINATION: Lungs reveal diminished air entry bilaterally with fine rales to the bases. ABDOMEN: Soft, nontender. Bowel sounds are heard. No organomegaly noted. EXTREMITIES: 2+ peripheral pulses with trace evidence of peripheral edema and no calf tenderness noted. NEUROLOGIC patient is awake, alert and oriented -3. - Labs CBC & Chem 7: 09/23/17 06:52 09/23/17 06:52 Labs: Abnormal Lab Results - Last 24 Hours (Table) 09/23/17 09/23/17 Range/Units 06:52 06:52 RBC 3.75 L (4.30-5.90) m/uL Hgb 12.0 L (13.0-17.5) gm/dL Hct 36.1 L (39.0-53.0) % Lymphocytes # 0.8 L (1.0-4.8) k/uL Chloride 93 L (98-107) mmol/L Carbon Dioxide 31 H (22-30) mmol/L BUN 68 H (9-20) mg/dL Creatinine 2.66 H (0.66-1.25) mg/dL Glucose 101 H (74-99) mg/dL Assessment and Plan Plan: Assessment and plan #1 symptoms of progressively worsening shortness of breath, likely, and she now diastolic congestive heart failure and COPD exacerbation #2 chronic renal failure #3 recent permanent pacemaker implantation #4 coronary artery disease with prior bypass surgery 2, multiple PCI's with stent placement #5 paroxysmal atrial fibrillation #6 hypertension #7 hyperlipidemia #8 hx of nicotine dependence #9 troponin abnormality, upon review of prior records, patient's troponins are always in this abnormal range, likely secondary to renal failure. Plan From cardiology's perspective, patient may be discharged home once cleared by primary. We will make him a follow-up appointment in the office post discharge with Dr. Cardenas. DNP note has been reviewed, I agree with a documented findings and plan of care. Patient was seen and examined.
--- NOTE | 2017-09-23 19:44 | PN ---
PROGRESS NOTE DATE OF SERVICE: 09/22/2017 This 72-year-old gentleman who was admitted with CHF acute exacerbation as well as chronic obstructive pulmonary disease exacerbation is being closely monitored. Patient still has some shortness of breath. Cardiology and pulmonology following the patient closely. EXAM: Alert and oriented x3. The pulse is 68, blood pressure 160/72, respiration 16, temp is normal. Pulse ox 94% on 2 L. HEENT: Conjunctivae normal. NECK: No jugular venous distention. Cardiovascular: S1, S2 muffled. Respiratory: Breath sounds diminished in the bases. A few scattered rhonchi and crackles. Abdomen is soft, nontender. Legs are no edema. No swelling. Central nervous system: No focal deficits. LABS: WBC 8.2, hemoglobin is 12. ASSESSMENT: 1. Congestive heart failure acute exacerbation with acute on chronic diastolic dysfunction with chronic obstructive pulmonary disease exacerbation with acute purulent tracheobronchitis. 2. Chronic kidney disease stage 3. 3. Troponin 0.72, indeterminate. 4. Coronary artery disease, myocardial infarction, coronary artery bypass grafting. 5. Chronic atrial fibrillation. RECOMMENDATIONS AND DISCUSSION: Recommend to continue current medications, management and symptomatic treatment. Otherwise monitor closely. Monitor fluid and electrolytes balance, bronchodilators and diuretics. Further recommendations to follow. MMODL / IJN: [id number] /
--- NOTE | 2017-09-24 07:21 | DS ---
DISCHARGE SUMMARY FINAL DIAGNOSES: 1. Congestive heart failure acute exacerbation with acute on chronic diastolic dysfunction, asthma, chronic obstructive pulmonary disease acute exacerbation with acute purulent tracheobronchitis, chronic kidney stage 3, possibly secondary to cardiorenal syndrome. 2. Troponin 0.05 indeterminate. 3. Coronary artery disease history. 4. Myocardial infarction. 5. Coronary artery bypass grafting. 6. Chronic atrial fibrillation. DISCHARGE DISPOSITION: The patient is being discharged in stable condition with guarded prognosis. HISTORY OF PRESENT ILLNESS: This 72-year-old gentleman with a past medical history of multiple medical problems was admitted with shortness of breath which is possibly multifactorial, CHF and COPD, treated with bronchodilators and diuretics. Patient has improved significantly. On exam vitals signs are stable. Cardio system: S1, S2 normal. A few scattered rhonchi. Abdomen soft. Discharge diet is cardiac diet. Activity limited until follow up. Follow up with Dr. Feliz El in 2-3 days. Follow up with Dr. Cardenas and Dr. Barnes as recommended. MEDICATIONS: 1. Cordarone 20 mg p.o. daily. 2. Norvasc 5 mg p.o. b.i.d. 3. Eliquis 2.5 mg b.i.d. 4. Lipitor 40 mg q.h.s. 5. Symbicort 1 puff b.i.d. 6. Coreg 3.125 mg b.i.d. 7. Vitamin D2 50,000 daily. 8. Lasix 40 mg p.o. b.i.d. 9. Apresoline 50 mg p.o. t.i.d. 10.DuoNeb q.i.d. and p.r.n. 11.Imdur ER 60 mg p.o. daily. 12.Multivitamins one p.o. daily. 13.Aldactone 2.5 mg daily. 14.Co-Enzyme Q 100 mg p.o. daily. Once again, the patient will be discharged in stable condition with guarded prognosis. MMODL / IJN: [id number] /
[2017-09-24] MEDS ORDERED: POTASSIUM CHLORIDE ER 10 MEQ TAB.ER.PRT PO SCH (09:00)
[2017-10-05] MEDS ORDERED: ERGOCALCIFEROL 50,000 UNIT CAP PO SCH (09:00)
== END 2017-09-23 16:45 | disposition home or self-care (01) | DRG 291 ==
LOC: EC 07:03 → 6SEL 08:23
PROVIDERS: ADMIT Family Medicine; ATTEND Family Medicine
DX: I13.0 Hypertensive heart and chronic kidney disease with heart failure and stage 1 through stage 4 chronic kidney disease, or unspecified chronic kidney disease (principal); I50.43 Acute on chronic combined systolic (congestive) and diastolic (congestive) heart failure; J44.0 Chronic obstructive pulmonary disease with (acute) lower respiratory infection; J44.1 Chronic obstructive pulmonary disease with (acute) exacerbation; N17.9 Acute kidney failure, unspecified; E78.5 Hyperlipidemia, unspecified; E87.6 Hypokalemia; F17.210 Nicotine dependence, cigarettes, uncomplicated; N18.3 Chronic kidney disease, stage 3 (moderate); I25.10 Atherosclerotic heart disease of native coronary artery without angina pectoris; I25.2 Old myocardial infarction; I48.2 Chronic atrial fibrillation; I73.9 Peripheral vascular disease, unspecified; J20.9 Acute bronchitis, unspecified; J84.89 Other specified interstitial pulmonary diseases; K21.9 Gastro-esophageal reflux disease without esophagitis; T50.2X5A Adverse effect of carbonic-anhydrase inhibitors, benzothiadiazides and other diuretics, initial encounter; Z79.01 Long term (current) use of anticoagulants; Z79.899 Other long term (current) drug therapy; Z86.74 Personal history of sudden cardiac arrest; Z95.1 Presence of aortocoronary bypass graft; Z95.5 Presence of coronary angioplasty implant and graft; Z95.0 Presence of cardiac pacemaker
CPT/HCPCS: 36415; 71046; 80048; 80053; 81003; 82550; 82553; 83735; 83880; 84484; 85025; 85610; 85730; 87502; 93005; 93308; 94640; 94760; 96374; 96375; 99285

== ENCOUNTER → 2017-10-12 | Outpatient (CLI) | payer MEDICARE, OTHER ==
--- NOTE | 2017-10-12 10:45 | CT ---
EXAMINATION TYPE: CT chest wo con DATE OF EXAM: 10/12/2017 COMPARISON: Prior chest CT July 30, 2016. Most recent chest x-ray from 2 days ago. HISTORY: COPD per order (J 44.9). Difficulty breathing for [address] DLP: 573.6 mGycm. Automated Exposure Control for Dose Reduction was Utilized. TECHNIQUE: CT scan of the thorax is performed without IV contrast. FINDINGS: LUNGS: Background of chronic emphysematous changes redemonstrated. There is new central ground glass opacity involving upper middle and lower lobes on the right with less prominent but additional involv ement noted on the left. Findings suggest edema and/or infiltrates. There is some pleural thickening on the left posteriorly and laterally with more focal subpleural nodular consolidation measuring 2.0 x 1.1 cm axial image 45, this favors round atelectasis, focal consolidation and nodule however are no t excluded. Finding is new from prior study. There is additional linear scarring and/or atelectasis a nteriorly in the left lung base. MEDIASTINUM: Lack of IV contrast is noted to limit evaluation for mediastinal and especially hilar ad enopathy. Post CABG changes with mediastinal clips and sternal wires is redemonstrated. There are no definitive greater than 1 cm hilar or mediastinal lymph nodes. No significant pericardial effusion is seen. Ascending aorta measures up to 3.6 cm in diameter axial image 24. Stable cardiomegaly is not ed. There is new single lead pacemaker from prior CT. OTHER: Moderate multilevel spurring in thoracic spine is redemonstrated. IMPRESSION: 1. Favor CHF exacerbation as there is cardiomegaly with new right greater than left central opacities favoring alveolar edema. Correlate clinically. Underlying infection is not excluded. 2. Background post CABG changes and chronic emphysematous change with persistent left-sided pleural t hickening. New posterior lateral left basilar irregular consolidation could reflect round atelectasis , new nodule/neoplasm, or focal consolidation/pneumonia. I do favor round atelectasis. Advise short t erm CT follow-up in 3 months time at minimum after treatment or PET/CT.
== END | disposition home or self-care (01) ==
LOC: RADCTMAIN 08:57
PROVIDERS: ATTEND Internal Medicine Critical Care Medicine
DX: J92.9 Pleural plaque without asbestos (principal); J43.9 Emphysema, unspecified; Z95.1 Presence of aortocoronary bypass graft
CPT/HCPCS: 71250

== ENCOUNTER → 2018-01-02 | Outpatient (CLI) | payer MEDICARE, OTHER ==
[2018-01-02 11:26] LABS: Calcium 9.5 mg/dL (8.4-10.2); Potassium 4.8 mmol/L (3.5-5.1)
== END | disposition home or self-care (01) ==
LOC: LABWHC1 10:31
PROVIDERS: ATTEND Internal Medicine Nephrology
DX: N18.4 Chronic kidney disease, stage 4 (severe) (principal)
CPT/HCPCS: 36415; 80048

== ENCOUNTER → 2018-02-06 | Outpatient (CLI) | payer MEDICARE, OTHER ==
[2018-02-06 09:58] LABS: Basophils % (A) 0 %; Eosinophils # (A) 0.5 k/uL (0-0.7); Eosinophils % (A) 8 %; HCT 43.8 % (39.0-53.0); HGB 14.1 gm/dL (13.0-17.5); Lymphocytes # (A) 0.9 k/uL (1.0-4.8); Lymphocytes % (A) 14 %; MCHC 32.1 g/dL (31.0-37.0); MCV 96.5 fL (80.0-100.0); Mean Platelet Volume 7.7; Monocytes # (A) 0.4 k/uL (0-1.0); Monocytes % (A) 6 %; Neutrophils # (A) 4.7 k/uL (1.3-7.7); Neutrophils % (A) 70 %; Platelet Count 240 k/uL (150-450); RBC 4.54 m/uL (4.30-5.90); RDW 15.7 % (11.5-15.5); WBC 6.7 k/uL (3.8-10.6)
[2018-02-06 10:02] LABS: Appearance,Urine Clear (Clear); Bacteria,Urine Rare /hpf; Bilirubin,Urine Negative (Negative); Blood,Urine Small (Negative); Color,Urine Yellow; Glucose,Urine (UA) Negative (Negative); Ketones,Urine Negative (Negative); Leukocyte Esterase,Urine Negative (Negative); Mucus,Urine Rare /hpf; Nitrite,Urine Negative (Negative); Protein,Urine 2+ (Negative); RBC,Urine 1 /hpf (0-5); Specific Gravity,Urine 1.012 (1.001-1.035); Squamous Epithelial Cell,Urine 1 /hpf (0-4); Urobilinogen,Urine <2.0 mg/dL (<2.0); WBC,Urine <1 /hpf (0-5)
[2018-02-06 10:05] LABS: Calcium 9.6 mg/dL (8.4-10.2); Magnesium 2.1 mg/dL (1.6-2.3); Phosphorus 3.7 mg/dL (2.5-4.5); Potassium 4.4 mmol/L (3.5-5.1); Uric Acid 7.3 mg/dL (3.5-8.5)
[2018-02-06 16:09] LABS: Iron Saturation 20.14 (15.00-50.00)
[2018-02-06 17:06] LABS: Parathyroid Hormone Intact 140.3 pg/mL (14.0-72.0)
== END | disposition home or self-care (01) ==
LOC: LABWHC1 09:13
PROVIDERS: ATTEND Internal Medicine Nephrology
DX: N18.4 Chronic kidney disease, stage 4 (severe) (principal); D63.1 Anemia in chronic kidney disease; E55.9 Vitamin D deficiency, unspecified; E21.3 Hyperparathyroidism, unspecified; M10.9 Gout, unspecified; N39.0 Urinary tract infection, site not specified
CPT/HCPCS: 36415; 80048; 81001; 82728; 83540; 83550; 83735; 83970; 84100; 84550; 85025

== ENCOUNTER → 2018-02-20 | Outpatient (CLI) | payer MEDICARE, OTHER ==
[2018-02-20 14:00] LABS: Calcium 9.8 mg/dL (8.4-10.2); Potassium 5.1 mmol/L (3.5-5.1)
== END | disposition home or self-care (01) ==
LOC: LABWHC1 12:27
PROVIDERS: ATTEND Internal Medicine Nephrology
DX: N18.4 Chronic kidney disease, stage 4 (severe) (principal)
CPT/HCPCS: 36415; 80048

== ENCOUNTER → 2018-04-01 | Outpatient (CLI) | payer MEDICARE, OTHER ==
[2018-04-01 12:03] LABS: Basophils % (A) 0 %; Eosinophils # (A) 0.3 k/uL (0-0.7); Eosinophils % (A) 4 %; HCT 43.6 % (39.0-53.0); HGB 13.8 gm/dL (13.0-17.5); Lymphocytes % (A) 14 %; MCH 30.7 pg (25.0-35.0); MCHC 31.6 g/dL (31.0-37.0); MCV 97.3 fL (80.0-100.0); Mean Platelet Volume 7.1; Monocytes # (A) 0.4 k/uL (0-1.0); Monocytes % (A) 5 %; Neutrophils # (A) 5.4 k/uL (1.3-7.7); Neutrophils % (A) 75 %; Platelet Count 330 k/uL (150-450); RBC 4.48 m/uL (4.30-5.90); WBC 7.2 k/uL (3.8-10.6)
[2018-04-01 12:17] LABS: Appearance,Urine Clear (Clear); Bilirubin,Urine Negative (Negative); Blood,Urine Small (Negative); Color,Urine Light Yellow; Glucose,Urine (UA) Negative (Negative); Ketones,Urine Negative (Negative); Leukocyte Esterase,Urine Negative (Negative); Mucus,Urine Rare /hpf; Nitrite,Urine Negative (Negative); Protein,Urine 1+ (Negative); RBC,Urine 3 /hpf (0-5); Urobilinogen,Urine <2.0 mg/dL (<2.0); WBC,Urine <1 /hpf (0-5)
[2018-04-01 16:37] LABS: Anion Gap 9.6 mmol/L (4.00-12.00); Bilirubin, Conjugated 0.2 mg/dL (0.20-0.40); Bilirubin,Unconjugated 0.6 mg/dL; Calcium 9.3 mg/dL (8.7-10.3); Carbon Dioxide 33.4 mmol/L (21.6-31.8); LDL Cholesterol,Calculated 124.4 mg/dL (0.0-131.0); Potassium 4.8 mmol/L (3.5-5.5); Total Bilirubin 0.8 mg/dL (0.3-1.2); Uric Acid 7.9 mg/dL (3.7-8.7); VLDL Calculation 21.6 mg/dL (5.00-40.00)
[2018-04-01 16:45] LABS: T4, Free (Free Thyroxine) 1.6 ng/dL (0.80-1.80)
[2018-04-01 22:54] LABS: Vitamin D 25 Hydroxy 34.1 ng/mL (30.0-100.0)
[2018-04-01 23:02] LABS: Iron Saturation 32.56 (15.00-50.00); Parathyroid Hormone Intact 153.2 pg/mL (14.0-72.0)
== END ==
LOC: LABWHC1 10:22
PROVIDERS: ATTEND Internal Medicine Nephrology
DX: I25.10 Atherosclerotic heart disease of native coronary artery without angina pectoris (principal); D63.1 Anemia in chronic kidney disease; N18.4 Chronic kidney disease, stage 4 (severe); E55.9 Vitamin D deficiency, unspecified; N25.81 Secondary hyperparathyroidism of renal origin; M10.9 Gout, unspecified; N39.0 Urinary tract infection, site not specified; Z79.899 Other long term (current) drug therapy
CPT/HCPCS: 36415; 80048; 80061; 81001; 82248; 82306; 82728; 83540; 83550; 83735; 83970; 84100; 84439; 84443; 84550; 85025

== ENCOUNTER → 2018-08-01 | Outpatient (CLI) | payer MEDICARE, OTHER ==
[2018-08-01 11:27] LABS: Appearance,Urine Clear (Clear); Bilirubin,Urine Negative (Negative); Blood,Urine Small (Negative); Color,Urine Yellow; Glucose,Urine (UA) Negative (Negative); Ketones,Urine Negative (Negative); Leukocyte Esterase,Urine Negative (Negative); Nitrite,Urine Negative (Negative); Protein,Urine 2+ (Negative); RBC,Urine 2 /hpf (0-5); Urobilinogen,Urine <2.0 mg/dL (<2.0); WBC,Urine <1 /hpf (0-5)
[2018-08-01 11:42] LABS: Basophils % (A) 0 %; Eosinophils # (A) 0.3 k/uL (0-0.7); Eosinophils % (A) 5 %; HCT 45.2 % (39.0-53.0); HGB 14.4 gm/dL (13.0-17.5); Lymphocytes % (A) 14 %; MCHC 31.9 g/dL (31.0-37.0); MCV 97.2 fL (80.0-100.0); Mean Platelet Volume 7.8; Monocytes # (A) 0.4 k/uL (0-1.0); Monocytes % (A) 6 %; Neutrophils # (A) 5.1 k/uL (1.3-7.7); Neutrophils % (A) 73 %; Platelet Count 213 k/uL (150-450); RBC 4.65 m/uL (4.30-5.90); RDW 14.6 % (11.5-15.5)
[2018-08-01 17:25] LABS: Parathyroid Hormone Intact 205.6 pg/mL (14.0-72.0)
[2018-08-01 17:42] LABS: Iron Saturation 20.53 (15.00-50.00)
[2018-08-01 17:49] LABS: Albumin 4.6 g/dL (3.80-4.90); Anion Gap 11.4 mmol/L (4.00-12.00); Calcium 9.2 mg/dL (8.7-10.3); Carbon Dioxide 30.6 mmol/L (21.6-31.8); Magnesium 2.2 mg/dL (1.5-2.4); Phosphorus 3.8 mg/dL (2.4-5.1); Uric Acid 7.1 mg/dL (3.7-8.7)
[2018-08-01 17:56] LABS: T4, Free (Free Thyroxine) 1.3 ng/dL (0.80-1.80)
[2018-08-02 02:43] LABS: Total Protein,Urine Random 180.4 mg/dL (0.0-13.5)
== END ==
LOC: LABWHC1 10:12
PROVIDERS: ATTEND Internal Medicine Nephrology
DX: N18.4 Chronic kidney disease, stage 4 (severe) (principal); E55.9 Vitamin D deficiency, unspecified; N39.0 Urinary tract infection, site not specified; N25.81 Secondary hyperparathyroidism of renal origin; M10.9 Gout, unspecified; D63.1 Anemia in chronic kidney disease; E03.2 Hypothyroidism due to medicaments and other exogenous substances; Z12.5 Encounter for screening for malignant neoplasm of prostate
CPT/HCPCS: 36415; 80048; 81001; 82040; 82570; 82728; 83540; 83550; 83735; 83970; 84100; 84153; 84156; 84439; 84443; 84550; 85025

== ENCOUNTER → 2018-08-29 | Outpatient (CLI) | payer MEDICARE, OTHER ==
[2018-08-29 17:32] LABS: Anion Gap 14.5 mmol/L (4.00-12.00); Calcium 9.8 mg/dL (8.7-10.3); Carbon Dioxide 36.5 mmol/L (21.6-31.8); Potassium 3.8 mmol/L (3.5-5.5)
== END | disposition home or self-care (01) ==
LOC: LABWHC1 08:59
PROVIDERS: ATTEND Internal Medicine Nephrology
DX: N18.4 Chronic kidney disease, stage 4 (severe) (principal)
CPT/HCPCS: 36415; 80048

== ENCOUNTER → 2018-10-31 | Outpatient (CLI) | payer MEDICARE, OTHER ==
[2018-10-31 07:56] LABS: Anisocytosis Slight; Basophils % (A) 1 %; Eosinophils # (A) 0.6 k/uL (0-0.7); Eosinophils % (A) 8 %; HCT 41.8 % (39.0-53.0); HGB 13.6 gm/dL (13.0-17.5); Lymphocytes % (A) 14 %; MCHC 32.5 g/dL (31.0-37.0); MCV 98.3 fL (80.0-100.0); Macrocytosis Slight; Mean Platelet Volume 7.9; Monocytes # (A) 0.4 k/uL (0-1.0); Monocytes % (A) 6 %; Neutrophils # (A) 4.8 k/uL (1.3-7.7); Neutrophils % (A) 68 %; Platelet Count 224 k/uL (150-450); RBC 4.25 m/uL (4.30-5.90); RDW 16.8 % (11.5-15.5); WBC 7.1 k/uL (3.8-10.6)
[2018-10-31 10:47] LABS: Iron Saturation 19.85 (15.00-50.00)
[2018-10-31 10:48] LABS: Anion Gap 8.4 mmol/L (4.00-12.00); Calcium 9.4 mg/dL (8.7-10.3); Carbon Dioxide 31.6 mmol/L (21.6-31.8); Magnesium 2.3 mg/dL (1.5-2.4); Potassium 4.1 mmol/L (3.5-5.5); Uric Acid 8.5 mg/dL (3.7-8.7)
[2018-10-31 10:55] LABS: Vitamin D 25 Hydroxy 46.5 ng/mL (30.0-100.0)
[2018-10-31 18:59] LABS: Creatinine,Urine Random 74.7 mg/dL
[2018-10-31 20:49] LABS: Total Protein,Urine Random 78.3 mg/dL (0.0-13.5)
== END | disposition home or self-care (01) ==
LOC: LABWHC1 07:19
PROVIDERS: ATTEND Internal Medicine Nephrology
DX: E55.9 Vitamin D deficiency, unspecified (principal); N18.4 Chronic kidney disease, stage 4 (severe); M10.9 Gout, unspecified; R80.9 Proteinuria, unspecified; D63.1 Anemia in chronic kidney disease
CPT/HCPCS: 36415; 80048; 82306; 82570; 82728; 83540; 83550; 83735; 83970; 84156; 84550; 85025

== ENCOUNTER 2018-12-15 12:30 | Inpatient (IN) | payer MEDICARE, OTHER ==
[2018-12-15] MEDS ORDERED: SODIUM CHLORIDE 0.9% 1,000 ML IV STA ×2 (13:20)
[2018-12-15] MEDS ORDERED: IPRATROPIUM-ALBUTEROL 3 ML NEB INHALATION STA (13:20)
--- NOTE | 2018-12-15 13:41 | ED ---
URI HPI <Carlos A Pichardo - Last Filed: 12/15/18 15:58> - General Source: patient, RN notes reviewed, old records reviewed Mode of arrival: ambulatory Limitations: no limitations <Paty Yee - Last Filed: 12/15/18 16:28> - General Chief Complaint: Upper Respiratory Infection Stated Complaint: Cough Time Seen by Provider: 12/15/18 12:57 - History of Present Illness Initial Comments: This Patient is a 73-year-old male who presents emergency department today for evaluation with complaints of worsening cough for the past few weeks. Patient reportedly has been on cefuroxime for the past 10 days for concern for pneumonia. He does have history of COPD and does see Dr. Barnes. Patient reports that he has had no significant fever or chills. Coughing is worse at night with laying down. Patient denies any history of abdominal pain or nausea or vomiting. He does report his has a pacemaker. He denies chest pain. Patient states that the cough persists and has a yellow-green sputum tinged. (Paty Yee) - Related Data Home Medications Medication Instructions Recorded Confirmed Atorvastatin [Lipitor] 40 mg PO HS 06/29/14 12/15/18 Multivitamins, Thera [Multivitamin 1 tab PO DAILY 06/29/14 12/15/18 (formulary)] Spironolactone 12.5 mg PO DAILY 06/29/14 12/15/18 Ubidecarenone [Co Q-10] 100 mg PO DAILY 06/29/14 12/15/18 Amiodarone [Cordarone] 200 mg PO DAILY 07/03/17 12/15/18 Ergocalciferol (Vitamin D2) 50,000 unit PO Q30D 09/03/17 12/15/18 [Vitamin D2] Albuterol Nebulized [Ventolin 2.5 mg INHALATION RT-Q6H PRN 12/15/18 12/15/18 Nebulized] Allopurinol [Zyloprim] 100 mg PO DAILY 12/15/18 12/15/18 Calcitriol 0.25 mcg PO WE 12/15/18 12/15/18 Carvedilol [Coreg] 6.25 mg PO BID 12/15/18 12/15/18 Metolazone [Zaroxolyn] 2.5 mg PO DAILY PRN 12/15/18 12/15/18 Previous Rx's Medication Instructions Recorded Isosorbide Mononitrate ER [Imdur] 60 mg PO DAILY #60 tab 12/27/16 Apixaban [Eliquis] 2.5 mg PO BID #0 tab 09/08/17 Furosemide [Lasix] 40 mg PO BID@0900,1600 #60 tab 09/23/17 Allergies Allergy/AdvReac Type Severity Reaction Status Date / Time No Known Allergies Allergy Verified 12/15/18 13:16 Review of Systems ROS Other: All systems not noted in ROS Statement are negative. <Carlos A Pichardo - Last Filed: 12/15/18 15:58> ROS Other: All systems not noted in ROS Statement are negative. <Paty Yee - Last Filed: 12/15/18 16:28> ROS Statement: Those systems with pertinent positive or pertinent negative responses have been documented in the HPI. Past Medical History Past Medical History: Atrial Fibrillation, Coronary Artery Disease (CAD), COPD, GERD/Reflux, Hyperlipidemia, Hypertension, Myocardial Infarction ([place]), Osteoarthritis (OA), Skin Disorder, Vascular Disorder Additional Past Medical History / Comment(s): Pt recently admitted 09/03/17 with dizziness/bradycardia and had a pacemaker insertion. Other hx: Afib with past RVR, SOB, chronic cough, -2008 [place]/cardiac arrest, PVD r/t vein havesting, chronic low back pain, chromic renal failure stage III, rosacia, hemorrhoids, hayfever. Last Myocardial Infarction Date:: November 2016 History of Any Multi-Drug Resistant Organisms: None Reported Past Surgical History: Back Surgery, Coronary Bypass/CABG, Heart Catheterization With Stent, Hernia Repair, Joint Replacement, Orthopedic Surgery Additional Past Surgical History / Comment(s): 09/08/17 permanent pacemaker, CABG, PCI/ with 4 stents in 2005, lumbar laminectomy, bilateral carpal tunnel releases, R shoulder rotator cuff surgery, pain clinic procedures for lumbar back, incisional hernia with mesh, colonoscopy, bilateral cataract removals. Past Anesthesia/Blood Transfusion Reactions: Postoperative Nausea & Vomiting (PONV) Additional Past Anesthesia/Blood Transfusion Reaction / Comment(s): CLAUSTERPHOBIA Date of Last Stent Placement:: 2005 Past Psychological History: No Psychological Hx Reported Smoking Status: Former smoker Past Alcohol Use History: None Reported Past Drug Use History: None Reported - Past Family History Mother Family Medical History: No Reported History Additional Family Medical History / Comment(s): IN A TRAIN ACCIDENT. Father Family Medical History: Renal Disease <KamillePaty long - Last Filed: 12/15/18 16:28> General Exam Limitations: no limitations General appearance: alert, in no apparent distress Head exam: Present: atraumatic, normocephalic, normal inspection Eye exam: Present: normal appearance, PERRL, EOMI. Absent: scleral icterus, conjunctival injection, periorbital swelling ENT exam: Present: normal exam, mucous membranes moist Neck exam: Present: normal inspection. Absent: tenderness, meningismus, lymphadenopathy Respiratory exam: Present: normal lung sounds bilaterally. Absent: respiratory distress, wheezes, rales, rhonchi, stridor Cardiovascular Exam: Present: regular rate, normal rhythm, normal heart sounds. Absent: systolic murmur, diastolic murmur, rubs, gallop, clicks GI/Abdominal exam: Present: soft, normal bowel sounds. Absent: distended, tenderness, guarding, rebound, rigid Extremities exam: Present: normal inspection, full ROM, normal capillary refill. Absent: tenderness, pedal edema, joint swelling, calf tenderness Back exam: Present: normal inspection Neurological exam: Present: alert, oriented X3, CN II-XII intact <Paty Yee - Last Filed: 12/15/18 16:28> - General Exam Comments Initial Comments: 73-year-old male. Alert and oriented 3. No significant distress. (Paty Yee) Course <Carlos A Pichardo - Last Filed: 12/15/18 15:58> Vital Signs 12/15/18 12/15/18 12/15/18 12:42 14:46 15:01 Temperature 97.9 F Pulse Rate 61 62 60 Respiratory 18 Rate Blood Pressure 151/73 O2 Sat by Pulse 94 L Oximetry - Reevaluation(s) Reevaluation #1: 12/15/18 15:58 Case was discussed with practitioner Paty. Chart and results reviewed. Case was also discussed with Dr. Smith, covering for Dr. El, who will admit. (Carlos A Pichardo) Medical Decision Making - Lab Data Result diagrams: 12/15/18 13:42 12/15/18 13:42 <Carlos A Pichardo - Last Filed: 12/15/18 15:58> - Lab Data Result diagrams: 12/15/18 13:42 12/15/18 13:42 - Radiology Data Radiology results: report reviewed <Paty Yee - Last Filed: 12/15/18 16:28> - Medical Decision Making 73-year-old male presents return today with shortness of breath, persistent cough. He was on 10 days of cefuroxime. Patient coughed continues to persist and has productive sputum. At this time patient's labwork was completed. Patient has normal white blood cell count of 8.2. Hemoglobin is stable 13.6. Satting 135. Potassium 3.3. This chloride is 86. CO2 36. BUN 70, creatinine 3.36. Patient has elevated troponin of 0.127. BNP is elevated at 7160. Patient was given DuoNeb treatment, he does have mild improvement but he does have diminished lung sounds. Patient given dose of Lasix, Solu-Medrol and Rocephin. Patient appears to be CHF. He is also started on heparin due to elevated troponin. We will admit the Patient for CHF, cardiology consult. Discussed concern for tracheobronchitis for Rocephin and azithromycin antibiotic was ordered. (Paty Yee) - Lab Data Lab Results 12/15/18 12/15/18 12/15/18 Range/Units 13:42 13:42 13:42 WBC 8.2 (3.8-10.6) k/uL RBC 4.18 L (4.30-5.90) m/uL Hgb 13.6 (13.0-17.5) gm/dL Hct 40.7 (39.0-53.0) % MCV 97.4 (80.0-100.0) fL MCH 32.6 (25.0-35.0) pg MCHC 33.5 (31.0-37.0) g/dL RDW 17.1 H (11.5-15.5) % Plt Count 304 (150-450) k/uL Neutrophils % 77 % Lymphocytes % 12 % Monocytes % 5 % Eosinophils % 5 % Basophils % 0 % Neutrophils # 6.3 (1.3-7.7) k/uL Lymphocytes # 1.0 (1.0-4.8) k/uL Monocytes # 0.4 (0-1.0) k/uL Eosinophils # 0.4 (0-0.7) k/uL Basophils # 0.0 (0-0.2) k/uL Anisocytosis Slight Macrocytosis Slight PT 10.1 (9.0-12.0) sec INR 0.9 (<1.2) APTT 28.4 (22.0-30.0) sec Sodium 135 L (137-145) mmol/L Potassium 3.3 L (3.5-5.1) mmol/L Chloride 86 L (98-107) mmol/L Carbon Dioxide 36 H (22-30) mmol/L Anion Gap 13 mmol/L BUN 70 H (9-20) mg/dL Creatinine 3.36 H (0.66-1.25) mg/dL Est GFR (CKD-EPI)AfAm 20 (>60 ml/min/1.73 sqM) Est GFR (CKD-EPI)NonAf 17 (>60 ml/min/1.73 sqM) Glucose 193 H (74-99) mg/dL Calcium 9.7 (8.4-10.2) mg/dL Magnesium 2.3 (1.6-2.3) mg/dL Total Bilirubin 0.8 (0.2-1.3) mg/dL AST 66 H (17-59) U/L ALT 41 (21-72) U/L Alkaline Phosphatase 70 (38-126) U/L Troponin I (0.000-0.034) ng/mL NT-Pro-B Natriuret Pep pg/mL Total Protein 7.2 (6.3-8.2) g/dL Albumin 4.3 (3.5-5.0) g/dL 12/15/18 12/15/18 Range/Units 13:42 13:42 WBC (3.8-10.6) k/uL RBC (4.30-5.90) m/uL Hgb (13.0-17.5) gm/dL Hct (39.0-53.0) % MCV (80.0-100.0) fL MCH (25.0-35.0) pg MCHC (31.0-37.0) g/dL RDW (11.5-15.5) % Plt Count (150-450) k/uL Neutrophils % % Lymphocytes % % Monocytes % % Eosinophils % % Basophils % % Neutrophils # (1.3-7.7) k/uL Lymphocytes # (1.0-4.8) k/uL Monocytes # (0-1.0) k/uL Eosinophils # (0-0.7) k/uL Basophils # (0-0.2) k/uL Anisocytosis Macrocytosis PT (9.0-12.0) sec INR (<1.2) APTT (22.0-30.0) sec Sodium (137-145) mmol/L Potassium (3.5-5.1) mmol/L Chloride (98-107) mmol/L Carbon Dioxide (22-30) mmol/L Anion Gap mmol/L BUN (9-20) mg/dL Creatinine (0.66-1.25) mg/dL Est GFR (CKD-EPI)AfAm (>60 ml/min/1.73 sqM) Est GFR (CKD-EPI)NonAf (>60 ml/min/1.73 sqM) Glucose (74-99) mg/dL Calcium (8.4-10.2) mg/dL Magnesium (1.6-2.3) mg/dL Total Bilirubin (0.2-1.3) mg/dL AST (17-59) U/L ALT (21-72) U/L Alkaline Phosphatase (38-126) U/L Troponin I 0.127 H* (0.000-0.034) ng/mL NT-Pro-B Natriuret Pep 7160 pg/mL Total Protein (6.3-8.2) g/dL Albumin (3.5-5.0) g/dL 12/15/18 15:01 EKG shows sinus rhythm with first-degree AV block. Left ventricular hypertrophy and repolarization around. In. A posterior infarct age undetermined. Ventricular rate of 63 bpm. Verbal to 76 most seconds. Frustration 96 8 ms. QT QTc is 486/497 ms. (Paty Yee) Disposition <Carlos A Pichardo - Last Filed: 12/15/18 15:58> Is patient prescribed a controlled substance at d/c from ED?: No Time of Disposition: 16:28 <Paty Yee - Last Filed: 12/15/18 16:28> Clinical Impression: NSTEMI (non-ST elevated myocardial infarction), CHF (congestive heart failure), Bronchitis, Failure of outpatient treatment Disposition: ADMITTED IP TO THIS HOSP Condition: Stable Instructions (If sedation given, give patient instructions): Upper Respiratory Infection (ED) Referrals: Feliz El MD [Primary Care Provider] - 1-2 days
[2018-12-15 14:21] LABS: Anisocytosis Slight; Basophils % (A) 0 %; Eosinophils # (A) 0.4 k/uL (0-0.7); Eosinophils % (A) 5 %; HCT 40.7 % (39.0-53.0); HGB 13.6 gm/dL (13.0-17.5); Lymphocytes % (A) 12 %; MCH 32.6 pg (25.0-35.0); MCHC 33.5 g/dL (31.0-37.0); MCV 97.4 fL (80.0-100.0); Macrocytosis Slight; Mean Platelet Volume 7.7; Monocytes # (A) 0.4 k/uL (0-1.0); Monocytes % (A) 5 %; Neutrophils # (A) 6.3 k/uL (1.3-7.7); Neutrophils % (A) 77 %; Platelet Count 304 k/uL (150-450); RBC 4.18 m/uL (4.30-5.90); RDW 17.1 % (11.5-15.5); WBC 8.2 k/uL (3.8-10.6)
--- NOTE | 2018-12-15 14:22 | XR ---
EXAMINATION TYPE: XR chest 2V DATE OF EXAM: 12/15/2018 COMPARISON: Prior chest x-ray 09/21/[address] chest 10/12/2017 HISTORY: Difficulty breathing TECHNIQUE: Frontal and lateral views of the chest are obtained. FINDINGS: Patient is post median sternotomy. There is persistent blunting of the left costophrenic a ngle. Pacemaker is stable. Heart size is unchanged. The aorta is dense. No pneumothorax. IMPRESSION: No acute cardiopulmonary process. Probable chronic pleural reaction at the left lung bas e, postop change
[2018-12-15 14:30] LABS: Albumin 4.3 g/dL (3.5-5.0); Calcium 9.7 mg/dL (8.4-10.2); Magnesium 2.3 mg/dL (1.6-2.3); Potassium 3.3 mmol/L (3.5-5.1); Total Bilirubin 0.8 mg/dL (0.2-1.3); Total Protein 7.2 g/dL (6.3-8.2)
[2018-12-15 14:32] LABS: INR 0.9 (<1.2); Partial Thromboplastin Time 28.4 sec (22.0-30.0); Prothrombin Time 10.1 sec (9.0-12.0)
[2018-12-15] MEDS ORDERED: HEPARIN SODIUM,PORCINE 5,000 UNIT/ML 1 ML VIAL IV ONE (15:23)
[2018-12-15] MEDS ORDERED: cefTRIAXone IN SWFI 1,000 MG/10 ML SYRINGE IVP STA (15:23)
[2018-12-15] MEDS ORDERED: HEPARIN SODIUM,PORCINE 5,000 UNIT/ML 1 ML VIAL IV PRN (15:23)
[2018-12-15] MEDS ORDERED: HEPARIN SOD,PORK IN 0.45% NACL 25,000 UNIT in 0.45% NACL 1 250ML.BAG IV SCH (15:30)
[2018-12-15] MEDS ORDERED: ASPIRIN 325 MG TAB PO STA (16:00)
[2018-12-15] MEDS ORDERED: methylPREDNISolone SOD SUCCI 125 MG/2 ML VIAL IV STA (16:00)
[2018-12-15] MEDS ORDERED: FUROSEMIDE 10 MG/ML 4 ML VIAL IV STA (16:00)
[2018-12-15] MEDS ORDERED: NITROGLYCERIN SL TABS 0.4 MG TAB SUBLINGUAL PRN (16:24)
[2018-12-15] MEDS ORDERED: AZITHROMYCIN 500 MG TAB PO STA (16:27)
[2018-12-15] MEDS ORDERED: METOLAZONE 2.5 MG TAB PO PRN (16:28)
[2018-12-15] MEDS ORDERED: ALBUTEROL NEBULIZED 2.5 MG/3 ML INHALATION PRN (16:28)
--- NOTE | 2018-12-15 16:38 | P.HPIM ---
History of Present Illness 73-year-old male came in with comments of cough without any significant sputum production has been waking up at nighttime using the breathing treatments going back to sleep has to wake up after sometime having a breathing treatment and going back to sleep have been happening every single day multiple times has been going on earlier this month. Patient denied any fever chills associated nausea pneumonic process. There is elevated BNP a cannot really appreciate his JVD chest x-ray did not show any pulmonary edema patient had normal ejection fraction the past patient has poor kidney function stage IV chronic kidney disease. Patient has history of COPD but not in severe exacerbation at this time patient does have history of for coronary artery bypass grafting after cardiopulmonary arrest. Patient has minimally elevated troponin which will be repeated again this may be secondary to chronic kidney disease. Patient denied any chest pain at this time. Review of Systems REVIEW OF SYSTEMS: CONSTITUTIONAL: No fever, no malaise, no fatigue. HEENT: No recent visual problems or hearing problems. Denied any sore throat. CARDIOVASCULAR: no palpitations, no syncope. PULMONARY: no hemoptysis. GASTROINTESTINAL: No diarrhea, no nausea, no vomiting, no abdominal pain. NEUROLOGICAL: No headaches, no weakness, no numbness. HEMATOLOGICAL: Denies any bleeding or petechiae. GENITOURINARY: Denies any burning micturition, frequency, or urgency. MUSCULOSKELETAL/RHEUMATOLOGICAL: Denies any joint pain, swelling, or any muscle pain. ENDOCRINE: Denies any polyuria or polydipsia. The rest of the 14-point review of systems is negative. Past Medical History Past Medical History: Atrial Fibrillation, Coronary Artery Disease (CAD), COPD, GERD/Reflux, Hyperlipidemia, Hypertension, Myocardial Infarction ([place]), Osteoarthritis (OA), Skin Disorder, Vascular Disorder Additional Past Medical History / Comment(s): Pt recently admitted 09/03/17 with dizziness/bradycardia and had a pacemaker insertion. Other hx: Afib with past RVR, SOB, chronic cough, MIs-2008 [place]/cardiac arrest, PVD r/t vein havesting, chronic low back pain, chromic renal failure stage III, rosacia, hemorrhoids, hayfever. Last Myocardial Infarction Date:: November 2016 History of Any Multi-Drug Resistant Organisms: None Reported Past Surgical History: Back Surgery, Coronary Bypass/CABG, Heart Catheterization With Stent, Hernia Repair, Joint Replacement, Orthopedic Surgery Additional Past Surgical History / Comment(s): 4/12/18 permanent pacemaker, CABG, PCI/ with 4 stents in 2005, lumbar laminectomy, bilateral carpal tunnel releases, R shoulder rotator cuff surgery, pain clinic procedures for lumbar back, incisional hernia with mesh, colonoscopy, bilateral cataract removals. Past Anesthesia/Blood Transfusion Reactions: Postoperative Nausea & Vomiting (PONV) Additional Past Anesthesia/Blood Transfusion Reaction / Comment(s): CLAUSTERPHOBIA Date of Last Stent Placement:: 2005 Past Psychological History: No Psychological Hx Reported Smoking Status: Former smoker Past Alcohol Use History: None Reported Past Drug Use History: None Reported - Past Family History Mother Family Medical History: No Reported History Additional Family Medical History / Comment(s): IN A TRAIN ACCIDENT. Father Family Medical History: Renal Disease Medications and Allergies Home Medications Medication Instructions Recorded Confirmed Type Atorvastatin [Lipitor] 40 mg PO HS 06/29/14 12/15/18 History Multivitamins, Thera [Multivitamin 1 tab PO DAILY 06/29/14 12/15/18 History (formulary)] Spironolactone 12.5 mg PO DAILY 06/29/14 12/15/18 History Ubidecarenone [Co Q-10] 100 mg PO DAILY 06/29/14 12/15/18 History Isosorbide Mononitrate ER [Imdur] 60 mg PO DAILY #60 tab 12/27/16 12/15/18 Rx Amiodarone [Cordarone] 200 mg PO DAILY 07/03/17 12/15/18 History Ergocalciferol (Vitamin D2) 50,000 unit PO Q30D 09/03/17 12/15/18 History [Vitamin D2] Apixaban [Eliquis] 2.5 mg PO BID #0 tab 09/08/17 12/15/18 Rx Furosemide [Lasix] 40 mg PO BID@0900,1600 #60 tab 09/23/17 12/15/18 Rx Albuterol Nebulized [Ventolin 2.5 mg INHALATION RT-Q6H PRN 12/15/18 12/15/18 History Nebulized] Allopurinol [Zyloprim] 100 mg PO DAILY 12/15/18 12/15/18 History Calcitriol 0.25 mcg PO WE 12/15/18 12/15/18 History Carvedilol [Coreg] 6.25 mg PO BID 12/15/18 12/15/18 History Metolazone [Zaroxolyn] 2.5 mg PO DAILY PRN 12/15/18 12/15/18 History Allergies Allergy/AdvReac Type Severity Reaction Status Date / Time No Known Allergies Allergy Verified 12/15/18 13:16 Physical Exam Vitals: Vital Signs Temp Pulse Resp BP Pulse Ox 12/15/18 15:01 60 12/15/18 14:46 62 12/15/18 12:42 97.9 F 61 18 151/73 94 L Intake and Output 12/15/18 12/15/18 12/15/18 06:59 14:59 22:59 Other: Weight 98.883 kg PHYSICAL EXAMINATION: GENERAL: The patient is alert and oriented x3, not in any acute distress. Well developed, well nourished. HEENT: Pupils are round and equally reacting to light. EOMI. No scleral icterus. No conjunctival pallor. Normocephalic, atraumatic. No pharyngeal erythema. No thyromegaly. CARDIOVASCULAR: S1 and S2 present. No murmurs, rubs, or gallops. PULMONARY: Chest is clear to auscultation, no wheezing or crackles. ABDOMEN: Soft, nontender, nondistended, normoactive bowel sounds. No palpable organomegaly. MUSCULOSKELETAL: No joint swelling or deformity. EXTREMITIES: No cyanosis, clubbing, or pedal edema. NEUROLOGICAL: Gross neurological examination did not reveal any focal deficits. SKIN: No rashes. Results CBC & Chem 7: 12/15/18 13:42 12/15/18 13:42 Labs: Abnormal Lab Results - Last 24 Hours (Table) 12/15/18 12/15/18 12/15/18 Range/Units 13:42 13:42 13:42 RBC 4.18 L (4.30-5.90) m/uL RDW 17.1 H (11.5-15.5) % Sodium 135 L (137-145) mmol/L Potassium 3.3 L (3.5-5.1) mmol/L Chloride 86 L (98-107) mmol/L Carbon Dioxide 36 H (22-30) mmol/L BUN 70 H (9-20) mg/dL Creatinine 3.36 H (0.66-1.25) mg/dL Glucose 193 H (74-99) mg/dL AST 66 H (17-59) U/L Troponin I 0.127 H* (0.000-0.034) ng/mL Assessment and Plan Plan: -Cough with shortness of breath: Probably related to congestive heart failure exacerbation patient has chronic diastolic dysfunction with acute exacerbation patient has chronic kidney disease stage IV patient will be started on IV Lasix metolazone will be resumed and continued along with Aldactone. Possibility of COPD exacerbation is low patient is not wheezing at this time -COPD without any acute exacerbation -Atrial fibrillation presently rate controlled continue with Eliquis - mildly elevated troponin secondary to chronic kidney disease stage IV no chest pain at this time EKG did not show any acute ST-T wave changes. Repeat 2 more sets of troponin. 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
[2018-12-15] MEDS ORDERED: POTASSIUM CHLORIDE ER 20 MEQ TAB.ER PO STA (18:51)
[2018-12-15] MEDS: ATORVASTATIN 40 MG TAB PO SCH (20:31)
[2018-12-15] MEDS: CARVEDILOL 6.25 MG TAB PO SCH (20:32)
[2018-12-15] MEDS ORDERED: APIXABAN 2.5 MG TABLET PO SCH (21:00)
[2018-12-15 21:05] VITALS: BMI 34.1
[2018-12-15] MEDS: NITROGLYCERIN OINT 1 INCH/GM PACKET TOPICAL SCH (21:07)
[2018-12-15] MEDS: IPRATROPIUM-ALBUTEROL 3 ML NEB INHALATION SCH ×2 (22:10→23:17)
[2018-12-16] MEDS: APIXABAN 5 MG TAB PO SCH ×2 (00:09→07:55)
[2018-12-16] MEDS: FUROSEMIDE 10 MG/ML 4 ML VIAL IV SCH ×3 (00:10→20:06)
[2018-12-16] MEDS: NITROGLYCERIN OINT 1 INCH/GM PACKET TOPICAL SCH ×4 (00:15→14:52)
[2018-12-16 02:12] LABS: Anisocytosis Slight; Basophils % (A) 0 %; Eosinophils % (A) 1 %; HGB 13.5 gm/dL (13.0-17.5); Lymphocytes # (A) 0.5 k/uL (1.0-4.8); Lymphocytes % (A) 8 %; MCH 32.5 pg (25.0-35.0); MCV 98.5 fL (80.0-100.0); Macrocytosis Slight; Mean Platelet Volume 7.9; Monocytes # (A) 0.1 k/uL (0-1.0); Monocytes % (A) 1 %; Neutrophils # (A) 5.4 k/uL (1.3-7.7); Neutrophils % (A) 89 %; Platelet Count 302 k/uL (150-450); RBC 4.16 m/uL (4.30-5.90); RDW 17.1 % (11.5-15.5)
[2018-12-16 02:39] LABS: Calcium 9.3 mg/dL (8.4-10.2); Potassium 3.3 mmol/L (3.5-5.1)
[2018-12-16] MEDS: IPRATROPIUM-ALBUTEROL 3 ML NEB INHALATION SCH ×5 (03:31→20:27)
[2018-12-16] MEDS: CARVEDILOL 6.25 MG TAB PO SCH ×2 (06:58→15:45)
[2018-12-16] MEDS: ISOSORBIDE MONONITRATE ER 60 MG TAB.ER.24H PO SCH (07:54)
[2018-12-16] MEDS: ASPIRIN 325 MG TAB PO SCH (07:54)
[2018-12-16] MEDS: AMIODARONE 200 MG TAB PO SCH (07:55)
[2018-12-16] MEDS: SPIRONOLACTONE 25 MG TAB PO SCH (07:55)
[2018-12-16] MEDS ORDERED: POTASSIUM CHLORIDE ER 20 MEQ TAB.ER PO STA (09:31)
--- NOTE | 2018-12-16 09:32 | P.NPCON ---
History of Present Illness - Reason for Consult acute renal failure, chronic renal failure - History of Present Illness Reason for consultation: Acute kidney injury on chronic kidney disease. History of present illness: Patient is a 73-year-old male seen in renal consultation for acute kidney injury on chronic kidney disease. Patient has chronic kidney disease stage IV with baseline creatinine in the range of 3-3.3 outpatient. Creatinine was 2.36 on admission and is 3.2 today. Patient presented to the hospital with cough. Patient states the cough started early in November and he was also completed a course of antibiotic 2 days ago. Patient denies any fever or chills. No vomiting or diarrhea. He does have clear sputum. He admits to good urine output. No hematuria or dysuria. Currently maintained on Lasix 40 mg IV 3 times a day. Patient denies edema. No chest pain. Denies use of nonster oidals. Patient is extremely hesitant to start renal replacement therapy. Vital signs are stable. General: The patient appeared well nourished and normally developed. HEENT: Head exam is unremarkable. Neck is without jugular venous distension. LUNGS: Breath sounds decreased. HEART: Rate and Rhythm are regular. First and second heart sounds normal. No murmurs, rubs or gallops. ABDOMEN: Abdominal exam reveals normal bowel sounds. Non-tender and non- distended. No evidence of peritonitis. EXTREMITITES: No clubbing, cyanosis, or edema. Past Medical History Past Medical History: Atrial Fibrillation, Coronary Artery Disease (CAD), COPD, GERD/Reflux, Hyperlipidemia, Hypertension, Myocardial Infarction ([place]), Osteoarthritis (OA), Skin Disorder, Vascular Disorder Additional Past Medical History / Comment(s): Pt recently admitted 09/03/17 with dizziness/bradycardia and had a pacemaker insertion. Other hx: Afib with past RVR, SOB, chronic cough, MIs-2008 [place]/cardiac arrest, PVD r/t vein havesting, chronic low back pain, chronic renal failure stage III, rosacia. Last Myocardial Infarction Date:: November 2016 History of Any Multi-Drug Resistant Organisms: None Reported Past Surgical History: Back Surgery, Coronary Bypass/CABG, Heart Catheterization With Stent, Hernia Repair, Joint Replacement, Orthopedic Surgery Additional Past Surgical History / Comment(s): 09/08/17 permanent pacemaker, CABG, PCI/ with 4 stents in 2005, lumbar laminectomy, bilateral carpal tunnel releases, R shoulder rotator cuff surgery, pain clinic procedures for lumbar back, incisional hernia with mesh, colonoscopy, bilateral cataract remova ls. Past Anesthesia/Blood Transfusion Reactions: Postoperative Nausea & Vomiting (PONV) Additional Past Anesthesia/Blood Transfusion Reaction / Comment(s): CLAUSTROPHOBIA Date of Last Stent Placement:: 2005 Past Psychological History: No Psychological Hx Reported Additional Psychological History / Comment(s): PT LIVES WITH HIS MARIMAR IN SINGLE LEVEL HOME THAT HAS 2 PORCH STEPS. PETS-1 CAT, 2 DOGS. NO OUTSIDE SERVICES RECIEVED. DOES HAVE NEBULIZER, WALKER NEEDED. NO SERVICE IN BACKGROUND. WORKED A [employer]. Smoking Status: Former smoker Past Alcohol Use History: None Reported Additional Past Alcohol Use History / Comment(s): SMOKED 50 YEARS QUIT 2008, SMOKED 1/2 PPD Past Drug Use History: None Reported - Past Family History Mother Family Medical History: No Reported History Additional Family Medical History / Comment(s): IN A TRAIN ACCIDENT. Father Family Medical History: Renal Disease Medications and Allergies Home Medications Medication Instructions Recorded Confirmed Type Atorvastatin [Lipitor] 40 mg PO HS 06/29/14 12/15/18 History Multivitamins, Thera [Multivitamin 1 tab PO DAILY 06/29/14 12/15/18 History (formulary)] Spironolactone 12.5 mg PO DAILY 06/29/14 12/15/18 History Ubidecarenone [Co Q-10] 100 mg PO DAILY 06/29/14 12/15/18 History Isosorbide Mononitrate ER [Imdur] 60 mg PO DAILY #60 tab 12/27/16 12/15/18 Rx Amiodarone [Cordarone] 200 mg PO DAILY 07/03/17 12/15/18 History Ergocalciferol (Vitamin D2) 50,000 unit PO Q30D 09/03/17 12/15/18 History [Vitamin D2] Apixaban [Eliquis] 2.5 mg PO BID #0 tab 09/08/17 12/15/18 Rx Furosemide [Lasix] 40 mg PO BID@0900,1600 #60 tab 09/23/17 12/15/18 Rx Albuterol Nebulized [Ventolin 2.5 mg INHALATION RT-Q6H PRN 12/15/18 12/15/18 History Nebulized] Allopurinol [Zyloprim] 100 mg PO DAILY 12/15/18 12/15/18 History Calcitriol 0.25 mcg PO WE 12/15/18 12/15/18 History Carvedilol [Coreg] 6.25 mg PO BID 12/15/18 12/15/18 History Metolazone [Zaroxolyn] 2.5 mg PO DAILY PRN 12/15/18 12/15/18 History Allergies Allergy/AdvReac Type Severity Reaction Status Date / Time No Known Allergies Allergy Verified 12/15/18 13:16 Physical Exam Vitals: Vital Signs Temp Pulse Pulse Resp BP BP BP 12/16/18 09:11 68 12/16/18 08:58 68 12/16/18 08:00 71 18 12/16/18 07:51 97.7 F 71 18 118/67 12/16/18 04:00 97.6 F 64 18 120/62 12/16/18 00:00 98.1 F 68 18 133/72 12/15/18 23:28 72 12/15/18 23:18 69 12/15/18 22:18 175/82 12/15/18 20:00 97.9 F 71 20 201/89 12/15/18 18:22 65 17 167/79 12/15/18 15:01 60 12/15/18 14:46 62 12/15/18 12:42 97.9 F 61 18 151/73 Pulse Ox 12/16/18 09:11 12/16/18 08:58 12/16/18 08:00 12/16/18 07:51 94 L 12/16/18 04:00 94 L 12/16/18 00:00 94 L 12/15/18 23:28 12/15/18 23:18 12/15/18 22:18 12/15/18 20:00 97 12/15/18 18:22 98 12/15/18 15:01 12/15/18 14:46 12/15/18 12:42 94 L Intake and Output 12/15/18 12/16/18 12/16/18 22:59 06:59 14:59 Other: Voiding Method Toilet Toilet Toilet # Voids 2 1 Weight 99 kg Results - Lab Results Most recent lab results Calcium 9.3 mg/dL (8.4-10.2) 12/16/18 02:03 Magnesium 2.3 mg/dL (1.6-2.3) 12/15/18 13:42 12/16/18 02:03 12/16/18 02:03 Assessment and Plan Plan: Assessment: 1. Mild acute kidney injury mostly prerenal. Component of cardiorenal s yndrome. Creatinine was 3.36 on admission and is 3.2 today. 2. Chronic kidney disease stage IV secondary to nephrosclerosis and cardiorenal syndrome with baseline creatinine outpatient in the range of 3-3.3. 3. Hypokalemia secondary to diuresis. 4. History of diastolic CHF. 5. Volume overload. Plan: I did decrease Lasix to 40 mg IV twice daily. Maintain Aldactone. Replace potassium. 40 mEq today. Check urinalysis. Avoid nephrotoxins. No urgent need for renal replacement therapy at this time. Thank you for the consultation. I will continue to follow the patient with you during his hospital stay.
[2018-12-16 10:44] LABS: Appearance,Urine Clear (Clear); Bacteria,Urine Rare /hpf; Bilirubin,Urine Negative (Negative); Blood,Urine Moderate (Negative); Color,Urine Light Yellow; Glucose,Urine (UA) Negative (Negative); Ketones,Urine Negative (Negative); Leukocyte Esterase,Urine Negative (Negative); Mucus,Urine Rare /hpf; Nitrite,Urine Negative (Negative); Protein,Urine 1+ (Negative); RBC,Urine 3 /hpf (0-5); Urobilinogen,Urine <2.0 mg/dL (<2.0); WBC,Urine <1 /hpf (0-5)
--- NOTE | 2018-12-16 12:49 | P.PN ---
Subjective Patient is admitted for CHF exacerbation, on IV Lasix improving respiratory status continue with IV Lasix for 1 more day possibly of discharge tomorrow. She does have chronic kidney disease stage IV nephrology evaluated the patient cardiology evaluated the patient. Patient has significant improvement in shortness of breath Constitutional: Denied any fatigue denied any fever. Cardio vascular: denied any chest pain, palpitations Gastrointestinal denied any nausea vomiting Pulmonary: Denied any shortness of breath cough Neurologic denied any new focal deficits All inpatient medications were reviewed and appropriate changes in these medications as dictated in the interval history and assessment and plan. Objective - Vital Signs Vital signs: Vital Signs Temp 97.7 F 12/16/18 07:51 Pulse 72 12/16/18 12:31 Resp 18 12/16/18 11:20 BP 116/77 12/16/18 11:00 Pulse Ox 92 L 12/16/18 11:00 Intake & Output 12/15/18 12/16/18 12/16/18 18:59 06:59 18:59 Output Total 325 Balance -325 Weight 98.883 kg 99 kg Output: Urine 325 Other: Voiding Method Toilet Toilet # Voids 2 1 - Exam PHYSICAL EXAMINATION: GENERAL: The patient is alert and oriented x3, not in any acute distress. Well developed, well nourished. HEENT: Pupils are round and equally reacting to light. EOMI. No scleral icterus. No conjunctival pallor. Normocephalic, atraumatic. No pharyngeal erythema. No thyromegaly. CARDIOVASCULAR: S1 and S2 present. No murmurs, rubs, or gallops. PULMONARY: Good air entry with minimal expiratory wheezing on exam ABDOMEN: Soft, nontender, nondistended, normoactive bowel sounds. No palpable organomegaly. MUSCULOSKELETAL: No joint swelling or deformity. EXTREMITIES: No cyanosis, clubbing, or pedal edema. NEUROLOGICAL: Gross neurological examination did not reveal any focal deficits. SKIN: No rashes. - Labs CBC & Chem 7: 12/16/18 02:03 12/16/18 02:03 Labs: Abnormal Lab Results - Last 24 Hours (Table) 12/15/18 12/15/18 12/15/18 Range/Units 13:42 13:42 13:42 RBC 4.18 L (4.30-5.90) m/uL RDW 17.1 H (11.5-15.5) % Lymphocytes # (1.0-4.8) k/uL APTT (22.0-30.0) sec Sodium 135 L (137-145) mmol/L Potassium 3.3 L (3.5-5.1) mmol/L Chloride 86 L (98-107) mmol/L Carbon Dioxide 36 H (22-30) mmol/L BUN 70 H (9-20) mg/dL Creatinine 3.36 H (0.66-1.25) mg/dL Glucose 193 H (74-99) mg/dL AST 66 H (17-59) U/L Troponin I 0.127 H* (0.000-0.034) ng/mL Urine Protein (Negative) Urine Blood (Negative) Urine Bacteria (None) /hpf Urine Mucus (None) /hpf 12/15/18 12/15/18 12/16/18 Range/Units 19:12 21:08 02:03 RBC (4.30-5.90) m/uL RDW (11.5-15.5) % Lymphocytes # (1.0-4.8) k/uL APTT 70.1 H (22.0-30.0) sec Sodium (137-145) mmol/L Potassium (3.5-5.1) mmol/L Chloride (98-107) mmol/L Carbon Dioxide (22-30) mmol/L BUN (9-20) mg/dL Creatinine (0.66-1.25) mg/dL Glucose (74-99) mg/dL AST (17-59) U/L Troponin I 0.130 H* 0.109 H* (0.000-0.034) ng/mL Urine Protein (Negative) Urine Blood (Negative) Urine Bacteria (None) /hpf Urine Mucus (None) /hpf 12/16/18 12/16/18 12/16/18 Range/Units 02:03 02:03 10:05 RBC 4.16 L (4.30-5.90) m/uL RDW 17.1 H (11.5-15.5) % Lymphocytes # 0.5 L (1.0-4.8) k/uL APTT (22.0-30.0) sec Sodium 134 L (137-145) mmol/L Potassium 3.3 L (3.5-5.1) mmol/L Chloride 88 L (98-107) mmol/L Carbon Dioxide (22-30) mmol/L BUN 72 H (9-20) mg/dL Creatinine 3.22 H (0.66-1.25) mg/dL Glucose 197 H (74-99) mg/dL AST (17-59) U/L Troponin I (0.000-0.034) ng/mL Urine Protein 1+ H (Negative) Urine Blood Moderate H (Negative) Urine Bacteria Rare H (None) /hpf Urine Mucus Rare H (None) /hpf Assessment and Plan Plan: -Cough with shortness of breath: Probably related to congestive heart failure exacerbation patient has chronic diastolic dysfunction with acute exacerbation patient has chronic kidney disease stage IV patient will be started on IV Lasix metolazone will be resumed and continued along with Aldactone. Patient is bit hyponatremic repeat basic metabolic profile tomorrow -COPD with minimal exacerbation patient was started on inhaled steroids -Atrial fibrillation presently rate controlled continue with Eliquis - mildly elevated troponin secondary to chronic kidney disease stage IV no chest pain at this time EKG did not show any acute ST-T wave changes. Repeat 2 more sets of troponin. 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
--- NOTE | 2018-12-16 15:21 | P.CRDCN ---
History of Present Illness History of present illness: This is a pleasant 73-year-old male past medical history significant for coronary artery disease status post bypass grafting, COPD, paroxysmal atrial fibrillation on long-term anticoagulation, permanent pacemaker implantation secondary to symptomatic bradycardia, hypertension and dyslipidemia. He follows in the office with Dr. Cardenas. We have been asked to see him in cons ultation secondary to elevated troponin. He presented to the hospital secondary to a two-week history of productive cough. He had been on outpatient antibiotics and was not showing any improvement. He denies chest discomfort, shortness of breath, dizziness, palpitations, nausea, vomiting or diaphoresis. EKG reveals sinus mechanism first-degree AV block, left ventricular hypertrophy, T wave inversion in the precordial leads and nonspecific ST abnormality. Chest x-ray is negative for an acute cardiopulmonary process with chronic pleural reaction at the left lung base. Laboratory data reviewed, WBC 6, hemoglobin 13.5, platelets 302, sodium 134, potassium 3.3, creatinine 3.22 with a GFR 18, magnesium 2.3, troponin 0.127, 0.130 and 0.109, proBNP 7160 and LDL 97. Current cardiac medications include Eliquis 2.5 mg twice a day, Coreg 6.25 mg twice a day, Lasix 40 mg twice a day, Imdur 60 mg daily, amiodarone 200 mg daily, Zaroxolyn 2.5 mg daily as needed, Aldactone 12.5 mg daily and atorv astatin 40 mg daily. Most recent echocardiogram August 2018 reveals preserved LV systolic function wi th ejection fraction 55-60% with mild tricuspid regurgitation. At the time of my exam: CONSTITUTIONAL: Denies fever. Denies chills. EYES: Denies blurred vision. Denies vision changes. Denies eye pain. EARS, NOSE, MOUTH & THROAT: Denies headache. Denies sore throat. Denies ear pain. CARDIOVASCULAR: Denies chest pain. Denies shortness of breath. Denies orthopnea. Denies PND. Denies palpitations. RESPIRATORY: Complains of cough. GASTROINTESTINAL: Denies abdominal pain. Denies diarrhea. Denies constipation. Denies nausea. Denies vomiting. MUSCULOSKELETAL: Denies myalgias. INTEGUMENTARY: Denies pruitis. Denies rash. NEUROLOGIC: Denies numbness. Denies tingling. Denies weakness. PSYCHIATRIC: Denies anxiety. Denies depression. ENDOCRINE: Denies fatigue. Denies weight change. Denies polydipsia. Denies polyurina. GENITOURINARY: Denies burning, hematuria or urgency with micturation. HEMATOLOGIC: Denies history of anemia. Denies bleeding. Blood pressure 116/77 heart rate 71 afebrile maintaining oxygen saturation on room air GENERAL: This is a 73-year-old male in no apparent distress at the time of my examination. HEENT: Head is atraumatic, normocephalic. Pupils are equal, round. Sclerae anicteric. Conjunctivae are clear. Mucous membranes of the mouth are moist. Neck is supple. There is no jugular venous distention. No carotid bruit is heard. LUNGS: Clear to auscultation no wheezes, rales or rhonchi. No chest wall tenderness is noted on palpation or with deep breathing. HEART: Regular rate and rhythm without murmurs, rubs or gallops. S1 and S2 heard. ABDOMEN: Soft, nontender. Bowel sounds are heard. No organomegaly noted. EXTREMITIES: No evidence of peripheral edema and no calf tenderness noted. VASCULAR: Radial and dorsalis pedis pulses palpated, no evidence of clubbing. NEUROLOGIC: Patient is awake, alert and oriented x3. ASSESSMENT Productive cough secondary to exacerbation of COPD and tracheobronchitis Chronic diastolic heart failure Chronic kidney disease Troponin elevation not suggestive of an acute coronary event, chronically elevated most likely secondary to chronic kidney disease. There is no symptoms of angina. History of coronary artery disease status post bypass grafting Paroxysmal atrial fibrillation on long-term anticoagulation Permanent pacemaker implantation Hypertension Dyslipidemia PLAN Ongoing medical management per primary care team. No clinical evidence to suggest acute exacerbation of heart failure. Thank you kindly for this consultation. Nurse Practitioner note has been reviewed, I agree with a documented findings and plan of care. Patient was seen and examined. Past Medical History Past Medical History: Atrial Fibrillation, Coronary Artery Disease (CAD), COPD, GERD/Reflux, Hyperlipidemia, Hypertension, Myocardial Infarction (NH), Osteoarthritis (OA), Skin Disorder, Vascular Disorder Additional Past Medical History / Comment(s): Pt recently admitted 09/03/17 with dizziness/bradycardia and had a pacemaker insertion. Other hx: Afib with past RVR, SOB, chronic cough, MIs-2009 NH/cardiac arrest, PVD r/t vein havesting, chronic low back pain, chronic renal failure stage III, rosacia. Last Myocardial Infarction Date:: November 2016 History of Any Multi-Drug Resistant Organisms: None Reported Past Surgical History: Back Surgery, Coronary Bypass/CABG, Heart Catheterization With Stent, Hernia Repair, Joint Replacement, Orthopedic Surgery Additional Past Surgical History / Comment(s): 09/08/17 permanent pacemaker, CABG, PCI/ with 4 stents in 2005, lumbar laminectomy, bilateral carpal tunnel releases, R shoulder rotator cuff surgery, pain clinic procedures for lumbar back, incisional hernia with mesh, colonoscopy, bilateral cataract rem ovals. Past Anesthesia/Blood Transfusion Reactions: Postoperative Nausea & Vomiting (PONV) Additional Past Anesthesia/Blood Transfusion Reaction / Comment(s): CLAUSTROPHOBIA Date of Last Stent Placement:: 2005 Past Psychological History: No Psychological Hx Reported Additional Psychological History / Comment(s): PT LIVES WITH HIS MARIMAR IN SINGLE LEVEL HOME THAT HAS 2 PORCH STEPS. PETS-1 CAT, 2 DOGS. NO OUTSIDE SERVICES RECIEVED. DOES HAVE NEBULIZER, WALKER NEEDED. NO SERVICE IN BACKGROUND. 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 Smoking Status: Former smoker Past Alcohol Use History: None Reported Additional Past Alcohol Use History / Comment(s): SMOKED 50 YEARS QUIT 2008, SMOKED 1/2 PPD Past Drug Use History: None Reported - Past Family History Mother Family Medical History: No Reported History Additional Family Medical History / Comment(s): IN A TRAIN ACCIDENT. Father Family Medical History: Renal Disease Medications and Allergies Home Medications Medication Instructions Recorded Confirmed Type Atorvastatin [Lipitor] 40 mg PO HS 06/29/14 12/15/18 History Multivitamins, Thera [Multivitamin 1 tab PO DAILY 06/29/14 12/15/18 History (formulary)] Spironolactone 12.5 mg PO DAILY 06/29/14 12/15/18 History Ubidecarenone [Co Q-10] 100 mg PO DAILY 06/29/14 12/15/18 History Isosorbide Mononitrate ER [Imdur] 60 mg PO DAILY #60 tab 12/27/16 12/15/18 Rx Amiodarone [Cordarone] 200 mg PO DAILY 07/03/17 12/15/18 History Ergocalciferol (Vitamin D2) 50,000 unit PO Q30D 09/03/17 12/15/18 History [Vitamin D2] Apixaban [Eliquis] 2.5 mg PO BID #0 tab 09/08/17 12/15/18 Rx Furosemide [Lasix] 40 mg PO BID@0900,1600 #60 tab 09/23/17 12/15/18 Rx Albuterol Nebulized [Ventolin 2.5 mg INHALATION RT-Q6H PRN 12/15/18 12/15/18 History Nebulized] Allopurinol [Zyloprim] 100 mg PO DAILY 12/15/18 12/15/18 History Calcitriol 0.25 mcg PO WE 12/15/18 12/15/18 History Carvedilol [Coreg] 6.25 mg PO BID 12/15/18 12/15/18 History Metolazone [Zaroxolyn] 2.5 mg PO DAILY PRN 12/15/18 12/15/18 History Allergies Allergy/AdvReac Type Severity Reaction Status Date / Time No Known Allergies Allergy Verified 12/15/18 13:16 Physical Exam Vitals: Vital Signs Temp Pulse Pulse Resp BP BP BP 12/16/18 09:11 68 12/16/18 08:58 68 12/16/18 08:00 71 18 12/16/18 07:51 97.7 F 71 18 118/67 12/16/18 04:00 97.6 F 64 18 120/62 12/16/18 00:00 98.1 F 68 18 133/72 12/15/18 23:28 72 12/15/18 23:18 69 12/15/18 22:18 175/82 12/15/18 20:00 97.9 F 71 20 201/89 12/15/18 18:22 65 17 167/79 12/15/18 15:01 60 12/15/18 14:46 62 12/15/18 12:42 97.9 F 61 18 151/73 Pulse Ox 12/16/18 09:11 12/16/18 08:58 12/16/18 08:00 12/16/18 07:51 94 L 12/16/18 04:00 94 L 12/16/18 00:00 94 L 12/15/18 23:28 12/15/18 23:18 12/15/18 22:18 12/15/18 20:00 97 12/15/18 18:22 98 12/15/18 15:01 12/15/18 14:46 12/15/18 12:42 94 L Intake and Output 12/15/18 12/16/18 12/16/18 22:59 06:59 14:59 Output Total 325 Balance -325 Output: Urine 325 Other: Voiding Method Toilet Toilet Toilet # Voids 2 1 Weight 99 kg Results 12/16/18 02:03 12/16/18 02:03 Cardiac Enzymes 12/15/18 12/15/18 12/15/18 Range/Units 13:42 13:42 19:12 AST 66 H (17-59) U/L Troponin I 0.127 H* 0.130 H* (0.000-0.034) ng/mL 12/16/18 Range/Units 02:03 AST (17-59) U/L Troponin I 0.109 H* (0.000-0.034) ng/mL Coagulation 12/15/18 12/15/18 Range/Units 13:42 21:08 PT 10.1 (9.0-12.0) sec APTT 28.4 70.1 H (22.0-30.0) sec Lipids 12/16/18 Range/Units 02:03 Triglycerides 98 (<150) mg/dL Cholesterol 170 (<200) mg/dL HDL Cholesterol 53 (40-60) mg/dL CBC 12/15/18 12/16/18 Range/Units 13:42 02:03 WBC 8.2 6.0 (3.8-10.6) k/uL RBC 4.18 L 4.16 L (4.30-5.90) m/uL Hgb 13.6 13.5 (13.0-17.5) gm/dL Hct 40.7 41.0 (39.0-53.0) % Plt Count 304 302 (150-450) k/uL Comprehensive Metabolic Panel 12/15/18 12/16/18 Range/Units 13:42 02:03 Sodium 135 L 134 L (137-145) mmol/L Potassium 3.3 L 3.3 L (3.5-5.1) mmol/L Chloride 86 L 88 L (98-107) mmol/L Carbon Dioxide 36 H 30 (22-30) mmol/L BUN 70 H 72 H (9-20) mg/dL Creatinine 3.36 H 3.22 H (0.66-1.25) mg/dL Glucose 193 H 197 H (74-99) mg/dL Calcium 9.7 9.3 (8.4-10.2) mg/dL AST 66 H (17-59) U/L ALT 41 (21-72) U/L Alkaline Phosphatase 70 (38-126) U/L Total Protein 7.2 (6.3-8.2) g/dL Albumin 4.3 (3.5-5.0) g/dL Current Medications Generic Name Dose Route Start Last Admin Trade Name Freq PRN Reason Stop Dose Admin Albuterol Sulfate 2.5 mg 12/15/18 16:28 Ventolin Nebulized INHALATION RT-Q6H PRN Shortness Of Breath Albuterol/Ipratropium 3 ml 12/15/18 20:00 12/16/18 08:56 Duoneb 0.5 Mg-3 Mg/3 Ml Soln INHALATION 3 ml RT-Q4H JAYASHREE Administration Amiodarone HCl 200 mg 12/16/18 09:00 12/16/18 07:55 Cordarone PO 200 mg DAILY JAYASHREE Administration Apixaban 2.5 mg 12/15/18 23:30 12/16/18 07:55 Eliquis PO 2.5 mg BID JAYASHREE Administration Aspirin 325 mg 12/16/18 09:00 12/16/18 07:54 Aspirin PO 325 mg DAILY JAYASHREE Administration Atorvastatin Calcium 40 mg 12/15/18 21:00 12/15/18 20:31 Lipitor PO 40 mg HS JAYASHREE Administration Carvedilol 6.25 mg 12/15/18 17:30 12/16/18 06:58 Coreg PO 6.25 mg AC-BID [facility] Administration Furosemide 40 mg 12/16/18 21:00 Lasix IV Q12HR [facility] Isosorbide Mononitrate 60 mg 12/16/18 09:00 12/16/18 07:54 Imdur PO 60 mg DAILY JAYASHREE Administration Metolazone 2.5 mg 12/15/18 16:28 Zaroxolyn PO DAILY PRN Edema Nitroglycerin 0.4 mg 12/15/18 16:24 Nitrostat SUBLINGUAL Q5M PRN Chest Pain Nitroglycerin 1 inch 12/15/18 18:00 12/16/18 07:57 Nitro-Bid Oint TOPICAL Not Given QID JAYASHREE Spironolactone 12.5 mg 12/16/18 09:00 12/16/18 07:55 Aldactone PO 12.5 mg DAILY JAYASHREE Administration Intake and Output 12/15/18 12/16/18 12/16/18 22:59 06:59 14:59 Output Total 325 Balance -325 Output: Urine 325 Other: Voiding Method Toilet Toilet Toilet # Voids 2 1 Weight 99 kg 12/16/18 02:03 12/16/18 02:03
[2018-12-16] MEDS: ATORVASTATIN 40 MG TAB PO SCH (20:04)
[2018-12-16] MEDS: APIXABAN 2.5 MG TABLET PO SCH (20:04)
[2018-12-16] MEDS: SYMBICORT 160-4.5 MCG INHALER INHALATION SCH ×2 (20:27→20:32)
[2018-12-17] MEDS: IPRATROPIUM-ALBUTEROL 3 ML NEB INHALATION SCH ×4 (00:15→11:03)
[2018-12-17] MEDS: CARVEDILOL 6.25 MG TAB PO SCH (06:16)
[2018-12-17 06:44] LABS: Anisocytosis Slight; Basophils % (A) 0 %; Eosinophils % (A) 0 %; HCT 41.7 % (39.0-53.0); HGB 13.7 gm/dL (13.0-17.5); Lymphocytes # (A) 0.9 k/uL (1.0-4.8); Lymphocytes % (A) 8 %; MCH 32.5 pg (25.0-35.0); MCV 98.6 fL (80.0-100.0); Macrocytosis Slight; Mean Platelet Volume 7.7; Monocytes # (A) 0.5 k/uL (0-1.0); Monocytes % (A) 5 %; Neutrophils # (A) 9.5 k/uL (1.3-7.7); Neutrophils % (A) 85 %; Platelet Count 324 k/uL (150-450); RBC 4.23 m/uL (4.30-5.90); RDW 17.3 % (11.5-15.5); WBC 11.1 k/uL (3.8-10.6)
[2018-12-17] MEDS: SYMBICORT 160-4.5 MCG INHALER INHALATION SCH (06:54)
[2018-12-17 07:01] LABS: Calcium 9.5 mg/dL (8.4-10.2); Magnesium 2.2 mg/dL (1.6-2.3); Potassium 3.6 mmol/L (3.5-5.1)
[2018-12-17 08:52] VITALS: BP 121/64; RESP 18; TEMP 98.4
[2018-12-17] MEDS: ASPIRIN 325 MG TAB PO SCH (08:53)
[2018-12-17] MEDS: AMIODARONE 200 MG TAB PO SCH (08:53)
[2018-12-17] MEDS: FUROSEMIDE 10 MG/ML 4 ML VIAL IV SCH (08:53)
[2018-12-17] MEDS: SPIRONOLACTONE 25 MG TAB PO SCH (08:53)
[2018-12-17] MEDS: ISOSORBIDE MONONITRATE ER 60 MG TAB.ER.24H PO SCH (08:53)
[2018-12-17] MEDS: APIXABAN 2.5 MG TABLET PO SCH (08:53)
[2018-12-17] MEDS ORDERED: POTASSIUM CHLORIDE ER 20 MEQ TAB.ER PO STA (10:26)
--- NOTE | 2018-12-17 10:26 | P.PN ---
Subjective Patient is seen in follow-up for acute kidney injury on chronic kidney disease. Patient has chronic kidney disease stage IV with baseline creatinine in the range of 3-3.3. Renal function is worse today. Creatinine 3.72. Still has intermittent cough. Maintained on Lasix 40 mg IV twice daily. Admits to good urine output. No vomiting or diarrhea. Vital signs are stable. General: The patient appeared well nourished and normally developed. HEENT: Head exam is unremarkable. Neck is without jugular venous distension. LUNGS: Breath sounds decreased. HEART: Rate and Rhythm are regular. First and second heart sounds normal. No murmurs, rubs or gallops. ABDOMEN: Abdominal exam reveals normal bowel sounds. Non-tender and non- distended. No evidence of peritonitis. EXTREMITITES: No clubbing, cyanosis, or edema. Objective - Vital Signs Vital signs: Vital Signs Temp 98.4 F 12/17/18 07:00 Pulse 66 12/17/18 08:00 Resp 18 12/17/18 08:00 BP 121/64 12/17/18 07:00 Pulse Ox 98 12/17/18 07:00 Intake & Output 12/16/18 12/17/18 12/17/18 18:59 06:59 18:59 Intake Total 360 360 Output Total 325 Balance 35 360 Weight 98.8 kg Intake: Oral 360 360 Output: Urine 325 Other: Voiding Method Toilet Toilet Toilet # Voids 1 4 - Labs CBC & Chem 7: 12/17/18 05:47 12/17/18 05:47 Labs: Abnormal Lab Results - Last 24 Hours (Table) 12/16/18 12/17/18 12/17/18 Range/Units 10:05 05:47 05:47 WBC 11.1 H (3.8-10.6) k/uL RBC 4.23 L (4.30-5.90) m/uL RDW 17.3 H (11.5-15.5) % Neutrophils # 9.5 H (1.3-7.7) k/uL Lymphocytes # 0.9 L (1.0-4.8) k/uL Sodium 135 L (137-145) mmol/L Chloride 86 L (98-107) mmol/L Carbon Dioxide 35 H (22-30) mmol/L BUN 83 H (9-20) mg/dL Creatinine 3.72 H (0.66-1.25) mg/dL Glucose 110 H (74-99) mg/dL Urine Protein 1+ H (Negative) Urine Blood Moderate H (Negative) Urine Bacteria Rare H (None) /hpf Urine Mucus Rare H (None) /hpf Microbiology - Last 24 Hours (Table) 12/16/18 09:16 Gram Stain - Preliminary Sputum Sputum Culture - Preliminary 12/15/18 13:42 Blood Culture - Preliminary Blood No Growth after 24 hours Assessment and Plan Plan: Assessment: 1. Acute kidney injury mostly prerenal secondary to diuresis. Creatinine was 3.36 on admission and is 3.72 today. 2. Chronic kidney disease stage IV secondary to nephrosclerosis and cardiorenal syndrome with baseline creatinine outpatient in the range of 3-3.3. 3. Hypokalemia secondary to diuresis. Better posterior placement. 4. History of diastolic CHF. 5. Volume overload. Better. Plan: I will change Lasix to 40 mg orally once daily. Replace potassium. 40 mEq today. Avoid nephrotoxins. No urgent need for renal replacement therapy at this time. I advised the patient to monitor his weight closely at home. If he notices worsening of edema and dyspnea or greater than 2-3 pound weight gain, then he is to increase the dose of Lasix to twice daily. Repeat BMP in 2-3 days postdischarge. Follow up outpatient in the next 1-2 weeks.
[2018-12-17 11:14] VITALS: PULSE 72
--- NOTE | 2018-12-17 13:20 | P.DS ---
Providers Date of admission: 12/15/18 15:58 Attending physician: Kiana Smith Consults: 12/15/18 16:24 Consult Physician Urgent Consulting Provider: Seda Cardenas Consult Reason/Comments: CHF, elevated trop Do you want consulting provider notified?: Yes Primary care physician: Feliz lE Hospital Course: Patient is admitted for CHF exacerbation, on IV Lasix improving respiratory status continue with IV Lasix for 1 more day possibly of discharge tomorrow. She does have chronic kidney disease stage IV nephrology evaluated the patient cardiology evaluated the patient. Patient has significant improvement in shortness of breath Patient respiratory status significantly improved and clinically doing well will be discharged today on oral Lasix 40 mg on daily basis starting tomorrow can increase her Lasix to twice a day if he starts gaining weight PHYSICAL EXAMINATION: GENERAL: The patient is alert and oriented x3, not in any acute distress. Well developed, well nourished. HEENT: Pupils are round and equally reacting to light. EOMI. No scleral icterus. No conjunctival pallor. Normocephalic, atraumatic. No pharyngeal erythema. No thyromegaly. CARDIOVASCULAR: S1 and S2 present. No murmurs, rubs, or gallops. PULMONARY: Chest is clear to auscultation, no wheezing or crackles. ABDOMEN: Soft, nontender, nondistended, normoactive bowel sounds. No palpable organomegaly. MUSCULOSKELETAL: No joint swelling or deformity. EXTREMITIES: No cyanosis, clubbing, or pedal edema. NEUROLOGICAL: Gross neurological examination did not reveal any focal deficits. SKIN: No rashes. Assessment and Plan Plan: -Cough with shortness of breath: Probably related to congestive heart failure exacerbation patient has chronic diastolic dysfunction with acute exacerbation patient has chronic kidney disease stage IV patient will be started on IV Lasix metolazone. -COPD with minimal exacerbation patient was started on inhaled steroids -Atrial fibrillation presently rate controlled continue with Eliquis - mildly elevated troponin secondary to chronic kidney disease stage IV no chest pain at this time EKG did not show any acute ST-T wave changes. 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 -Peripheral vascular disease -Hyperlipidemia -Hypertension Patient Condition at Discharge: Stable Plan - Discharge Summary Discharge Rx Participant: No New Discharge Prescriptions: New Budesonide-Formot 160-4.5 Mcg [Symbicort 160-4.5 Mcg Inhaler] 2 puff INHALATION RT-BID #1 inhaler Continue Ubidecarenone [Co Q-10] 100 mg PO DAILY Multivitamins, Thera [Multivitamin (formulary)] 1 tab PO DAILY Atorvastatin [Lipitor] 40 mg PO HS Isosorbide Mononitrate ER [Imdur] 60 mg PO DAILY #60 tab Amiodarone [Cordarone] 200 mg PO DAILY Ergocalciferol (Vitamin D2) [Vitamin D2] 50,000 unit PO Q30D Apixaban [Eliquis] 2.5 mg PO BID #0 tab Calcitriol 0.25 mcg PO WE Allopurinol [Zyloprim] 100 mg PO DAILY Carvedilol [Coreg] 6.25 mg PO BID Albuterol Nebulized [Ventolin Nebulized] 2.5 mg INHALATION RT-Q6H PRN PRN Reason: Shortness Of Breath Changed Furosemide [Lasix] 40 mg PO DAILY #60 tab Discontinued Spironolactone 12.5 mg PO DAILY Metolazone [Zaroxolyn] 2.5 mg PO DAILY PRN PRN Reason: Edema Discharge Medication List Atorvastatin [Lipitor] 40 mg PO HS 06/29/14 [History] Multivitamins, Thera [Multivitamin (formulary)] 1 tab PO DAILY 06/29/14 [History] Ubidecarenone [Co Q-10] 100 mg PO DAILY 06/29/14 [History] Isosorbide Mononitrate ER [Imdur] 60 mg PO DAILY #60 tab 12/27/16 [Rx] Amiodarone [Cordarone] 200 mg PO DAILY 07/03/17 [History] Ergocalciferol (Vitamin D2) [Vitamin D2] 50,000 unit PO Q30D 09/03/17 [History] Apixaban [Eliquis] 2.5 mg PO BID #0 tab 09/08/17 [Rx] Albuterol Nebulized [Ventolin Nebulized] 2.5 mg INHALATION RT-Q6H PRN 12/15/18 [History] Allopurinol [Zyloprim] 100 mg PO DAILY 12/15/18 [History] Calcitriol 0.25 mcg PO WE 12/15/18 [History] Carvedilol [Coreg] 6.25 mg PO BID 12/15/18 [History] Budesonide-Formot 160-4.5 Mcg [Symbicort 160-4.5 Mcg Inhaler] 2 puff INHALATION RT-BID #1 inhaler 12/17/18 [Rx] Furosemide [Lasix] 40 mg PO DAILY #60 tab 12/17/18 [Rx] Follow up Appointment(s)/Referral(s): Feliz El MD [Primary Care Provider] - 3 Days Seda Cardenas MD [STAFF PHYSICIAN] - 2 Weeks Patient Instructions/Handouts: Upper Respiratory Infection (ED)
--- NOTE | 2018-12-17 14:13 | P.PN ---
Subjective This is a pleasant 73-year-old male past medical history significant for coronary artery disease status post bypass grafting, COPD, paroxysmal atrial fibrillation on long-term anticoagulation, permanent pacemaker implantation secondary to symptomatic bradycardia, hypertension and dyslipidemia. He follows in the office with Dr. Cardenas. We have been asked to see him in consultation secondary to elevated troponin. He presented to the hospital secondary to a two-week history of productive cough. He had been on outpatient antibiotics and was not showing any improvement. He denies chest discomfort, shortness of breath, dizziness, palpitations, nausea, vomiting or diaphoresis. EKG reveals sinus mechanism first-degree AV block, left ventricular hypertrophy, T wave inversion in the precordial leads and nonspecific ST abnormality. Chest x-ray is negative for an acute cardiopulmonary process with chronic pleural reaction at the left lung base. Laboratory data reviewed, WBC 6, hemoglobin 13.5, platelets 302, sodium 134, po tassium 3.3, creatinine 3.22 with a GFR 18, magnesium 2.3, troponin 0.127, 0.130 and 0.109, proBNP 7160 and LDL 97. Current cardiac medications include Eliquis 2.5 mg twice a day, Coreg 6.25 mg twice a day, Lasix 40 mg twice a day, Imdur 60 mg daily, amiodarone 200 mg daily, Zaroxolyn 2.5 mg daily as needed, Aldactone 12.5 mg daily and atorvastatin 40 mg daily. Most recent echocardiogram August 2018 reveals preserved LV systolic function with ejection fraction 55-60% with mild tricuspid regurgitation. 12/17/2018 Patient was seen and examined resting comfortably sitting up in the chair in no acute distress. He denies symptoms of chest discomfort, shortness of breath, dizziness or palpitations. He has been seen in consultation by nephrology and they have recommended decreasing Lasix. Blood pressure 121/64 heart rate 66 afebrile maintaining oxygen saturation on room air. Laboratory data reviewed, WBC 11.1, hemoglobin 13.7, glucose 324, sodium 135, potassium 3.6, creatinine 3.72. GENERAL: This is a 73-year-old male in no apparent distress at the time of my examination. HEENT: Head is atraumatic, normocephalic. Pupils are equal, round. Sclerae anicteric. Conjunctivae are clear. Mucous membranes of the mouth are moist. Neck is supple. There is no jugular venous distention. No carotid bruit is heard. LUNGS: Clear to auscultation no wheezes, rales or rhonchi. No chest wall tenderness is noted on palpation or with deep breathing. HEART: Regular rate and rhythm without murmurs, rubs or gallops. S1 and S2 heard. EXTREMITIES: No evidence of peripheral edema and no calf tenderness noted. ASSESSMENT Productive cough secondary to exacerbation of COPD and tracheobronchitis Chronic diastolic heart failure Chronic kidney disease Troponin elevation not suggestive of an acute coronary event, chronically elevated most likely secondary to chronic kidney disease. There is no symptoms of angina. History of coronary artery disease status post bypass grafting Paroxysmal atrial fibrillation on long-term anticoagulation Permanent pacemaker implantation Hypertension Dyslipidemia PLAN Stable from a cardiac perspective. Follow-up with Dr. Cardenas upon discharge. Nurse Practitioner note has been reviewed, I agree with a documented findings and plan of care. Patient was seen and examined. Objective - Vital Signs Vital signs: Vital Signs Temp 98.4 F 12/17/18 07:00 Pulse 72 12/17/18 11:14 Resp 18 12/17/18 08:00 BP 121/64 12/17/18 07:00 Pulse Ox 98 12/17/18 07:00 Intake & Output 12/16/18 12/17/18 12/17/18 18:59 06:59 18:59 Intake Total 360 360 Output Total 325 Balance 35 360 Weight 98.8 kg 98.8 kg Intake: Oral 360 360 Output: Urine 325 Other: Voiding Method Toilet Toilet Toilet # Voids 1 4 - Labs CBC & Chem 7: 12/17/18 05:47 12/17/18 05:47 Labs: Abnormal Lab Results - Last 24 Hours (Table) 12/17/18 12/17/18 Range/Units 05:47 05:47 WBC 11.1 H (3.8-10.6) k/uL RBC 4.23 L (4.30-5.90) m/uL RDW 17.3 H (11.5-15.5) % Neutrophils # 9.5 H (1.3-7.7) k/uL Lymphocytes # 0.9 L (1.0-4.8) k/uL Sodium 135 L (137-145) mmol/L Chloride 86 L (98-107) mmol/L Carbon Dioxide 35 H (22-30) mmol/L BUN 83 H (9-20) mg/dL Creatinine 3.72 H (0.66-1.25) mg/dL Glucose 110 H (74-99) mg/dL Microbiology - Last 24 Hours (Table) 12/16/18 09:16 Gram Stain - Preliminary Sputum Sputum Culture - Preliminary 12/15/18 13:42 Blood Culture - Preliminary Blood No Growth after 24 hours
[2018-12-18] MEDS ORDERED: FUROSEMIDE 40 MG TAB PO SCH (09:00)
== END 2018-12-17 14:55 | disposition home or self-care (01) | DRG 291 ==
LOC: EC 12:30 → 3SCARD 15:58
PROVIDERS: ADMIT Internal Medicine; ATTEND Internal Medicine
DX: I13.0 Hypertensive heart and chronic kidney disease with heart failure and stage 1 through stage 4 chronic kidney disease, or unspecified chronic kidney disease (principal); I50.33 Acute on chronic diastolic (congestive) heart failure; J44.1 Chronic obstructive pulmonary disease with (acute) exacerbation; N17.9 Acute kidney failure, unspecified; N18.4 Chronic kidney disease, stage 4 (severe); I48.0 Paroxysmal atrial fibrillation; I73.9 Peripheral vascular disease, unspecified; E78.5 Hyperlipidemia, unspecified; E87.6 Hypokalemia; F40.240 Claustrophobia; I25.10 Atherosclerotic heart disease of native coronary artery without angina pectoris; I25.2 Old myocardial infarction; I44.0 Atrioventricular block, first degree; K21.9 Gastro-esophageal reflux disease without esophagitis; T50.2X5A Adverse effect of carbonic-anhydrase inhibitors, benzothiadiazides and other diuretics, initial encounter; G89.29 Other chronic pain; K64.9 Unspecified hemorrhoids; M19.90 Unspecified osteoarthritis, unspecified site; M54.5 Low back pain; L71.9 Rosacea, unspecified; I07.1 Rheumatic tricuspid insufficiency; R77.9 Abnormality of plasma protein, unspecified; Z79.01 Long term (current) use of anticoagulants; Z79.899 Other long term (current) drug therapy; Z95.0 Presence of cardiac pacemaker; Z95.1 Presence of aortocoronary bypass graft; Z87.891 Personal history of nicotine dependence; Z95.5 Presence of coronary angioplasty implant and graft; Z86.74 Personal history of sudden cardiac arrest; Z96.60 Presence of unspecified orthopedic joint implant; Z98.42 Cataract extraction status, left eye; Z98.41 Cataract extraction status, right eye; Z96.1 Presence of intraocular lens; Z84.1 Family history of disorders of kidney and ureter
CPT/HCPCS: 36415; 71046; 80048; 80053; 80061; 81001; 83735; 83880; 84484; 85025; 85610; 85730; 87040; 87070; 87205; 93005; 94640; 96361; 96365; 96366; 96375; 96376; 99285

== ENCOUNTER → 2018-12-30 | Outpatient (CLI) | payer MEDICARE, OTHER ==
[2018-12-30 17:46] LABS: African American GFR (CKD) 17.6 (60.0-200.0); BUN/Creat Ratio 18.92 Ratio (12.00-20.00); Calcium 9.5 mg/dL (8.7-10.3); Potassium 3.5 mmol/L (3.5-5.5)
== END | disposition home or self-care (01) ==
LOC: LABWHC1 11:25
PROVIDERS: ATTEND Nurse Practitioner Family
DX: N18.4 Chronic kidney disease, stage 4 (severe) (principal)
CPT/HCPCS: 36415; 80048

== ENCOUNTER → 2019-03-21 | Outpatient (CLI) | payer MEDICARE, OTHER ==
[2019-03-21 13:06] LABS: Basophils # (A) 0.1 k/uL (0-0.2); Basophils % (A) 2 %; Eosinophils # (A) 0.3 k/uL (0-0.7); Eosinophils % (A) 4 %; HCT 45.3 % (39.0-53.0); Lymphocytes # (A) 1.3 k/uL (1.0-4.8); Lymphocytes % (A) 17 %; MCH 32.8 pg (25.0-35.0); MCHC 33.2 g/dL (31.0-37.0); MCV 98.8 fL (80.0-100.0); Mean Platelet Volume 6.5; Monocytes # (A) 0.5 k/uL (0-1.0); Monocytes % (A) 7 %; Neutrophils # (A) 5.3 k/uL (1.3-7.7); Neutrophils % (A) 68 %; Platelet Count 281 k/uL (150-450); RBC 4.58 m/uL (4.30-5.90); RDW 14.2 % (11.5-15.5); WBC 7.7 k/uL (3.8-10.6)
[2019-03-21 19:07] LABS: Ferritin 197.2 ng/mL (22.0-322.0)
[2019-03-21 19:10] LABS: % Iron Saturation 32.17 (15.00-50.00); African American GFR (CKD) 18.1 (60.0-200.0); BUN/Creat Ratio 21.67 Ratio (12.00-20.00); Calcium 10.1 mg/dL (8.7-10.3); Chloride 85 mmol/L (96-109); Glucose 107 mg/dL (70-110); Iron 92 ug/dL (65-175); Magnesium 2.3 mg/dL (1.5-2.4); Potassium 3.8 mmol/L (3.5-5.5); Sodium 141 mmol/L (135-145); Total Iron Binding Capacity 286 ug/dL (228-460); Uric Acid 11.9 mg/dL (3.7-8.7)
[2019-03-21 20:37] LABS: Creatinine,Urine Random 40.7 mg/dL
[2019-03-21 20:45] LABS: Total Protein,Urine Random 52.8 mg/dL (0.0-13.5)
[2019-03-22 09:45] LABS: Carbon Dioxide >40.0 mmol/L (21.6-31.8)
== END | disposition home or self-care (01) ==
LOC: LABWHC1 12:12
PROVIDERS: ATTEND Nurse Practitioner Family
DX: M10.9 Gout, unspecified (principal); N18.4 Chronic kidney disease, stage 4 (severe); D63.1 Anemia in chronic kidney disease; E55.9 Vitamin D deficiency, unspecified; R80.9 Proteinuria, unspecified
CPT/HCPCS: 36415; 80048; 82570; 82728; 83540; 83550; 83735; 83970; 84156; 84550; 85025

== ENCOUNTER → 2019-04-04 | Outpatient (CLI) | payer MEDICARE, OTHER ==
[2019-04-04 17:41] LABS: African American GFR (CKD) 19.3 (60.0-200.0); Anion Gap 16.8 mmol/L (4.00-12.00); BUN/Creat Ratio 19.41 Ratio (12.00-20.00); Calcium 9.1 mg/dL (8.7-10.3); Carbon Dioxide 32.2 mmol/L (21.6-31.8); Potassium 3.1 mmol/L (3.5-5.5)
== END | disposition home or self-care (01) ==
LOC: LABWHC1 09:34
PROVIDERS: ATTEND Internal Medicine Nephrology
DX: N18.4 Chronic kidney disease, stage 4 (severe) (principal)
CPT/HCPCS: 36415; 80048

== ENCOUNTER → 2019-05-10 | Outpatient (CLI) | payer MEDICARE, OTHER ==
[2019-05-10 13:59] LABS: Basophils % (A) 0 %; Eosinophils # (A) 0.4 k/uL (0-0.7); Eosinophils % (A) 5 %; HCT 39.5 % (39.0-53.0); Lymphocytes % (A) 13 %; MCHC 32.9 g/dL (31.0-37.0); MCV 97.5 fL (80.0-100.0); Mean Platelet Volume 7.8; Monocytes # (A) 0.4 k/uL (0-1.0); Monocytes % (A) 6 %; Neutrophils # (A) 5.6 k/uL (1.3-7.7); Neutrophils % (A) 74 %; Platelet Count 231 k/uL (150-450); RBC 4.05 m/uL (4.30-5.90); RDW 15.3 % (11.5-15.5); WBC 7.6 k/uL (3.8-10.6)
[2019-05-10 14:19] LABS: Appearance,Urine Clear (Clear); Bilirubin,Urine Negative (Negative); Blood,Urine Small (Negative); Color,Urine Light Yellow; Glucose,Urine (UA) Negative (Negative); Ketones,Urine Negative (Negative); Leukocyte Esterase,Urine Negative (Negative); Mucus,Urine Rare /hpf; Nitrite,Urine Negative (Negative); PH, Urine 6.5 (5.0-8.0); Protein,Urine 1+ (Negative); RBC,Urine 2 /hpf (0-5); Specific Gravity,Urine 1.006 (1.001-1.035); Squamous Epithelial Cell,Urine <1 /hpf (0-4); Urobilinogen,Urine <2.0 mg/dL (<2.0)
[2019-05-10 18:50] LABS: % Iron Saturation 26.88 (15.00-50.00); African American GFR (CKD) 20.8 (60.0-200.0); Albumin 4.4 g/dL (3.80-4.90); Anion Gap 12.4 mmol/L (4.00-12.00); BUN/Creat Ratio 15.94 Ratio (12.00-20.00); Calcium 9.5 mg/dL (8.7-10.3); Carbon Dioxide 39.6 mmol/L (21.6-31.8); Magnesium 2.1 mg/dL (1.5-2.4); Phosphorus 3.5 mg/dL (2.4-5.1); Potassium 3.4 mmol/L (3.5-5.5)
[2019-05-10 18:58] LABS: Uric Acid 7.8 mg/dL (3.7-8.7)
[2019-05-10 19:06] LABS: Ferritin 185.5 ng/mL (22.0-322.0)
[2019-05-10 22:35] LABS: Creatinine,Urine Random 25.4 mg/dL
[2019-05-10 22:50] LABS: Total Protein,Urine Random 44.6 mg/dL (0.0-13.5)
== END | disposition home or self-care (01) ==
LOC: LABWHC1 12:16
PROVIDERS: ATTEND Internal Medicine Nephrology
DX: N39.0 Urinary tract infection, site not specified (principal); N25.81 Secondary hyperparathyroidism of renal origin; E79.0 Hyperuricemia without signs of inflammatory arthritis and tophaceous disease; D63.1 Anemia in chronic kidney disease; N18.4 Chronic kidney disease, stage 4 (severe); R80.9 Proteinuria, unspecified
CPT/HCPCS: 36415; 80048; 81001; 82040; 82570; 82728; 83540; 83550; 83735; 83970; 84100; 84156; 84550; 85025

== ENCOUNTER 2019-09-06 11:49 | Emergency (ER) | payer MEDICARE, OTHER ==
[2019-09-06 12:01] VITALS: RESP 18; TEMP 98.3
[2019-09-06] MEDS ORDERED: SODIUM CHLORIDE 0.9% 500 ML 500 ML IV STA (12:18)
--- NOTE | 2019-09-06 12:22 | ED ---
General Adult HPI - General Chief complaint: GI Bleed Stated complaint: Blood in stool Time Seen by Provider: 09/06/19 11:55 Source: patient, RN notes reviewed, old records reviewed Mode of arrival: ambulatory Limitations: no limitations - History of Present Illness Initial comments: This is a 74-year-old male who presents emergency Department stating his past medical history of heart disease as well as a pacemaker. Patient states she's on eliquis. Patient states yesterday he had bright red blood per rectum. Patient denies any today but he has yet to have a bowel movement. 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 Patient denies any chest pain difficulty breathing shortness of breath. Patient denies any palpation. Patient denies any lightheadedness or dizziness. - Related Data Home Medications Medication Instructions Recorded Confirmed Atorvastatin [Lipitor] 40 mg PO HS 06/29/14 09/06/19 Multivitamins, Thera [Multivitamin 1 tab PO DAILY 06/29/14 09/06/19 (formulary)] Ubidecarenone [Co Q-10] 100 mg PO DAILY 06/29/14 09/06/19 Amiodarone [Cordarone] 200 mg PO BID 07/03/17 09/06/19 Ergocalciferol (Vitamin D2) 50,000 unit PO QMONTH 09/03/17 09/06/19 [Vitamin D2] Albuterol Nebulized [Ventolin 2.5 mg INHALATION RT-Q6H 12/15/18 09/06/19 Nebulized] Allopurinol [Zyloprim] 200 mg PO DAILY 12/15/18 09/06/19 Calcitriol 0.25 mcg PO WE 12/15/18 09/06/19 Carvedilol [Coreg] 6.25 mg PO BID 12/15/18 09/06/19 Furosemide [Lasix] 40 mg PO BID 09/06/19 09/06/19 Ipratropium Nebulized [Atrovent 0.5 mg INHALATION RT-Q6H 09/06/19 09/06/19 Nebulized 0.2 MG/ML] acetaZOLAMIDE [Diamox] 125 mg PO DAILY PRN 09/06/19 09/06/19 Previous Rx's Medication Instructions Recorded Isosorbide Mononitrate ER [Imdur] 60 mg PO DAILY #60 tab 07/31/17 Apixaban [Eliquis] 2.5 mg PO BID #0 tab 09/08/17 Budesonide-Formot 160-4.5 Mcg 2 puff INHALATION RT-BID #1 inhaler 12/17/18 [Symbicort 160-4.5 Mcg Inhaler] Allergies Allergy/AdvReac Type Severity Reaction Status Date / Time No Known Allergies Allergy Verified 09/06/19 13:27 Review of Systems ROS Statement: Those systems with pertinent positive or pertinent negative responses have been documented in the HPI. ROS Other: All systems not noted in ROS Statement are negative. Past Medical History Past Medical History: Atrial Fibrillation, Coronary Artery Disease (CAD), COPD, GERD/Reflux, Hyperlipidemia, Hypertension, Myocardial Infarction ([place]), Osteoarthritis (OA), Skin Disorder, Vascular Disorder Additional Past Medical History / Comment(s): Pt recently admitted 09/03/17 with dizziness/bradycardia and had a pacemaker insertion. Other hx: Afib with past RVR, SOB, chronic cough, -2008 [place]/cardiac arrest, PVD r/t vein havesting, chronic low back pain, chronic renal failure stage III, rosacia. Last Myocardial Infarction Date:: November 2016 History of Any Multi-Drug Resistant Organisms: None Reported Past Surgical History: Back Surgery, Coronary Bypass/CABG, Heart Catheterization With Stent, Hernia Repair, Joint Replacement, Orthopedic Surgery Additional Past Surgical History / Comment(s): 09/08/17 permanent pacemaker, CABG, PCI/ with 4 stents in 2005, lumbar laminectomy, bilateral carpal tunnel releases, R shoulder rotator cuff surgery, pain clinic procedures for lumbar back, incisional hernia with mesh, colonoscopy, bilateral cataract removals. Past Anesthesia/Blood Transfusion Reactions: Postoperative Nausea & Vomiting (PONV) Additional Past Anesthesia/Blood Transfusion Reaction / Comment(s): CLAUSTROPHOBIA Date of Last Stent Placement:: 2005 Past Psychological History: No Psychological Hx Reported Smoking Status: Former smoker Past Alcohol Use History: None Reported Past Drug Use History: None Reported - Past Family History Mother Family Medical History: No Reported History Additional Family Medical History / Comment(s): IN A TRAIN ACCIDENT. Father Family Medical History: Renal Disease General Exam - General Exam Comments Initial Comments: GENERAL: Patient is well-developed and well-nourished. Patient is nontoxic and well- hydrated and is in no acute distress. ENT: Neck is soft and supple. No significant lymphadenopathy is noted. Oropharynx is clear. Moist mucous membranes. Neck has full range of motion without eliciting any pain. EYES: The sclera were anicteric and conjunctiva were pink and moist. Extraocular movements were intact and pupils were equal round and reactive to light. Eyelids were unremarkable. PULMONARY: Unlabored respirations. Good breath sounds bilaterally. No audible rales rhonchi or wheezing was noted. CARDIOVASCULAR: There is a regular rate and rhythm without any murmurs gallops or rubs. ABDOMEN: Soft and nontender with normal bowel sounds. SKIN: Skin is clear with no lesions or rashes and otherwise unremarkable. NEUROLOGIC: Patient is alert and oriented x3. Cranial nerves II through XII are grossly int act. Motor and sensory are also intact. Normal speech, volume and content. Symmetrical smile. MUSCULOSKELETAL: Normal extremities with adequate strength and full range of motion. No lower extremity swelling or edema. No calf tenderness. LYMPHATICS: No significant lymphadenopathy is noted PSYCHIATRIC: Normal psychiatric evaluation. Limitations: no limitations Course Vital Signs 09/06/19 09/06/19 09/06/19 11:55 13:01 13:33 Temperature 98.3 F Pulse Rate 62 65 Respiratory 18 18 Rate Blood Pressure 165/87 157/82 O2 Sat by Pulse 96 96 98 Oximetry Medical Decision Making - Medical Decision Making EKG shows paced rhythm at 60 mL/m QRS 108 QT interval 512 QTC is 544. Compared to old EKG there are no acute changes I spoke with Dr. Granados he agreed to admit the patient agreed the patient needed to be admitted. One pack and talk to the patient and his and they refused to stay and signed out AMA. - Lab Data Result diagrams: 09/06/19 12:00 09/06/19 12:00 Lab Results 09/06/19 09/06/19 09/06/19 Range/Units 12:00 12:00 12:00 WBC 8.6 (3.8-10.6) k/uL RBC 4.33 (4.30-5.90) m/uL Hgb 13.8 (13.0-17.5) gm/dL Hct 41.9 (39.0-53.0) % MCV 96.7 (80.0-100.0) fL MCH 31.9 (25.0-35.0) pg MCHC 33.0 (31.0-37.0) g/dL RDW 15.3 (11.5-15.5) % Plt Count 254 (150-450) k/uL Neutrophils % 77 % Lymphocytes % 12 % Monocytes % 5 % Eosinophils % 4 % Basophils % 0 % Neutrophils # 6.6 (1.3-7.7) k/uL Lymphocytes # 1.0 (1.0-4.8) k/uL Monocytes # 0.5 (0-1.0) k/uL Eosinophils # 0.3 (0-0.7) k/uL Basophils # 0.0 (0-0.2) k/uL PT 10.1 (9.0-12.0) sec INR 1.0 (<1.2) APTT 26.0 (22.0-30.0) sec Sodium 135 L (137-145) mmol/L Potassium 3.3 L (3.5-5.1) mmol/L Chloride 88 L (98-107) mmol/L Carbon Dioxide 38 H (22-30) mmol/L Anion Gap 9 mmol/L BUN 72 H (9-20) mg/dL Creatinine 3.13 H (0.66-1.25) mg/dL Est GFR (CKD-EPI)AfAm 21 (>60 ml/min/1.73 sqM) Est GFR (CKD-EPI)NonAf 18 (>60 ml/min/1.73 sqM) Glucose 103 H (74-99) mg/dL Calcium 9.4 (8.4-10.2) mg/dL Total Bilirubin 0.9 (0.2-1.3) mg/dL AST 36 (17-59) U/L ALT 30 (4-49) U/L Alkaline Phosphatase 110 (38-126) U/L Troponin I (0.000-0.034) ng/mL Total Protein 7.4 (6.3-8.2) g/dL Albumin 4.4 (3.5-5.0) g/dL Blood Type Blood Type Recheck Bld Type Recheck Status Antibody Screen Spec Expiration Date 09/06/19 09/06/19 Range/Units 12:00 12:00 WBC (3.8-10.6) k/uL RBC (4.30-5.90) m/uL Hgb (13.0-17.5) gm/dL Hct (39.0-53.0) % MCV (80.0-100.0) fL MCH (25.0-35.0) pg MCHC (31.0-37.0) g/dL RDW (11.5-15.5) % Plt Count (150-450) k/uL Neutrophils % % Lymphocytes % % Monocytes % % Eosinophils % % Basophils % % Neutrophils # (1.3-7.7) k/uL Lymphocytes # (1.0-4.8) k/uL Monocytes # (0-1.0) k/uL Eosinophils # (0-0.7) k/uL Basophils # (0-0.2) k/uL PT (9.0-12.0) sec INR (<1.2) APTT (22.0-30.0) sec Sodium (137-145) mmol/L Potassium (3.5-5.1) mmol/L Chloride (98-107) mmol/L Carbon Dioxide (22-30) mmol/L Anion Gap mmol/L BUN (9-20) mg/dL Creatinine (0.66-1.25) mg/dL Est GFR (CKD-EPI)AfAm (>60 ml/min/1.73 sqM) Est GFR (CKD-EPI)NonAf (>60 ml/min/1.73 sqM) Glucose (74-99) mg/dL Calcium (8.4-10.2) mg/dL Total Bilirubin (0.2-1.3) mg/dL AST (17-59) U/L ALT (4-49) U/L Alkaline Phosphatase (38-126) U/L Troponin I 0.092 H* (0.000-0.034) ng/mL Total Protein (6.3-8.2) g/dL Albumin (3.5-5.0) g/dL Blood Type O Positive Blood Type Recheck O Pos Bld Type Recheck Status No Antibody Screen NEGATIVE Spec Expiration Date 09/09/2019 - 2299 Disposition Clinical Impression: GI bleed Disposition: Left Against Medical Advice Is patient prescribed a controlled substance at d/c from ED?: No Time of Disposition: 13:53
[2019-09-06 12:33] LABS: Basophils % (A) 0 %; Eosinophils # (A) 0.3 k/uL (0-0.7); Eosinophils % (A) 4 %; HCT 41.9 % (39.0-53.0); HGB 13.8 gm/dL (13.0-17.5); Lymphocytes % (A) 12 %; MCH 31.9 pg (25.0-35.0); MCV 96.7 fL (80.0-100.0); Mean Platelet Volume 8.4; Monocytes # (A) 0.5 k/uL (0-1.0); Monocytes % (A) 5 %; Neutrophils # (A) 6.6 k/uL (1.3-7.7); Neutrophils % (A) 77 %; Platelet Count 254 k/uL (150-450); RBC 4.33 m/uL (4.30-5.90); RDW 15.3 % (11.5-15.5); WBC 8.6 k/uL (3.8-10.6)
[2019-09-06 12:49] LABS: Albumin 4.4 g/dL (3.5-5.0); Calcium 9.4 mg/dL (8.4-10.2); Potassium 3.3 mmol/L (3.5-5.1); Total Bilirubin 0.9 mg/dL (0.2-1.3); Total Protein 7.4 g/dL (6.3-8.2)
[2019-09-06 12:50] LABS: Prothrombin Time 10.1 sec (9.0-12.0)
[2019-09-06 13:34] VITALS: BP 157/82; PULSE 65
[2019-09-06] MEDS ORDERED: SODIUM CHLORIDE 0.9% 1,000 ML IV ONE (13:56)
== END 2019-09-06 14:23 | disposition left against medical advice (07) ==
LOC: EC 11:49 → 3SCARD 13:56 → UNDOADMOB 13:56 → INTOOBSV 13:56 → EC 14:23
DX: K92.2 Gastrointestinal hemorrhage, unspecified (principal); I48.91 Unspecified atrial fibrillation; I25.10 Atherosclerotic heart disease of native coronary artery without angina pectoris; J44.9 Chronic obstructive pulmonary disease, unspecified; I10 Essential (primary) hypertension; E78.5 Hyperlipidemia, unspecified; I25.2 Old myocardial infarction; Z87.891 Personal history of nicotine dependence; Z95.1 Presence of aortocoronary bypass graft; Z95.0 Presence of cardiac pacemaker
CPT/HCPCS: 36415; 80053; 84443; 84484; 85025; 85610; 85730; 86850; 86900; 86901; 93005; 96360; 99285

== ENCOUNTER 2019-09-28 16:15 | Emergency (ER) | payer MEDICARE, OTHER ==
[2019-09-28] MEDS ORDERED: HYDROmorphone 0.5 MG/0.5 ML SYRINGE IVP STA ×2 (16:41→17:05)
--- NOTE | 2019-09-28 16:44 | ED ---
General Adult HPI - General Chief complaint: Fall Stated complaint: Fall, shoulder and facial injury Time Seen by Provider: 09/28/19 16:25 Source: patient, family, RN notes reviewed, old records reviewed Mode of arrival: wheelchair Limitations: no limitations - History of Present Illness Initial comments: This is a 74-year-old male who presents emergency Department complaining that he tripped and fell onto his left shoulder. Patient states he is unable to move the shoulder at this time. Patient states he also hit his chin patient did not lose consciousness and he has no jaw pain he denies any neck pain. Patient denies any numbness weakness. Patient denies any chest pain or back pain. Patient denies any other extremity pain. Patient states she has no pain in his hips as well. Patient's only complaint at this time is that he has left shoulder pain. - Related Data Home Medications Medication Instructions Recorded Confirmed Atorvastatin [Lipitor] 40 mg PO HS 06/29/14 09/06/19 Multivitamins, Thera [Multivitamin 1 tab PO DAILY 06/29/14 09/06/19 (formulary)] Ubidecarenone [Co Q-10] 100 mg PO DAILY 06/29/14 09/06/19 Amiodarone [Cordarone] 200 mg PO BID 07/03/17 09/06/19 Ergocalciferol (Vitamin D2) 50,000 unit PO QMONTH 09/03/17 09/06/19 [Vitamin D2] Albuterol Nebulized [Ventolin 2.5 mg INHALATION RT-Q6H 12/15/18 09/06/19 Nebulized] Allopurinol [Zyloprim] 200 mg PO DAILY 12/15/18 09/06/19 Calcitriol 0.25 mcg PO WE 12/15/18 09/06/19 Carvedilol [Coreg] 6.25 mg PO BID 12/15/18 09/06/19 Furosemide [Lasix] 40 mg PO BID 09/06/19 09/06/19 Ipratropium Nebulized [Atrovent 0.5 mg INHALATION RT-Q6H 09/06/19 09/06/19 Nebulized 0.2 MG/ML] acetaZOLAMIDE [Diamox] 125 mg PO DAILY PRN 09/06/19 09/06/19 Previous Rx's Medication Instructions Recorded Isosorbide Mononitrate ER [Imdur] 60 mg PO DAILY #60 tab 12/27/16 Apixaban [Eliquis] 2.5 mg PO BID #0 tab 09/08/17 Budesonide-Formot 160-4.5 Mcg 2 puff INHALATION RT-BID #1 inhaler 12/17/18 [Symbicort 160-4.5 Mcg Inhaler] Allergies Allergy/AdvReac Type Severity Reaction Status Date / Time No Known Allergies Allergy Verified 09/28/19 16:27 Review of Systems ROS Statement: Those systems with pertinent positive or pertinent negative responses have been documented in the HPI. ROS Other: All systems not noted in ROS Statement are negative. Past Medical History Past Medical History: Atrial Fibrillation, Coronary Artery Disease (CAD), COPD, GERD/Reflux, Hyperlipidemia, Hypertension, Myocardial Infarction ([place]), Osteoarthritis (OA), Skin Disorder, Vascular Disorder Additional Past Medical History / Comment(s): Pt recently admitted 09/03/17 with dizziness/bradycardia and had a pacemaker insertion. Other hx: Afib with past RVR, SOB, chronic cough, -2008 [place]/cardiac arrest, PVD r/t vein havesting, chronic low back pain, chronic renal failure stage III, rosacia. Last Myocardial Infarction Date:: November 2016 History of Any Multi-Drug Resistant Organisms: None Reported Past Surgical History: Back Surgery, Coronary Bypass/CABG, Heart Catheterization With Stent, Hernia Repair, Joint Replacement, Orthopedic Surgery Additional Past Surgical History / Comment(s): 09/08/17 permanent pacemaker, CABG, PCI/ with 4 stents in 2005, lumbar laminectomy, bilateral carpal tunnel releases, R shoulder rotator cuff surgery, pain clinic procedures for lumbar back, incisional hernia with mesh, colonoscopy, bilateral cataract removals. Past Anesthesia/Blood Transfusion Reactions: Postoperative Nausea & Vomiting (PONV) Additional Past Anesthesia/Blood Transfusion Reaction / Comment(s): CLAUSTROPHOBIA Date of Last Stent Placement:: 2005 Past Psychological History: No Psychological Hx Reported Smoking Status: Former smoker Past Alcohol Use History: None Reported Past Drug Use History: None Reported - Past Family History Mother Family Medical History: No Reported History Additional Family Medical History / Comment(s): IN A TRAIN ACCIDENT. Father Family Medical History: Renal Disease General Exam - General Exam Comments Initial Comments: GENERAL: Patient is well-developed and well-nourished. Patient is nontoxic and well- hydrated and is in moderate distress. ENT: Neck is soft and supple. No significant lymphadenopathy is noted. Oropharynx is clear. Moist mucous membranes. Neck has full range of motion without eliciting any pain. EYES: The sclera were anicteric and conjunctiva were pink and moist. Extraocular movements were intact and pupils were equal round and reactive to light. Eyelids were unremarkable. PULMONARY: Unlabored respirations. Good breath sounds bilaterally. No audible rales rhonchi or wheezing was noted. CARDIOVASCULAR: There is a regular rate and rhythm without any murmurs gallops or rubs. ABDOMEN: Soft and nontender with normal bowel sounds. SKIN: Skin is clear with no lesions or rashes and otherwise unremarkable. NEUROLOGIC: Patient is alert and oriented x3. Cranial nerves II through XII are grossly intact. Motor and sensory are also intact. Normal speech, volume and content. Symmetrical smile. MUSCULOSKELETAL: Patient's left shoulder is tender to touch just below the humeral head. There is an indentation at that area as well. Patient has good sensation of the fingers patient has good radial pulses. LYMPHATICS: No significant lymphadenopathy is noted PSYCHIATRIC: Normal psychiatric evaluation. Limitations: no limitations Course Vital Signs 09/28/19 09/28/19 09/28/19 16:24 18:29 18:31 Temperature 97.5 F L Pulse Rate 60 65 71 Respiratory 18 18 18 Rate Blood Pressure 134/65 192/88 182/100 O2 Sat by Pulse 96 100 100 Oximetry 09/28/19 09/28/19 18:35 18:40 Temperature Pulse Rate 63 60 Respiratory 15 17 Rate Blood Pressure 190/96 187/90 O2 Sat by Pulse 100 100 Oximetry Procedures - Orthopedic Joint Reduction Joint #1 Consent Obtained: verbal consent Joint Reduction Location: shoulder Analgesia: procedural sedation Shoulder Technique Used (if applicable): traction/counter-traction Post-Reduction Neuro Exam: intact Post-Reduction Vascular Exam: intact Post Reduction X-Ray Obtained: Yes Post Reduction X-Ray Results: reduced Splint Applied: No (Patient was given a sling) Patient Tolerated Procedure: well - Procedural Sedation Procedural Sedation Start Time: 18:31 Indications: fracture/dislocation reduction ASA Class: III Mallampati Airway Score: 2 Preparation: media monitor applied, pulse oximeter, capnometry used, supplemental O2 applied IV Etomidate Dose (mgs): 10 Complications: none Patient Tolerated Procedure: well Medical Decision Making - Medical Decision Making X-ray shows a anterior dislocation of the shoulder. C-spine shows no obvious abnormality. Post reduction x-ray shows good placement of the shoulder. Disposition Clinical Impression: Shoulder dislocation Disposition: HOME SELF-CARE Condition: Good Instructions (If sedation given, give patient instructions): Fall Prevention for Older Adults (ED), Shoulder Dislocation (ED) Is patient prescribed a controlled substance at d/c from ED?: No Referrals: Feliz El MD [Primary Care Provider] - 1-2 days Rob Tinoco MD [STAFF PHYSICIAN] - 1-2 days Time of Disposition: 19:11
--- NOTE | 2019-09-28 17:51 | XR ---
EXAMINATION TYPE: XR cervical spine 5 views comp, XR shoulder complete 3 views LT DATE OF EXAM: 09/28/2019 COMPARISON: None HISTORY: 74-year-old male trauma and pain after fall today FINDINGS: Cervical spine: No predental space widening or prevertebral soft tissue swelling. Moderate degenerative disc disease mid to lower cervical spine. Alignment is maintained on the swimmer's view. Suboptimal obliquity for adequate assessment of the left-sided neuroforamen. On the right, there seems to be moderate neural f oraminal narrowing at C4-C5 and C5-C6. On the lateral view, shoulders obscure the C5-C6 level and bel ow. Left shoulder: Severe degenerative joint space narrowing with marginal spurring and capsular hypertrophy at the acro mioclavicular joint. There is a traumatic anterior subglenoid glenohumeral joint dislocation. Mild Hi ll-Sachs deformity is evident. Left anterior chest wall pacemaker generator. Median sternotomy wires and post-CABG clips noted. IMPRESSION: 1. Cervical spine: No malalignment on the swimmer's view. Moderate spondylotic change mid and lower c ervical spine. 2. Left shoulder: Anterior subglenoid glenohumeral joint dislocation with a mild Hill-Sachs impaction deformity.
[2019-09-28] MEDS ORDERED: ETOMIDATE 2 MG/ML 10 ML VIAL IVP STA (18:25)
--- NOTE | 2019-09-28 18:59 | XR ---
EXAMINATION TYPE: XR shoulder limited LT DATE OF EXAM: 09/28/2019 COMPARISON: Earlier today HISTORY: 74 year-old male post reduction TECHNIQUE: One view FINDINGS: Interval satisfactory reduction of the glenohumeral joint. No sizable Hill-Sachs deformity on this si ngle AP view. Unable to exclude a small left pleural effusion. IMPRESSION: Interval satisfactory reduction of the left glenohumeral joint. Unable to exclude a small left pleura l effusion.
[2019-09-28 20:55] VITALS: BP 179/76; PULSE 65; RESP 18; TEMP 98.3
== END 2019-09-28 19:43 | disposition home or self-care (01) ==
LOC: EC 16:15
DX: S43.005A Unspecified dislocation of left shoulder joint, initial encounter (principal); I25.10 Atherosclerotic heart disease of native coronary artery without angina pectoris; J44.9 Chronic obstructive pulmonary disease, unspecified; E78.5 Hyperlipidemia, unspecified; I25.2 Old myocardial infarction; M19.90 Unspecified osteoarthritis, unspecified site; I12.9 Hypertensive chronic kidney disease with stage 1 through stage 4 chronic kidney disease, or unspecified chronic kidney disease; N18.3 Chronic kidney disease, stage 3 (moderate); G89.29 Other chronic pain; I48.20 Chronic atrial fibrillation, unspecified; Z79.899 Other long term (current) drug therapy; Z79.51 Long term (current) use of inhaled steroids; Z79.01 Long term (current) use of anticoagulants; Z86.74 Personal history of sudden cardiac arrest; Z95.0 Presence of cardiac pacemaker; Z87.891 Personal history of nicotine dependence; Z95.1 Presence of aortocoronary bypass graft; W01.0XXA Fall on same level from slipping, tripping and stumbling without subsequent striking against object, initial encounter
CPT/HCPCS: 96374; 99284; 23650; 99152; 72050; 73030; 73020; J1170

== ENCOUNTER 2019-12-28 07:44 | Day surgery (SDC) | payer MEDICARE, OTHER ==
[~2019-12-28 07:44] MED LIST: PREMYELOGRAM MEDICATION REVIEW 1 EACH MISC PO ONE
== END 2019-12-28 08:20 | disposition home or self-care (01) ==
LOC: RADPROMAIN 07:44
PROVIDERS: ATTEND Physical Medicine & Rehabilitation
DX: M47.897 Other spondylosis, lumbosacral region (principal); Z53.8 Procedure and treatment not carried out for other reasons; M41.86 Other forms of scoliosis, lumbar region; M51.17 Intervertebral disc disorders with radiculopathy, lumbosacral region; I11.0 Hypertensive heart disease with heart failure; I50.9 Heart failure, unspecified; J44.9 Chronic obstructive pulmonary disease, unspecified; F32.9 Major depressive disorder, single episode, unspecified; H26.9 Unspecified cataract; M19.90 Unspecified osteoarthritis, unspecified site; E78.5 Hyperlipidemia, unspecified; Z79.899 Other long term (current) drug therapy; Z79.4 Long term (current) use of insulin; Z79.51 Long term (current) use of inhaled steroids; Z87.448 Personal history of other diseases of urinary system; Z97.3 Presence of spectacles and contact lenses; Z98.890 Other specified postprocedural states; Z95.5 Presence of coronary angioplasty implant and graft; Z86.69 Personal history of other diseases of the nervous system and sense organs; Z87.19 Personal history of other diseases of the digestive system; Z87.891 Personal history of nicotine dependence

== ENCOUNTER 2021-05-19 14:36 | Inpatient (IN) | payer MEDICARE ==
--- NOTE | 2021-05-19 17:08 | ED ---
General Adult HPI - General Chief complaint: Weakness Stated complaint: Weakness Time Seen by Provider: 05/19/21 16:55 Source: patient, family Mode of arrival: wheelchair Limitations: no limitations - History of Present Illness Initial comments: 76-year-old male gentleman presents to the emergency room with his complaining of generalized weakness since starting dialysis February 27. Patient states that he did not go to dialysis today because she was so weak. He does have a central line for dialysis AV fistula was placed in his right upper arm in March but is not ready for use. Last had dialysis on Tuesday. He denies any nausea vomiting diarrhea or fevers. His states that he is chilled all the time and can't get warm. He has been unable to get a good night sleep. He feels his abdomen is distended but denies any pain. He does have some swelling to his lower extremities. He denies any cough or difficulty breathing. He andres es any chest pain. -: month(s) (2) Severity scale (1-10): 0 Consistency: constant Associated Symptoms: fever/chills (chills no fevers), malaise, weakness Treatments Prior to Arrival: none - Related Data Home Medications Medication Instructions Recorded Confirmed Atorvastatin [Lipitor] 40 mg PO DAILY 06/29/14 05/19/21 Multivitamins, Thera [Multivitamin 1 tab PO DAILY 06/29/14 05/19/21 (formulary)] Ubidecarenone [Co Q-10] 200 mg PO DAILY 06/29/14 05/19/21 Amiodarone [Cordarone] 200 mg PO DAILY 07/03/17 05/19/21 Ergocalciferol (Vitamin D2) 50,000 unit PO SY 09/03/17 05/19/21 [Vitamin D2] allopurinoL [Zyloprim] 100 mg PO BID 12/15/18 05/19/21 calcitrioL [Calcitriol] 0.25 mcg PO TUWETHFRSA 12/15/18 05/19/21 carvediloL [Coreg] 6.25 mg PO BID 12/15/18 05/19/21 Furosemide [Lasix] 80 mg PO BID 09/06/19 05/19/21 Acetaminophen Tab [Tylenol Tab] 1,000 mg PO Q6HR PRN 12/20/19 05/19/21 metOLazone 2.5 mg PO DAILY PRN 12/20/19 05/19/21 Gabapentin [Neurontin] 300 mg PO TID 05/19/21 05/19/21 Ipratropium-Albuterol Nebulize 3 ml INHALATION RT-QID PRN 05/19/21 05/19/21 [Duoneb 0.5 mg-3 mg/3 ml Soln] Ketoconazole [Ketoconazole 2% 1 applic TOPICAL DAILY PRN 05/19/21 05/19/21 Shampoo] LORazepam [Ativan] 0.5 mg PO DAILY PRN 05/19/21 05/19/21 Nephro-Konrad 0.8mg Tab 1 tab PO DAILY 05/19/21 05/19/21 Previous Rx's Medication Instructions Recorded Isosorbide Mononitrate ER [Imdur] 60 mg PO DAILY #60 tab 12/27/16 Allergies Allergy/AdvReac Type Severity Reaction Status Date / Time No Known Allergies Allergy Verified 05/19/21 18:15 Review of Systems ROS Statement: Those systems with pertinent positive or pertinent negative responses have been documented in the HPI. ROS Other: All systems not noted in ROS Statement are negative. Past Medical History Past Medical History: Atrial Fibrillation, Coronary Artery Disease (CAD), Heart Failure, COPD, GERD/Reflux, Hyperlipidemia, Hypertension, Myocardial Infarction (CT), Osteoarthritis (OA), Renal Disease, Skin Disorder, Vascular Disorder Additional Past Medical History / Comment(s): Pt recently admitted 09/03/17 with dizziness/bradycardia and had a pacemaker insertion. Other hx: Afib with past RVR, SOB, chronic cough, -2008 CT/cardiac arrest, PVD r/t vein havesting, chronic low back pain, chronic renal failure stage III, rosacia, junior quent falls Last Myocardial Infarction Date:: November 2016 History of Any Multi-Drug Resistant Organisms: None Reported Past Surgical History: Back Surgery, Coronary Bypass/CABG, Heart Catheterization With Stent, Hernia Repair, Joint Replacement, Orthopedic Surgery Additional Past Surgical History / Comment(s): 09/08/17 permanent pacemaker, CABG, PCI/ with 4 stents in 2005, lumbar laminectomy, bilateral carpal tunnel releases, R shoulder rotator cuff surgery, pain clinic procedures for lumbar back, incisional hernia with mesh, colonoscopy, bilateral cataract removals. Past Anesthesia/Blood Transfusion Reactions: Postoperative Nausea & Vomiting (PONV) Additional Past Anesthesia/Blood Transfusion Reaction / Comment(s): CLAUSTROPHOBIA Date of Last Stent Placement:: 2005 Past Psychological History: No Psychological Hx Reported Smoking Status: Former smoker Past Alcohol Use History: Rare Past Drug Use History: None Reported - Past Family History Mother Family Medical History: No Reported History Additional Family Medical History / Comment(s): IN A TRAIN ACCIDENT. Father Family Medical History: Renal Disease General Exam Limitations: no limitations General appearance: alert, in no apparent distress Eye exam: Present: normal appearance, EOMI Respiratory exam: Present: decreased breath sounds (Diminished at bases). Absent: wheezes, rales, rhonchi, stridor, chest wall tenderness, accessory muscle use Cardiovascular Exam: Present: regular rate, normal rhythm, normal heart sounds. Absent: systolic murmur, diastolic murmur, rubs, gallop, clicks GI/Abdominal exam: Present: soft, distended. Absent: tenderness, guarding, rebound, rigid Extremities exam: Present: full ROM, pedal edema. Absent: tenderness, joint swelling, calf tenderness Back exam: Present: normal inspection. Absent: tenderness, CVA tenderness (R), CVA tenderness (L) Neurological exam: Present: alert, oriented X3 Psychiatric exam: Present: normal affect, normal mood Skin exam: Present: warm, dry. Absent: diaphoretic Course Vital Signs 05/19/21 05/19/21 05/19/21 15:32 17:36 18:00 Temperature 98.2 F Pulse Rate 65 61 62 Respiratory 18 18 18 Rate Blood Pressure 116/63 129/66 138/72 O2 Sat by Pulse 96 93 L 93 L Oximetry EKG Findings - CT, Pacemaker, Normal: Pacemaker: ventricular pacing w/capture (except when refractory) (ventricular rate 61, QRS 0.194, QTC 0.553) Medical Decision Making - Medical Decision Making X-ray shows small pleural effusions not changed from previous exam there is no obvious heart failure but there is mild blunting of the costophrenic angles. Hemoglobin and hematocrit are stable at 12 and 40 respectively. There is no evidence of leukocytosis. Troponin is elevated 0.041 likely due to renal failur e. Creatinine is 6.28. Potassium is 4.1. EKG shows a ventricularly paced rhythm at a rate of 61. Patient will be admitted for hemodialysis, weakness and trending troponin. Case discussed with Dr. Pichardo. - Lab Data Result diagrams: 05/19/21 17:09 05/19/21 17:09 Lab Results 05/19/21 05/19/21 05/19/21 Range/Units 17:09 17:09 17:09 WBC 5.8 (3.8-10.6) k/uL RBC 3.46 L (4.30-5.90) m/uL Hgb 12.0 L (13.0-17.5) gm/dL Hct 40.2 (39.0-53.0) % MCV 116.4 H (80.0-100.0) fL MCH 34.8 (25.0-35.0) pg MCHC 29.9 L (31.0-37.0) g/dL RDW 19.1 H (11.5-15.5) % Plt Count 143 L (150-450) k/uL MPV 9.3 Neutrophils % 74 % Lymphocytes % 12 % Monocytes % 7 % Eosinophils % 4 % Basophils % 0 % Neutrophils # 4.3 (1.3-7.7) k/uL Lymphocytes # 0.7 L (1.0-4.8) k/uL Monocytes # 0.4 (0-1.0) k/uL Eosinophils # 0.2 (0-0.7) k/uL Basophils # 0.0 (0-0.2) k/uL Manual Slide Review Performed Hypochromasia Moderate Anisocytosis Slight Macrocytosis Marked A PT 11.0 (9.0-12.0) sec INR 1.0 (<1.2) APTT 24.2 (22.0-30.0) sec Sodium 138 (137-145) mmol/L Potassium 4.1 (3.5-5.1) mmol/L Chloride 95 L (98-107) mmol/L Carbon Dioxide 26 (22-30) mmol/L Anion Gap 17 mmol/L BUN 67 H (9-20) mg/dL Creatinine 6.28 H (0.66-1.25) mg/dL Est GFR (CKD-EPI)AfAm 9 (>60 ml/min/1.73 sqM) Est GFR (CKD-EPI)NonAf 8 (>60 ml/min/1.73 sqM) Glucose 104 H (74-99) mg/dL Plasma Lactic Acid Kasi (0.7-2.0) mmol/L Calcium 9.3 (8.4-10.2) mg/dL Phosphorus 5.3 H (2.5-4.5) mg/dL Magnesium 2.2 (1.6-2.3) mg/dL Total Bilirubin 1.1 (0.2-1.3) mg/dL AST 48 (17-59) U/L ALT 35 (4-49) U/L Alkaline Phosphatase 215 H (38-126) U/L Troponin I (0.000-0.034) ng/mL Total Protein 7.2 (6.3-8.2) g/dL Albumin 4.0 (3.5-5.0) g/dL 05/19/21 05/19/21 Range/Units 17:09 17:09 WBC (3.8-10.6) k/uL RBC (4.30-5.90) m/uL Hgb (13.0-17.5) gm/dL Hct (39.0-53.0) % MCV (80.0-100.0) fL MCH (25.0-35.0) pg MCHC (31.0-37.0) g/dL RDW (11.5-15.5) % Plt Count (150-450) k/uL MPV Neutrophils % % Lymphocytes % % Monocytes % % Eosinophils % % Basophils % % Neutrophils # (1.3-7.7) k/uL Lymphocytes # (1.0-4.8) k/uL Monocytes # (0-1.0) k/uL Eosinophils # (0-0.7) k/uL Basophils # (0-0.2) k/uL Manual Slide Review Hypochromasia Anisocytosis Macrocytosis PT (9.0-12.0) sec INR (<1.2) APTT (22.0-30.0) sec Sodium (137-145) mmol/L Potassium (3.5-5.1) mmol/L Chloride (98-107) mmol/L Carbon Dioxide (22-30) mmol/L Anion Gap mmol/L BUN (9-20) mg/dL Creatinine (0.66-1.25) mg/dL Est GFR (CKD-EPI)AfAm (>60 ml/min/1.73 sqM) Est GFR (CKD-EPI)NonAf (>60 ml/min/1.73 sqM) Glucose (74-99) mg/dL Plasma Lactic Acid Kasi 1.0 (0.7-2.0) mmol/L Calcium (8.4-10.2) mg/dL Phosphorus (2.5-4.5) mg/dL Magnesium (1.6-2.3) mg/dL Total Bilirubin (0.2-1.3) mg/dL AST (17-59) U/L ALT (4-49) U/L Alkaline Phosphatase (38-126) U/L Troponin I 0.041 H* (0.000-0.034) ng/mL Total Protein (6.3-8.2) g/dL Albumin (3.5-5.0) g/dL Disposition Clinical Impression: Weakness, Missed dialysis Disposition: ADMITTED IP TO THIS [facility] Decision Date: 05/19/21 Decision Time: 18:43
[2021-05-19 17:18] LABS: Anisocytosis Slight; Basophils % (A) 0 %; Eosinophils # (A) 0.2 k/uL (0-0.7); Eosinophils % (A) 4 %; HCT 40.2 % (39.0-53.0); Hypochromasia Moderate; Lymphocytes # (A) 0.7 k/uL (1.0-4.8); Lymphocytes % (A) 12 %; MCH 34.8 pg (25.0-35.0); MCHC 29.9 g/dL (31.0-37.0); MCV 116.4 fL (80.0-100.0); Macrocytosis Marked; Mean Platelet Volume 9.3; Monocytes # (A) 0.4 k/uL (0-1.0); Monocytes % (A) 7 %; Neutrophils # (A) 4.3 k/uL (1.3-7.7); Neutrophils % (A) 74 %; Platelet Count 143 k/uL (150-450); RBC 3.46 m/uL (4.30-5.90); RDW 19.1 % (11.5-15.5); WBC 5.8 k/uL (3.8-10.6)
[2021-05-19 17:28] LABS: Calcium 9.3 mg/dL (8.4-10.2); Magnesium 2.2 mg/dL (1.6-2.3); Phosphorus 5.3 mg/dL (2.5-4.5); Potassium 4.1 mmol/L (3.5-5.1); Total Bilirubin 1.1 mg/dL (0.2-1.3); Total Protein 7.2 g/dL (6.3-8.2)
--- NOTE | 2021-05-19 17:38 | XR ---
EXAMINATION TYPE: XR chest 2V DATE OF EXAM: 05/19/2021 COMPARISON: NONE HISTORY: Short of breath TECHNIQUE: 2 views FINDINGS: Heart is enlarged. There is right central venous catheter with tip in the superior vena cav a close to the right atrium. There are sternal wires. There is left axillary pacemaker. There is mild blunting of the costophrenic angles. There is no obvious heart failure. IMPRESSION: Small pleural effusions not significantly different than last exam. No obvious heart fail ure. Pulmonary vascularity is improved compared to last exam.
[2021-05-19] MEDS ORDERED: FUROSEMIDE 10 MG/ML 10 ML VIAL IV STA (17:40)
[2021-05-19 18:00] LABS: Partial Thromboplastin Time 24.2 sec (22.0-30.0)
[2021-05-19] MEDS ORDERED: ACETAMINOPHEN TAB 325 MG TAB PO PRN (18:38)
[2021-05-19] MEDS ORDERED: NALOXONE 0.4 MG/ML 1 ML VIAL IV PRN (18:38)
[2021-05-19] MEDS ORDERED: metOLazone 2.5 MG TAB PO PRN (18:40)
[2021-05-19] MEDS: FUROSEMIDE 80 MG TAB PO SCH (20:17)
[2021-05-19] MEDS: carvediloL 6.25 MG TAB PO SCH (20:20)
[2021-05-19] MEDS: IPRATROPIUM-ALBUTEROL 3 ML NEB INHALATION PRN (21:08)
[2021-05-20] MEDS: GABAPENTIN 300 MG CAP PO SCH ×2 (00:31→10:09)
[2021-05-20] MEDS: allopurinoL 100 MG TAB PO SCH ×3 (00:31→19:53)
[2021-05-20] MEDS: carvediloL 6.25 MG TAB PO SCH ×2 (07:01→17:19)
[2021-05-20 07:20] LABS: Amorphous Sediment,Urine Rare /hpf; Appearance,Urine Clear (Clear); Bacteria,Urine Rare /hpf; Bilirubin,Urine Negative (Negative); Blood,Urine Small (Negative); Color,Urine Yellow; Glucose,Urine (UA) Negative (Negative); Hyaline Casts,Urine 1 /lpf (0-2); Ketones,Urine Negative (Negative); Leukocyte Esterase,Urine Negative (Negative); Mucus,Urine Rare /hpf; Nitrite,Urine Negative (Negative); Protein,Urine 1+ (Negative); RBC,Urine <1 /hpf (0-5); Specific Gravity,Urine 1.011 (1.001-1.035); Squamous Epithelial Cell,Urine <1 /hpf (0-4); Urobilinogen,Urine <2.0 mg/dL (<2.0); WBC,Urine 1 /hpf (0-5)
[2021-05-20] MEDS: IPRATROPIUM-ALBUTEROL 3 ML NEB INHALATION PRN (08:41)
[2021-05-20] MEDS ORDERED: NON FORMULARY DRUG (Ubidecarenone [Co Q-10] 100 MG Capsule) PO SCH (09:00)
--- NOTE | 2021-05-20 09:18 | P.NPCON ---
History of Present Illness - Reason for Consult end stage renal disease - History of Present Illness Reason for consultation: End-stage renal disease History of present illness: Patient is a 76-year-old male seen in renal consultation for end-stage renal disease. Patient is maintained on hemodialysis on Tuesday schedule. Last hemodialysis treatment was and Tuesday. Patient is currently somewhat confused. Patient came to the hospital due to progressive weakness and difficulty ambulating. He has also been falling at home. Blood pressure stable. He denies chest pain or shortness of breath. He is currently on 4 L cannula. Chest x-ray showed small pleural effusions. He tested negative for coronavirus. Vital signs are stable. General: On nasal cannula. HEENT: Head exam is unremarkable. LUNGS: Breath sounds decreased. HEART: Rate and Rhythm are regular. ABDOMEN: Soft, no distention. EXTREMITITES: 1+ edema. Past Medical History Past Medical History: Atrial Fibrillation, Coronary Artery Disease (CAD), Heart Failure, COPD, GERD/Reflux, Hyperlipidemia, Hypertension, Myocardial Infarction (DC), Osteoarthritis (OA), Renal Disease, Skin Disorder, Vascular Disorder Additional Past Medical History / Comment(s): Pt recently admitted 09/03/17 with dizziness/bradycardia and had a pacemaker insertion. Other hx: Afib with past RVR, SOB, chronic cough, -2008 [place]/cardiac arrest, PVD r/t vein havesting, chronic low back pain, chronic renal failure stage III, rosacia, frequent falls Last Myocardial Infarction Date:: November 2016 History of Any Multi-Drug Resistant Organisms: None Reported Past Surgical History: Back Surgery, Coronary Bypass/CABG, Heart Catheterization With Stent, Hernia Repair, Joint Replacement, Orthopedic Surgery Additional Past Surgical History / Comment(s): 09/08/17 permanent pacemaker, CABG, PCI/ with 4 stents in 2005, lumbar laminectomy, bilateral carpal tunnel releases, R shoulder rotator cuff surgery, pain clinic procedures for lumbar back, incisional hernia with mesh, colonoscopy, bilateral cataract removals. Past Anesthesia/Blood Transfusion Reactions: Postoperative Nausea & Vomiting (PONV) Additional Past Anesthesia/Blood Transfusion Reaction / Comment(s): CLAUSTROPHOBIA Date of Last Stent Placement:: 2005 Past Psychological History: No Psychological Hx Reported Additional Psychological History / Comment(s): PT LIVES WITH HIS MARIMAR IN SINGLE LEVEL HOME THAT HAS 2 PORCH STEPS. PETS- 1 DOGS. NO OUTSIDE SERVICES RECIEVED. DOES HAVE NEBULIZER, HOME OXYGEN AT 2Liters NEEDED. WALKER NEEDED. NO SERVICE IN BACKGROUND. 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 Smoking Status: Former smoker Past Alcohol Use History: Rare Additional Past Alcohol Use History / Comment(s): SMOKED 49 YEARS QUIT 2008, SMOKED 1/2 PPD Past Drug Use History: None Reported - Past Family History Mother Family Medical History: No Reported History Additional Family Medical History / Comment(s): IN A TRAIN ACCIDENT. Father Family Medical History: Renal Disease Medications and Allergies Home Medications Medication Instructions Recorded Confirmed Type Atorvastatin [Lipitor] 40 mg PO DAILY 06/29/14 05/19/21 History Multivitamins, Thera [Multivitamin 1 tab PO DAILY 06/29/14 05/19/21 History (formulary)] Ubidecarenone [Co Q-10] 200 mg PO DAILY 06/29/14 05/19/21 History Isosorbide Mononitrate ER [Imdur] 60 mg PO DAILY #60 tab 12/27/16 05/19/21 Rx Amiodarone [Cordarone] 200 mg PO DAILY 07/03/17 05/19/21 History Ergocalciferol (Vitamin D2) 50,000 unit PO SY 09/03/17 05/19/21 History [Vitamin D2] allopurinoL [Zyloprim] 100 mg PO BID 12/15/18 05/19/21 History calcitrioL [Calcitriol] 0.25 mcg PO TUWETHFRSA 12/15/18 05/19/21 History carvediloL [Coreg] 6.25 mg PO BID 12/15/18 05/19/21 History Furosemide [Lasix] 80 mg PO BID 09/06/19 05/19/21 History Acetaminophen Tab [Tylenol Tab] 1,000 mg PO Q6HR PRN 12/20/19 05/19/21 History metOLazone 2.5 mg PO DAILY PRN 12/20/19 05/19/21 History Gabapentin [Neurontin] 300 mg PO TID 05/19/21 05/19/21 History Ipratropium-Albuterol Nebulize 3 ml INHALATION RT-QID PRN 05/19/21 05/19/21 H istory [Duoneb 0.5 mg-3 mg/3 ml Soln] Ketoconazole [Ketoconazole 2% 1 applic TOPICAL DAILY PRN 05/19/21 05/19/21 History Shampoo] LORazepam [Ativan] 0.5 mg PO DAILY PRN 05/19/21 05/19/21 History Nephro-Konrad 0.8mg Tab 1 tab PO DAILY 05/19/21 05/19/21 History Allergies Allergy/AdvReac Type Severity Reaction Status Date / Time No Known Allergies Allergy Verified 05/19/21 18:15 Physical Exam Vitals: Vital Signs Temp Pulse Pulse Resp BP BP Pulse Ox 05/20/21 08:54 62 05/20/21 08:43 60 100 05/20/21 04:10 60 15 139/77 100 05/20/21 00:30 97.6 F 60 14 105/59 100 05/19/21 21:46 60 18 133/75 96 05/19/21 21:41 97.9 F 60 18 140/85 96 05/19/21 21:28 60 05/19/21 21:10 61 05/19/21 20:12 60 18 110/93 95 05/19/21 18:00 62 18 138/72 93 L 05/19/21 17:36 61 18 129/66 93 L 05/19/21 15:32 98.2 F 65 18 116/63 96 Intake and Output 05/19/21 05/20/21 05/20/21 22:59 06:59 14:59 Intake Total 240 Output Total 375 Balance -375 240 Intake: Oral 240 Output: Urine 375 Other: Voiding Method Urinal Weight 98.43 kg 100 kg Results - Lab Results Most recent lab results Calcium 9.3 mg/dL (8.4-10.2) 05/19/21 17:09 Phosphorus 5.3 mg/dL (2.5-4.5) H 05/19/21 17:09 Magnesium 2.2 mg/dL (1.6-2.3) 05/19/21 17:09 05/19/21 17:09 05/19/21 17:09 Assessment and Plan Plan: Assessment: 1. End-stage renal disease maintained on hemodialysis on Tuesday schedule via right chest permacath. 2. Volume overload. 3. Generalized debility with frequent falls at home. 4. Hypertension with chronic kidney disease. Stable. Plan: Hemodialysis today as he missed yesterday's treatment. Another treatment tomorrow per his outpatient schedule. Check phosphorus level. Decrease dose of gabapentin to 100 mg 3 times daily. Will benefit from subacute rehab placement. Thank you for the consultation. I will continue to follow the patient with you during his hospital stay.
[2021-05-20 09:38] LABS: Calcium 9.1 mg/dL (8.4-10.2); Potassium 4.1 mmol/L (3.5-5.1)
[2021-05-20] MEDS: ISOSORBIDE MONONITRATE ER 60 MG TAB.ER.24H PO SCH (10:03)
[2021-05-20] MEDS: FUROSEMIDE 80 MG TAB PO SCH ×2 (10:03→15:01)
[2021-05-20] MEDS: ATORVASTATIN 40 MG TAB PO SCH (10:03)
[2021-05-20] MEDS: FOLIC ACID-VIT B COMPLEX-VIT C 1 CAP PO SCH (10:03)
[2021-05-20] MEDS: AMIODARONE 200 MG TAB PO SCH (10:03)
[2021-05-20] MEDS: MULTIVITAMINS, THERA 1 EACH TAB PO SCH (10:05)
--- NOTE | 2021-05-20 10:36 | P.CRDCN ---
History of Present Illness History of present illness: This is a pleasant 76-year-old male past medical history significant for coronary artery disease status post 3 vessel bypass grafting in 2009, COPD, paroxysmal atrial fibrillation on long-term anticoagulation, permanent pacemaker implantation in 2018 secondary to symptomatic bradycardia, hypertension and dyslipidemia, end stage renal disease on hemodialysis. He follows in the office with Dr. Cardenas. We have been asked to see him in consultation secondary to elevated troponin. He presented to the hospital secondary to generalized weakness after hemodialysis. He states ever since starting with dialysis he has been getting progressively weaker in his legs. He feels as if he cannot stand up. He denies lightheadedness, dizzines, syncope or near syncope. He denies ches t discomfort, shortness of breath, palpitations, nausea, vomiting or diaphoresis. He did miss his dialysis yesterday. DIAGNOSTICS: -EKG reveals ventricular paced rhythm -Chest x-ray small pleural effusions Significantly different than last exam. No heart failure. Pulmonary vascular is improved compared to last exam -Laboratory data reviewed, troponin 0.04, 0.05, sodium 138, potassium 4.1, BUN 73, serum creatinine 6.6, covid-19 pcr negative -Current cardiac medications include Eliquis 2.5 mg twice a day, Coreg 6.25 mg twice a day, Lasix 40 mg twice a day, Imdur 60 mg daily, amiodarone 200 mg daily, Zaroxolyn 2.5 mg daily as needed, Aldactone 12.5 mg daily and atorvastatin 40 mg daily. -Most recent echocardiogram August 2020 in the office reveals preserved LV systolic function with ejection fraction 55%, moderate LVH, moderate MR, mild to moderate TR with moderately increased PASP 52mmHg. At the time of my exam: CONSTITUTIONAL: Denies fever. Denies chills. EYES: Denies blurred vision. Denies vision changes. Denies eye pain. EARS, NOSE, MOUTH & THROAT: Denies headache. Denies sore throat. Denies ear pain. CARDIOVASCULAR: Denies chest pain. Denies shortness of breath. Denies orthopnea. Denies PND. Denies palpitations. RESPIRATORY: Complains of cough. GASTROINTESTINAL: Denies abdominal pain. Denies diarrhea. Denies constipation. Denies nausea. Denies vomiting. MUSCULOSKELETAL: +generalized weakness in bilateral lower extremities INTEGUMENTARY: Denies pruitis. Denies rash. NEUROLOGIC: Denies numbness. Denies tingling. Denies weakness. PSYCHIATRIC: Denies anxiety. Denies depression. ENDOCRINE: Denies fatigue. Denies weight change. Denies polydipsia. Denies polyurina. GENITOURINARY: Denies burning, hematuria or urgency with micturation. HEMATOLOGIC: Denies history of anemia. Denies bleeding. Physical examination: Vitals: Reviewed GENERAL: This is a 76-year-old male in no apparent distress at the time of my examination. HEENT: Head is atraumatic, normocephalic. Pupils are equal, round. Sclerae anicteric. Mucous membranes of the mouth are moist. Neck is supple. There is no jugular venous distention. LUNGS: Clear to auscultation no wheezes, rales or rhonchi. No chest wall tenderness is noted on palpation or with deep breathing. HEART: Regular rate and rhythm, systolic ejection murmur at apex. S1 and S2 heard. ABDOMEN: Soft, nontender. Bowel sounds are heard. EXTREMITIES: mild non-pitting bilateral lower extremity peripheral edema and no calf tenderness noted. NEUROLOGIC: Patient is awake, alert and oriented x3. ASSESSMENT Troponin elevation not suggestive of an acute coronary event, chronically elevated most likely secondary to chronic kidney disease. There is no symptoms of angina. Generalized debility Chronic diastolic heart failure End Stage Renal Disease on Hemodialysis History of coronary artery disease status post bypass grafting Paroxysmal atrial fibrillation on long-term anticoagulation Permanent pacemaker implantation Hypertension Dyslipidemia PLAN -Obtain 2D echocardiogram -Ongoing medical management per primary care team and nephrology. Plan for hemodialysis today -No clinical evidence to suggest acute coronary event. If echocardiogram with no acute findings, no further workup from cardiology perspective. Thank you kindly for this consultation. Nurse Practitioner note has been reviewed, I agree with a documented findings and plan of care. Patient was seen and examined. Past Medical History Past Medical History: Atrial Fibrillation, Coronary Artery Disease (CAD), Heart Failure, COPD, GERD/Reflux, Hyperlipidemia, Hypertension, Myocardial Infarction ([place]), Osteoarthritis (OA), Renal Disease, Skin Disorder, Vascular Disorder Additional Past Medical History / Comment(s): Pt recently admitted 09/03/17 with dizziness/bradycardia and had a pacemaker insertion. Other hx: Afib with past RVR, SOB, chronic cough, MIs-2009 [place]/cardiac arrest, PVD r/t vein havesting, chronic low back pain, chronic renal failure stage III, rosacia, frequent falls Last Myocardial Infarction Date:: November 2016 History of Any Multi-Drug Resistant Organisms: None Reported Past Surgical History: Back Surgery, Coronary Bypass/CABG, Heart Catheterization With Stent, Hernia Repair, Joint Replacement, Orthopedic Surgery Additional Past Surgical History / Comment(s): 09/08/17 permanent pacemaker, CABG, PCI/ with 4 stents in 2005, lumbar laminectomy, bilateral carpal tunnel releases, R shoulder rotator cuff surgery, pain clinic procedures for lumbar back, incisional hernia with mesh, colonoscopy, bilateral cataract removals. Past Anesthesia/Blood Transfusion Reactions: Postoperative Nausea & Vomiting (PONV) Additional Past Anesthesia/Blood Transfusion Reaction / Comment(s): CLAUSTROPHOBIA Date of Last Stent Placement:: 2005 Past Psychological History: No Psychological Hx Reported Additional Psychological History / Comment(s): PT LIVES WITH HIS MARIMAR IN SINGLE LEVEL HOME THAT HAS 2 PORCH STEPS. PETS- 1 DOGS. NO OUTSIDE SERVICES RECIEVED. DOES HAVE NEBULIZER, HOME OXYGEN AT 2Liters NEEDED. WALKER NEEDED. NO SERVICE IN BACKGROUND. 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 Smoking Status: Former smoker Past Alcohol Use History: Rare Additional Past Alcohol Use History / Comment(s): SMOKED 50 YEARS QUIT 2008, SMOKED 1/2 PPD Past Drug Use History: None Reported - Past Family History Mother Family Medical History: No Reported History Additional Family Medical History / Comment(s): IN A TRAIN ACCIDENT. Father Family Medical History: Renal Disease Medications and Allergies Home Medications Medication Instructions Recorded Confirmed Type Atorvastatin [Lipitor] 40 mg PO DAILY 06/29/14 05/19/21 History Multivitamins, Thera [Multivitamin 1 tab PO DAILY 06/29/14 05/19/21 History (formulary)] Ubidecarenone [Co Q-10] 200 mg PO DAILY 06/29/14 05/19/21 History Isosorbide Mononitrate ER [Imdur] 60 mg PO DAILY #60 tab 12/27/16 05/19/21 Rx Amiodarone [Cordarone] 200 mg PO DAILY 07/03/17 05/19/21 History Ergocalciferol (Vitamin D2) 50,000 unit PO SY 09/03/17 05/19/21 History [Vitamin D2] allopurinoL [Zyloprim] 100 mg PO BID 12/15/18 05/19/21 History calcitrioL [Calcitriol] 0.25 mcg PO TUWETHFRSA 12/15/18 05/19/21 History carvediloL [Coreg] 6.25 mg PO BID 12/15/18 05/19/21 History Furosemide [Lasix] 80 mg PO BID 09/06/19 05/19/21 History Acetaminophen Tab [Tylenol Tab] 1,000 mg PO Q6HR PRN 12/20/19 05/19/21 History metOLazone 2.5 mg PO DAILY PRN 12/20/19 05/19/21 History Gabapentin [Neurontin] 300 mg PO TID 05/19/21 05/19/21 History Ipratropium-Albuterol Nebulize 3 ml INHALATION RT-QID PRN 05/19/21 05/19/21 History [Duoneb 0.5 mg-3 mg/3 ml Soln] Ketoconazole [Ketoconazole 2% 1 applic TOPICAL DAILY PRN 05/19/21 05/19/21 History Shampoo] LORazepam [Ativan] 0.5 mg PO DAILY PRN 05/19/21 05/19/21 History Nephro-Konrad 0.8mg Tab 1 tab PO DAILY 05/19/21 05/19/21 History Allergies Allergy/AdvReac Type Severity Reaction Status Date / Time No Known Allergies Allergy Verified 05/19/21 18:15 Physical Exam Vitals: Vital Signs Temp Pulse Pulse Resp BP BP Pulse Ox 05/20/21 04:10 60 15 139/77 100 05/20/21 00:30 97.6 F 60 14 105/59 100 05/19/21 21:46 60 18 133/75 96 05/19/21 21:41 97.9 F 60 18 140/85 96 05/19/21 21:28 60 05/19/21 21:10 61 05/19/21 20:12 60 18 110/93 95 05/19/21 18:00 62 18 138/72 93 L 05/19/21 17:36 61 18 129/66 93 L 05/19/21 15:32 98.2 F 65 18 116/63 96 Intake and Output 05/19/21 05/20/21 05/20/21 22:59 06:59 14:59 Output Total 375 Balance -375 Output: Urine 375 Other: Voiding Method Urinal Weight 98.43 kg 100 kg Results 05/19/21 17:09 05/20/21 08:21 Cardiac Enzymes 05/19/21 05/19/21 Range/Units 17:09 17:09 AST 48 (17-59) U/L Troponin I 0.041 H* (0.000-0.034) ng/mL Coagulation 05/19/21 Range/Units 17:09 PT 11.0 (9.0-12.0) sec APTT 24.2 (22.0-30.0) sec CBC 05/19/21 Range/Units 17:09 WBC 5.8 (3.8-10.6) k/uL RBC 3.46 L (4.30-5.90) m/uL Hgb 12.0 L (13.0-17.5) gm/dL Hct 40.2 (39.0-53.0) % Plt Count 143 L (150-450) k/uL Comprehensive Metabolic Panel 05/19/21 Range/Units 17:09 Sodium 138 (137-145) mmol/L Potassium 4.1 (3.5-5.1) mmol/L Chloride 95 L (98-107) mmol/L Carbon Dioxide 26 (22-30) mmol/L BUN 67 H (9-20) mg/dL Creatinine 6.28 H (0.66-1.25) mg/dL Glucose 104 H (74-99) mg/dL Calcium 9.3 (8.4-10.2) mg/dL AST 48 (17-59) U/L ALT 35 (4-49) U/L Alkaline Phosphatase 215 H (38-126) U/L Total Protein 7.2 (6.3-8.2) g/dL Albumin 4.0 (3.5-5.0) g/dL Current Medications Generic Name Dose Route Start Last Admin Trade Name Freq PRN Reason Stop Dose Admin Acetaminophen 650 mg 05/19/21 18:38 Acetaminophen Tab 325 Mg Tab PO Q6HR PRN Mild Pain or Fever > 100.5 Albuterol/Ipratropium 3 ml 05/19/21 18:40 05/19/21 21:08 Ipratropium-Albuterol 3 Ml Neb INHALATION 3 ml RT-QID PRN Administration Shortness Of Breath Allopurinol 100 mg 05/19/21 21:00 05/20/21 00:31 Allopurinol 100 Mg Tab PO Not Given BID [facility] Amiodarone HCl 200 mg 05/20/21 09:00 Amiodarone 200 Mg Tab PO DAILY [facility] Atorvastatin Calcium 40 mg 05/20/21 09:00 Atorvastatin 40 Mg Tab PO DAILY [facility] Carvedilol 6.25 mg 05/19/21 19:30 05/20/21 07:01 Carvedilol 6.25 Mg Tab PO 6.25 mg BID-W/MEALS [facility] Administration Furosemide 80 mg 05/19/21 19:30 05/19/21 20:17 Furosemide 80 Mg Tab PO Not Given BID@0900,1600 [facility] Gabapentin 300 mg 05/19/21 22:00 05/20/21 00:31 Gabapentin 300 Mg Cap PO Not Given TID [facility] Isosorbide Mononitrate 60 mg 05/20/21 09:00 Isosorbide Mononitrate Er 60 Mg Tab.Er.24h PO DAILY [facility] Lorazepam 0.5 mg 05/19/21 18:40 Lorazepam 0.5 Mg Tab PO DAILY PRN Anxiety Metolazone 2.5 mg 05/19/21 18:40 Metolazone 2.5 Mg Tab PO DAILY PRN edema/fluid retention Multivit/Ca Carb/B Cmplx/FA/Prenat 1 each 05/20/21 09:00 Folic Acid-Vit B Complex-Vit C 1 Cap PO DAILY [facility] Multivitamins 1 each 05/20/21 09:00 Multivitamins, Thera 1 Each Tab PO DAILY [facility] Naloxone HCl 0.2 mg 05/19/21 18:38 Naloxone 0.4 Mg/Ml 1 Ml Vial IV Q2M PRN Opioid Reversal Intake and Output 05/19/21 05/20/21 05/20/21 22:59 06:59 14:59 Output Total 375 Balance -375 Output: Urine 375 Other: Voiding Method Urinal Weight 98.43 kg 100 kg 05/19/21 17:09 05/19/21 17:09
--- NOTE | 2021-05-20 12:07 | P.CNPUL ---
History of Present Illness Consult date: 05/20/21 Reason for consult: dyspnea History of present illness: This is a 76-year-old white male patient with past medical history of COPD on home oxygen at bedtime on an as-needed basis at 2 L, ex-smoker, has a history of coronary artery disease status post three-vessel bypass grafting in 2008, paroxysmal A. fib on long-term anticoagulation, permanent pacemaker placement in 2018 for symptomatic bradycardia, hypertension, dyslipidemia chronic kidney disease, on hemodialysis on Tuesday schedule. Patient states he has been having increasing weakness in his legs to the point he could hardly walk, he states his legs felt like gel. he missed his Tuesday hemodialysis yesterday on 05/19/2021. He had a fall at home related to weakness, no syncope. He denied lightheadedness or dizziness, no chest discomfort, mild cough with some yellowish colored phlegm production, denied increased shortness of breath, no nausea vomiting or diarrhea, no fever or chills, he has completed his COVID- 19 vaccination and a booster. He does not remember what kind but she states she got 3 shots. His chest x-ray shows small pleural effusions not significantly different from his last chest x-ray from January 2021, he did have a mild troponin elevation of 0.04, and 0.055. EKG showed paced rhythm. White blood cell count is not elevated at 5.8, hemoglobin is 12.0, INR is 1.0, his sodium is 138, potassium is 4.1, chloride is 95, B1 is 67, creatinine is 6.28, lactic acid is 1.0, AST and ALT are within normal limits at 48 and 35, alkaline phosphatase is 215, urinalysis showed 1+ protein, small blood, no definite sign of infection, COVID-19 PCR was negative, patient was shortness of breath, and he was placed on BiPAP support overnight and this morning she is undergoing hemodialysis, he is breathing easier currently is currently off BiPAP support and he is on 4 L of oxygen approximately 100%. Afebrile. Review of Systems All systems: negative Constitutional: Reports weakness, Denies chills, Denies fever Eyes: denies blurred vision, denies pain Ears, nose, mouth and throat: Denies headache, Denies sore throat Cardiovascular: Denies chest pain, Denies shortness of breath Respiratory: Reports dyspnea, Reports home oxygen, Denies cough Gastrointestinal: Denies abdominal pain, Denies diarrhea, Denies nausea, Denies vomiting Musculoskeletal: Reports frequent falls, Reports gait dysfunction, Denies myalgias Integumentary: Denies pruritus, Denies rash Neurological: Reports gait dysfunction, Reports weakness, Denies numbness Psychiatric: Denies anxiety, Denies depression Endocrine: Denies fatigue, Denies weight change Past Medical History Past Medical History: Atrial Fibrillation, Coronary Artery Disease (CAD), Heart Failure, COPD, GERD/Reflux, Hyperlipidemia, Hypertension, Myocardial Infarction ([place]), Osteoarthritis (OA), Renal Disease, Skin Disorder, Vascular Disorder Additional Past Medical History / Comment(s): Pt recently admitted 09/03/17 with dizziness/bradycardia and had a pacemaker insertion. Other hx: Afib with past RVR, SOB, chronic cough, MIs-2008 [place]/cardiac arrest, PVD r/t vein havesting, chronic low back pain, chronic renal failure stage III, rosacia, frequent falls Last Myocardial Infarction Date:: November 2016 History of Any Multi-Drug Resistant Organisms: None Reported Past Surgical History: Back Surgery, Coronary Bypass/CABG, Heart Catheterization With Stent, Hernia Repair, Joint Replacement, Orthopedic Surgery Additional Past Surgical History / Comment(s): 09/08/17 permanent pacemaker, CABG, PCI/ with 4 stents in 2005, lumbar laminectomy, bilateral carpal tunnel releases, R shoulder rotator cuff surgery, pain clinic procedures for lumbar back, incisional hernia with mesh, colonoscopy, bilateral cataract removals. Past Anesthesia/Blood Transfusion Reactions: Postoperative Nausea & Vomiting (PONV) Additional Past Anesthesia/Blood Transfusion Reaction / Comment(s): CLAUSTROPHOBIA Date of Last Stent Placement:: 2005 Past Psychological History: No Psychological Hx Reported Additional Psychological History / Comment(s): PT LIVES WITH HIS MARIMAR IN SINGLE LEVEL HOME THAT HAS 2 PORCH STEPS. PETS- 1 DOGS. NO OUTSIDE SERVICES RECIEVED. DOES HAVE NEBULIZER, HOME OXYGEN AT 2Liters NEEDED. WALKER NEEDED. NO SERVICE IN BACKGROUND. 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 Smoking Status: Former smoker Past Alcohol Use History: Rare Additional Past Alcohol Use History / Comment(s): SMOKED 50 YEARS QUIT 2008, SMOKED 1/2 PPD Past Drug Use History: None Reported - Past Family History Mother Family Medical History: No Reported History Additional Family Medical History / Comment(s): IN A TRAIN ACCIDENT. Father Family Medical History: Renal Disease Medications and Allergies Home Medications Medication Instructions Recorded Confirmed Type Atorvastatin [Lipitor] 40 mg PO DAILY 06/29/14 05/19/21 History Multivitamins, Thera [Multivitamin 1 tab PO DAILY 06/29/14 05/19/21 History (formulary)] Ubidecarenone [Co Q-10] 200 mg PO DAILY 06/29/14 05/19/21 History Isosorbide Mononitrate ER [Imdur] 60 mg PO DAILY #60 tab 12/27/16 05/19/21 Rx Amiodarone [Cordarone] 200 mg PO DAILY 07/03/17 05/19/21 History Ergocalciferol (Vitamin D2) 50,000 unit PO SY 09/03/17 05/19/21 History [Vitamin D2] allopurinoL [Zyloprim] 100 mg PO BID 12/15/18 05/19/21 History calcitrioL [Calcitriol] 0.25 mcg PO TUWETHFRSA 12/15/18 05/19/21 History carvediloL [Coreg] 6.25 mg PO BID 12/15/18 05/19/21 History Furosemide [Lasix] 80 mg PO BID 09/06/19 05/19/21 History Acetaminophen Tab [Tylenol Tab] 1,000 mg PO Q6HR PRN 12/20/19 05/19/21 History metOLazone 2.5 mg PO DAILY PRN 12/20/19 05/19/21 History Gabapentin [Neurontin] 300 mg PO TID 05/19/21 05/19/21 History Ipratropium-Albuterol Nebulize 3 ml INHALATION RT-QID PRN 05/19/21 05/19/21 History [Duoneb 0.5 mg-3 mg/3 ml Soln] Ketoconazole [Ketoconazole 2% 1 applic TOPICAL DAILY PRN 05/19/21 05/19/21 History Shampoo] LORazepam [Ativan] 0.5 mg PO DAILY PRN 05/19/21 05/19/21 History Nephro-Konrad 0.8mg Tab 1 tab PO DAILY 05/19/21 05/19/21 History Allergies Allergy/AdvReac Type Severity Reaction Status Date / Time No Known Allergies Allergy Verified 05/19/21 18:15 Physical Exam Vitals: Vital Signs Temp Pulse Pulse Resp BP BP Pulse Ox 05/20/21 08:54 62 05/20/21 08:43 60 100 05/20/21 08:00 98.1 F 61 18 109/54 98 05/20/21 04:10 60 15 139/77 100 05/20/21 00:30 97.6 F 60 14 105/59 100 05/19/21 21:46 60 18 133/75 96 05/19/21 21:41 97.9 F 60 18 140/85 96 05/19/21 21:28 60 05/19/21 21:10 61 05/19/21 20:12 60 18 110/93 95 05/19/21 18:00 62 18 138/72 93 L 05/19/21 17:36 61 18 129/66 93 L 05/19/21 15:32 98.2 F 65 18 116/63 96 Intake and Output 05/19/21 05/20/21 05/20/21 22:59 06:59 14:59 Intake Total 240 Output Total 375 Balance -375 240 Intake: Oral 240 Output: Urine 375 Other: Voiding Method Urinal Urinal Weight 98.43 kg 100 kg GENERAL EXAM: Alert, very pleasant, 76-year-old white male, currently on 4 L of oxygen with a pulse ox of 97% comfortable in no apparent distress. HEAD: Normocephalic/atraumatic. EYES: Normal reaction of pupils, equal size. Conjunctiva pink, sclera white. NOSE: Clear with pink turbinates. THROAT: No erythema or exudates. NECK: No masses, no JVD, no thyroid enlargement, no adenopathy. CHEST: No chest wall deformity. Symmetrical expansion. LUNGS: Equal air entry with mild crackles CVS: Regular rate and rhythm, normal S1 and S2, no gallops, no murmurs, no rubs ABDOMEN: Soft, nontender. No hepatosplenomegaly, normal bowel sounds, no guarding or rigidity. EXTREMITIES: No clubbing, mild 1+ edema, no cyanosis, 2+ pulses and upper and lower extremities. MUSCULOSKELETAL: Muscle strength and tone normal. SPINE: No scoliosis or deformity SKIN: No rashes CENTRAL NERVOUS SYSTEM: Alert and oriented -3. No focal deficits, tone is normal in all 4 extremities. PSYCHIATRIC: Alert and oriented -3. Appropriate affect. Intact judgment and insight. Results - Laboratory Findings CBC and BMP: 05/19/21 17:09 05/20/21 08:21 PT/INR, D-dimer PT 11.0 sec (9.0-12.0) 05/19/21 17:09 INR 1.0 (<1.2) 05/19/21 17:09 Abnormal lab findings: Abnormal Labs 05/19/21 05/19/21 05/19/21 17:09 17:09 17:09 RBC 3.46 L Hgb 12.0 L MCV 116.4 H MCHC 29.9 L RDW 19.1 H Plt Count 143 L Lymphocytes # 0.7 L Macrocytosis Marked A Chloride 95 L BUN 67 H Creatinine 6.28 H Glucose 104 H Phosphorus 5.3 H Alkaline Phosphatase 215 H Troponin I 0.041 H* Urine Protein Urine Blood Amorphous Sediment Urine Bacteria Urine Mucus 05/20/21 05/20/21 05/20/21 04:34 08:21 08:21 RBC Hgb MCV MCHC RDW Plt Count Lymphocytes # Macrocytosis Chloride BUN 73 H Creatinine 6.68 H Glucose 104 H Phosphorus Alkaline Phosphatase Troponin I 0.055 H* Urine Protein 1+ H Urine Blood Small H Amorphous Sediment Rare H Urine Bacteria Rare H Urine Mucus Rare H - Diagnostic Findings Chest x-ray: report reviewed, image reviewed Additional studies: EKG reviewed Assessment and Plan Plan: Assessment: #1. Acute on chronic hypoxic respiratory failure and dyspnea related to missed hemodialysis treatments on Tuesday on 05/19/2021 and mild exacerbation of COPD. COVID-19 PCR was negative, chest x-ray showed small bilateral pleural effusions. Patient required brief BiPAP support and hemodialysis treatment was started, with improvement in breathing #2. Gait dysfunction, weakness, fall at home #3. Mildly elevated troponins, no complaints of chest pain, cardiology is following, please refer to their consultation note #4. History of end-stage renal disease on hemodialysis on Tuesday schedule #5. History of COPD on home oxygen on as-needed basis at bedtime #6. Former smoker #7. History of coronary artery disease with previous three-vessel coronary artery bypass grafting, not thought to be related to ACS #8. Hypertension #9. Hyperlipidemia #10. History of permanent pacemaker placement #11. Paroxysmal atrial fibrillation, currently in paced mechanism Plan: Patient is breathing easier, He is undergoing hemodialysis currently Breathing easier He is off BiPAP and he is on 4 L of oxygen Hemodialysis per nephrology Cardiology [place], echocardiogram is pending No complaints of chest pain Resume his nebulized treatments No need for steroids right now We'll continue to follow I performed a history & physical examination of the patient and discussed their management with my nurse practitioner, Geraldine Galarza. I reviewed the nurse practitioner's note and agree with the documented findings and plan of care. Lung sounds are positive for dim breath sounds throughout the lung franz. The findings and the impression was discussed with the patient. I attest to the documentation by the nurse practitioner. Time with Patient: Greater than 30
[2021-05-20] MEDS ORDERED: KETOCONAZOLE 2% SHAMPOO 1 APPLIC/ML TOPICAL PRN (12:43)
--- NOTE | 2021-05-20 13:30 | P.HPIM ---
History of Present Illness Patient is a 76-year-old male with history of coronary artery disease and CABG in the past and on hemodialysis Tuesday and Tuesday came in with increasing weakness and shortness of breath and he did miss hemodialysis yeste . Patient doesn't have any fever chills patient does have a mild cough without any significant sputum production. Patient had nausea vomiting diarrhea. Patient has mild troponin elevation of 0.04 and 0.055. Patient is presently receiving hemodialysis today patient is presently on forward solids and saturating 90% patient was on BiPAP last night. 2 L of fluid is being removed via hemodialysis. Patient is also bit confused from his baseline. REVIEW OF SYSTEMS: CONSTITUTIONAL: No fever, no malaise, no fatigue. HEENT: No recent visual problems or hearing problems. Denied any sore throat. CARDIOVASCULAR: No chest pain, orthopnea, PND, no palpitations, no syncope. PULMONARY: No shortness of breath, no cough, no hemoptysis. GASTROINTESTINAL: No diarrhea, no nausea, no vomiting, no abdominal pain. NEUROLOGICAL: No headaches, no weakness, no numbness. HEMATOLOGICAL: Denies any bleeding or petechiae. GENITOURINARY: Denies any burning micturition, frequency, or urgency. MUSCULOSKELETAL/RHEUMATOLOGICAL: Denies any joint pain, swelling, or any muscle pain. ENDOCRINE: Denies any polyuria or polydipsia. The rest of the 14-point review of systems is negative. PHYSICAL EXAMINATION: GENERAL: The patient is alert and oriented x2 confused from his baseline, not in any acute distress. Well developed, well nourished. HEENT: Pupils are round and equally reacting to light. EOMI. No scleral icterus. No conjunctival pallor. Normocephalic, atraumatic. No pharyngeal erythema. No thyromegaly. CARDIOVASCULAR: S1 and S2 present. No murmurs, rubs, or gallops. PULMONARY: Chest is clear to auscultation, no wheezing or crackles. ABDOMEN: Soft, nontender, nondistended, normoactive bowel sounds. No palpable organomegaly. MUSCULOSKELETAL: No joint swelling or deformity. EXTREMITIES: No cyanosis, clubbing, or pedal edema. NEUROLOGICAL: Gross neurological examination did not reveal any focal deficits. SKIN: No rashes. Assessment and plan -Acute on chronic hypoxic respiratory failure secondary to pulmonary edema and missing hemodialysis. Patient does have bilateral lower pleural effusions as well. Patient will undergo hemodialysis we'll try to wean off oxygen. - weakness secondary to multiple medical problems and patient was having falls at home. Patient will need physical therapy and outpatient therapy evaluation and possibility of placement in a subacute rehabitation -End-stage renal disease dialysis dependent, presently receiving hemodialysis today will also resume dialysis tomorrow, and was pretty status is expected to improve with that -Possible congestive heart failure chronic diastolic dysfunction with acute exacerbation -Coronary artery disease with CABG in the past -Hypertension next and-hyperlipidemia -Paroxysmal atrial fibrillation patient is presently basic rhythm patient has a permanent pacemaker. DVT prophylaxis: Subcutaneous heparin Past Medical History Past Medical History: Atrial Fibrillation, Coronary Artery Disease (CAD), Heart Failure, COPD, GERD/Reflux, Hyperlipidemia, Hypertension, Myocardial Infarction (TX), Osteoarthritis (OA), Renal Disease, Skin Disorder, Vascular Disorder Additional Past Medical History / Comment(s): Pt recently admitted 09/03/17 with dizziness/bradycardia and had a pacemaker insertion. Other hx: Afib with past RVR, SOB, chronic cough, MIs-2008 [place]/cardiac arrest, PVD r/t vein havesting, chronic low back pain, chronic renal failure stage III, rosacia, frequent falls Last Myocardial Infarction Date:: November 2016 History of Any Multi-Drug Resistant Organisms: None Reported Past Surgical History: Back Surgery, Coronary Bypass/CABG, Heart Catheterization With Stent, Hernia Repair, Joint Replacement, Orthopedic Surgery Additional Past Surgical History / Comment(s): 09/08/17 permanent pacemaker, CABG, PCI/ with 4 stents in 2005, lumbar laminectomy, bilateral carpal tunnel releases, R shoulder rotator cuff surgery, pain clinic procedures for lumbar back, incisional hernia with mesh, colonoscopy, bilateral cataract removals. Past Anesthesia/Blood Transfusion Reactions: Postoperative Nausea & Vomiting (PONV) Additional Past Anesthesia/Blood Transfusion Reaction / Comment(s): CLAUSTROPHOBIA Date of Last Stent Placement:: 2005 Past Psychological History: No Psychological Hx Reported Additional Psychological History / Comment(s): PT LIVES WITH HIS MARIMAR IN SINGLE LEVEL HOME THAT HAS 2 PORCH STEPS. PETS- 1 DOGS. NO OUTSIDE SERVICES RECIEVED. DOES HAVE NEBULIZER, HOME OXYGEN AT 2Liters NEEDED. WALKER NEEDED. NO SERVICE IN BACKGROUND. WORKED A [employer]. Smoking Status: Former smoker Past Alcohol Use History: Rare Additional Past Alcohol Use History / Comment(s): SMOKED 50 YEARS QUIT 2008, SMOKED 1/2 PPD Past Drug Use History: None Reported - Past Family History Mother Family Medical History: No Reported History Additional Family Medical History / Comment(s): IN A TRAIN ACCIDENT. Father Family Medical History: Renal Disease Medications and Allergies Home Medications Medication Instructions Recorded Confirmed Type Atorvastatin [Lipitor] 40 mg PO DAILY 06/29/14 05/19/21 History Multivitamins, Thera [Multivitamin 1 tab PO DAILY 06/29/14 05/19/21 History (formulary)] Ubidecarenone [Co Q-10] 200 mg PO DAILY 06/29/14 05/19/21 History Isosorbide Mononitrate ER [Imdur] 60 mg PO DAILY #60 tab 12/27/16 05/19/21 Rx Amiodarone [Cordarone] 200 mg PO DAILY 07/03/17 05/19/21 History Ergocalciferol (Vitamin D2) 50,000 unit PO SY 09/03/17 05/19/21 History [Vitamin D2] allopurinoL [Zyloprim] 100 mg PO BID 12/15/18 05/19/21 History calcitrioL [Calcitriol] 0.25 mcg PO TUWETHFRSA 12/15/18 05/19/21 History carvediloL [Coreg] 6.25 mg PO BID 12/15/18 05/19/21 History Furosemide [Lasix] 80 mg PO BID 09/06/19 05/19/21 History Acetaminophen Tab [Tylenol Tab] 1,000 mg PO Q6HR PRN 12/20/19 05/19/21 History metOLazone 2.5 mg PO DAILY PRN 12/20/19 05/19/21 History Gabapentin [Neurontin] 300 mg PO TID 05/19/21 05/19/21 History Ipratropium-Albuterol Nebulize 3 ml INHALATION RT-QID PRN 05/19/21 05/19/21 History [Duoneb 0.5 mg-3 mg/3 ml Soln] Ketoconazole [Ketoconazole 2% 1 applic TOPICAL DAILY PRN 05/19/21 05/19/21 History Shampoo] LORazepam [Ativan] 0.5 mg PO DAILY PRN 05/19/21 05/19/21 History Nephro-Konrad 0.8mg Tab 1 tab PO DAILY 05/19/21 05/19/21 History Allergies Allergy/AdvReac Type Severity Reaction Status Date / Time No Known Allergies Allergy Verified 05/19/21 18:15 Physical Exam Vitals: Vital Signs Temp Pulse Pulse Resp BP BP Pulse Ox 05/20/21 08:54 62 05/20/21 08:43 60 100 05/20/21 08:00 98.1 F 61 18 109/54 98 05/20/21 04:10 60 15 139/77 100 05/20/21 00:30 97.6 F 60 14 105/59 100 05/19/21 21:46 60 18 133/75 96 05/19/21 21:41 97.9 F 60 18 140/85 96 05/19/21 21:28 60 05/19/21 21:10 61 05/19/21 20:12 60 18 110/93 95 05/19/21 18:00 62 18 138/72 93 L 05/19/21 17:36 61 18 129/66 93 L 05/19/21 15:32 98.2 F 65 18 116/63 96 Intake and Output 05/19/21 05/20/21 05/20/21 22:59 06:59 14:59 Intake Total 240 Output Total 375 Balance -375 240 Intake: Oral 240 Output: Urine 375 Other: Voiding Method Urinal Urinal Weight 98.43 kg 100 kg Results CBC & Chem 7: 05/19/21 17:09 05/20/21 08:21 Labs: Abnormal Lab Results - Last 24 Hours (Table) 05/19/21 05/19/21 05/19/21 Range/Units 17:09 17:09 17:09 RBC 3.46 L (4.30-5.90) m/uL Hgb 12.0 L (13.0-17.5) gm/dL MCV 116.4 H (80.0-100.0) fL MCHC 29.9 L (31.0-37.0) g/dL RDW 19.1 H (11.5-15.5) % Plt Count 143 L (150-450) k/uL Lymphocytes # 0.7 L (1.0-4.8) k/uL Macrocytosis Marked A Chloride 95 L (98-107) mmol/L BUN 67 H (9-20) mg/dL Creatinine 6.28 H (0.66-1.25) mg/dL Glucose 104 H (74-99) mg/dL Phosphorus 5.3 H (2.5-4.5) mg/dL Alkaline Phosphatase 215 H (38-126) U/L Troponin I 0.041 H* (0.000-0.034) ng/mL Urine Protein (Negative) Urine Blood (Negative) Amorphous Sediment (None) /hpf Urine Bacteria (None) /hpf Urine Mucus (None) /hpf 05/20/21 05/20/21 05/20/21 Range/Units 04:34 08:21 08:21 RBC (4.30-5.90) m/uL Hgb (13.0-17.5) gm/dL MCV (80.0-100.0) fL MCHC (31.0-37.0) g/dL RDW (11.5-15.5) % Plt Count (150-450) k/uL Lymphocytes # (1.0-4.8) k/uL Macrocytosis Chloride (98-107) mmol/L BUN 73 H (9-20) mg/dL Creatinine 6.68 H (0.66-1.25) mg/dL Glucose 104 H (74-99) mg/dL Phosphorus (2.5-4.5) mg/dL Alkaline Phosphatase (38-126) U/L Troponin I 0.055 H* (0.000-0.034) ng/mL Urine Protein 1+ H (Negative) Urine Blood Small H (Negative) Amorphous Sediment Rare H (None) /hpf Urine Bacteria Rare H (None) /hpf Urine Mucus Rare H (None) /hpf Thrombosis Risk Factor Assmnt - Choose All That Apply Each Factor Represents 1 point: Obesity (BMI >25) Each Risk Factor Represents 3 Points: Age 75 years or older Thrombosis Risk Factor Assessment Total Risk Factor Score: 4 Thrombosis Risk Factor Assessment Level: Moderate Risk
[2021-05-20] MEDS: GABAPENTIN 100 MG CAP PO SCH ×2 (17:20→19:52)
--- NOTE | 2021-05-20 17:28 | ECHOF ---
Referral Reason:elevated troponin MEASUREMENTS -------- HEIGHT: 170.2 cm WEIGHT: 90.7 kg BP: IVSd: 1.0 cm (0.6 - 1.1) LVIDd: 5.0 cm (3.9 - 5.3) LVPWd: 1.1 cm (0.6 - 1.1) IVSs: 1.4 cm LVIDs: 3.2 cm LVPWs: 1.5 cm LA Diam: 3.7 cm (2.7 - 3.8) Ao Diam: 3.2 cm (2.0 - 3.7) AV Cusp: 1.6 cm (1.5 - 2.6) LA Diam: 4.4 cm (2.7 - 3.8) MV EXCURSION: 19.089 mm (> 18.000) MV EF SLOPE: 65 mm/s (70 - 150) EPSS: 0.5 cm MV E Varun: 0.81 m/s MV DecT: 176 ms MV A Varun: 0.28 m/s MV E/A Ratio: 2.90 RAP: 5.00 mmHg RVSP: 36.40 mmHg FINDINGS -------- Paced rhythm. This was a techncally difficult study with suboptimal views, , Lumason utilized for enhancement of im ages. Overall left ventricular systolic function is moderately impaired with, an EF between 35 - 40 %. The right ventricle is normal in size. The left atrial size is normal. The right atrial size is normal. 5.0mg OF Lumason UTLIZED: 2 OR MORE WALL SEGMENTS NOT VISUALIZED. There is mild aortic valve sclerosis. There is no evidence of aortic regurgitation. Mild mitral regurgitation is present. Mild tricuspid regurgitation present. Right ventricular systolic pressure is normal at < 35 mmHg. The pulmonic valve was not well visualized. There is a small, generalized pericardial effusion present. CONCLUSIONS -------- 1. Overall left ventricular systolic function is moderately impaired with, an EF between 35 - 40 %. 2. The right ventricle is normal in size. 3. The left atrial size is normal. 4. The right atrial size is normal. 5. 5.0mg OF Lumason UTLIZED: 2 OR MORE WALL SEGMENTS NOT VISUALIZED. 6. There is mild aortic valve sclerosis. 7. Mild mitral regurgitation is present. 8. Mild tricuspid regurgitation present. 9. The pulmonic valve was not well visualized. 10. There is a small, generalized pericardial effusion present. [employer] ATTENDANT: Zuleyma Jaquez RDCS
[2021-05-20 19:53] LABS: Hepatitis B Surface Antibody Reactive (Nonreactive); Hepatitis B Surface Antigen Nonreactive (Nonreactive)
[2021-05-21] MEDS: ATORVASTATIN 40 MG TAB PO SCH (09:01)
[2021-05-21] MEDS: FOLIC ACID-VIT B COMPLEX-VIT C 1 CAP PO SCH (09:01)
[2021-05-21] MEDS: GABAPENTIN 100 MG CAP PO SCH ×3 (09:01→20:38)
[2021-05-21] MEDS: allopurinoL 100 MG TAB PO SCH ×2 (09:01→20:38)
--- NOTE | 2021-05-21 09:38 | P.PN ---
Subjective Patient is a 76-year-old male with history of coronary artery disease and CABG in the past and on hemodialysis Tuesday and Tuesday came in with increasing weakness and shortness of breath and he did miss hemodialysis yesterday. Patient doesn't have any fever chills patient does have a mild cough without any significant sputum production. Patient had nausea vomiting diarrhea. Patient has mild troponin elevation of 0.04 and 0.055. Patient is presently receiving hemodialysis today patient is presently on forward solids and saturating 90% patient was on BiPAP last night. 2 L of fluid is being removed via hemodialysis. Patient is also bit confused from his baseline. 05/21/2021 and patient has decreased EF to 30-35% compared to his previous echocardiogram in month of August. Patient is undergoing hemodialysis may require another session of dialysis still has lower extremity edema patient is presently on 2 L of oxygen ordered the repeat chest x-ray for today morning. Physical and occupational therapy to evaluate the patient. Patient assays his breathing is at his baseline. Constitutional: Denied any fatigue denied any fever. Cardio vascular: denied any chest pain, palpitations Gastrointestinal denied any nausea vomiting Pulmonary: Denied any shortness of breath cough Neurologic denied any new focal deficits All inpatient medications were reviewed and appropriate changes in these medications as dictated in the interval history and assessment and plan. PHYSICAL EXAMINATION: GENERAL: The patient is alert and oriented x2 confused from his baseline, not in any acute distress. Well developed, well nourished. HEENT: Pupils are round and equally reacting to light. EOMI. No scleral icterus. No conjunctival pallor. Normocephalic, atraumatic. No pharyngeal erythema. No thyromegaly. CARDIOVASCULAR: S1 and S2 present. No murmurs, rubs, or gallops. PULMONARY: Chest is clear to auscultation, no wheezing or crackles. ABDOMEN: Soft, nontender, nondistended, normoactive bowel sounds. No palpable organomegaly. MUSCULOSKELETAL: No joint swelling or deformity. EXTREMITIES: No cyanosis, clubbing, or pedal edema. NEUROLOGICAL: Gross neurological examination did not reveal any focal deficits. SKIN: No rashes. Assessment and plan -Acute on chronic hypoxic respiratory failure secondary to pulmonary edema and missing hemodialysis. Patient does have bilateral lower pleural effusions as well. Patient will undergo hemodialysis we'll try to wean off oxygen. - weakness secondary to multiple medical problems and patient was having falls at home. Patient will need physical therapy and outpatient therapy evaluation and possibility of placement in a subacute rehabitation -End-stage renal disease dialysis dependent, no hemodialysis yesterday and will undergo hemodialysis today -Heart failure chronic systolic as well as diastolic dysfunction with acute exacerbation patient has decreased EF 30-35%. -Coronary artery disease with CABG in the past -Hypertension -hyperlipidemia -Mild elevation in troponins secondary to chronic kidney disease -Paroxysmal atrial fibrillation patient is presently basic rhythm patient has a permanent pacemaker. DVT prophylaxis: Subcutaneous heparin Objective - Vital Signs Vital signs: Vital Signs Temp 97.6 F 05/21/21 08:55 Pulse 60 05/21/21 08:55 Resp 22 05/21/21 08:55 BP 104/55 05/21/21 08:55 Pulse Ox 94 L 05/21/21 08:55 Intake & Output 05/20/21 05/21/21 05/21/21 18:59 06:59 18:59 Intake Total 360 240 240 Output Total 400 250 Balance -40 -10 240 Weight 99.1 kg Intake: Oral 360 240 240 Output: Urine 400 250 Other: Voiding Method Urinal Urinal - Labs CBC & Chem 7: 05/19/21 17:09 05/20/21 08:21 Labs: Abnormal Lab Results - Last 24 Hours (Table) 05/20/21 05/20/21 05/20/21 Range/Units 08:21 08:21 08:21 BUN 73 H (9-20) mg/dL Creatinine 6.68 H (0.66-1.25) mg/dL Glucose 104 H (74-99) mg/dL Phosphorus (2.5-4.5) mg/dL Troponin I 0.055 H* (0.000-0.034) ng/mL Hep Bs Antibody Reactive A (Nonreactive) 05/21/21 Range/Units 07:29 BUN (9-20) mg/dL Creatinine (0.66-1.25) mg/dL Glucose (74-99) mg/dL Phosphorus 6.3 H (2.5-4.5) mg/dL Troponin I (0.000-0.034) ng/mL Hep Bs Antibody (Nonreactive)
--- NOTE | 2021-05-21 10:38 | XR ---
EXAMINATION TYPE: XR chest 1V DATE OF EXAM: 05/21/2021 COMPARISON: 05/19/2021 HISTORY: 76-year-old male CHF TECHNIQUE: Single frontal view of the chest is obtained. FINDINGS: Left anterior chest wall pacemaker generator right ventricular lead. Median sternotomy wires are pres ent. Postoperative clips along the mediastinum. Right-sided double-lumen hemodialysis catheter tips i n the upper right atrium. Mild interstitial prominence. There is a trace left pleural effusion and so me adjacent patchy opacity. IMPRESSION: 1. Correlate for mild fluid overload/CHF with pulmonary vascular congestion. 2. Small left effusion with adjacent atelectasis and/or consolidation.
[2021-05-21 11:55] LABS: Glucose,Whole Blood 110 mg/dL (75-99)
[2021-05-21 12:31] LABS: ABG HCO3 34 mmol/L (21-25); ABG PH 7.27 (7.35-7.45); ABG PO2 >400 mmHg (83-108); ABG TCO2 36 mmol/L (19-24); Allen Test Performed? Yes
--- NOTE | 2021-05-21 12:35 | XR ---
EXAMINATION TYPE: XR chest 1V portable DATE OF EXAM: 05/21/2021 COMPARISON: Chest x-ray 05/21/2021 HISTORY: Shortness of breath, abnormal chest x-ray TECHNIQUE: Single frontal view of the chest is obtained. FINDINGS: Right-sided jugular central venous dialysis catheter is stable with the tip in the right a trium. No evident pneumothorax. Thickening along the left pleural margin, blunting the left costophre adithya angle is stable and chronic. Patient is post median sternotomy. Cardiac mediastinal silhouette is stable, heart may be enlarged, patient is rotated, lung volumes are low. Aorta is dense. There is a generator in the left pectoral region, lead is present in the right ventricle. Fractured sternal wire is noted inferiorly. Degenerative disc changes present in the visualized spine. Mild prominence inte rstitium is present. IMPRESSION: There may be component of volume overload, expiratory rotated exam, follow-up as indicat ed
--- NOTE | 2021-05-21 12:36 | P.PN ---
Subjective Progress Note Date: 05/21/21 Principal diagnosis: Fluid volume overload This is a 76-year-old white male patient with past medical history of COPD on home oxygen at bedtime on an as-needed basis at 2 L, ex-smoker, has a history of coronary artery disease status post three-vessel bypass grafting in 2008, par aby bojorquez on long-term anticoagulation, permanent pacemaker placement in 2018 for symptomatic bradycardia, hypertension, dyslipidemia chronic kidney disease, on hemodialysis on Tuesday schedule. Patient states he has been having increasing weakness in his legs to the point he could hardly walk, he states his legs felt like gel. he missed his Tuesday hemodialysis yesterday on 05/19/2021. He had a fall at home related to weakness, no syncope. He denied lightheadedness or dizziness, no chest discomfort, mild cough with some yellowish colored phlegm production, denied increased shortness of breath, no nausea vomiting or diarrhea, no fever or chills, he has completed his COVID- 19 vaccination and a booster. He does not remember what kind but she states she got 3 shots. His chest x-ray shows small pleural effusions not significantly different from his last chest x-ray from January 2021, he did have a mild troponin elevation of 0.04, and 0.055. EKG showed paced rhythm. White blood cell count is not elevated at 5.8, hemoglobin is 12.0, INR is 1.0, his sodium is 138, potassium is 4.1, chloride is 95, B1 is 67, creatinine is 6.28, lactic acid is 1.0, AST and ALT are within normal limits at 48 and 35, alkaline phosphatase is 215, urinalysis showed 1+ protein, small blood, no definite sign of infection, COVID-19 PCR was negative, patient was shortness of breath, and he was placed on BiPAP support overnight and this morning she is undergoing hemodialysis, he is breathing easier currently is currently off BiPAP support and he is on 4 L of oxygen approximately 100%. Afebrile. The patient is seen today 05/21/2021 in follow-up on the selective care unit. He is currently on 3 L nasal cannula and maintaining O2 saturations in the 90s. He did utilize the BiPAP 14/6 and 50% overnight. He is less short of breath today compared to yesterday. He is afebrile. Hemodynamically stable. He is currently receiving hemodialysis. As x-ray reveals mild fluid volume overload/CHF with pulmonary vascular congestion. Small left effusion with adjacent atelectasis/consolidation. There is a right-sided double-lumen hemodialysis catheter tip in the upper right atrium. He remains on bronchodilators, oral diuretics. Objective - Vital Signs Vital signs: Vital Signs Temp 97.6 F 05/21/21 08:55 Pulse 60 05/21/21 08:55 Resp 22 05/21/21 08:55 BP 104/55 05/21/21 08:55 Pulse Ox 94 L 05/21/21 08:55 Intake & Output 05/20/21 05/21/21 05/21/21 18:59 06:59 18:59 Intake Total 360 240 240 Output Total 400 250 Balance -40 -10 240 Weight 99.1 kg Intake: Oral 360 240 240 Output: Urine 400 250 Other: Voiding Method Urinal Urinal Urinal - Exam GENERAL EXAM: Alert, very pleasant, 76-year-old male patient, currently on 3 L of oxygen with a pulse ox of 94% comfortable in no apparent distress. HEAD: Normocephalic/atraumatic. EYES: Normal reaction of pupils, equal size. Conjunctiva pink, sclera white. NOSE: Clear with pink turbinates. THROAT: No erythema or exudates. NECK: No masses, no JVD, no thyroid enlargement, no adenopathy. CHEST: No chest wall deformity. Symmetrical expansion. Right-sided hemodialysis catheter in place. LUNGS: Equal air entry with mild crackles in the posterior bases CVS: Regular rate and rhythm, normal S1 and S2, no gallops, no murmurs, no rubs ABDOMEN: Soft, nontender. No hepatosplenomegaly, normal bowel sounds, no guarding or rigidity. EXTREMITIES: No clubbing, mild 1+ edema, no cyanosis, 2+ pulses and upper and lower extremities. MUSCULOSKELETAL: Muscle strength and tone normal. SPINE: No scoliosis or deformity SKIN: No rashes CENTRAL NERVOUS SYSTEM: Alert and oriented -3. No focal deficits, tone is normal in all 4 extremities. PSYCHIATRIC: Alert and oriented -3. Appropriate affect. Intact judgment and insight. - Labs CBC & Chem 7: 05/19/21 17:09 05/20/21 08:21 Labs: Abnormal Lab Results - Last 24 Hours (Table) 12/22/21 12/23/21 12/23/21 Range/Units 08:21 07:29 11:53 POC Glucose (mg/dL) 110 H (75-99) mg/dL Phosphorus 6.3 H (2.5-4.5) mg/dL Hep Bs Antibody Reactive A (Nonreactive) Assessment and Plan Assessment: 1 Acute on chronic hypoxic respiratory failure and dyspnea related to missed hemodialysis treatments on Tuesday on 05/19/2021 and mild exacerbation of COPD. COVID-19 PCR was negative, chest x-ray showed small bilateral pleural effusions. Patient required brief BiPAP support and hemodialysis treatment was started, with improvement in breathing and currently on 3 L nasal cannula with O2 saturation 94% 2 Gait dysfunction, weakness, fall at home 3 Mildly elevated troponins, no complaints of chest pain, cardiology is following, please refer to their consultation note 4 History of end-stage renal disease on hemodialysis on Tuesday schedule 5 History of COPD on home oxygen on as-needed basis at bedtime 6 Former smoker 7 History of coronary artery disease with previous three-vessel coronary artery bypass grafting, not thought to be related to ACS 8 Hypertension 9 Hyperlipidemia 10 History of permanent pacemaker placement 11 Paroxysmal atrial fibrillation, currently in paced mechanism Plan: The patient was seen and evaluated Chest x-ray and labs reviewed Currently receiving hemodialysis Approved and on 3 L Did utilize BiPAP last night Continue the current treatment plan Will continue to follow I, the cosigning physician, performed a history & physical examination of the patient. Lungs sounds with bibasilar crackles, diminished. Maintaining O2 saturations in the 90s on 3 L/m per nasal cannula. I discussed the assessment and plan of care with my nurse practitioner, Rosa Ferris. I attest to the above note as dictated by her.
[2021-05-21 12:39] LABS: ABG PCO2 73 mmHg (35-45)
[2021-05-21] MEDS: IPRATROPIUM-ALBUTEROL 3 ML NEB INHALATION PRN (12:45)
[2021-05-21 12:46] LABS: Anisocytosis Slight; Basophils % (A) 0 %; Eosinophils # (A) 0.2 k/uL (0-0.7); Eosinophils % (A) 3 %; HCT 37.5 % (39.0-53.0); HGB 11.7 gm/dL (13.0-17.5); Hypochromasia Moderate; Lymphocytes # (A) 0.8 k/uL (1.0-4.8); Lymphocytes % (A) 11 %; MCH 35.4 pg (25.0-35.0); MCHC 31.3 g/dL (31.0-37.0); Macrocytosis Marked; Mean Platelet Volume 9.3; Monocytes # (A) 0.4 k/uL (0-1.0); Monocytes % (A) 6 %; Neutrophils # (A) 5.6 k/uL (1.3-7.7); Neutrophils % (A) 79 %; Platelet Count 122 k/uL (150-450); RBC 3.31 m/uL (4.30-5.90); WBC 7.2 k/uL (3.8-10.6)
[2021-05-21 12:48] LABS: MCV 113.4 fL (80.0-100.0)
[2021-05-21 12:58] LABS: Albumin 3.6 g/dL (3.5-5.0); Calcium 7.9 mg/dL (8.4-10.2); Potassium 3.6 mmol/L (3.5-5.1); Total Protein 6.8 g/dL (6.3-8.2)
--- NOTE | 2021-05-21 13:02 | P.PN ---
Subjective Progress Note Date: 05/21/21 Follow-up for ESRD. Middle of dialysis developed hypotensive episodes, CODE BLUE was called. Objective - Vital Signs Vital signs: Vital Signs Temp 97.6 F 05/21/21 08:55 Pulse 60 05/21/21 12:45 Resp 22 05/21/21 08:55 BP 104/55 05/21/21 08:55 Pulse Ox 94 L 05/21/21 08:55 Intake & Output 05/20/21 05/21/21 05/21/21 18:59 06:59 18:59 Intake Total 360 240 240 Output Total 400 250 Balance -40 -10 240 Weight 99.1 kg Intake: Oral 360 240 240 Output: Urine 400 250 Other: Voiding Method Urinal Urinal Urinal - Exam No acute distress S1-S2 heard Lungs clear No edema - Labs CBC & Chem 7: 05/21/21 12:08 05/20/21 08:21 Labs: Abnormal Lab Results - Last 24 Hours (Table) 05/20/21 05/21/21 05/21/21 Range/Units 08:21 07:29 11:53 RBC (4.30-5.90) m/uL Hgb (13.0-17.5) gm/dL Hct (39.0-53.0) % MCV (80.0-100.0) fL MCH (25.0-35.0) pg RDW (11.5-15.5) % Plt Count (150-450) k/uL Lymphocytes # (1.0-4.8) k/uL Macrocytosis D-Dimer (<0.60) mg/L FEU ABG pH (7.35-7.45) ABG pCO2 (35-45) mmHg ABG pO2 (83-108) mmHg ABG HCO3 (21-25) mmol/L ABG Total CO2 (19-24) mmol/L ABG O2 Saturation (94-97) % POC Glucose (mg/dL) 110 H (75-99) mg/dL Phosphorus 6.3 H (2.5-4.5) mg/dL Hep Bs Antibody Reactive A (Nonreactive) 05/21/21 05/21/21 05/21/21 Range/Units 12:07 12:08 12:08 RBC 3.31 L (4.30-5.90) m/uL Hgb 11.7 L (13.0-17.5) gm/dL Hct 37.5 L (39.0-53.0) % MCV 113.4 H (80.0-100.0) fL MCH 35.4 H (25.0-35.0) pg RDW 18.0 H (11.5-15.5) % Plt Count 122 L (150-450) k/uL Lymphocytes # 0.8 L (1.0-4.8) k/uL Macrocytosis Marked A D-Dimer 2.11 H (<0.60) mg/L FEU ABG pH 7.27 L (7.35-7.45) ABG pCO2 73 H* (35-45) mmHg ABG pO2 >400 H (83-108) mmHg ABG HCO3 34 H (21-25) mmol/L ABG Total CO2 36 H (19-24) mmol/L ABG O2 Saturation 100.0 H (94-97) % POC Glucose (mg/dL) (75-99) mg/dL Phosphorus (2.5-4.5) mg/dL Hep Bs Antibody (Nonreactive) Assessment and Plan Assessment: #1 ESRD on hemodialysis TTS schedule #2 volume overload #3 anemia with ESRD #4 hypertension with ESRD #5 hypotensive episode during dialysis. Plan: #1 stop all antihypertensive medications. #2 hemodialysis stopped, repeat labs within normal limits. #3 next treatment on Tuesday
--- NOTE | 2021-05-21 13:11 | P.PN ---
Subjective This is a pleasant 76-year-old male past medical history significant for coronary artery disease status post 3 vessel bypass grafting in 2009, COPD, paroxysmal atrial fibrillation on long-term anticoagulation, permanent pacemaker implantation in 2018 secondary to symptomatic bradycardia, hypertension and dyslipidemia, end stage renal disease on hemodialysis. He follows in the office with Dr. Cardenas. We have been asked to see him in consultation secondary to elevated troponin. He presented to the hospital secondary to generalized weakness after hemodialysis. He states ever since starting with dialysis he has been getting progressively weaker in his legs. He feels as if he cannot stand up. He denies lightheadedness, dizzines, syncope or near syncope. He denies chest discomfort, shortness of breath, palpitations, nausea, vomiting or diaphoresis. He did miss his dialysis tuesday. DIAGNOSTICS: -Laboratory data reviewed, troponin 0.04, 0.05 -Most recent echocardiogram August 2020 in the office reveals preserved LV systol ic function with ejection fraction 55%, moderate LVH, moderate MR, mild to moderate TR with moderately increased PASP 52mmHg. -Echocardiogram this admission revealed EF 3540 percent, mild mitral reg urgitation, tricuspid regurgitation, small generalized pericardial effusion. 05/21/2021 Patient seen and examined at bedside this morning, undergoing dialysis this morning. He denies chest pain or shortness of breath. blood pressure 06/02/1955, heart rate 60, afebrile, saturations greater than 90% on 3 L nasal cannula. Labs pending this morning. He's currently maintained on amiodarone 200 mg daily, atorvastatin 40 mg daily, Lasix 40 mg twice a day, Imdur 60 mg daily,Aldactone 12.5 mg daily, carvedilol 6.25mg BID Physical examination: Vitals: Reviewed GENERAL: This is a 76-year-old male in no apparent distress at the time of my examination. HEENT: Neck is supple. There is no jugular venous distention. LUNGS: Clear to auscultation no wheezes, rales or rhonchi. HEART: Regular rate and rhythm, systolic ejection murmur at apex. S1 and S2 heard. ABDOMEN: Soft, nontender. Bowel sounds are heard. EXTREMITIES: mild non-pitting bilateral lower extremity peripheral edema and no calf tenderness noted. NEUROLOGIC: Patient is awake, alert and oriented x3. ASSESSMENT Troponin elevation not suggestive of an acute coronary event, chronically elevated most likely secondary to chronic kidney disease. There is no symptoms of angina. Generalized debility Acute on chronic hypoxic respiratory failure, likely related to missed hemodialysis Acute on chronic systolic heart failure Cardiomyopathy, likely non-ischemic End Stage Renal Disease on Hemodialysis History of coronary artery disease status post bypass grafting Paroxysmal atrial fibrillation on long-term anticoagulation Permanent pacemaker implantation Hypertension Dyslipidemia PLAN -From a cardiology perspective, we will continue present management. Patient is hypotensive will keep medications and beta kar at current dose. -Ongoing medical management per primary care team and nephrology. Plan for hemodialysis today -Further recommendations based on clinical course Nurse Practitioner note has been reviewed, I agree with a documented findings and plan of care. Patient was seen and examined. Objective - Vital Signs Vital signs: Vital Signs Temp 97.6 F 05/21/21 08:55 Pulse 60 05/21/21 12:58 Resp 22 05/21/21 08:55 BP 104/55 05/21/21 08:55 Pulse Ox 94 L 05/21/21 08:55 Intake & Output 05/20/21 05/21/21 05/21/21 18:59 06:59 18:59 Intake Total 360 240 240 Output Total 400 250 Balance -40 -10 240 Weight 99.1 kg Intake: Oral 360 240 240 Output: Urine 400 250 Other: Voiding Method Urinal Urinal Urinal - Labs CBC & Chem 7: 05/21/21 12:08 05/21/21 12:08 Labs: Abnormal Lab Results - Last 24 Hours (Table) 05/20/21 05/21/21 05/21/21 Range/Units 08: 07:29 11:53 RBC (4.30-5.90) m/uL Hgb (13.0-17.5) gm/dL Hct (39.0-53.0) % MCV (80.0-100.0) fL MCH (25.0-35.0) pg RDW (11.5-15.5) % Plt Count (150-450) k/uL Lymphocytes # (1.0-4.8) k/uL Macrocytosis D-Dimer (<0.60) mg/L FEU ABG pH (7.35-7.45) ABG pCO2 (35-45) mmHg ABG pO2 (83-108) mmHg ABG HCO3 (21-25) mmol/L ABG Total CO2 (19-24) mmol/L ABG O2 Saturation (94-97) % Sodium (137-145) mmol/L Chloride (98-107) mmol/L Carbon Dioxide (22-30) mmol/L BUN (9-20) mg/dL Creatinine (0.66-1.25) mg/dL Glucose (74-99) mg/dL POC Glucose (mg/dL) 110 H (75-99) mg/dL Calcium (8.4-10.2) mg/dL Phosphorus 6.3 H (2.5-4.5) mg/dL Alkaline Phosphatase (38-126) U/L Hep Bs Antibody Reactive A (Nonreactive) 05/21/21 05/21/21 05/21/21 Range/Units 12:07 12:08 12:08 RBC 3.31 L (4.30-5.90) m/uL Hgb 11.7 L (13.0-17.5) gm/dL Hct 37.5 L (39.0-53.0) % MCV 113.4 H (80.0-100.0) fL MCH 35.4 H (25.0-35.0) pg RDW 18.0 H (11.5-15.5) % Plt Count 122 L (150-450) k/uL Lymphocytes # 0.8 L (1.0-4.8) k/uL Macrocytosis Marked A D-Dimer (<0.60) mg/L FEU ABG pH 7.27 L (7.35-7.45) ABG pCO2 73 H* (35-45) mmHg ABG pO2 >400 H (83-108) mmHg ABG HCO3 34 H (21-25) mmol/L ABG Total CO2 36 H (19-24) mmol/L ABG O2 Saturation 100.0 H (94-97) % Sodium 136 L (137-145) mmol/L Chloride 94 L (98-107) mmol/L Carbon Dioxide 35 H (22-30) mmol/L BUN 26 H (9-20) mg/dL Creatinine 2.64 H (0.66-1.25) mg/dL Glucose 137 H (74-99) mg/dL POC Glucose (mg/dL) (75-99) mg/dL Calcium 7.9 L (8.4-10.2) mg/dL Phosphorus (2.5-4.5) mg/dL Alkaline Phosphatase 207 H (38-126) U/L Hep Bs Antibody (Nonreactive) 05/21/21 Range/Units 12:08 RBC (4.30-5.90) m/uL Hgb (13.0-17.5) gm/dL Hct (39.0-53.0) % MCV (80.0-100.0) fL MCH (25.0-35.0) pg RDW (11.5-15.5) % Plt Count (150-450) k/uL Lymphocytes # (1.0-4.8) k/uL Macrocytosis D-Dimer 2.11 H (<0.60) mg/L FEU ABG pH (7.35-7.45) ABG pCO2 (35-45) mmHg ABG pO2 (83-108) mmHg ABG HCO3 (21-25) mmol/L ABG Total CO2 (19-24) mmol/L ABG O2 Saturation (94-97) % Sodium (137-145) mmol/L Chloride (98-107) mmol/L Carbon Dioxide (22-30) mmol/L BUN (9-20) mg/dL Creatinine (0.66-1.25) mg/dL Glucose (74-99) mg/dL POC Glucose (mg/dL) (75-99) mg/dL Calcium (8.4-10.2) mg/dL Phosphorus (2.5-4.5) mg/dL Alkaline Phosphatase (38-126) U/L Hep Bs Antibody (Nonreactive)
--- NOTE | 2021-05-21 13:36 | P.PN ---
Progress Note - Text Progress Note Date: 05/21/21 YA BOYER was called during dialysis as patient went unresponsive. Patient was having agonal breathing. He did have a pulse and he was hypotensive. He was started on nonrebreather 100% mask. No chest compressions were performed as pulse was continually detected. Over the next few minutes patient regained consciousness although he remained lethargic. ABG, CBC, CMP, chest x-ray were ordered. Time for critical care 35 minutes.
[2021-05-21] MEDS: AMIODARONE 200 MG TAB PO SCH (14:58)
[2021-05-21] MEDS: MULTIVITAMINS, THERA 1 EACH TAB PO SCH (15:02)
[2021-05-21] MEDS ORDERED: LORazepam 2 MG/ML INJ IV STA (18:05)
[2021-05-21] MEDS ORDERED: diphenhydrAMINE 50 MG/ML 1 ML VIAL IVP STA (19:27)
[2021-05-21] MEDS: METOPROLOL TARTRATE 12.5 MG TAB PO SCH (20:38)
[2021-05-21] MEDS: FUROSEMIDE 80 MG TAB PO SCH (21:21)
[2021-05-21] MEDS: carvediloL 6.25 MG TAB PO SCH (21:21)
[2021-05-21] MEDS: ISOSORBIDE MONONITRATE ER 60 MG TAB.ER.24H PO SCH (21:22)
[2021-05-22] MEDS ORDERED: diphenhydrAMINE 50 MG/ML 1 ML VIAL IVP STA (08:38)
[2021-05-22] MEDS: METOPROLOL TARTRATE 12.5 MG TAB PO SCH ×2 (09:00→21:09)
[2021-05-22] MEDS: AMIODARONE 200 MG TAB PO SCH (09:01)
[2021-05-22] MEDS: ATORVASTATIN 40 MG TAB PO SCH (09:01)
[2021-05-22] MEDS: GABAPENTIN 100 MG CAP PO SCH ×3 (09:01→21:08)
[2021-05-22] MEDS: allopurinoL 100 MG TAB PO SCH ×2 (09:01→21:09)
[2021-05-22] MEDS: MULTIVITAMINS, THERA 1 EACH TAB PO SCH (09:01)
[2021-05-22] MEDS: FOLIC ACID-VIT B COMPLEX-VIT C 1 CAP PO SCH (09:02)
[2021-05-22] MEDS: IPRATROPIUM-ALBUTEROL 3 ML NEB INHALATION PRN (11:52)
--- NOTE | 2021-05-22 12:08 | P.PN ---
Subjective Patient is a 76-year-old male with history of coronary artery disease and CABG in the past and on hemodialysis Tuesday and Tuesday came in with increasing weakness and shortness of breath and he did miss hemodialysis yesterday. Patient doesn't have any fever chills patient does have a mild cough without any significant sputum production. Patient had nausea vomiting diarrhea. Patient has mild troponin elevation of 0.04 and 0.055. Patient is presently receiving hemodialysis today patient is presently on forward solids and saturating 90% patient was on BiPAP last night. 2 L of fluid is being removed via hemodialysis. Patient is also bit confused from his baseline. 05/21/2021 and patient has decreased EF to 30-35% compared to his previous echocardiogram in month of August. Patient is undergoing hemodialysis may require another session of dialysis still has lower extremity edema patient is presently on 2 L of oxygen ordered the repeat chest x-ray for today morning. Physical and occupational therapy to evaluate the patient. Patient assays his breathing is at his baseline. 05/22/2021 Patient's the had episodes of agitation last night patient had mildly elevated d-dimer of 2.1 although clinically pretest probability for pulmonary malaise and is low. pulmonary is following the patient as well. He is on BiPAP patient is alert oriented 3 when I evaluated the patient. Avoid any anticholinergic medications Will use Haldol as needed if he has any agitation episodes. Patient is comparing of cramping in the legs. Constitutional: Denied any fatigue denied any fever. Cardio vascular: denied any chest pain, palpitations Gastrointestinal denied any nausea vomiting Pulmonary: Denied any shortness of breath cough Neurologic denied any new focal deficits All inpatient medications were reviewed and appropriate changes in these medications as dictated in the interval history and assessment and plan. PHYSICAL EXAMINATION: GENERAL: The patient is alert and oriented x3 , not in any acute distress. Well developed, well nourished. HEENT: Pupils are round and equally reacting to light. EOMI. No scleral icterus. No conjunctival pallor. Normocephalic, atraumatic. No pharyngeal erythema. No thyromegaly. CARDIOVASCULAR: S1 and S2 present. No murmurs, rubs, or gallops. PULMONARY: Chest is clear to auscultation, no wheezing or crackles. ABDOMEN: Soft, nontender, nondistended, normoactive bowel sounds. No palpable organomegaly. MUSCULOSKELETAL: No joint swelling or deformity. EXTREMITIES: No cyanosis, clubbing, or pedal edema. NEUROLOGICAL: Gross neurological examination did not reveal any focal deficits. SKIN: No rashes. Assessment and plan -Acute on chronic hypoxic respiratory failure secondary to pulmonary edema and missing hemodialysis. Patient does have bilateral lower pleural effusions as well. Patient will undergo hemodialysis we'll try to wean off oxygen. - weakness secondary to multiple medical problems and patient was having falls at home. Patient will need physical therapy and outpatient therapy evaluation and possibility of placement in a subacute rehabitation -End-stage renal disease dialysis dependent, no hemodialysis yesterday and will undergo hemodialysis today -Heart failure chronic systolic as well as diastolic dysfunction with acute exacerbation patient has decreased EF 30-35%. -Coronary artery disease with CABG in the past -Hypertension -hyperlipidemia -Mild elevation in troponins secondary to chronic kidney disease -Paroxysmal atrial fibrillation patient is presently basic rhythm patient has a permanent pacemaker. DVT prophylaxis: Subcutaneous heparin Objective - Vital Signs Vital signs: Vital Signs Temp 97.3 F L 05/22/21 08:55 Pulse 64 05/22/21 11:52 Resp 20 05/22/21 08:55 BP 116/58 05/22/21 08:55 Pulse Ox 88 L 05/22/21 08:55 Intake & Output 05/21/21 05/22/21 05/22/21 18:59 06:59 18:59 Intake Total 480 0 Output Total 995 200 Balance -515 -200 0 Intake: Oral 480 0 Output: Urine 200 Hemodialysis 995 Other: Voiding Method Urinal Urinal Urinal - Labs CBC & Chem 7: 05/21/21 12:08 05/21/21 12:08 Labs: Abnormal Lab Results - Last 24 Hours (Table) 05/21/21 05/21/21 05/21/21 Range/Units 12:07 12:08 12:08 RBC 3.31 L (4.30-5.90) m/uL Hgb 11.7 L (13.0-17.5) gm/dL Hct 37.5 L (39.0-53.0) % MCV 113.4 H (80.0-100.0) fL MCH 35.4 H (25.0-35.0) pg RDW 18.0 H (11.5-15.5) % Plt Count 122 L (150-450) k/uL Lymphocytes # 0.8 L (1.0-4.8) k/uL Macrocytosis Marked A D-Dimer (<0.60) mg/L FEU ABG pH 7.27 L (7.35-7.45) ABG pCO2 73 H* (35-45) mmHg ABG pO2 >400 H (83-108) mmHg ABG HCO3 34 H (21-25) mmol/L ABG Total CO2 36 H (19-24) mmol/L ABG O2 Saturation 100.0 H (94-97) % Sodium 136 L (137-145) mmol/L Chloride 94 L (98-107) mmol/L Carbon Dioxide 35 H (22-30) mmol/L BUN 26 H (9-20) mg/dL Creatinine 2.64 H (0.66-1.25) mg/dL Glucose 137 H (74-99) mg/dL Calcium 7.9 L (8.4-10.2) mg/dL Alkaline Phosphatase 207 H (38-126) U/L Troponin I (0.000-0.034) ng/mL 05/21/21 05/21/21 Range/Units 12:08 12:08 RBC (4.30-5.90) m/uL Hgb (13.0-17.5) gm/dL Hct (39.0-53.0) % MCV (80.0-100.0) fL MCH (25.0-35.0) pg RDW (11.5-15.5) % Plt Count (150-450) k/uL Lymphocytes # (1.0-4.8) k/uL Macrocytosis D-Dimer 2.11 H (<0.60) mg/L FEU ABG pH (7.35-7.45) ABG pCO2 (35-45) mmHg ABG pO2 (83-108) mmHg ABG HCO3 (21-25) mmol/L ABG Total CO2 (19-24) mmol/L ABG O2 Saturation (94-97) % Sodium (137-145) mmol/L Chloride (98-107) mmol/L Carbon Dioxide (22-30) mmol/L BUN (9-20) mg/dL Creatinine (0.66-1.25) mg/dL Glucose (74-99) mg/dL Calcium (8.4-10.2) mg/dL Alkaline Phosphatase (38-126) U/L Troponin I 0.094 H* (0.000-0.034) ng/mL
--- NOTE | 2021-05-22 12:18 | P.PN ---
Subjective Progress Note Date: 05/22/21 Follow-up for ESRD. Middle of dialysis developed hypotensive episode yesterday, CODE BLUE was called. Currently stable, family at bedside. Objective - Vital Signs Vital signs: Vital Signs Temp 97.3 F L 05/22/21 08:55 Pulse 64 05/22/21 12:06 Resp 20 05/22/21 08:55 BP 116/58 05/22/21 08:55 Pulse Ox 88 L 05/22/21 08:55 Intake & Output 05/21/21 05/22/21 05/22/21 18:59 06:59 18:59 Intake Total 480 0 Output Total 995 200 Balance -515 -200 0 Intake: Oral 480 0 Output: Urine 200 Hemodialysis 995 Other: Voiding Method Urinal Urinal Urinal - Exam No acute distress S1-S2 heard Lungs clear No edema - Labs CBC & Chem 7: 05/21/21 12:08 05/21/21 12:08 Labs: Abnormal Lab Results - Last 24 Hours (Table) 05/21/21 05/21/21 05/21/21 Range/Units 12:07 12:08 12:08 RBC 3.31 L (4.30-5.90) m/uL Hgb 11.7 L (13.0-17.5) gm/dL Hct 37.5 L (39.0-53.0) % MCV 113.4 H (80.0-100.0) fL MCH 35.4 H (25.0-35.0) pg RDW 18.0 H (11.5-15.5) % Plt Count 122 L (150-450) k/uL Lymphocytes # 0.8 L (1.0-4.8) k/uL Macrocytosis Marked A D-Dimer (<0.60) mg/L FEU ABG pH 7.27 L (7.35-7.45) ABG pCO2 73 H* (35-45) mmHg ABG pO2 >400 H (83-108) mmHg ABG HCO3 34 H (21-25) mmol/L ABG Total CO2 36 H (19-24) mmol/L ABG O2 Saturation 100.0 H (94-97) % Sodium 136 L (137-145) mmol/L Chloride 94 L (98-107) mmol/L Carbon Dioxide 35 H (22-30) mmol/L BUN 26 H (9-20) mg/dL Creatinine 2.64 H (0.66-1.25) mg/dL Glucose 137 H (74-99) mg/dL Calcium 7.9 L (8.4-10.2) mg/dL Alkaline Phosphatase 207 H (38-126) U/L Troponin I (0.000-0.034) ng/mL 05/21/21 05/21/21 Range/Units 12:08 12:08 RBC (4.30-5.90) m/uL Hgb (13.0-17.5) gm/dL Hct (39.0-53.0) % MCV (80.0-100.0) fL MCH (25.0-35.0) pg RDW (11.5-15.5) % Plt Count (150-450) k/uL Lymphocytes # (1.0-4.8) k/uL Macrocytosis D-Dimer 2.11 H (<0.60) mg/L FEU ABG pH (7.35-7.45) ABG pCO2 (35-45) mmHg ABG pO2 (83-108) mmHg ABG HCO3 (21-25) mmol/L ABG Total CO2 (19-24) mmol/L ABG O2 Saturation (94-97) % Sodium (137-145) mmol/L Chloride (98-107) mmol/L Carbon Dioxide (22-30) mmol/L BUN (9-20) mg/dL Creatinine (0.66-1.25) mg/dL Glucose (74-99) mg/dL Calcium (8.4-10.2) mg/dL Alkaline Phosphatase (38-126) U/L Troponin I 0.094 H* (0.000-0.034) ng/mL Assessment and Plan Assessment: #1 ESRD on hemodialysis TTS schedule #2 volume overload #3 anemia with ESRD #4 hypertension with ESRD #5 hypotensive episode during dialysis. Plan: #1 stopped all antihypertensive medications yesterday. #2 hemodialysis TTS schedule. With holiday next treatment on Tuesday. #3 ESRD medications
--- NOTE | 2021-05-22 13:10 | P.PN ---
Subjective Progress Note Date: 05/22/21 Principal diagnosis: Fluid volume overload This is a 76-year-old white male patient with past medical history of COPD on home oxygen at bedtime on an as-needed basis at 2 L, ex-smoker, has a history of coronary artery disease status post three-vessel bypass grafting in 2008, par aby bojorquez on long-term anticoagulation, permanent pacemaker placement in 2018 for symptomatic bradycardia, hypertension, dyslipidemia chronic kidney disease, on hemodialysis on Tuesday schedule. Patient states he has been having increasing weakness in his legs to the point he could hardly walk, he states his legs felt like gel. he missed his Tuesday hemodialysis yesterday on 05/19/2021. He had a fall at home related to weakness, no syncope. He denied lightheadedness or dizziness, no chest discomfort, mild cough with some yellowish colored phlegm production, denied increased shortness of breath, no nausea vomiting or diarrhea, no fever or chills, he has completed his COVID- 19 vaccination and a booster. He does not remember what kind but she states she got 3 shots. His chest x-ray shows small pleural effusions not significantly different from his last chest x-ray from January 2021, he did have a mild troponin elevation of 0.04, and 0.055. EKG showed paced rhythm. White blood cell count is not elevated at 5.8, hemoglobin is 12.0, INR is 1.0, his sodium is 138, potassium is 4.1, chloride is 95, B1 is 67, creatinine is 6.28, lactic acid is 1.0, AST and ALT are within normal limits at 48 and 35, alkaline phosphatase is 215, urinalysis showed 1+ protein, small blood, no definite sign of infection, COVID-19 PCR was negative, patient was shortness of breath, and he was placed on BiPAP support overnight and this morning she is undergoing hemodialysis, he is breathing easier currently is currently off BiPAP support and he is on 4 L of oxygen approximately 100%. Afebrile. The patient is seen today 05/21/2021 in follow-up on the selective care unit. He is currently on 3 L nasal cannula and maintaining O2 saturations in the 90s. He did utilize the BiPAP 14/6 and 50% overnight. He is less short of breath today compared to yesterday. He is afebrile. Hemodynamically stable. He is currently receiving hemodialysis. As x-ray reveals mild fluid volume overload/CHF with pulmonary vascular congestion. Small left effusion with adjacent atelectasis/consolidation. There is a right-sided double-lumen hemodialysis catheter tip in the upper right atrium. He remains on bronchodilators, oral diuretics. The patient is seen today 05/22/2021 in follow-up on the selective care unit. He is currently on the BiPAP 12/6 and 35% FiO2. He remains quite restless and confused. firebreak cutter at the bedside.follow-up chest x-ray had continued to show some fluid volume overload. They did call a CODE BLUE on him yesterday for hypotensive episode which he quickly recovered. He receives hemodialysis on Tuesday. Nephrology is following. No new labs today. Objective - Vital Signs Vital signs: Vital Signs Temp 97.3 F L 05/22/21 08:55 Pulse 64 05/22/21 12:06 Resp 20 05/22/21 08:55 BP 116/58 05/22/21 08:55 Pulse Ox 88 L 05/22/21 08:55 Intake & Output 05/21/21 05/22/21 05/22/21 18:59 06:59 18:59 Intake Total 480 0 Output Total 995 200 Balance -515 -200 0 Intake: Oral 480 0 Output: Urine 200 Hemodialysis 995 Other: Voiding Method Urinal Urinal Urinal - Exam GENERAL EXAM: Alert, somewhat restless, 76-year-old male patient, currently on BiPAP 12/6 and 35% FiO2, in no apparent distress. HEAD: Normocephalic/atraumatic. EYES: Normal reaction of pupils, equal size. Conjunctiva pink, sclera white. NOSE: Clear with pink turbinates. THROAT: No erythema or exudates. NECK: No masses, no JVD, no thyroid enlargement, no adenopathy. CHEST: No chest wall deformity. Symmetrical expansion. Right-sided hemodialysis catheter in place. LUNGS: Equal air entry with mild crackles in the posterior bases CVS: Regular rate and rhythm, normal S1 and S2, no gallops, no murmurs, no rubs ABDOMEN: Soft, nontender. No hepatosplenomegaly, normal bowel sounds, no guarding or rigidity. EXTREMITIES: No clubbing, mild 1+ edema, no cyanosis, 2+ pulses and upper and lower extremities. MUSCULOSKELETAL: Muscle strength and tone normal. SPINE: No scoliosis or deformity SKIN: No rashes CENTRAL NERVOUS SYSTEM: No focal deficits, tone is normal in all 4 extremities. PSYCHIATRIC: Alert and oriented -3. Appropriate affect. Intact judgment and insight. - Labs CBC & Chem 7: 05/21/21 12:08 05/21/21 12:08 Labs: Abnormal Lab Results - Last 24 Hours (Table) 05/21/21 Range/Units 12:08 Troponin I 0.094 H* (0.000-0.034) ng/mL Assessment and Plan Assessment: 1 Acute on chronic hypoxic respiratory failure and dyspnea related to missed hemodialysis treatments on Tuesday on 05/19/2021 and mild exacerbation of COPD. COVID-19 PCR was negative, chest x-ray showed small bilateral pleural effusions. Currently on BiPAP 12/6 and 35% FiO2 2 Gait dysfunction, weakness, fall at home 3 Mildly elevated troponins, no complaints of chest pain, cardiology is following, please refer to their consultation note 4 History of end-stage renal disease on hemodialysis on Tuesday schedule 5 History of COPD on home oxygen on as-needed basis at bedtime 6 Former smoker 7 History of coronary artery disease with previous three-vessel coronary artery bypass grafting, not thought to be related to ACS 8 Hypertension 9 Hyperlipidemia 10 History of permanent pacemaker placement 11 Paroxysmal atrial fibrillation, currently in paced mechanism Plan: The patient was seen and evaluated Currently on BiPAP 12/6 and 35% FiO2 Somewhat restless safety net maker at the bedside Continue the current treatment plan Will continue to follow I, the cosigning physician, performed a history & physical examination of the patient. Lungs sounds with bibasilar crackles, diminished. Maintaining O2 saturations in the 90s on BiPAP 12/6 and 35% FiO2a. I discussed the assessment and plan of care with my nurse practitioner, Rosa Ferris. I attest to the above note as dictated by her.
--- NOTE | 2021-05-22 16:44 | P.PN ---
Subjective Progress Note Date: 05/29/21 This is a 76-year-old male with history of coronary artery disease with previous bypass surgery, paroxysmal atrial fibrillation and permanent pacemaker implantation, hypertension, hyperlipidemia and also renal failure on dialysis is admitted to the hospital with complaints of generalized weakness. Patient also had some evidence of CHF, probably from missing dialysis and fluid overload. Patient yesterday was having dialysis and became hypotensive. YA ROSALIND was called. He was found to have hypercapnic respiratory failure with acidosis. He is still confused. He is being closely followed by pulmonology and also nephrology. His recent echocardiogram showed an ejection fraction about 35-40%. Mild mitral regurgitation. Patient will continue with the dialysis. His troponins are mildly elevated but not suggestive of an acute myocardial injury pattern Objective - Vital Signs Vital signs: Vital Signs Temp 97.4 F L 05/22/21 12:45 Pulse 69 05/22/21 12:45 Resp 22 05/22/21 12:45 BP 116/66 05/22/21 12:45 Pulse Ox 98 05/22/21 12:45 Intake & Output 05/21/21 05/22/21 05/22/21 18:59 06:59 18:59 Intake Total 480 0 Output Total 995 200 125 Balance -515 -200 -125 Intake: Oral 480 0 Output: Urine 200 125 Hemodialysis 995 Other: Voiding Method Urinal Urinal Urinal - Exam Patient is alert, seemed to be slightly confused HEENT: Normocephalic. NECK: No masses, no nuchal rigidity. CHEST: No chest wall deformity. LUNGS: Diminished breath sounds HEART: S1 and S2 normal with no audible mumurs or gallops. Regular rhythm, femorals equal on both sides.. ABDOMEN: No hepatosplenomegaly, normal bowel sounds, no guarding or rigidity. SKIN: No rashes CENTRAL NERVOUS SYSTEM: Deferred EXTREMITIES: No cyanosis, clubbing or edema. - Labs CBC & Chem 7: 05/21/21 12:08 05/21/21 12:08 Assessment and Plan (1) Acute and chronic respiratory failure with hypoxia Current Visit: Yes Status: Acute Code(s): J96.21 - ACUTE AND CHRONIC RESPIRATORY FAILURE WITH HYPOXIA SNOMED Code(s): 24959279 (2) Acute exacerbation of chronic obstructive airways disease Current Visit: No Status: Acute Code(s): J44.1 - CHRONIC OBSTRUCTIVE PULMONARY DISEASE W (ACUTE) EXACERBATION SNOMED Code(s): 034995186 (3) Afib Current Visit: No Status: Acute Code(s): I48.91 - UNSPECIFIED ATRIAL FIBRILLATION SNOMED Code(s): 74947162 (4) Chronic renal failure Current Visit: No Status: Acute Code(s): N18.9 - CHRONIC KIDNEY DISEASE, UNSPECIFIED SNOMED Code(s): 40569351 (5) Congestive heart failure Current Visit: No Status: Acute Code(s): I50.9 - HEART FAILURE, UNSPECIFIED SNOMED Code(s): 35127339 (6) H/O heart bypass surgery Current Visit: No Status: Acute Code(s): Z95.1 - PRESENCE OF AORTOCORONARY BYPASS GRAFT SNOMED Code(s): 379968685 Plan: Continue current treatment. Dialysis as tolerated. Follow the recommendation embryology professor. Further examination depend upon the clinical course
[2021-05-22] MEDS: HALOPERIDOL LACTATE 5 MG/ML 1 ML VIAL IVP PRN (21:54)
[2021-05-22] MEDS: LORazepam 0.5 MG TAB PO PRN (23:06)
[2021-05-23] MEDS: LORazepam 0.5 MG TAB PO PRN (04:20)
[2021-05-23 07:24] LABS: Anisocytosis Slight; Hypochromasia Marked; MCH 35.3 pg (25.0-35.0); MCHC 30.4 g/dL (31.0-37.0); MCV 116.1 fL (80.0-100.0); Macrocytosis Marked; Mean Platelet Volume 9.1; Platelet Count 112 k/uL (150-450); RDW 17.8 % (11.5-15.5); WBC 5.8 k/uL (3.8-10.6)
[2021-05-23 07:43] LABS: Calcium 8.3 mg/dL (8.4-10.2); Potassium 4.6 mmol/L (3.5-5.1)
--- NOTE | 2021-05-23 08:59 | P.PN ---
Subjective Patient is a 76-year-old male with history of coronary artery disease and CABG in the past and on hemodialysis Tuesday and Tuesday came in with increasing weakness and shortness of breath and he did miss hemodialysis yesterday. Patient doesn't have any fever chills patient does have a mild cough without any significant sputum production. Patient had nausea vomiting diarrhea. Patient has mild troponin elevation of 0.04 and 0.055. Patient is presently receiving hemodialysis today patient is presently on forward solids and saturating 90% patient was on BiPAP last night. 2 L of fluid is being removed via hemodialysis. Patient is also bit confused from his baseline. 05/21/2021 and patient has decreased EF to 30-35% compared to his previous echocardiogram in month of August. Patient is undergoing hemodialysis may require another session of dialysis still has lower extremity edema patient is presently on 2 L of oxygen ordered the repeat chest x-ray for today morning. Physical and occupational therapy to evaluate the patient. Patient assays his breathing is at his baseline. 05/22/2021 Patient's the had episodes of agitation last night patient had mildly elevated d-dimer of 2.1 although clinically pretest probability for pulmonary malaise and is low. pulmonary is following the patient as well. He is on BiPAP patient is alert oriented 3 when I evaluated the patient. Avoid any anticholinergic medications Will use Haldol as needed if he has any agitation episodes. Patient is comparing of cramping in the legs. 05/23/2021 Patient the is doing well little drowsy as he received Ativan and Haldol last night patient did during the day is saturating well on 3 L not require oxygen we'll try to wean off her daytime oxygen patient wears BiPAP at nighttime patient does have sleep apnea. Patient has a chronic CO2 retention as well as acute hypercapnic respiratory failure. scheduled hemodialysis today. Constitutional: Denied any fatigue denied any fever. Cardio vascular: denied any chest pain, palpitations Gastrointestinal denied any nausea vomiting Pulmonary: Denied any shortness of breath cough Neurologic denied any new focal deficits All inpatient medications were reviewed and appropriate changes in these medications as dictated in the interval history and assessment and plan. PHYSICAL EXAMINATION: GENERAL: The patient is alert and oriented x3 , not in any acute distress. Well developed, well nourished. HEENT: Pupils are round and equally reacting to light. EOMI. No scleral icterus. No conjunctival pallor. Normocephalic, atraumatic. No pharyngeal erythema. No thyromegaly. CARDIOVASCULAR: S1 and S2 present. No murmurs, rubs, or gallops. PULMONARY: Chest is clear to auscultation, no wheezing or crackles. ABDOMEN: Soft, nontender, nondistended, normoactive bowel sounds. No palpable organomegaly. MUSCULOSKELETAL: No joint swelling or deformity. EXTREMITIES: No cyanosis, clubbing, or pedal edema. NEUROLOGICAL: Gross neurological examination did not reveal any focal deficits. SKIN: No rashes. Assessment and plan -Acute on chronic hypoxic respiratory failure secondary to pulmonary edema and missing hemodialysis. Patient does have bilateral lower pleural effusions as we ll. Patient will undergo hemodialysis we'll try to wean off oxygen. - weakness secondary to multiple medical problems and patient was having falls at home. Patient will need physical therapy and outpatient therapy evaluation and possibility of placement in a subacute rehabitation -End-stage renal disease dialysis dependent, no hemodialysis yesterday and will undergo hemodialysis today -Heart failure chronic systolic as well as diastolic dysfunction with acute exacerbation patient has decreased EF 30-35%. -Coronary artery disease with CABG in the past -Hypertension -hyperlipidemia -Mild elevation in troponins secondary to chronic kidney disease -Paroxysmal atrial fibrillation patient is presently basic rhythm patient has a permanent pacemaker. DVT prophylaxis: Subcutaneous heparin Objective - Vital Signs Vital signs: Vital Signs Temp 98.6 F 05/23/21 08:07 Pulse 64 05/23/21 08:07 Resp 20 05/23/21 08:07 BP 91/58 05/23/21 08:07 Pulse Ox 100 05/23/21 08:07 Intake & Output 05/22/21 05/23/21 05/23/21 18:59 06:59 18:59 Intake Total 0 Output Total 125 Balance -125 Intake: Oral 0 Output: Urine 125 Other: Voiding Method Urinal Diaper # Voids 0 - Labs CBC & Chem 7: 05/23/21 06:09 05/23/21 06:09 Labs: Abnormal Lab Results - Last 24 Hours (Table) 05/23/21 05/23/21 Range/Units 06:09 06:09 RBC 3.10 L (4.30-5.90) m/uL Hgb 11.0 L (13.0-17.5) gm/dL Hct 36.0 L (39.0-53.0) % MCV 116.1 H (80.0-100.0) fL MCH 35.3 H (25.0-35.0) pg MCHC 30.4 L (31.0-37.0) g/dL RDW 17.8 H (11.5-15.5) % Plt Count 112 L (150-450) k/uL Macrocytosis Marked A Sodium 135 L (137-145) mmol/L Chloride 92 L (98-107) mmol/L BUN 67 H (9-20) mg/dL Creatinine 5.72 H (0.66-1.25) mg/dL Calcium 8.3 L (8.4-10.2) mg/dL
--- NOTE | 2021-05-23 12:05 | P.PN ---
Subjective Progress Note Date: 05/23/21 This is a 76-year-old male with history of coronary artery disease with previous bypass surgery, paroxysmal atrial fibrillation and permanent pacemaker implantation, hypertension, hyperlipidemia and also renal failure on dialysis is admitted to the hospital with complaints of generalized weakness. Patient also had some evidence of CHF, probably from missing dialysis and fluid overload. Patient yesterday was having dialysis and became hypotensive. YA BOYER was called. He was found to have hypercapnic respiratory failure with acidosis. He is still confused. He is being closely followed by pulmonology and also nephrology. His recent echocardiogram showed an ejection fraction about 35-40%. Mild mitral regurgitation. Patient will continue with the dialysis. His troponins are mildly elevated but not suggestive of an acute myocardial injury pattern. 05/23/2021: This patient seemed to be more drowsy this morning patient has received Haldol last night. Overall his respiratory status. He was stable. Patient is going to have dialysis today. Lab values showed a stable hemoglobin. His creatinine is high but potassium is normal. Blood pressure is running low with systolic blood pressure 90. Heart rate in the 60s. Lungs show diminished air exchange. We'll continue current medical therapy. Objective - Vital Signs Vital signs: Vital Signs Temp 98.6 F 05/23/21 08:07 Pulse 64 05/23/21 08:07 Resp 20 05/23/21 08:07 BP 91/58 05/23/21 08:07 Pulse Ox 100 05/23/21 08:07 Intake & Output 05/22/21 05/23/21 05/23/21 18:59 06:59 18:59 Intake Total 0 Output Total 125 Balance -125 Intake: Oral 0 Output: Urine 125 Other: Voiding Method Urinal Diaper Diaper # Voids 0 - Exam Patient seems to be more drowsy and sleepy HEENT: Normocephalic. NECK: No masses, no nuchal rigidity. CHEST: No chest wall deformity. LUNGS: Diminished breath sounds HEART: S1 and S2 normal with no audible mumurs or gallops. Regular rhythm, femorals equal on both sides.. ABDOMEN: No hepatosplenomegaly, normal bowel sounds, no guarding or rigidity. SKIN: No rashes CENTRAL NERVOUS SYSTEM: Deferred EXTREMITIES: No cyanosis, clubbing or edema. - Labs CBC & Chem 7: 05/23/21 06:09 05/23/21 06:09 Labs: Abnormal Lab Results - Last 24 Hours (Table) 05/23/21 05/23/21 05/23/21 Range/Units 06:09 06:09 06:09 RBC 3.10 L (4.30-5.90) m/uL Hgb 11.0 L (13.0-17.5) gm/dL Hct 36.0 L (39.0-53.0) % MCV 116.1 H (80.0-100.0) fL MCH 35.3 H (25.0-35.0) pg MCHC 30.4 L (31.0-37.0) g/dL RDW 17.8 H (11.5-15.5) % Plt Count 112 L (150-450) k/uL Macrocytosis Marked A Sodium 135 L (137-145) mmol/L Chloride 92 L (98-107) mmol/L BUN 67 H (9-20) mg/dL Creatinine 5.72 H (0.66-1.25) mg/dL Calcium 8.3 L (8.4-10.2) mg/dL Phosphorus 8.4 H (2.5-4.5) mg/dL Assessment and Plan (1) Acute and chronic respiratory failure with hypoxia Current Visit: Yes Status: Acute Code(s): J96.21 - ACUTE AND CHRONIC RESPIRATORY FAILURE WITH HYPOXIA SNOMED Code(s): 64312225 (2) Acute exacerbation of chronic obstructive airways disease Current Visit: No Status: Acute Code(s): J44.1 - CHRONIC OBSTRUCTIVE PULMONARY DISEASE W (ACUTE) EXACERBATION SNOMED Code(s): 324841781 (3) Afib Current Visit: No Status: Acute Code(s): I48.91 - UNSPECIFIED ATRIAL FIBRILLATION SNOMED Code(s): 19911200 (4) Chronic renal failure Current Visit: No Status: Acute Code(s): N18.9 - CHRONIC KIDNEY DISEASE, UNSPECIFIED SNOMED Code(s): 30891015 (5) Congestive heart failure Current Visit: No Status: Acute Code(s): I50.9 - HEART FAILURE, UNSPECIFIED SNOMED Code(s): 71417485 (6) H/O heart bypass surgery Current Visit: No Status: Acute Code(s): Z95.1 - PRESENCE OF AORTOCORONARY BYPASS GRAFT SNOMED Code(s): 915772822 Plan: Patient is going to get dialysis today. Continue the rest of the medication will follow
[2021-05-23] MEDS: ATORVASTATIN 40 MG TAB PO SCH (13:27)
[2021-05-23] MEDS: GABAPENTIN 100 MG CAP PO SCH ×3 (13:27→20:56)
[2021-05-23] MEDS: METOPROLOL TARTRATE 12.5 MG TAB PO SCH ×2 (13:27→20:56)
[2021-05-23] MEDS: AMIODARONE 200 MG TAB PO SCH (13:27)
[2021-05-23] MEDS: allopurinoL 100 MG TAB PO SCH ×2 (13:30→20:56)
[2021-05-23] MEDS: FOLIC ACID-VIT B COMPLEX-VIT C 1 CAP PO SCH (13:30)
[2021-05-23] MEDS: MULTIVITAMINS, THERA 1 EACH TAB PO SCH (13:31)
--- NOTE | 2021-05-23 13:39 | PN ---
PROGRESS NOTE Patient is seen for followup for end-stage renal disease. He is maintained on a Tuesday, Tuesday, Tuesday schedule. Patient is currently seen on BiPAP. He is confused. Patient received Haldol last night. He is maintained on a Tuesday, , Tuesday schedule and a Code Blue was called on May 21 during treatment his. His blood pressure was low at that time. The patient did not need intubation. His pressure has improved, although still staying on the lower side with systolic 91- 105. The patient remains on 3 L nasal cannula. PHYSICAL EXAMINATION: On examination today, blood pressure is 105/54, heart rate 60 per minute. He is afebrile. Examination of the heart S1, S2. Examination of the lungs, bilateral breath sounds are heard. Decreased breath sounds at the bases. Abdomen is soft, obese. Examination of lower extremities shows edema 2+ bilaterally. EMERGENCY GENERATOR MECHANIC exam: Patient is confused. LAB: Show sodium 135, potassium 4.6, BUN 67 serum creatinine 5.7, hemoglobin 11.0 g/dL. ASSESSMENT: 1. End-stage renal disease, currently on hemodialysis on a Tuesday, , Tuesday schedule. We will plan for hemodialysis tomorrow. However, if his respiratory status worsens later on today, we will dialyze the patient today. Blood pressure remains on the lower side. 2. Mental status changes, multifactorial including medications. 3. Volume overload. 4. Anemia with end-stage renal disease. PLAN: Hemodialysis in a.m. Continue with the BiPAP. Add oral midodrine if the patient is able to take p.o. MMFAVIO / CHEMO: [id number] /
[2021-05-23] MEDS: MIDODRINE 5 MG TAB PO SCH (16:58)
[2021-05-23] MEDS: IPRATROPIUM-ALBUTEROL 3 ML NEB INHALATION PRN (21:20)
[2021-05-24] MEDS: HALOPERIDOL LACTATE 5 MG/ML 1 ML VIAL IVP PRN (01:10)
[2021-05-24] MEDS: MIDODRINE 5 MG TAB PO SCH ×3 (06:40→16:48)
[2021-05-24 08:18] LABS: Calcium 8.2 mg/dL (8.4-10.2); Magnesium 2.3 mg/dL (1.6-2.3); Potassium 5.3 mmol/L (3.5-5.1)
[2021-05-24] MEDS ORDERED: ERGOCALCIFEROL 1,250 MCG (50,000 IU) CAPSULE PO SCH (09:00)
[2021-05-24] MEDS ORDERED: methylPREDNISolone SOD SUCCI 125 MG/2 ML VIAL IV STA (10:15)
--- NOTE | 2021-05-24 10:15 | P.PN ---
Subjective Patient is a 76-year-old male with history of coronary artery disease and CABG in the past and on hemodialysis Tuesday and Tuesday came in with increasing weakness and shortness of breath and he did miss hemodialysis yesterday. Patient doesn't have any fever chills patient does have a mild cough without any significant sputum production. Patient had nausea vomiting diarrhea. Patient has mild troponin elevation of 0.04 and 0.055. Patient is presently receiving hemodialysis today patient is presently on forward solids and saturating 90% patient was on BiPAP last night. 2 L of fluid is being removed via hemodialysis. Patient is also bit confused from his baseline. 05/21/2021 and patient has decreased EF to 30-35% compared to his previous echocardiogram in month of August. Patient is undergoing hemodialysis may require another session of dialysis still has lower extremity edema patient is presently on 2 L of oxygen ordered the repeat chest x-ray for today morning. Physical and occupational therapy to evaluate the patient. Patient assays his breathing is at his baseline. 05/22/2021 Patient's the had episodes of agitation last night patient had mildly elevated d-dimer of 2.1 although clinically pretest probability for pulmonary malaise and is low. pulmonary is following the patient as well. He is on BiPAP patient is alert oriented 3 when I evaluated the patient. Avoid any anticholinergic medications Will use Haldol as needed if he has any agitation episodes. Patient is comparing of cramping in the legs. 05/23/2021 Patient the is doing well little drowsy as he received Ativan and Haldol last night patient did during the day is saturating well on 3 L not require oxygen we'll try to wean off her daytime oxygen patient wears BiPAP at nighttime patient does have sleep apnea. Patient has a chronic CO2 retention as well as acute hypercapnic respiratory failure. scheduled hemodialysis today. Constitutional: Denied any fatigue denied any fever. Cardio vascular: denied any chest pain, palpitations Gastrointestinal denied any nausea vomiting Pulmonary: Denied any shortness of breath cough Neurologic denied any new focal deficits All inpatient medications were reviewed and appropriate changes in these medications as dictated in the interval history and assessment and plan. PHYSICAL EXAMINATION: GENERAL: The patient is alert and oriented x3 , not in any acute distress. Well developed, well nourished. HEENT: Pupils are round and equally reacting to light. EOMI. No scleral icterus. No conjunctival pallor. Normocephalic, atraumatic. No pharyngeal erythema. No thyromegaly. CARDIOVASCULAR: S1 and S2 present. No murmurs, rubs, or gallops. PULMONARY: Expiratory wheezing on exam ABDOMEN: Soft, nontender, nondistended, normoactive bowel sounds. No palpable organomegaly. MUSCULOSKELETAL: No joint swelling or deformity. EXTREMITIES: No cyanosis, clubbing, or pedal edema. NEUROLOGICAL: Gross neurological examination did not reveal any focal deficits. SKIN: No rashes. Assessment and plan -Acute on chronic hypoxic respiratory failure secondary to pulmonary edema and missing hemodialysis. Patient does have bilateral lower pleural effusions as well. Patient is undergoing hemodialysis 3 L of oxygen - weakness secondary to multiple medical problems and patient was having falls at home. Patient will need physical therapy and outpatient therapy evaluation and possibility of placement in a subacute rehabitation -End-stage renal disease dialysis dependent, no hemodialysis yesterday and will undergo hemodialysis today -Heart failure chronic systolic as well as diastolic dysfunction with acute exacerbation patient has decreased EF 30-35%. -Coronary artery disease with CABG in the past -Hypertension -hyperlipidemia -Mild elevation in troponins secondary to chronic kidney disease -Paroxysmal atrial fibrillation patient is presently basic rhythm patient has a permanent pacemaker. DVT prophylaxis: Subcutaneous heparin Objective - Vital Signs Vital signs: Vital Signs Temp 97.6 F 05/24/21 03:22 Pulse 64 05/24/21 06:35 Resp 18 05/24/21 06:35 BP 93/50 05/24/21 06:35 Pulse Ox 96 05/24/21 06:35 Intake & Output 05/23/21 05/24/21 05/24/21 18:59 06:59 18:59 Intake Total 10 118 Output Total 0 0 Balance 0 10 118 Intake: IV 10 Invasive Line 3 10 Oral 118 Output: Urine 0 0 Other: Voiding Method Diaper Diaper - Labs CBC & Chem 7: 05/23/21 06:09 05/24/21 07:38 Labs: Abnormal Lab Results - Last 24 Hours (Table) 05/24/21 Range/Units 07:38 Sodium 133 L (137-145) mmol/L Potassium 5.3 H (3.5-5.1) mmol/L Chloride 96 L (98-107) mmol/L Carbon Dioxide 20 L (22-30) mmol/L BUN 81 H (9-20) mg/dL Creatinine 6.84 H (0.66-1.25) mg/dL Calcium 8.2 L (8.4-10.2) mg/dL
--- NOTE | 2021-05-24 11:54 | PN ---
PROGRESS NOTE Patient is seen for followup for end-stage renal disease. Today he is off BiPAP. He is comfortable, but confused. O2 sats 100% on 3 L nasal cannula. The patient is seen on dialysis tolerating his treatment well. PHYSICAL EXAMINATION: Blood pressure is about 130 mmHg systolic. Heart rate 62 per minute. He is afebrile. Examination of the heart S1, S2. Examination of the lungs, bilateral breath sounds are heard. Decreased breath sounds at the bases. Abdomen is soft, nontender, obese. Examination of the lower extremities: Chronic skin changes, chronic edema noted bilaterally. LAB: Show sodium 133, potassium 5.3, BUN 81, creatinine 6.8, hemoglobin 11.0. ASSESSMENT: 1. End-stage renal disease, maintained on dialysis, receiving treatment today. We will arrange for dialysis again tomorrow. 2. Volume overload slowly improving. 3. Anemia with end-stage renal disease maintained on Aranesp. No active bleeding noted. 4. Acute hypoxic respiratory failure associated with volume overload. 5. Paroxysmal atrial fibrillation in assessment. 6. Cardiomyopathy, EF 30-35%. PLAN: Hemodialysis today and then again in a.m. mostly for ultrafiltration. MMODL / IJN: [id number] /
[2021-05-24] MEDS: METOPROLOL TARTRATE 12.5 MG TAB PO SCH ×2 (12:49→20:40)
[2021-05-24] MEDS: MULTIVITAMINS, THERA 1 EACH TAB PO SCH (12:49)
[2021-05-24] MEDS: AMIODARONE 200 MG TAB PO SCH (12:50)
[2021-05-24] MEDS: GABAPENTIN 100 MG CAP PO SCH ×3 (12:50→20:40)
[2021-05-24] MEDS: allopurinoL 100 MG TAB PO SCH ×2 (12:50→20:40)
[2021-05-24] MEDS: ATORVASTATIN 40 MG TAB PO SCH (12:50)
[2021-05-24] MEDS: FOLIC ACID-VIT B COMPLEX-VIT C 1 CAP PO SCH (12:51)
[2021-05-24] MEDS: FAMOTIDINE 20 MG/2 ML VIAL IV SCH (12:52)
[2021-05-24] MEDS: BUDESONIDE 0.5 MG/2 ML NEBU INHALATION SCH (20:02)
[2021-05-25] MEDS: MIDODRINE 5 MG TAB PO SCH ×3 (06:50→17:39)
--- NOTE | 2021-05-25 09:31 | P.PN ---
Subjective Progress Note Date: 05/25/21 Principal diagnosis: Cardiomyopathy/paroxysmal atrial fibrillation The patient is a 76-year-old gentleman with a past medical history significant for CAD and paroxysmal atrial fibrillation and permanent pacemaker as well as cardiomyopathy who was admitted to the hospital with generalized weakness. He is also end-stage renal disease on dialysis. We consulted to see the patient for further evaluation of heart failure. The patient was seen this morning. He is lethargic. Apparently he was given Haldol before. Hemodynamically he is a stable was marginally low blood pressu re. He is on dialysis. The patient somewhat is a poor historian. He seems to be euvolemic on examination at this point. We will continue the current medical regimen. We will continue following up with him. For some reason the patient is not on any oral anticoagulation. Objective - Vital Signs Vital signs: Vital Signs Temp 98.7 F 05/25/21 08:00 Pulse 61 05/25/21 08:00 Resp 18 05/25/21 08:00 BP 96/51 05/25/21 08:00 Pulse Ox 92 L 05/25/21 08:00 Intake & Output 05/24/21 05/25/21 05/25/21 18:59 06:59 18:59 Intake Total 618 118 Output Total 2500 0 Balance -1882 0 118 Intake: Oral 118 118 Hemodialysis 500 Output: Urine 0 0 Hemodialysis 2500 Other: Voiding Method Diaper Diaper Diaper - Constitutional General appearance: Present: no acute distress - Respiratory Respiratory: bilateral: diminished - Cardiovascular Heart sounds: normal: S1, S2 - Labs CBC & Chem 7: 05/23/21 06:09 05/24/21 07:38 Assessment and Plan Assessment: Assessment #1 coronary artery disease seems to be stable #2 paroxysmal atrial fibrillation #3 cardiomyopathy #4 end stage renal disease on dialysis #5 permanent pacemaker implantation Plan #1 the patient is lethargic. #2 avoid any sedated medication #3 he seems to be euvolemic on examination #4 continue dialysis per nephrology #5 follow-up with the patient
[2021-05-25] MEDS: BUDESONIDE 0.5 MG/2 ML NEBU INHALATION SCH ×2 (09:35→20:59)
[2021-05-25] MEDS: FAMOTIDINE 20 MG/2 ML VIAL IV SCH (12:45)
--- NOTE | 2021-05-25 12:58 | PN ---
PROGRESS NOTE Patient is seen for followup for end-stage renal disease. He is currently on BiPAP. He is comfortable, not in any acute distress. Patient is seen on dialysis. Blood pressure 128/61, heart rate 60 per minute. He is afebrile. EXAMINATION OF THE HEART: S1 and S2. EXAMINATION OF LUNGS: Bilateral breath sounds are heard. Decreased breath sounds at the bases. Abdomen is soft, obese. Examination of lower extremities shows edema 1+ bilaterally. MANAGER PRICING exam shows patient is confused. Currently he is on BiPAP. Labs from 05/24 show sodium 133, potassium 5.3, creatinine 6.8. ASSESSMENT: 1. End-stage renal disease, on hemodialysis, status post extra treatment yesterday, receiving an extra treatment today. Patient is normally maintained on a Tuesday, , Tuesday schedule. 2. Volume overload, slowly improving. 3. Paroxysmal atrial fibrillation. 4. Hypotension, currently improved. 5. Cardiomyopathy, ejection fraction 30% to 35%. 6. Acute hypoxic respiratory failure associated with volume overload, currently improved, maintained on BiPAP. PLAN: Ultrafiltration today. Repeat hemodialysis again in a.m. Check labs in a.m. MMODL / IJN: [id number] /
--- NOTE | 2021-05-25 15:07 | FL ---
EXAMINATION TYPE: FL barium swallow w video DATE OF EXAM: 05/25/2021 COMPARISON: NONE HISTORY: Abnormal bedside TECHNIQUE: Fluoroscopy. FINDINGS: Fluoroscopic guidance was provided for the procedure performed in conjunction with the [facility] pathology department. Please see complete report forthcoming from the Speech Pathology departmen t. Various consistencies from thin liquid to solids were administered. Fluoroscopy time 3 minutes 14 seconds. Number of images: 0. No aspiration or penetration was evident. There is free spill into the piriform sinuses and vallecula. There is marked has consumables formation or transit to the hypopharynx. IMPRESSION: 1. No aspiration or penetration. 2. Free spill into the vallecula. 3. Poor oral transit.
--- NOTE | 2021-05-25 15:23 | P.PN ---
Subjective Progress Note Date: 05/25/21 Patient is a 76-year-old male with history of coronary artery disease and CABG in the past and on hemodialysis Tuesday and Tuesday came in with increasing weakness and shortness of breath and he did miss hemodialysis yesterday. Patient doesn't have any fever chills patient does have a mild cough without any significant sputum production. Patient had nausea vomiting diarrhea. Patient has mild troponin elevation of 0.04 and 0.055. Patient is presently receiving hemodialysis today patient is presently on forward solids and saturating 90% patient was on BiPAP last night. 2 L of fluid is being removed via hemodialysis. Patient is also bit confused from his baseline. 05/21/2021 and patient has decreased EF to 30-35% compared to his previous echocardiogram in month of August. Patient is undergoing hemodialysis may require another session of dialysis still has lower extremity edema patient is presently on 2 L of oxygen ordered the repeat chest x-ray for today morning. Physical and occupational therapy to evaluate the patient. Patient assays his breathing is at his baseline. 05/22/2021 Patient's the had episodes of agitation last night patient had mildly elevated d-dimer of 2.1 although clinically pretest probability for pulmonary malaise and is low. pulmonary is following the patient as well. He is on BiPAP patient is alert oriented 3 when I evaluated the patient. Avoid any anticholinergic medications Will use Haldol as needed if he has any agitation episodes. Patient is comparing of cramping in the legs. 05/23/2021 Patient the is doing well little drowsy as he received Ativan and Haldol last night patient did during the day is saturating well on 3 L not require oxygen we'll try to wean off her daytime oxygen patient wears BiPAP at nighttime patient does have sleep apnea. Patient has a chronic CO2 retention as well as acute hypercapnic respiratory failure. scheduled hemodialysis today. 05/24/2021 Patient is presently on 3 L of oxygen receiving hemodialysis today did not receive hemodialysis yesterday because of the [place]. Patient has signifi cant bilateral wheezing and patient wanted to sit and occasional confusional episodes. Although overall his confusion improved respiratory status improved. patient wanted to sit on the chair 05/25/2021 Patient is seen today at the bedside, with family present. He appears to have a hard time clearing his throat, he does have a congested nonproductive cough. His respirations are shallow, despite encouragement to take a deep breath. Plan was for ultrafiltration today and hemodialysis tomorrow. Labs today show sodium of 133, potassium 5.3, BUN 81, creatinine 6.84, phosphorus 2.3. Vital signs today show a temp of 97.8, heart rate 60, blood pressure 101/55, oxygen saturation 100% on 4L NC. Patient underwent barium swallow today which revealed no aspiration or penetration, free spill into the vallecula, poor oral transit. Being followed closely by nephrology, cardiology, and pulmonary services. Overall prognosis is poor due to risk for frequent readmissions even despite transfer to rehab on discharge once medically stable. Discussed this with family at the bedside. ROS Constitutional: Reports fatigue, denied any fever. Cardio vascular: denied any chest pain, palpitations Gastrointestinal: denied any nausea vomiting Pulmonary: Denied any shortness of breath, Reports congested cough, hard time clearing throat Neurologic denied any new focal deficits All inpatient medications were reviewed and appropriate changes in these medications as dictated in the interval history and assessment and plan. PHYSICAL EXAMINATION: GENERAL: The patient is alert and oriented x3 , not in any acute distress. Well developed, well nourished. Appears fatigued HEENT: Pupils are round and equally reacting to light. EOMI. No scleral icterus. No conjunctival pallor. Normocephalic, atraumatic. No pharyngeal erythema. No thyromegaly. CARDIOVASCULAR: S1 and S2 present. No murmurs, rubs, or gallops. PULMONARY: Expiratory wheezing on exam, decreased aeration, shallow breathing ABDOMEN: Soft, nontender, nondistended, normoactive bowel sounds. No palpable organomegaly. MUSCULOSKELETAL: No joint swelling or deformity. EXTREMITIES: No cyanosis, clubbing, or pedal edema. NEUROLOGICAL: Gross neurological examination did not reveal any focal deficits. SKIN: No rashes. Assessment and plan -Acute on chronic hypoxic respiratory failure secondary to pulmonary edema and missing hemodialysis. Patient does have bilateral lower pleural effusions as well. Patient is undergoing hemodialysis, on 3-4L of oxygen via nasal cannula. - weakness secondary to multiple medical problems and patient was having falls at home. PT/OT consultation placed and patient [facility] be [facility] once medically stable. -End-stage renal disease dialysis dependent, ultrafiltration today, hemodialysis tomorrow. -Heart failure chronic systolic as well as diastolic dysfunction with acute exacerbation patient has decreased EF 30-35%. -Coronary artery disease with CABG in the past -Hypertension -hyperlipidemia -Mild elevation in troponins secondary to chronic kidney disease -Paroxysmal atrial fibrillation patient is presently basic rhythm patient has a permanent pacemaker. DVT prophylaxis: Subcutaneous heparin Objective - Vital Signs Vital signs: Vital Signs Temp 97.8 F 05/25/21 11:59 Pulse 60 05/25/21 12:00 Resp 21 05/25/21 11:59 BP 101/55 05/25/21 12:00 Pulse Ox 100 05/25/21 12:00 Intake & Output 05/24/21 05/25/21 05/25/21 18:59 06:59 18:59 Intake Total 618 418 Output Total 2500 0 2200 Balance -1882 0 -1782 Weight 102 kg Intake: Oral 118 118 Hemodialysis 500 300 Output: Urine 0 0 Hemodialysis 2500 2200 Other: Voiding Method Diaper Diaper Diaper - Labs CBC & Chem 7: 05/23/21 06:09 05/24/21 07:38
[2021-05-25 16:19] LABS: Glucose,Whole Blood 123 mg/dL (75-99)
[2021-05-25] MEDS: METOPROLOL TARTRATE 12.5 MG TAB PO SCH ×2 (17:11→19:52)
[2021-05-25] MEDS: GABAPENTIN 100 MG CAP PO SCH ×3 (17:11→19:57)
[2021-05-25] MEDS: allopurinoL 100 MG TAB PO SCH ×2 (17:11→19:56)
[2021-05-25] MEDS: AMIODARONE 200 MG TAB PO SCH (17:39)
[2021-05-25] MEDS: ATORVASTATIN 40 MG TAB PO SCH (17:39)
[2021-05-25] MEDS: MULTIVITAMINS, THERA 1 EACH TAB PO SCH (17:39)
[2021-05-25] MEDS: FOLIC ACID-VIT B COMPLEX-VIT C 1 CAP PO SCH (17:39)
[2021-05-25] MEDS: IPRATROPIUM-ALBUTEROL 3 ML NEB INHALATION PRN (20:59)
[2021-05-26] MEDS: SODIUM CHLORIDE 0.9% 250 ML IV SCH ×2 (00:01→00:02)
[2021-05-26] MEDS: MIDODRINE 5 MG TAB PO SCH ×3 (06:06→19:24)
[2021-05-26] MEDS: FAMOTIDINE 20 MG TAB PO SCH (09:09)
[2021-05-26] MEDS: MULTIVITAMINS, THERA 1 EACH TAB PO SCH (09:09)
[2021-05-26] MEDS: GABAPENTIN 100 MG CAP PO SCH ×2 (09:09→19:31)
[2021-05-26] MEDS: AMIODARONE 200 MG TAB PO SCH (09:09)
[2021-05-26] MEDS: METOPROLOL TARTRATE 12.5 MG TAB PO SCH (09:09)
[2021-05-26] MEDS: allopurinoL 100 MG TAB PO SCH ×2 (09:09→19:27)
[2021-05-26] MEDS: ATORVASTATIN 40 MG TAB PO SCH (09:09)
[2021-05-26] MEDS: FOLIC ACID-VIT B COMPLEX-VIT C 1 CAP PO SCH (09:09)
[2021-05-26] MEDS: IPRATROPIUM-ALBUTEROL 3 ML NEB INHALATION PRN ×2 (09:13→16:24)
[2021-05-26] MEDS: BUDESONIDE 0.5 MG/2 ML NEBU INHALATION SCH ×2 (09:14→21:37)
[2021-05-26 10:28] LABS: Calcium 8.2 mg/dL (8.4-10.2); Potassium 4.9 mmol/L (3.5-5.1)
--- NOTE | 2021-05-26 10:52 | P.PN ---
Subjective Progress Note Date: 05/26/21 Principal diagnosis: Cardiomyopathy/paroxysmal atrial fibrillation The patient is a 76-year-old gentleman with a past medical history significant for CAD and paroxysmal atrial fibrillation and permanent pacemaker as well as cardiomyopathy who was admitted to the hospital with generalized weakness. He is also end-stage renal disease on dialysis. We consulted to see the patient for further evaluation of heart failure. The patient was seen this morning. He continues to be lethargic. He is hemodynamically stable was marginally low blood pressure. Nephrology service continues to be on the case. From a cardiovascular standpoint of view, we'll continue the current medical regimen. No need for any further cardiac intervention at this point. Investigate why the patient is not on oral anticoagulation. Objective - Vital Signs Vital signs: Vital Signs Temp 98.8 F 05/26/21 03:51 Pulse 92 05/26/21 09:28 Resp 18 05/26/21 09:28 BP 92/52 05/26/21 03:51 Pulse Ox 97 05/26/21 03:51 Intake & Output 05/25/21 05/26/21 05/26/21 18:59 06:59 18:59 Intake Total 418 120 60 Output Total 2200 0 Balance -1782 120 60 Weight 99.6 kg Intake: Oral 118 120 60 Hemodialysis 300 Output: Urine 0 Hemodialysis 2200 Other: Voiding Method Diaper Diaper # Voids 1 - Constitutional General appearance: Present: no acute distress - Respiratory Respiratory: bilateral: diminished - Cardiovascular Heart sounds: normal: S1, S2 - Labs CBC & Chem 7: 05/23/21 06:09 05/26/21 09:40 Labs: Abnormal Lab Results - Last 24 Hours (Table) 05/25/21 05/26/21 Range/Units 16:07 09:40 Sodium 133 L (137-145) mmol/L Chloride 97 L (98-107) mmol/L BUN 58 H (9-20) mg/dL Creatinine 5.01 H (0.66-1.25) mg/dL Glucose 108 H (74-99) mg/dL POC Glucose (mg/dL) 123 H (75-99) mg/dL Calcium 8.2 L (8.4-10.2) mg/dL Assessment and Plan Assessment: Assessment #1 coronary artery disease seems to be stable #2 paroxysmal atrial fibrillation #3 cardiomyopathy #4 end stage renal disease on dialysis #5 permanent pacemaker implantation Plan #1 avoid any CHF medication #2 investigate why the patient is not on anticoagulation #3 follow-up with the patient
[2021-05-26 13:28] VITALS: BMI 34.4
--- NOTE | 2021-05-26 16:03 | CDI ---
Documentation Clarification Form Date: 05/26/2021 03:47:59 PM From: Marlene Daly CCS, CCDS Admit Date: 05/19/2021 06:40:00 PM Patient Name: Dennys Cuevas Visit Number: [id number] Discharge Date: ATTENTION: The Clinical Documentation Specialists (CDI) and [facility] Coding Staff appreciate your assistance in clarifying documentation. Please respond to the clarification below the line at the bottom and electronically sign. The CDI & [facility] Coding staff will review the response and follow-up if needed. Please note: Queries are made part of the Legal Health Record. If you have any questions, please contact the author of this message via ITS. Dr. Kiana Smith: Confusion is documented in the 05/20 History & Physical, the 05/20 Nephrology Consult and in subsequent Progress Notes. 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 Per the 05/22 Progress Note: Received Haldol last night and also received Haldol on 05/24 along with Ativan. Additional clarification regarding the patient's confusion and agitation is requested. History/Risk Factors per the 05/20 H/P: CAD status post CABG, Atrial Fibrillation with Pacemaker, History of Cardiac Arrest after [place] in 2008, ESRD on Hemodialysis, Chronic Hypoxic Respiratory Failure, Chronic Combined Systolic & Diastolic CHF, Hypertension, Hyperlipidemia, Frequent falls, Former smoker. Clinical Indicators: Presented to the ED on 05/19 with Generalized Weakness, missed dialysis today due to weakness. Admitted with Weakness and missed dialysis. 05/19 VS Stable, PO dropped to 93, put on BiPAP briefly. 05/19 LAB: Hgb 12.0, Pl Ct 143, Lymph 0.7, Cl 95, BUN 67, Cr 6.28, Glucose 104, Phos 5.3, Alk Phos 215, Troponin 0.041, 0.055. 05/19 CXR: Small pleural effusions. 05/21 ABG Blood Gases: pH 7.27, pCO2 73, pO2 >400, HCO3 34, Total CO2 36, O2 Sat 100.0 Treatment 05/19: Telemetry, O2 2Lnc advanced to BiPAP, IV Lasix, INH uoneb, po Ativan Please clarify the following: : [ ] Metabolic Encephalopathy [ ] Toxic Encephalopathy [ ] Confusion related to other condition, please specify: [ ] Other, please specify [ ] Unable to determine (Template Last Revised: July 2020) 05/27: Query response documented in the attending physician PN 05/26: Metabolic Encephalopathy (CDS: ISAC ANDERSEN
[2021-05-26] MEDS ORDERED: SODIUM CHLORIDE 0.9% 500 ML 500 ML IV ONE ×2 (17:09→18:23)
--- NOTE | 2021-05-26 17:26 | PN ---
PROGRESS NOTE Patient is seen for followup for end-stage renal disease. The patient is currently seen on dialysis. He is sitting up in bed. He has been weak, not eating much. The patient is awake. He has had episodes of aspiration, coughing this morning. PHYSICAL EXAMINATION: On examination today, blood pressure was 94/52, heart rate 61 per minute, he is afebrile. Examination of the heart S1, S2. Examination of the lungs, decreased breath sounds at the bases. Abdomen is soft, obese. Examination of lower extremities shows no significant edema. 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 He does not communicate much. He is awake. LAB: Show sodium 133, potassium 4.9, BUN 58, creatinine 5.0. Hemoglobin was 11.0 on May 23. ASSESSMENT: 1. End-stage renal disease, on hemodialysis on a Tuesday, , Tuesday schedule. 2. Volume overload slowly improving, significantly improved as compared to last week. 3. Aspiration, maintained on thickened liquids, status post video fluoroscopic barium swallow today which showed no aspiration. 4. Chronic kidney disease mineral bone disorder. 5. Generalized debility. 6. Cardiomyopathy, ejection fraction 30-35%. 7. Paroxysmal atrial fibrillation. 8. Hypotension, currently stable, maintained on midodrine. PLAN: Hemodialysis in a.m. Goal UF about 1 L. Check chest x-ray in a.m. [id number] / CATIAN: [id number] /
--- NOTE | 2021-05-26 18:15 | CT ---
EXAMINATION TYPE: CT brain wo con CT DLP: 1188.4 mGycm, Automated exposure control for dose reduction was used. DATE OF EXAM: 05/26/2021 5:55 PM COMPARISON: None.. Prior CT Brain from . CLINICAL INDICATION:Male, 76 years old with history of difficult to arouse, Altered mental status. TECHNIQUE: Brain: Multiple axial CT images of the brain were obtained without IV contrast. FINDINGS: Brain: Extra-axial spaces: No abnormal extra-axial fluid collections. CSF fluid collection within the left m iddle cranial fossa is unchanged from 11/16/2012 likely represent abscess. Ventricular system: Dilatation in proportion to cerebral atrophy. Cerebral parenchyma: Right basal ganglia lacunar injury similar back to 2013. Mild Cerebral atrophy. No acute intraparenchymal hemorrhage or mass effect. The prajapati-white junction is well differentiated. Scattered hypoattenuating areas are seen within the white matter. Cerebellum: Unremarkable. Mass effect: No evidence of midline shift. Intracranial vasculature: unremarkable Soft tissues: Normal. Calvarium/osseous structures: No depressed skull fracture. Paranasal sinuses and mastoid air cells: Clear. Visualized orbits: Bilateral aphakia IMPRESSION: 1. No acute intracranial process. 2. Remote lacunar injury along with nonspecific white matter changes likely secondary to chronic micr oangiopathy. 3. Unchanged left middle cranial fossa probable arachnoid cyst. Index at least 2012.
[2021-05-26 18:29] LABS: Glucose,Whole Blood 97 mg/dL (75-99)
--- NOTE | 2021-05-26 18:36 | P.PN ---
Subjective Progress Note Date: 05/26/21 Patient is a 76-year-old male with history of coronary artery disease and CABG in the past and on hemodialysis Tuesday and Tuesday came in with increasing weakness and shortness of breath and he did miss hemodialysis yesterday. Patient doesn't have any fever chills patient does have a mild cough without any significant sputum production. Patient had nausea vomiting diarrhea. Patient has mild troponin elevation of 0.04 and 0.055. Patient is presently receiving hemodialysis today patient is presently on forward solids and saturating 90% patient was on BiPAP last night. 2 L of fluid is being removed via hemodialysis. Patient is also bit confused from his baseline. 05/21/2021 and patient has decreased EF to 30-35% compared to his previous echocardiogram in month of August. Patient is undergoing hemodialysis may require another session of dialysis still has lower extremity edema patient is presently on 2 L of oxygen ordered the repeat chest x-ray for today morning. Physical and occupational therapy to evaluate the patient. Patient assays his breathing is at his baseline. 05/22/2021 Patient's the had episodes of agitation last night patient had mildly elevated d-dimer of 2.1 although clinically pretest probability for pulmonary malaise and is low. pulmonary is following the patient as well. He is on BiPAP patient is alert oriented 3 when I evaluated the patient. Avoid any anticholinergic medications Will use Haldol as needed if he has any agitation episodes. Patient is comparing of cramping in the legs. 05/23/2021 Patient the is doing well little drowsy as he received Ativan and Haldol last night patient did during the day is saturating well on 3 L not require oxygen we'll try to wean off her daytime oxygen patient wears BiPAP at nighttime patient does have sleep apnea. Patient has a chronic CO2 retention as well as acute hypercapnic respiratory failure. scheduled hemodialysis today. 05/24/2021 Patient is presently on 3 L of oxygen receiving hemodialysis today did not receive hemodialysis yesterday because of the [place]. Patient has signifi cant bilateral wheezing and patient wanted to sit and occasional confusional episodes. Although overall his confusion improved respiratory status improved. patient wanted to sit on the chair 05/25/2021 Patient is seen today at the bedside, with family present. He appears to have a hard time clearing his throat, he does have a congested nonproductive cough. His respirations are shallow, despite encouragement to take a deep breath. Plan was for ultrafiltration today and hemodialysis tomorrow. Labs today show sodium of 133, potassium 5.3, BUN 81, creatinine 6.84, phosphorus 2.3. Vital signs today show a temp of 97.8, heart rate 60, blood pressure 101/55, oxygen saturation 100% on 4L NC. Patient underwent barium swallow today which revealed no aspiration or penetration, free spill into the vallecula, poor oral transit. Being followed closely by nephrology, cardiology, and pulmonary services. Overall prognosis is poor due to risk for frequent readmissions even despite transfer to rehab on discharge once medically stable. Discussed this with family at the bedside. 05/26/2021 Patient evaluated today resting in bed, he is alert x1. He is a poor historian and does not respond to questions appropriately. He appears fatigued today and lethargic. He still does not take a deep breath when asked. He was able to tell me he is not having any pain currently. His cough seems improved as compared to yesterday. Vitals today, afebrile, heart rate 64 paced, blood pressure 91/60, he is on midodrine. Labs today, sodium 133, potassium 4.9, BUN 58, creatinine 5.01, glucose 100's. Ongoing discharge planning coordinating care for rehab and dialysis. Unable to complete a full review of systems at this time as patient appears confused which has been like that since admission. PHYSICAL EXAMINATION: GENERAL: The patient is alert and oriented x1 , not in any acute distress. Well developed, well nourished. Appears fatigued HEENT: Pupils are round and equally reacting to light. EOMI. No scleral icterus. No conjunctival pallor. Normocephalic, atraumatic. No pharyngeal erythema. No thyromegaly. CARDIOVASCULAR: S1 and S2 present. No murmurs, rubs, or gallops. PULMONARY: Expiratory wheezing on exam, decreased aeration, shallow breathing ABDOMEN: Soft, nontender, nondistended, normoactive bowel sounds. No palpable organomegaly. MUSCULOSKELETAL: No joint swelling or deformity. EXTREMITIES: No cyanosis, clubbing, or pedal edema. NEUROLOGICAL: Gross neurological examination did not reveal any focal deficits. SKIN: No rashes. Assessment and plan -Acute on chronic hypoxic respiratory failure secondary to pulmonary edema and missing hemodialysis. Patient does have bilateral lower pleural effusions as well. Patient is undergoing hemodialysis, on 3-4L of oxygen via nasal cannula. -Weakness secondary to multiple medical problems and patient was having falls at home. PT/OT consultation placed and patient will be discharged to subacute rehab once medically stable. -End-stage renal disease dialysis dependent, plan for hemodialysis in the morning -Heart failure chronic systolic as well as diastolic dysfunction with acute exacerbation patient has decreased EF 30-35%. -Acute metabolic encephalopathy most probably due to end stage renal disease causing uremia, patient is on hemodialysis -Coronary artery disease with CABG in the past -Hypertension -hyperlipidemia -Mild elevation in troponins secondary to chronic kidney disease -Paroxysmal atrial fibrillation patient has a permanent pacemaker. Unsure why he is not on anticoagulation at this time. DVT prophylaxis: Subcutaneous heparin Ongoing discharge planning with marleen CAMPBELL about coordinating care with hemodialysis. Wean oxygen as tolerated Repeat labs in AM Objective - Vital Signs Vital signs: Vital Signs Temp 98.6 F 05/26/21 08:00 Pulse 92 05/26/21 09:28 Resp 18 05/26/21 09:28 BP 94/52 05/26/21 08:00 Pulse Ox 93 L 05/26/21 08:00 Intake & Output 05/25/21 05/26/21 05/26/21 18:59 06:59 18:59 Intake Total 418 120 60 Output Total 2200 0 Balance -1782 120 60 Weight 99.6 kg Intake: Oral 118 120 60 Hemodialysis 300 Output: Urine 0 Hemodialysis 2200 Other: Voiding Method Diaper Diaper Diaper # Voids 1 - Labs CBC & Chem 7: 05/23/21 06:09 05/26/21 09:40 Labs: Abnormal Lab Results - Last 24 Hours (Table) 05/25/21 05/26/21 Range/Units 16:07 09:40 Sodium 133 L (137-145) mmol/L Chloride 97 L (98-107) mmol/L BUN 58 H (9-20) mg/dL Creatinine 5.01 H (0.66-1.25) mg/dL Glucose 108 H (74-99) mg/dL POC Glucose (mg/dL) 123 H (75-99) mg/dL Calcium 8.2 L (8.4-10.2) mg/dL
--- NOTE | 2021-05-26 19:12 | P.EN ---
A- team: Indication: Altered mentation Arrived on Scene to find: Patient being placed on bipap Patient seen and examined at bedside. patient with decreased responsiveness and decreased BP. Had been ordered 500 cc bolus and head CT. Upone getting back from head CT he was not waking up. Vital signs reviewed General: non toxic, no distress, appears at stated age Derm: warm, dry Head: atraumatic, normocephalic, symmetric Eyes: PERRL EOMI, no lid lag, anicteric sclera Mouth: no lip lesion, mucus membranes dry Cardiovascular: S1S2 reg, no murmur, positive posterior tibial pulse bilateral, Lungs: Decreased bs bilateral, no rhonchi, no rales , no accessory muscle use Ext: withdrawing to pain in all 4 extremities Neuro: CN II-XI grossly intact, no focal neuro deficits Psych: somnolent Assessment: Acute encephalopathy-suspect hypercapnia based on prior ABGs. Attempted to obtain an ABG for 30 minutes and unable to do so Hypotension Plan: -Repeat 500 mL bolus -Obtain ABG in 30 minutes -Continue with BiPAP -Discontinue Metoprolol -Head CT reviewed no acute process - ESRD -Acute systolic CHF with EF 35-40% - Continue with BiPap Disposition: Remain on 4S Notified: [facility] notified by nursing A Total of 42 minutes of critical care time was spent on the complex care of this patient.
[2021-05-26 19:32] LABS: Anisocytosis Slight; HGB 11.8 gm/dL (13.0-17.5); Hypochromasia Marked; MCHC 31.1 g/dL (31.0-37.0); MCV 116.1 fL (80.0-100.0); Macrocytosis Marked; Mean Platelet Volume 9.1; Platelet Count 119 k/uL (150-450); RBC 3.28 m/uL (4.30-5.90); RDW 17.8 % (11.5-15.5); WBC 6.7 k/uL (3.8-10.6)
[2021-05-26 19:43] LABS: Albumin 3.3 g/dL (3.5-5.0); Calcium 7.6 mg/dL (8.4-10.2); Potassium 5.2 mmol/L (3.5-5.1); Total Bilirubin 1.5 mg/dL (0.2-1.3); Total Protein 6.4 g/dL (6.3-8.2)
--- NOTE | 2021-05-26 23:15 | US ---
EXAMINATION TYPE: US gallbladder DATE OF EXAM: 05/26/2021 COMPARISON: CT CLINICAL HISTORY: abdominal pain. Abdominal pain. EXAM MEASUREMENTS: Liver Length: 15.3 cm Gallbladder Wall: 0.24 cm Right Kidney: 8.6 x 5.2 x 4.8 cm Limited due to gas and patient body habitus. Pancreas: Obscured. Liver: Appears very coarse in echotexture. Gallbladder: Probable internal echoes versus artifact. Fold seen. Evidence for sonographic Tinoco's sign: No. CBD: Obscured. Right Kidney: Increased echogenicity. Appears small in size and heterogeneous. Limited. IMPRESSION: No definite gallstones. Gallbladder appears large but not dilated. Gallbladder measures [address] This could relate to some gallbladder dysfunction. No dilated ducts. Common bile duct not seen d ue to bowel gas.
[2021-05-27] MEDS: MIDODRINE 5 MG TAB PO SCH ×3 (06:19→17:54)
[2021-05-27] MEDS: IPRATROPIUM-ALBUTEROL 3 ML NEB INHALATION PRN ×2 (09:20→20:31)
[2021-05-27] MEDS: BUDESONIDE 0.5 MG/2 ML NEBU INHALATION SCH ×2 (09:20→20:31)
--- NOTE | 2021-05-27 10:21 | P.PN ---
Subjective Progress Note Date: 05/27/21 Principal diagnosis: Cardiomyopathy/paroxysmal atrial fibrillation The patient is a 76-year-old gentleman with a past medical history significant for CAD and paroxysmal atrial fibrillation and permanent pacemaker as well as cardiomyopathy who was admitted to the hospital with generalized weakness. He is also end-stage renal disease on dialysis. We consulted to see the patient for further evaluation of heart failure. The patient was seen this morning. He continues to be lethargic but he is a bit more responding. Hemodynamically he is a stable. From a perivascular rudolph dpoint of view, no need for any intervention at this point. We'll follow-up with the patient on when necessary case Objective - Vital Signs Vital signs: Vital Signs Temp 97.3 F L 05/27/21 08:00 Pulse 90 05/27/21 09:34 Resp 16 05/27/21 08:00 BP 111/56 05/27/21 10:12 Pulse Ox 97 05/27/21 08:00 Intake & Output 05/26/21 05/27/21 05/27/21 18:59 06:59 18:59 Intake Total 120 0 0 Output Total 0 Balance 120 0 0 Weight 99.6 kg 96.2 kg Intake: Oral 120 0 0 Output: Urine 0 Other: Voiding Method Diaper Diaper - Constitutional General appearance: Present: no acute distress - Respiratory Respiratory: bilateral: diminished - Cardiovascular Heart sounds: normal: S1, S2 - Labs CBC & Chem 7: 05/26/21 19:10 05/26/21 19:10 Labs: Abnormal Lab Results - Last 24 Hours (Table) 05/26/21 05/26/21 05/26/21 Range/Units 09:40 19:10 19:10 RBC 3.28 L (4.30-5.90) m/uL Hgb 11.8 L (13.0-17.5) gm/dL Hct 38.0 L (39.0-53.0) % MCV 116.1 H (80.0-100.0) fL MCH 36.0 H (25.0-35.0) pg RDW 17.8 H (11.5-15.5) % Plt Count 119 L (150-450) k/uL Macrocytosis Marked A Sodium 133 L 132 L (137-145) mmol/L Potassium 5.2 H (3.5-5.1) mmol/L Chloride 97 L 97 L (98-107) mmol/L Carbon Dioxide 20 L (22-30) mmol/L BUN 58 H 66 H (9-20) mg/dL Creatinine 5.01 H 5.72 H (0.66-1.25) mg/dL Glucose 108 H (74-99) mg/dL Calcium 8.2 L 7.6 L (8.4-10.2) mg/dL Total Bilirubin 1.5 H (0.2-1.3) mg/dL AST 208 H (17-59) U/L ALT 144 H (4-49) U/L Alkaline Phosphatase 198 H (38-126) U/L Troponin I (0.000-0.034) ng/mL Albumin 3.3 L (3.5-5.0) g/dL 05/26/21 Range/Units 19:10 RBC (4.30-5.90) m/uL Hgb (13.0-17.5) gm/dL Hct (39.0-53.0) % MCV (80.0-100.0) fL MCH (25.0-35.0) pg RDW (11.5-15.5) % Plt Count (150-450) k/uL Macrocytosis Sodium (137-145) mmol/L Potassium (3.5-5.1) mmol/L Chloride (98-107) mmol/L Carbon Dioxide (22-30) mmol/L BUN (9-20) mg/dL Creatinine (0.66-1.25) mg/dL Glucose (74-99) mg/dL Calcium (8.4-10.2) mg/dL Total Bilirubin (0.2-1.3) mg/dL AST (17-59) U/L ALT (4-49) U/L Alkaline Phosphatase (38-126) U/L Troponin I 0.175 H* (0.000-0.034) ng/mL Albumin (3.5-5.0) g/dL Assessment and Plan Assessment: Assessment #1 coronary artery disease seems to be stable #2 paroxysmal atrial fibrillation #3 cardiomyopathy #4 end stage renal disease on dialysis #5 permanent pacemaker implantation Plan #1 continue the current medical regimen #2 follow-up with the patient on when necessary case
[2021-05-27] MEDS: FOLIC ACID-VIT B COMPLEX-VIT C 1 CAP PO SCH (12:12)
[2021-05-27] MEDS: MULTIVITAMINS, THERA 1 EACH TAB PO SCH (12:12)
--- NOTE | 2021-05-27 17:04 | PN ---
PROGRESS NOTE Patient is seen for followup for end-stage renal disease. He is normally maintained on a Tuesday, , Tuesday schedule. The patient is currently seen on hemodialysis today. He had been receiving daily treatments for volume overload and acute hypoxic respiratory failure requiring BiPAP. Volume status has now improved. The patient's blood pressure has been borderline. He did have an episode of hypotension yesterday and received a fluid bolus. The patient was not dialyzed yesterday. PHYSICAL EXAMINATION: On examination today, patient is awake. He is seen on dialysis. Blood pressure 111/56, heart rate 60 per minute. He is afebrile. Examination of the heart S1, S2. Examination of the lungs, decreased breath sounds at the bases. Abdomen is soft, morbidly obese, distended. Examination of lower extremities shows no edema. 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 He does answer simple questions. He agreed to take his oral medications. LAB: Show sodium 132, potassium 5.2, BUN 66, serum creatinine 5.7. These labs are from yesterday, 05/26/2021. ASSESSMENT: 1. End-stage renal disease, on hemodialysis, maintained on a Tuesday, , Tuesday schedule as outpatient. The patient was dialyzed today. We will dialyze him again on Tuesday. He will likely need another treatment on Tuesday, over the weekend. 2. Volume overload, currently improved. 3. Hypotension maintained on midodrine with underlying cardiomyopathy and atrial fibrillation, ejection fraction at 35-40%. 4. Chronic kidney disease mineral bone disorder. 5. Acute hypoxic respiratory failure, currently improved. 6. Generalized debility. PLAN: Continue with midodrine. Goal UF about 1 L today. Check random cortisol level. Next dialysis will be on 05/29/2021. MMODL / IJN: [id number] /
[2021-05-27] MEDS: allopurinoL 100 MG TAB PO SCH ×2 (17:34→20:10)
[2021-05-27] MEDS: AMIODARONE 200 MG TAB PO SCH (17:34)
[2021-05-27] MEDS: FAMOTIDINE 20 MG TAB PO SCH (17:34)
[2021-05-27] MEDS: ATORVASTATIN 40 MG TAB PO SCH (17:34)
[2021-05-27 19:20] LABS: Anisocytosis Slight; Basophils % (A) 0 %; Eosinophils % (A) 0 %; HCT 38.4 % (39.0-53.0); Hypochromasia Moderate; Lymphocytes # (A) 0.4 k/uL (1.0-4.8); Lymphocytes % (A) 6 %; MCH 36.1 pg (25.0-35.0); MCHC 31.3 g/dL (31.0-37.0); MCV 115.4 fL (80.0-100.0); Macrocytosis Marked; Mean Platelet Volume 9.8; Monocytes # (A) 0.6 k/uL (0-1.0); Monocytes % (A) 8 %; Neutrophils # (A) 5.8 k/uL (1.3-7.7); Neutrophils % (A) 84 %; Platelet Count 126 k/uL (150-450); RBC 3.32 m/uL (4.30-5.90); RDW 17.9 % (11.5-15.5); WBC 6.9 k/uL (3.8-10.6)
[2021-05-27 19:27] LABS: Calcium 8.5 mg/dL (8.4-10.2); Potassium 4.5 mmol/L (3.5-5.1)
[2021-05-27 20:09] VITALS: RESP 16
[2021-05-28] MEDS: MIDODRINE 5 MG TAB PO SCH ×2 (06:33→12:03)
[2021-05-28 09:20] VITALS: TEMP 98.1
[2021-05-28] MEDS: BUDESONIDE 0.5 MG/2 ML NEBU INHALATION SCH (09:21)
--- NOTE | 2021-05-28 10:38 | P.PN ---
Subjective Progress Note Date: 05/28/21 Principal diagnosis: This is a 76-year-old male with ESRD on dialysis, last dialysis was yesterday. He was admitted with shortness of breath and generalized weakness and some conf usion. He remained short of breath on a BiPAP. Very weak and tired and barely able to speak. He has cardiorenal mild ejection fraction 35% on echocardiogram. He was dialyzed yesterday with 1 L ultrafiltration. All the blood pressures documented are in the 100's to 118 range, heart rate 60. He is afebrile He is known with atrial fibrillation coronary artery disease COPD pacer, atrial fibrillation, history of coronary artery bypass graft and stent placement Objective - Vital Signs Vital signs: Vital Signs Temp 98.1 F 05/28/21 09:00 Pulse 63 05/28/21 09:00 Resp 16 05/28/21 09:00 BP 113/59 05/28/21 09:00 Pulse Ox 98 05/28/21 09:00 Intake & Output 05/27/21 05/28/21 05/28/21 18:59 06:59 18:59 Intake Total 0 Output Total 1000 0 Balance -1000 0 Intake: Oral 0 Output: Urine 0 Hemodialysis 1000 Other: Voiding Method Diaper Diaper # Voids 0 Very weak and tired and barely making eye contact. He is on BiPAP A chin exam no JVP neck is supple no facial asymmetry Lungs are significant for diminished breath sounds bilaterally with some occasional coarse crackles. Her son unremarkable is in atrial fibrillation Abdomen soft obese Extremity exam was minimal edema Neurologically awake alert but profoundly - Labs CBC & Chem 7: 05/27/21 15:55 05/27/21 15:55 Labs: Abnormal Lab Results - Last 24 Hours (Table) 05/27/21 05/27/21 Range/Units 15:55 15:55 RBC 3.32 L (4.30-5.90) m/uL Hgb 12.0 L (13.0-17.5) gm/dL Hct 38.4 L (39.0-53.0) % MCV 115.4 H (80.0-100.0) fL MCH 36.1 H (25.0-35.0) pg RDW 17.9 H (11.5-15.5) % Plt Count 126 L (150-450) k/uL Lymphocytes # 0.4 L (1.0-4.8) k/uL Macrocytosis Marked A BUN 45 H (9-20) mg/dL Creatinine 4.85 H (0.66-1.25) mg/dL Assessment and Plan Assessment: Impression 1. ESRD on dialysis currently on a Tuesday schedule he was dialyzed yesterday Tuesday because he missed his dialysis 2. Short of breath on BiPAP. Possibly congestive heart failure. 3. Atrial fibrillation, pacer, cardiomyopathy, coronary artery disease. Recommendation 1. Will proceed with dialysis today rather than tomorrow and will try to take off 2 L with cold dialysate and sodium programming steps 145.
[2021-05-28] MEDS: ATORVASTATIN 40 MG TAB PO SCH (10:45)
[2021-05-28] MEDS: MULTIVITAMINS, THERA 1 EACH TAB PO SCH (10:45)
[2021-05-28] MEDS: FOLIC ACID-VIT B COMPLEX-VIT C 1 CAP PO SCH (10:45)
[2021-05-28] MEDS: allopurinoL 100 MG TAB PO SCH (10:45)
[2021-05-28] MEDS: FAMOTIDINE 20 MG TAB PO SCH (10:45)
[2021-05-28] MEDS: AMIODARONE 200 MG TAB PO SCH (10:45)
--- NOTE | 2021-05-28 10:46 | XR ---
EXAMINATION TYPE: XR chest 1V portable DATE OF EXAM: 05/28/2021 HISTORY: Shortness of breath. COMPARISON: 05/21/2021 TECHNIQUE: Single view of the chest is submitted. FINDINGS: Demonstrated are scattered senescent parenchymal change. Patchy density left lower lobe with small effusion unchanged. The heart is stable. Sternotomy wires mediastinal clips are in place. Single lead pacer is in place. Large bore central venous line unchanged in position. Hilar and mediastinal structures are within normal limits. Degenerative changes are seen of the dorsal spine. IMPRESSION: 1. Patchy density left lower lobe with small effusion unchanged.
[2021-05-28 11:51] LABS: ABG Base Excess -4.6 mmol/L; ABG HCO3 23 mmol/L (21-25); ABG Oxygen Saturation 94.5 % (94-97); ABG PCO2 55 mmHg (35-45); ABG PH 7.23 (7.35-7.45); ABG PO2 79 mmHg (83-108); ABG TCO2 25 mmol/L (19-24); Allen Test Performed? Yes
[2021-05-28 12:14] VITALS: PULSE 60
[2021-05-28 12:42] LABS: Calcium 8.7 mg/dL (8.4-10.2); Potassium 5.1 mmol/L (3.5-5.1)
[2021-05-28 12:56] LABS: Anisocytosis Slight; Basophils % (A) 0 %; Eosinophils % (A) 0 %; HCT 38.8 % (39.0-53.0); Hypochromasia Marked; Lymphocytes # (A) 0.4 k/uL (1.0-4.8); Lymphocytes % (A) 6 %; MCHC 30.8 g/dL (31.0-37.0); MCV 119.9 fL (80.0-100.0); Macrocytosis Marked; Mean Platelet Volume 9.4; Monocytes # (A) 0.5 k/uL (0-1.0); Monocytes % (A) 7 %; Neutrophils # (A) 6.6 k/uL (1.3-7.7); Neutrophils % (A) 85 %; Platelet Count 113 k/uL (150-450); RBC 3.24 m/uL (4.30-5.90); RDW 18.8 % (11.5-15.5); WBC 7.8 k/uL (3.8-10.6)
[2021-05-28 16:00] VITALS: BP 127/61
--- NOTE | 2021-05-28 16:42 | P.PN ---
Subjective Progress Note Date: 05/28/21 76-year-old male patient is being seen in follow-up today for ongoing difficulties with shortness of breath and hypoxemia. Noted the patient was initially seen in consultation and we signed off the case. The patient initially presented to us with volume overload secondary to missed dialysis. The patient has end-stage renal disease and the patient remains on dialysis and his last dialysis was done yesterday. On today's evaluation, the patient was noted to be hypoxic again. He was looking very weak and tired and he was unable to come indicate. Based on that, he was placed back on a BiPAP pressure of 14/600 m of water. The plan was to subject this patient with dialysis again. Note that he has had his last hemodialysis yesterday with a 1 L of ultrafiltration. He is known to have multiple medical problems and comorbidities including COPD, chronic atrial fibrillation, coronary artery disea se with previous bypass surgery and previous coronary stenting. Based on his diminished level of consciousness, blood gases was done that showed a pH of 7.23 and a pCO2 of 55 and pO2 79. The patient's blood work showed a sodium level of 140 with a bicarb of 20 and a BUN of 65 with a creatinine of 6.4. The pH is at 7.8 with hemoglobin of 12.0 and a platelet count of 113. A repeat chest x-ray was also done that showed no significant interval change. There was a patchy density in the left lower lobe with a small effusion that remains essentially unchanged. The patient is afebrile. Objective - Vital Signs Vital signs: Vital Signs Temp 98.1 F 05/28/21 09:00 Pulse 60 05/28/21 15:29 Resp 16 05/28/21 15:29 BP 127/61 05/28/21 15:59 Pulse Ox 98 05/28/21 15:29 Intake & Output 05/27/21 05/28/21 05/28/21 18:59 06:59 18:59 Intake Total 0 Output Total 1000 0 2000 Balance -1000 0 -2000 Intake: Oral 0 Output: Urine 0 0 Hemodialysis 1000 2000 Other: Voiding Method Diaper Diaper Diaper # Voids 0 0 - Exam GENERAL EXAM: Alert, somewhat restless, 76-year-old male patient, currently on BiPAP 05/04 and the patient is lethargic and somnolent and sleepy at this point in time, breathing is unlabored. The patient a full face mask which is able to tolerate without any significant leaks on the mask. HEAD: Normocephalic/atraumatic. EYES: Normal reaction of pupils, equal size. Conjunctiva pink, sclera white. NOSE: Clear with pink turbinates. THROAT: No erythema or exudates. NECK: No masses, no JVD, no thyroid enlargement, no adenopathy. CHEST: No chest wall deformity. Symmetrical expansion. Right-sided hemodialys is catheter in place. LUNGS: Equal air entry with mild crackles in the posterior bases CVS: Regular rate and rhythm, normal S1 and S2, no gallops, no murmurs, no rubs ABDOMEN: Soft, nontender. No hepatosplenomegaly, normal bowel sounds, no guarding or rigidity. EXTREMITIES: No clubbing, mild 1+ edema, no cyanosis, 2+ pulses and upper and lower extremities. MUSCULOSKELETAL: Muscle strength and tone normal. SPINE: No scoliosis or deformity SKIN: No rashes CENTRAL NERVOUS SYSTEM: No focal deficits, tone is normal in all 4 extremities. The patient is quite lethargic and somnolent and sleepy, acidotic and he has a component of restless doses based on the most recent blood gases. PSYCHIATRIC: Alert and oriented -3. Appropriate affect. Intact judgment and insight. - Labs CBC & Chem 7: 05/28/21 12:02 05/28/21 12:02 Labs: Abnormal Lab Results - Last 24 Hours (Table) 05/27/21 05/27/21 05/28/21 Range/Units 15:55 15:55 11:08 RBC 3.32 L (4.30-5.90) m/uL Hgb 12.0 L (13.0-17.5) gm/dL Hct 38.4 L (39.0-53.0) % MCV 115.4 H (80.0-100.0) fL MCH 36.1 H (25.0-35.0) pg MCHC (31.0-37.0) g/dL RDW 17.9 H (11.5-15.5) % Plt Count 126 L (150-450) k/uL Lymphocytes # 0.4 L (1.0-4.8) k/uL Macrocytosis Marked A ABG pH 7.23 L (7.35-7.45) ABG pCO2 55 H (35-45) mmHg ABG pO2 79 L (83-108) mmHg ABG Total CO2 25 H (19-24) mmol/L Carbon Dioxide (22-30) mmol/L BUN 45 H (9-20) mg/dL Creatinine 4.85 H (0.66-1.25) mg/dL 05/28/21 05/28/21 Range/Units 12:02 12:02 RBC 3.24 L (4.30-5.90) m/uL Hgb 12.0 L (13.0-17.5) gm/dL Hct 38.8 L (39.0-53.0) % MCV 119.9 H (80.0-100.0) fL MCH 37.0 H (25.0-35.0) pg MCHC 30.8 L (31.0-37.0) g/dL RDW 18.8 H (11.5-15.5) % Plt Count 113 L (150-450) k/uL Lymphocytes # 0.4 L (1.0-4.8) k/uL Macrocytosis Marked A ABG pH (7.35-7.45) ABG pCO2 (35-45) mmHg ABG pO2 (83-108) mmHg ABG Total CO2 (19-24) mmol/L Carbon Dioxide 20 L (22-30) mmol/L BUN 65 H (9-20) mg/dL Creatinine 6.48 H (0.66-1.25) mg/dL Assessment and Plan Plan: 1 Acute on chronic hypoxic respiratory failure and dyspnea and altered mentation. The patient is on a BiPAP at a pressure of 12/6 and the means of water. Blood gases was noted and the patient has a component of acute [place] acidosis and the chest x-ray shows a stable left-sided pleural effusion which r emains essentially unchanged. The patient is currently on BiPAP a chest x-ray was reviewed. Dialysis to follow. Nephrology some the case. 2 Gait dysfunction, weakness, fall at home 3 Mildly elevated troponins, no complaints of chest pain, cardiology is following, please refer to their consultation note 4 History of end-stage renal disease on hemodialysis on Tuesday schedule, last hemodialysis session was yesterday with a 1 L of ultrafiltration 5 History of COPD on home oxygen on as-needed basis at bedtime 6 Former smoker 7 History of coronary artery disease with previous three-vessel coronary artery bypass grafting, not thought to be related to ACS 8 Hypertension 9 Hyperlipidemia 10 History of permanent pacemaker placement 11 Paroxysmal atrial fibrillation, currently in paced mechanism Plan Proceed with hemodialysis with a total of 2 L of ultrafiltration Keep the patient on BiPAP throughout the day today as a pressure of 12/6 cm of water and titrated ultimately a saturation above 90% Do not give any form of sedatives including Ativan Continue rest of the oral medication the patient be able to take oral medication once his much more awake and I'm hoping this will need she is post dialysis and post few hours of BiPAP treatment Repeat ABG and chest x-ray in the morning Nephrology and cardiology are both on the case and the patient has a DNR/DNI CODE STATUS.
== END 2021-05-28 16:53 | disposition hospice, home (50) | DRG 291 ==
LOC: EC 14:36 → 3SCARD 18:40
PROVIDERS: ADMIT Hospitalist; ATTEND Hospitalist
PROC: 5A1D70Z Performance of Urinary Filtration, Intermittent, Less than 6 Hours Per Day (ICD-10-PCS; 2021-05-19)
PROC: 5A09457 Assistance with Respiratory Ventilation, 24-96 Consecutive Hours, Continuous Positive Airway Pressure (ICD-10-PCS; principal; 2021-05-25)
DX: I13.2 Hypertensive heart and chronic kidney disease with heart failure and with stage 5 chronic kidney disease, or end stage renal disease (principal); G93.41 Metabolic encephalopathy; I50.43 Acute on chronic combined systolic (congestive) and diastolic (congestive) heart failure; J96.22 Acute and chronic respiratory failure with hypercapnia; J96.21 Acute and chronic respiratory failure with hypoxia; N18.6 End stage renal disease; I31.3 Pericardial effusion (noninflammatory); I48.20 Chronic atrial fibrillation, unspecified; J44.1 Chronic obstructive pulmonary disease with (acute) exacerbation; J98.11 Atelectasis; I42.8 Other cardiomyopathies; D63.1 Anemia in chronic kidney disease; E78.5 Hyperlipidemia, unspecified; F40.240 Claustrophobia; I08.1 Rheumatic disorders of both mitral and tricuspid valves; I95.9 Hypotension, unspecified; Z20.822 Contact with and (suspected) exposure to COVID-19; I25.10 Atherosclerotic heart disease of native coronary artery without angina pectoris; I25.2 Old myocardial infarction; I48.0 Paroxysmal atrial fibrillation; I73.9 Peripheral vascular disease, unspecified; M89.9 Disorder of bone, unspecified; R29.6 Repeated falls; W19.XXXA Unspecified fall, initial encounter; Y92.009 Unspecified place in unspecified non-institutional (private) residence as the place of occurrence of the external cause; Z79.01 Long term (current) use of anticoagulants; Z79.899 Other long term (current) drug therapy; Z86.74 Personal history of sudden cardiac arrest; Z87.891 Personal history of nicotine dependence; Z95.0 Presence of cardiac pacemaker; Z95.1 Presence of aortocoronary bypass graft; Z95.5 Presence of coronary angioplasty implant and graft; Z99.2 Dependence on renal dialysis; Z99.81 Dependence on supplemental oxygen; R77.8 Other specified abnormalities of plasma proteins; Z51.5 Encounter for palliative care; Z66 Do not resuscitate
CPT/HCPCS: 36415; 36600; 70450; 71045; 71046; 74230; 76705; 80048; 80053; 81001; 82140; 82533; 82805; 83605; 83735; 83880; 84100; 84484; 85025; 85027; 85379; 85610; 85730; 86706; 87340; 87635; 90935; 93005; 93306; 94640; 94660; 94760; 96374; 99285

== ENCOUNTER 2021-05-28 16:33 | Inpatient (IN) | payer MEDICAID ==
[2021-05-28] MEDS ORDERED: HALOPERIDOL LACTATE 5 MG/ML 1 ML VIAL IM PRN ×2 (16:41)
[2021-05-28] MEDS ORDERED: METOCLOPRAMIDE 5 MG/ML 2 ML VIAL IVP PRN ×2 (16:41)
[2021-05-28] MEDS ORDERED: LORazepam 2 MG/ML INJ IV PRN ×2 (16:41)
[2021-05-28] MEDS ORDERED: ONDANSETRON 4 MG/2 ML VIAL IVP PRN ×2 (16:41)
[2021-05-28] MEDS ORDERED: ACETAMINOPHEN SUPPOSITORY 650 MG SUPP RECTAL PRN ×2 (16:41)
[2021-05-28] MEDS ORDERED: GLYCOPYRROLATE 0.2 MG/ML 2 ML VIAL IVP PRN ×2 (16:41)
[2021-05-28] MEDS ORDERED: ATROPINE OPHTH SOLN 1% 5ML BTL SUBLINGUAL PRN ×2 (16:41)
[2021-05-28] MEDS ORDERED: MORPHINE SULFATE (100 MG/2 ML) 100 MG in SODIUM CHLORIDE 0.9% 100 ML IV SCH ×4 (16:45)
[2021-05-28] MEDS ORDERED: SCOPOLAMINE 1.5MG/72HR PATCH TRANSDERM SCH ×2 (16:45→17:00)
[2021-05-28 19:07] VITALS: PULSE 60
[2021-05-28 19:54] VITALS: BP 100/52
[2021-05-28 21:47] VITALS: RESP 20; TEMP 99.8
== END 2021-05-28 23:04 | disposition expired | DRG 951 ==
LOC: 3SCARD 16:59
PROVIDERS: ADMIT Internal Medicine; ATTEND Internal Medicine
PROC: 5A09357 Assistance with Respiratory Ventilation, Less than 24 Consecutive Hours, Continuous Positive Airway Pressure (ICD-10-PCS; principal; 2021-05-28)
PROC: 5A1D70Z Performance of Urinary Filtration, Intermittent, Less than 6 Hours Per Day (ICD-10-PCS; 2021-05-28)
DX: Z51.5 Encounter for palliative care (principal); N18.6 End stage renal disease; I50.33 Acute on chronic diastolic (congestive) heart failure; J96.21 Acute and chronic respiratory failure with hypoxia; I13.2 Hypertensive heart and chronic kidney disease with heart failure and with stage 5 chronic kidney disease, or end stage renal disease; Z99.2 Dependence on renal dialysis; J44.9 Chronic obstructive pulmonary disease, unspecified; I25.10 Atherosclerotic heart disease of native coronary artery without angina pectoris; E78.5 Hyperlipidemia, unspecified; G89.29 Other chronic pain; M54.50 Low back pain, unspecified; L71.9 Rosacea, unspecified; K21.9 Gastro-esophageal reflux disease without esophagitis; I25.2 Old myocardial infarction; I48.0 Paroxysmal atrial fibrillation; Z95.1 Presence of aortocoronary bypass graft; Z95.0 Presence of cardiac pacemaker; M19.90 Unspecified osteoarthritis, unspecified site; I73.9 Peripheral vascular disease, unspecified; R29.6 Repeated falls; Z91.81 History of falling; Z96.60 Presence of unspecified orthopedic joint implant; Z87.19 Personal history of other diseases of the digestive system; Z98.42 Cataract extraction status, left eye; Z98.41 Cataract extraction status, right eye; Z87.891 Personal history of nicotine dependence